=== PATIENT | male | born 1950 | race Caucasian/White ===

== ENCOUNTER 2016-08-20 08:34 | Emergency (ER) | payer BC, OTHER ==
[~2016-08-20] VITALS: Ht 170.2 cm; Wt 77.1 kg
[~2016-08-20 08:34] MED LIST: ALLOPURINOL100 M1 ORAL; ASACOL HD800 MG ORAL; ASPIRIN81 MG ORAL; BRILINTA90 MG PO; CARAFATE1 G1 JT; CARVEDILOL6.25 MG ORAL; CIPRO500 MG PO; CIPROFLOXACIN500 M2 ORAL; FERROUS SULFAT325 MG ORAL; LIPITOR80 MG ORAL; MULTIVITAMINS1 EAC2 ORAL; PRILOSEC20 MG ORAL; ROWASA4 GM/60 ML RECTAL; VENOFER50 MG/2.5 IV
[2016-08-20 08:58] VITALS: BP 129/81
[2016-08-20] MEDS ORDERED: ATENOLOL25 MG ORAL (09:11)
--- NOTE | 2016-08-20 10:13 | Emergency Room Report ---
History of Present Illness General Chief Complaint: General Complaint Source: Patient, Medical Record Present Illness HPI Patient has a history of ulcerative colitis status post colectomy. He also has a continent ileostomy pouch. He is having difficulty intubating the pouch. He states that has been going on for about 2-3 days and much worse last night. He denies any nausea or vomiting. He does complain of some mild abdominal distention. Patient's surgeon is Dr. Rodney Stone who informed me that patient is coming. Patient denies any fever. Symptoms noted to be moderate to severe. Dr. Stone felt that this likely will require evaluation in the endoscopy suite. No other modifying factors. No other associated signs and symptoms. No other complaints were noted. Allergies: Coded Allergies: CEPHALEXIN (Verified Allergy, Mild, 11/06/09) PENICILLIN G (Verified Allergy, Mild, 01/22/09) SULFA (SULFONAMIDE ANTIBIOTICS) (Verified Allergy, Mild, 11/07/09) Uncoded Allergies: ORAL FLAGYL (Adverse Reaction, Unknown, 11/07/09) Patient History Past Medical History: other - Colitis Past Surgical History: other - colectomy, ileostomy Social History: Denies: alcohol use, drug use, smoking Reviewed Nursing Documentation: PMH: Agreed, PSxH: Agreed Nursing Documentation-PMH Past Medical History: No History, Except For Hx Cardiac Problems: Yes Hx Cancer: No Hx Gastrointestinal Problems: Yes Hx Neurological Problems: No Review of Systems All Other Systems: negative except mentioned in HPI Physical Exam Vital Signs Date Time Temp Pulse Resp B/P Pulse Ox O2 Delivery O2 Flow Rate FiO2 08/20/16 08:47 98.1 66 18 129/81 97 Room Air Sp02 EP Interpretation: reviewed, normal General Appearance: normal inspection, well appearing, no apparent distress, alert Head: atraumatic Eyes: bilateral eye normal inspection ENT: normal ENT inspection, hearing grossly normal, normal voice Neck: normal inspection, full range of motion, supple, no bony tend Respiratory: normal inspection, lungs clear, normal breath sounds, no respiratory distress, no retraction, no wheezing Cardiovascular #1: regular rate, rhythm, no edema Gastrointestinal: normal inspection, normal bowel sounds, non tender, soft, no guarding, no hernia Genitourinary: no CVA tenderness Musculoskeletal: normal inspection, back normal, normal range of motion Neurologic: normal inspection, alert, responsive, speech normal Psychiatric: normal inspection, judgement/insight normal, mood/affect normal Skin: normal inspection, normal color, no rash Medical Decision Making Diagnostic Impression: Primary Impression: Ileostomy obstruction Additional Impression: Ileostomy stenosis ER Course Patient presents emergency department today complaining of ileostomy obstruction. Differential considerations include collapsed at the colostomy valve, infectious process, bowel obstruction ust name a few. Given patient's presentation patient requires evaluation by surgery. Case was discussed with Dr. Rodney Stone who saw the patient emergency department and took the patient to the endoscopy suite to evaluate the ileostomy. EKG Diagnostic Results EP Interpretation: 67 Rate: normal Rhythm: NSR ST Segments: no acute changes Rhythm Strip Diag. Results EP Interpretation: yes Rate: 60s Rhythm: NSR, no PVC's, no ectopy Other X-Ray Diagnostic Results X-Ray ordered: abdominal x-rays # of Views/Limited Vs Complete: 4 View EP Interpretation: Yes Interpretation: no fractures, no soft tissue swelling, other - surgical clips, no obstruction Indication: Pain Impression: No acute disease Interpreting ER Provider: Electronically signed by Becky Melendez MD Last Vital Signs Date Time Temp Pulse Resp B/P Pulse Ox O2 Delivery O2 Flow Rate FiO2 08/20/16 08:58 98.1 18 129/81 97 Room Air 08/20/16 08:47 66 Status: improved Disposition: HOME, SELF-CARE Condition: Stable BECKY MELENDEZ M.D. Aug 20, 2016 10:13
[2016-08-20 11:26] VITALS: BP 114/74
[2016-08-20 11:38] VITALS: BP 114/74
--- NOTE | 2016-08-20 15:16 | History and Physical Report ---
DATE OF EMERGENCY ROOM VISIT: 08/20/2016 REASON FOR VISIT: Inability to catheterize Denise Continent Ileostomy HISTORY OF PRESENT ILLNESS: The patient is a 66-year-old male, in fairly stable health, who has previously undergone proctocolectomy for ulcerative colitis and has a Denise type of Kock pouch continent ileostomy. The patient usually intubates with a 30-Fijian silicone catheter several times a day and has no incontinence of stool or gas through the stoma. For the past two weeks, the patient has developed some difficulty intubating, but then yesterday and overnight developed severe difficulty inserting his regular catheter. He could only insert a much smaller 24-Fijian catheter, which itself had a tear in it, making it worrisome for traumatizing the stoma and pouch. He also states that his catheter must go all the way in to the pouch before it can drain, which is unusual for him. In view of the severe difficulty with intubation and complete inability to insert any catheter for 24 hours, I advised him to come directly to the emergency room this morning. He has been found to be stable and will undergo Denise pouch endoscopy, hopefully without any anesthesia. MEDICATIONS: Aspirin 81 mg daily, statin, Prilosec, allopurinol, in the past vitamin B12 injections and Venofer infusions. ALLERGIES: Penicillin and Keflex. In addition, Flagyl taken orally causes GI upset. REVIEW OF SYSTEMS: Myocardial infarction in March 2015 with three coronary stents. Bladder stones in the past. GI bleeding while on Brilinta in December 2015 with ulcerated bleeding areas in the pouch that resolved with medical treatment and discontinuation of Brilinta. PHYSICAL EXAMINATION: GENERAL: The patient is well developed and well nourished, in no acute distress. Feeling uncomfortable. Complete evaluation by the emergency room physician showed he was stable. ABDOMEN: Examination of the abdomen revealed minimal distention, soft, and nontender and with a midline scar and a small umbilical hernia, which is reducible. The stoma of the Denise continent ileostomy is low in the right lower quadrant and is very small, but does admit a 30-Fijian catheter by visual inspection. He states that it also pulls inwards at times. EXTREMITIES: Without edema. NEUROLOGIC: Physiologic. IMPRESSION: 1. Acute inability to catheterize Denise continent ileostomy. 2. History of ulcerative colitis. 3. History of myocardial infarction with coronary artery stents March 2015 4. History of bladder stones. 5. STATUS POST MULTIPLE ABDOMINAL OPERATIONS: 5.1. Proctocolectomy with Lucy ileostomy in 1973. 5.2. Kock pouch in 1975. 5.3. Resection of Kock pouch and distal ileal stricture and creation of a Denise type of continent ileostomy in January 2009. 5.4. Revision of Denise continent ileostomy stoma in depth October 2009. PLAN: The patient requires emergency pouch endoscopy to be able to make a diagnosis as to why he is having this difficulty catheterizing his pouch. Treatment options will be reviewed once the endoscopic findings are noted. I have discussed the nature of the endoscopy with the patient, which he has been through before and usually and hopefully in this case as well he will not require any anesthesia or sedation. Rodney Stone M.D. DR: AISHA JOB#: [id number] MTDKen
--- NOTE | 2016-08-20 17:16 | Procedure Note ---
DATE OF PROCEDURE: 08/20/2016 ENDOSCOPY PROCEDURE REPORT ENDOSCOPIST: Rodney Stone M.D. PRE-ENDOSCOPY DIAGNOSES: 1. Malfunctioning Denise continent ileostomy with inability to catheterize requiring emergency pouch endoscopy. 2. History of ulcerative colitis. 3. Status post multiple abdominal operations. 3.1. Proctocolectomy with Lucy ileostomy in 1973. 3.2. Kock pouch in 1975. 3.3. Resection of Kock pouch and distal ileal stricture and creation of a Denise continent ileostomy January 2009. 3.4. Revision of Denise continent ileostomy stoma in depth October 2009 POST-ENDOSCOPY DIAGNOSES: 1. Malfunctioning Denise continent ileostomy with inability to catheterize requiring emergency pouch endoscopy. 2. History of ulcerative colitis. 3. Status post multiple abdominal operations. 3.1. Proctocolectomy with Lucy ileostomy in 1973. 3.2. Kock pouch in 1975. 3.3. Resection of Kock pouch and distal ileal stricture and creation of a Denise continent ileostomy January 2009. 3.4. Revision of Denise continent ileostomy stoma in depth October 2009 ENDOSCOPY PERFORMED: Emergency Denise pouch continent ileostomy pouch endoscopy. FINDINGS: 1. Stenosis of the stoma orifice barely admitting GIF-P140 endoscope. 2. Redundant and angulated access segment with distance to tip of the nipple valve 12 cm with angulation at 8 centimeters. 3. Stenosis of valve tip. 4. Diffuse pouchitis. DESCRIPTION OF PROCEDURE: The patient was positioned supine in the GI lab without any anesthesia or sedation given or required. Using a GIF-P140 endoscope, I was able to get into the stoma stricture. There was an angulation at 8 centimeters depth and the tip of the nipple valve was visualized at 12 cm with slight stenosis with the patient having some pain as the scope went through into the pouch. The pouch was distensible and there are diffuse areas of inflammation and superficial erosions. Retroflex views revealed that the nipple valve was circumferentially well-formed but slightly tilted. Withdrawal views confirmed the above findings. After the procedure, I was unable to insert a 28-Libyan Chahal catheter into the pouch but was able to insert a 26-Libyan Chahal and was able to evacuate the pouch. The patient was given a 30-Libyan Bhumi catheter and has been able to insert the Bhumi catheter to empty the pouch. I also provided him with a 24-Libyan Medena catheter and Chahal catheters 28Fr., 26Fr., and 24Fr. He will require laparotomy and revision of the stoma both to revise the stricture and to resect the elongated access segment which is redundant and angulated. He will need intensive treatment of his pouchitis before surgery can be performed, and fortunately he is now able to get a catheter into his pouch. He will immediately start Cipro 500 mg every 12 hours and I will prescribe Rowasa solution, which he will flush into his continent pouch at the last intubation of the day just prior to going to sleep before he removes his intubation catheter. The patient tolerated the endoscopy well and is be stable for discharge home. Rodney Stone M.D. DR: Kandi JOB#: [id number] JUAN M
--- NOTE | 2016-08-21 08:24 | Diagnostic Imaging Report ---
Indication: Abdominal pain Technique: Supine and upright views of the abdomen Comparison: none Findings: Bowel gas pattern is unremarkable. No gaseous distention of large or small bowel, significant air-fluid levels, or evidence of free intraperitoneal air. Surgical romeo are seen in the pelvis. Surgical clips are seen throughout the mid lower abdomen and right lower quadrant. Unusual masses or calcifications. Impression: No definite acute process Postsurgical changes, as described This agrees with the preliminary interpretation provided by the emergency room physician
--- NOTE | 2016-08-21 18:49 | Cardiology Report ---
APPROVED REPORT EKG Measurement Heart [id number] VT 160P50 [id number] Normal sinus rhythm with sinus arrhythmia Normal ECG
== END 2016-08-20 11:39 | disposition home or self-care (01) ==
LOC: EMR 09:09
DX: K94.19 Other complications of enterostomy (principal); K51.90 Ulcerative colitis, unspecified, without complications; Z87.442 Personal history of urinary calculi; Z88.1 Allergy status to other antibiotic agents; I25.2 Old myocardial infarction; Z95.5 Presence of coronary angioplasty implant and graft; I25.10 Atherosclerotic heart disease of native coronary artery without angina pectoris; Z79.82 Long term (current) use of aspirin; Z88.2 Allergy status to sulfonamides; Z88.0 Allergy status to penicillin; Y83.3 Surgical operation with formation of external stoma as the cause of abnormal reaction of the patient, or of later complication, without mention of misadventure at the time of the procedure; Y73.2 Prosthetic and other implants, materials and accessory gastroenterology and urology devices associated with adverse incidents; Y92.009 Unspecified place in unspecified non-institutional (private) residence as the place of occurrence of the external cause
CPT/HCPCS: 74020; 93005; 99283

== ENCOUNTER 2017-04-23 23:08 | Inpatient (IN) | payer BC, MEDICARE ==
[~2017-04-23] VITALS: Ht 170.2 cm; Wt 80.7 kg
[~2017-04-23 23:08] MED LIST changes: +ATENOLOL25 MG ORAL
[2017-04-23] MEDS ORDERED: NITROSTAT0.4 M2 SL (23:41)
[2017-04-23] MEDS ORDERED: GAVILYTE-G SO4000 ML PO (23:41)
[2017-04-23] MEDS ORDERED: POLYETHYLENE GL17 GM ORAL (23:41)
[2017-04-23] MEDS ORDERED: CIPRO500 MG PO (23:41)
[2017-04-23] MEDS ORDERED: ALLOPURINOL100 M1 ORAL (23:41)
[2017-04-23] MEDS ORDERED: CIALIS20 MG ORAL (23:41)
[2017-04-23] MEDS ORDERED: [UNRECOGNIZED DRUG - OTHER] TP (23:41)
[2017-04-23] MEDS ORDERED: BUDESONIDE EC3 M1 PO (23:41)
[2017-04-23] MEDS ORDERED: ATORVASTATIN CA40 MG ORAL (23:41)
[2017-04-23 23:53] LABS: BASOPHILS % (AUTO) 0.7 % (0.0-2.0); EOSINOPHILS % (AUTO) 0.7 % (0.0-3.0); HEMATOCRIT 43.4 % (42.0-52.0); HEMOGLOBIN 15.1 G/DL (14.2-18.0); LYMPHOCYTES % (AUTO) 18.5 % (20.0-45.0); MEAN CORPUSCULAR VOLUME 83 FL (80-99); NEUTROPHILS % (AUTO) 73.2 % (45.0-75.0); PLATELET COUNT 262 K/UL (150-450); RED BLOOD COUNT 5.25 M/UL (4.70-6.10); RED CELL DISTRIBUTION WIDTH 12.2 % (11.6-14.8); WHITE BLOOD COUNT 8.4 K/UL (4.8-10.8)
[2017-04-24 00:01] LABS: ANION GAP 8 mmol/L (5-15); BLOOD UREA NITROGEN 17 mg/dL (7-18); CALCIUM 9.3 MG/DL (8.5-10.1); CARBON DIOXIDE 26 MMOL/L (21-32); CHLORIDE 102 MMOL/L (98-107); CREATININE 1.5 MG/DL (0.55-1.30); POTASSIUM 3.7 MMOL/L (3.5-5.1); SODIUM 136 MMOL/L (136-145)
[2017-04-24 00:04] LABS: ALANINE AMINOTRANSFERASE 28 U/L (12-78); ALBUMIN 3.3 G/DL (3.4-5.0); ALBUMIN/GLOBULIN RATIO 0.8 (1.0-2.7); ALKALINE PHOSPHATASE 128 U/L (46-116); ASPARTATE AMINO TRANSFERASE 24 U/L (15-37); BILIRUBIN,TOTAL 0.7 MG/DL (0.2-1.0)
--- NOTE | 2017-04-24 00:13 | Emergency Room Report ---
History of Present Illness General Chief Complaint: Abdominal Pain Source: Patient Present Illness HPI Patient is a 67-year-old male who presented after having increased abdominal pain distention. The patient had a prior history of ulcerative colitis had previous total colectomy. He subsequently had a BCIR procedure. The patient noted have increased abdominal distention and as well as difficulty with catheterizing the pouch. He reported having increased abdominal pain and nausea. He states he's had prior myocardial infarction. He denies any vomiting. He states he was able to pass some gas. Allergies: Coded Allergies: CEPHALEXIN (Verified Allergy, Mild, 11/06/09) PENICILLIN G (Verified Allergy, Mild, 01/22/09) SULFA (SULFONAMIDE ANTIBIOTICS) (Verified Allergy, Mild, 11/07/09) Uncoded Allergies: ORAL FLAGYL (Adverse Reaction, Unknown, 11/07/09) Patient History Past Medical History: see triage record Reviewed Nursing Documentation: PMH: Agreed, PSxH: Agreed Nursing Documentation-PMH Hx Cardiac Problems: Yes - [place] 2015, 3 stents on heart Hx Cancer: No Hx Gastrointestinal Problems: Yes - colostomy Hx Neurological Problems: No Review of Systems All Other Systems: negative except mentioned in HPI Physical Exam Vital Signs Date Time Temp Pulse Resp B/P (MAP) Pulse Ox O2 Delivery O2 Flow Rate FiO2 04/23/17 23:13 99.2 107 18 126/83 99 Room Air 99.1 Sp02 EP Interpretation: reviewed, normal General Appearance: normal inspection, well appearing, no apparent distress, alert, GCS 15 Head: atraumatic ENT: normal ENT inspection, hearing grossly normal, normal voice Neck: normal inspection, full range of motion, supple, no bony tend Respiratory: normal inspection, lungs clear, normal breath sounds, no respiratory distress, no retraction, no wheezing Cardiovascular #1: regular rate, rhythm, no edema Gastrointestinal: non tender, soft, no guarding, no hernia, distended, hernia - umbilical hernia, other - surgical scars Genitourinary: no CVA tenderness Musculoskeletal: normal inspection, back normal, normal range of motion Neurologic: normal inspection, alert, oriented x3, responsive, manager meat III-XII nml as tested, motor strength/tone normal, speech normal Psychiatric: normal inspection, judgement/insight normal, mood/affect normal Skin: normal inspection, normal color, no rash Medical Decision Making Diagnostic Impression: Primary Impression: History of coronary artery stent placement Additional Impressions: Abdominal pain Malfunction of stoma ER Course Patient presented for abdominal pain. Differential diagnoses included ischemic bowel, appendicitis, perforated viscus, abdominal aortic aneurysm, inferior myocardial infarction, viral gastroenteritis. Because of complexity of patient' s case laboratory testing and imaging studies were ordered. The patient noted have increased abdominal distention. The patient had a hernia which appears reducible. The patient was noted to have prior history of [place]. The patient was given nausea medications he started on IV fluids. The patient be admitted to Dr. Stone for further evaluation treatment. This medical record is generated with [employer] cook ice cream software. There may be some cook ice cream discrepancies related to use of this software Labs Test 04/23/17 23:00 White Blood Count 8.4 K/UL (4.8-10.8) Red Blood Count 5.25 M/UL (4.70-6.10) Hemoglobin 15.1 G/DL (14.2-18.0) Hematocrit 43.4 % (42.0-52.0) Mean Corpuscular Volume 83 FL (80-99) Mean Corpuscular Hemoglobin 28.7 PG (27.0-31.0) Mean Corpuscular Hemoglobin Concent 34.8 G/DL (32.0-36.0) Red Cell Distribution Width 12.2 % (11.6-14.8) Platelet Count 262 K/UL (150-450) Mean Platelet Volume 6.6 FL (6.5-10.1) Neutrophils (%) (Auto) 73.2 % (45.0-75.0) Lymphocytes (%) (Auto) 18.5 % (20.0-45.0) Monocytes (%) (Auto) 7.0 % (1.0-10.0) Eosinophils (%) (Auto) 0.7 % (0.0-3.0) Basophils (%) (Auto) 0.7 % (0.0-2.0) Sodium Level 136 MMOL/L (136-145) Potassium Level 3.7 MMOL/L (3.5-5.1) Chloride Level 102 MMOL/L (98-107) Carbon Dioxide Level 26 MMOL/L (21-32) Anion Gap 8 mmol/L (5-15) Blood Urea Nitrogen 17 mg/dL (7-18) Creatinine 1.5 MG/DL (0.55-1.30) Estimat Glomerular Filtration Rate 47.0 mL/min (>60) Glucose Level 128 MG/DL (74-106) Calcium Level 9.3 MG/DL (8.5-10.1) Total Bilirubin 0.7 MG/DL (0.2-1.0) Aspartate Amino Transf (AST/SGOT) 24 U/L (15-37) Alanine Aminotransferase (ALT/SGPT) 28 U/L (12-78) Alkaline Phosphatase 128 U/L (46-116) Total Protein 7.4 G/DL (6.4-8.2) Albumin 3.3 G/DL (3.4-5.0) Globulin 4.1 g/dL Albumin/Globulin Ratio 0.8 (1.0-2.7) Lipase 197 U/L (73-393) Last Vital Signs Date Time Temp Pulse Resp B/P (MAP) Pulse Ox O2 Delivery O2 Flow Rate FiO2 3/2/18 23:13 99.2 107 18 126/83 99 Room Air 99.1 Status: improved Disposition: HOME, SELF-CARE Condition: Stable Gideon Lopez Apr 24, 2017 00:13
[2017-04-24 01:15] VITALS: BP 132/85
[2017-04-24] MEDS ORDERED: Morphine Sulfate 4mg/ml Inj IVP ONE ×2 (01:15→02:45)
[2017-04-24 01:22] LABS: APPEARANCE,URINE CLEAR; BILIRUBIN, URINE NEGATIVE (NEGATIVE); GLUCOSE, URINE (UA) NEGATIVE (NEGATIVE); KETONES,URINE NEGATIVE (NEGATIVE); LEUKOCYTE ESTERASE ,URINE 1+ (NEGATIVE); NITRITE,URINE NEGATIVE (NEGATIVE); PH,URINE 5 (4.5-8.0); PROTEIN,URINE 1+ (NEGATIVE); UROBILINOGEN,URINE NORMAL MG/DL (0.0-1.0)
[2017-04-24 01:23] LABS: COLOR,URINE YELLOW
[2017-04-24 03:00] VITALS: BP 143/90
[2017-04-24] MEDS: D5 1/2NS w/KCl 20mEq 1,000 ML IV SCH ×3 (04:53→20:57)
[2017-04-24 08:00] VITALS: BP 103/72
--- NOTE | 2017-04-24 08:32 | General Progress Note ---
Progress Note Progress Note H&P dictated. Admitted from ED at 0130 for bowel obstruction due to malfunctioning Denise continent ileostomy Unable to catheterize his Denise Continent Ileostomy since 0400 yesterday AM. Developed cramping and bloating and told to come to ER Admitted andj 24 fr Chahal inserted into BCIR pouch with drainage of 285cc enteric fluid past 4 hours. and feeling better but still with abdominal pain/ cramps AVSS Abdomen moderately distended, soft. Long midline incision with hernia in epigastric portion and at umbilical portion ER labs OK - repeat pending Imp. small bowel obstruction due to malfunctioning Denise Continent Ileostomy with inability to catheterize History of proctocolectomy and continent ileostomy x 2 for Ulcerative Colitis Plan: NPO except po meds, ice chips Prepare for surgery - laparotomy with revision Denise pouch on this admission once obstruction has resolved CYNDI BLACKMAN Apr 24, 2017 08:31
[2017-04-24 08:41] LABS: EOSINOPHILS % (AUTO) 0.8 % (0.0-3.0); HEMATOCRIT 42.1 % (42.0-52.0); HEMOGLOBIN 14.2 G/DL (14.2-18.0); LYMPHOCYTES % (AUTO) 19.5 % (20.0-45.0); MEAN CORPUSCULAR VOLUME 85 FL (80-99); MONOCYTES % (AUTO) 6.8 % (1.0-10.0); PLATELET COUNT 237 K/UL (150-450); RED BLOOD COUNT 4.99 M/UL (4.70-6.10); RED CELL DISTRIBUTION WIDTH 12.8 % (11.6-14.8); WHITE BLOOD COUNT 7.1 K/UL (4.8-10.8)
[2017-04-24 08:56] LABS: ALANINE AMINOTRANSFERASE 25 U/L (12-78); ALBUMIN/GLOBULIN RATIO 0.8 (1.0-2.7); ALKALINE PHOSPHATASE 108 U/L (46-116); ANION GAP 4 mmol/L (5-15); ASPARTATE AMINO TRANSFERASE 21 U/L (15-37); BILIRUBIN,TOTAL 0.8 MG/DL (0.2-1.0); BLOOD UREA NITROGEN 15 mg/dL (7-18); CALCIUM 8.7 MG/DL (8.5-10.1); CARBON DIOXIDE 29 MMOL/L (21-32); CHLORIDE 105 MMOL/L (98-107); CREATININE 1.4 MG/DL (0.55-1.30); POTASSIUM 4.1 MMOL/L (3.5-5.1); SODIUM 138 MMOL/L (136-145)
[2017-04-24] MEDS: Allopurinol 100mg Tab ORAL SCH (09:03)
[2017-04-24] MEDS: Pantoprazole Inj IVP SCH (09:03)
[2017-04-24] MEDS: Ascorbic Acid 500mg tab ORAL PRN (09:03)
--- NOTE | 2017-04-24 10:42 | Diagnostic Imaging Report ---
Indication: Cough Comparison: 01/09/2016 A single view chest radiograph was obtained. Findings: Heart size is normal. The aorta is ectatic. Pulmonary vascularity is appropriate. The diaphragmatic contour is smooth and costophrenic angles are sharp. No pleural effusions are identified. The bones are unremarkable. Impression: No acute findings
[2017-04-24 12:00] VITALS: BP 111/72
[2017-04-24 16:00] VITALS: BP 113/79
[2017-04-24 20:00] VITALS: BP 119/82
--- NOTE | 2017-04-24 20:45 | History and Physical Report ---
DATE OF ADMISSION: 04/24/2017 EMERGENCY ADMISSION FROM EMERGENCY DEPARTMENT 0200 HISTORY OF PRESENT ILLNESS: The patient is admitted for bowel obstruction due to a malfunctioning Denise continent ileostomy with inability to catheterize to evacuate waste and gas. The patient is a 67-year-old male in stable health who has a past history of ulcerative colitis and has previously undergone proctocolectomy initially with a conventional ileostomy in 1973 followed by creation of a Kock pouch continent ileostomy in 1975. In January 2009 he underwent resection of his Kock pouch with distal ileal stricture and creation of a Denise type of continent ileostomy. He required revision of the stoma in depth in October 2009. The patient was admitted as an emergency in similar circumstances in July 2016 with inability to intubate with subsequent bowel obstruction. He was stabilized and underwent endoscopy of his pouch revealing a redundant and angulated access segment with the distance from the stoma orifice, which was stenotic, to the tip of the nipple valve 12 cm with an angulation at 8 cm. There was also stenosis of the valve tip and diffuse pouchitis. He was treated for the pouchitis with improvement and was informed that he needed to undergo laparotomy with revision of his pouch and stoma to allow him to intubate readily. His health insurance company, which is an [employer] refused to allow out of network care and the patient has struggled since then to get authorization. He has been taking Cipro for pouchitis symptoms and earlier took mesalamine instilled into the pouch nightly. At 5 a.m., the day prior to admission, 04/23/2017, the patient intubated, but got only a small amount of effluent and has not been able to catheterize and evacuate at all. He has had progressing distention and some nausea and was advised to come to the emergency room. He was admitted and a 24-Estonian Chahal catheter was able to be placed into the pouch to get decompression. He usually catheterizes with a 30-Estonian Medena or Bhumi catheter. MEDICATIONS: Allopurinol 100 mg every night, Prilosec daily, and aspirin 81 mg daily. He takes a statin for cholesterol and vitamin B12 injections. ALLERGIES: Penicillin and Keflex. In addition, Flagyl taken orally causes GI upset. REVIEW OF SYSTEMS: 1) Myocardial infarction in March 2015 with three coronary stents. 2) Bladder stones in the past. 3) GI bleeding while on Brilinta in December 2015 with ulcerations of the pouch that were diffusely bleeding that resolved with medical treatment and discontinuation of Brilinta. PHYSICAL EXAMINATION: GENERAL: The patient is well developed, well nourished, slightly overweight, complaining of some mild abdominal cramping. HEENT: Within normal limits. LUNGS: Clear. HEART: Regular rhythm without murmur. BREASTS: Without masses. ABDOMEN: Mildly to moderately distended, but soft. There is a long midline scar with an incisional hernia in the epigastric portion as well as at the umbilical area, both of which are reducible. The stoma of the Denise continent ileostomy is low in the right lower quadrant with a stenotic orifice. There is an indwelling 24-Estonian catheter connected to continuous gravity drainage producing liquid effluent. EXTREMITIES: Without edema. Pulses 2+ femoral to pedal bilateral RECTAL: Status post proctectomy. GENITALIA: Within normal limits. NEUROLOGIC: Physiologic. LABORATORY STUDIES: Revealed white blood cells 8400 and hemoglobin 15.1. BUN 17 and creatinine elevated at 1.5. Albumin 3.3. Followup studies will be obtained after the patient is fully hydrated. IMPRESSION: 1. Small bowel obstruction due to malfunctioning Denise continent ileostomy with inability to catheterize. 2. Dehydration 3. Malnutrition 4. History of ulcerative colitis. 5. History of myocardial infarction in March 2015 with three coronary stents. 6. History of gout, on allopurinol. 7. History of recurrent bladder stones. 8. Status post multiple abdominal operations. 1. Proctocolectomy with Lucy ileostomy in 1973. 2. Kock pouch continent ileostomy in 1975. 3. Resection of Kock pouch and distal ileal stricture and creation of a Denise type of continent ileostomy in January 2009. 4. Revision of Denise continent ileostomy stoma in depth, October 2009 DISCUSSION AND PLAN: The patient's bowel obstruction will gradually resolve with continuous decompression of his continent ileostomy with an indwelling catheter. As this is his second episode of emergency room visit with emergency admission, he will not be discharged until he undergoes surgery with laparotomy to correct the inability to intubate. This will need to wait until his obstructed bowel is completely decompressed. He will also be seen by Cardiology to assess his cardiac status. At this point, he will be NPO except for p.o. medications and we will continue with intravenous hydration and followup lab studies. He will be continued on allopurinol orally and Protonix intravenously. His pre-admission statin and daily aspirin therapy will be held at this time. He will be seen pre-operatively by Cardiology. Rodney Stone M.D. DR: Courtney JOB#: [id number] CC: JUAN M
[2017-04-25] VITALS (7 sets, daily range): BP systolic 100–122; BP diastolic 72–99
[2017-04-25] MEDS: D5 1/2NS w/KCl 20mEq 1,000 ML IV SCH ×3 (05:06→18:00)
[2017-04-25 08:37] LABS: BASOPHILS % (AUTO) 1.2 % (0.0-2.0); EOSINOPHILS % (AUTO) 1.7 % (0.0-3.0); HEMATOCRIT 39.4 % (42.0-52.0); HEMOGLOBIN 13.6 G/DL (14.2-18.0); LYMPHOCYTES % (AUTO) 23.7 % (20.0-45.0); MEAN CORPUSCULAR VOLUME 84 FL (80-99); MONOCYTES % (AUTO) 7.7 % (1.0-10.0); NEUTROPHILS % (AUTO) 65.8 % (45.0-75.0); PLATELET COUNT 223 K/UL (150-450); RED BLOOD COUNT 4.67 M/UL (4.70-6.10); RED CELL DISTRIBUTION WIDTH 12.6 % (11.6-14.8)
[2017-04-25] MEDS: Allopurinol 100mg Tab ORAL SCH (08:44)
[2017-04-25] MEDS: Pantoprazole Inj IVP SCH (08:44)
[2017-04-25] MEDS: Ascorbic Acid 500mg tab ORAL PRN ×2 (08:44→21:15)
[2017-04-25] MEDS: Lidocaine 1% MPF 10mg/ml 5ml INJ SCH (08:45)
[2017-04-25] MEDS: Heparin 2000 units/Ns 1000ml INJ SCH (08:45)
--- NOTE | 2017-04-25 08:50 | General Progress Note ---
Progress Note Progress Note AVSS Still having painful cramping but much improved. No nausea or emesis Abdomen less distended, soft Urine 650 BCIR ileo 1290 Labs pending Imp. SBO due to malfunctioning Denise Continent Ileostomy - resolving slowly Plan: Continue NPO IN AM: CT scan abd+pelvis with oral and IV contrast In AM - Dual lumen PICC - will need TPN Surgery 04/27 or 04/28 Await labs CYNDI BLACKMAN Apr 25, 2017 08:50
[2017-04-25 09:18] LABS: ANION GAP 6 mmol/L (5-15); BLOOD UREA NITROGEN 10 mg/dL (7-18); CALCIUM 8.4 MG/DL (8.5-10.1); CARBON DIOXIDE 28 MMOL/L (21-32); CHLORIDE 104 MMOL/L (98-107); CREATININE 1.3 MG/DL (0.55-1.30); POTASSIUM 3.9 MMOL/L (3.5-5.1); SODIUM 138 MMOL/L (136-145)
[2017-04-25] MEDS ORDERED: NS Irrig 1000ml ONE (15:21)
[2017-04-25] MEDS ORDERED: D5 1/2NS 1000ml IV ONE (15:21)
[2017-04-25] MEDS ORDERED: Sterile Water Irrig 1000ml IRRIG ONE (15:21)
[2017-04-25] MEDS: Dyna-Hex 2% Top Sol 2oz TOPIC SCH (20:00)
[2017-04-26 04:00] VITALS: BP 121/80
[2017-04-26] MEDS: D5 1/2NS w/KCl 20mEq 1,000 ML IV SCH ×3 (05:00→19:13)
[2017-04-26 05:16] LABS: ANION GAP 2 mmol/L (5-15); BLOOD UREA NITROGEN 8 mg/dL (7-18); CALCIUM 8.7 MG/DL (8.5-10.1); CARBON DIOXIDE 32 MMOL/L (21-32); CHLORIDE 103 MMOL/L (98-107); CREATININE 1.2 MG/DL (0.55-1.30); POTASSIUM 3.8 MMOL/L (3.5-5.1); SODIUM 137 MMOL/L (136-145)
[2017-04-26 05:17] LABS: BASOPHILS % (AUTO) 1.2 % (0.0-2.0); EOSINOPHILS % (AUTO) 1.9 % (0.0-3.0); HEMATOCRIT 39.1 % (42.0-52.0); HEMOGLOBIN 13.5 G/DL (14.2-18.0); LYMPHOCYTES % (AUTO) 26.4 % (20.0-45.0); MEAN CORPUSCULAR VOLUME 84 FL (80-99); MONOCYTES % (AUTO) 9.4 % (1.0-10.0); NEUTROPHILS % (AUTO) 61.2 % (45.0-75.0); PLATELET COUNT 222 K/UL (150-450); RED BLOOD COUNT 4.67 M/UL (4.70-6.10); RED CELL DISTRIBUTION WIDTH 12.2 % (11.6-14.8); WHITE BLOOD COUNT 5.2 K/UL (4.8-10.8)
[2017-04-26 08:07] VITALS: BP 139/94
[2017-04-26] MEDS: Lidocaine 1% MPF 10mg/ml 5ml INJ SCH (08:45)
[2017-04-26] MEDS: Heparin 2000 units/Ns 1000ml INJ SCH (08:45)
[2017-04-26] MEDS ORDERED: Dextrose 10% 1,000 ML IV PRN (08:45)
[2017-04-26] MEDS: Pantoprazole Inj IVP SCH (08:50)
[2017-04-26] MEDS: Allopurinol 100mg Tab ORAL SCH (08:50)
--- NOTE | 2017-04-26 08:53 | General Progress Note ---
Progress Note Progress Note AVSS Abdomen feeling nearly back to normal per patient. Abdomen soft, non-distended Urine 2150 BCIR ileo 1605 WBC 5200 Hgb 13.5 BUN 8 Cr 1.2 (was 1.5 on admission) Albumin 3.0 Imp. SBO due to inability to catheterize Denise Continent Ileostomy - resolved Dehydration on admission with elevated creatinine - resolved Malnutrition Chronic Pouchitis involving Denise Continent Ileostomy Plan: CT scan abd+pelvis Dual lumen PIC line Start TPN tonight Surgery this week - laparotomy with revision Denise continent ileostomy because of redundant and angulated access segment, stenosis of valve tip, stoma stenosis CYNDI BLACKMAN Apr 26, 2017 08:53
[2017-04-26 12:00] VITALS: BP 129/81
--- NOTE | 2017-04-26 14:07 | Diagnostic Imaging Report ---
Clinical Indication: Abdominal pain and abdominal distention Technique: Patient given oral contrast. IV administration nonionic contrast. Venous phase spiral acquisition obtained through the abdomen and pelvis. Multiplanar reconstructions were generated. Total dose length product 742.67 mGycm. CTDIvol(s) 14.56 mGy. Dose reduction achieved using automated exposure control Comparison: 02/27/2015 Findings: Continent ileostomy is again demonstrated, contains a catheter. Contrast is seen within the catheter. The ileostomy pouch is less distended than on the previous study. The russell of the ileostomy pouch are mildly thickened. This is more so than on the prior study, but previously the was more distended so is possible that this apparent difference is just an artifact of under distention. There is equivocal minimal stranding of the immediately adjacent fat. Again demonstrated is a broad-based ventral hernia which contains several loops of small bowel. This does not appear to be obstructive and there is no evidence of strangulation. 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 Several small bowel loops are mildly prominent but not frankly distended. There is mild wall thickening of a short segment of small bowel that enters into the ileostomy. No free or loculated intraperitoneal air or fluid is evident. Distal esophagus, stomach are unremarkable. Numerous clips are seen scattered throughout the abdomen. A small duodenal diverticulum is again demonstrated. The liver is unremarkable, previously demonstrated generalized low-attenuation not evident currently. There is equivocal mild edema of the gallbladder wall. No gallstones. The pancreas, spleen, adrenals are unremarkable. The kidneys demonstrate multiple cysts, as well as multiple subcentimeter low-attenuation lesions which are too small to characterize. There is an exophytic lesion in the periphery of the left kidney which previously demonstrated fluid attenuation, currently demonstrates nonspecific soft tissue attenuation is smaller than on the prior exam, previously measuring 26 mm diameter, currently 18 mm. Collecting systems, ureters, and bladder are unremarkable. No pelvic mass or adenopathy. No retroperitoneal or mesenteric mass or adenopathy. The included lung bases are clear. The bones are unremarkable. Impression: Post surgical changes, status post continent ileostomy and total colectomy, as described. No evidence of small bowel obstruction. Contrast is seen filling the ileostomy. Mild wall thickening of the pouch and the small bowel immediately proximal to the ileostomy, not evident previously, and equivocal stranding of the surrounding fat. Although the pouch is less distended, than previously this raises the possibility of inflammation of the pouch, acuity indeterminate. Correlate with clinical findings. Left-sided interpolar renal lesion demonstrates soft tissue attenuation. Previously, this was cystic and larger. Most likely, this is a cyst that has involuted and blood. Nonetheless, ultrasound is recommended to confirm cystic nature of this. Other bilateral renal cysts and subcentimeter low-attenuation lesions which are most likely simple cysts. Equivocal mild edema of the gallbladder wall. No gallstones. Correlate with clinical findings, consider ultrasound if clinically suspicious Small duodenal diverticulum incidentally noted Previously demonstrated hepatic fatty change is no longer evident Findings discussed by phone with Dr. Stone at the time of interpretation The CT scanner at [facility] is accredited by the [employer] and the scans are performed using protocols designed to limit radiation exposure to as low as reasonably achievable to attain images of sufficient resolution adequate for diagnostic evaluation.
--- NOTE | 2017-04-26 15:07 | Diagnostic Imaging Report ---
Indications: Needs long-term IV access Technique: Ultrasound confirms patent compressible left basilic vein. Total sterile technique, including sterile probe cover and sterile gel, hat, mask,, sterile gown, large sterile drape, and preparation with 2% chlorhexidine utilized. Local anesthesia with 1% lidocaine. Under real-time ultrasound guidance, puncture left basilic vein using 21-gauge needle, documented and archived, passage 0.018 guidewire under direct fluoroscopy, which would not pass centrally beyond the left subclavian vein. 5 [place]ar[place]uan peel-away sheath was inserted, followed by introduction of a 5 [place] Kumpe catheter. This was used to perform a limited central venogram. 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 Patency of the right innominate vein and superior vena cava, filled by collaterals, is demonstrated. It was elected to abandon this access and attempted via the right arm, as central catheter placement was required for indication of total parenteral nutrition Ultrasound confirms patent compressible right vein. Total sterile technique, including sterile probe cover and sterile gel, hat, mask,, sterile gown, large sterile drape, and preparation with 2% chlorhexidine utilized. Local anesthesia with 1% lidocaine. Under real-time ultrasound guidance, puncture right basilic vein using 21-gauge needle, documented and archived, passage 0.018 guidewire under direct fluoroscopy, which was used to determine appropriate catheter length, exchange for 5 [place]ar[place]uan peel-away sheath. 5 [place] Bard dual-lumen power PICC cut to 39 cm. It was inserted through the peel-away sheath. Peel-away sheath and guidewire removed. Catheter fixed to the skin. Both catheter ports aspirated and flushed. Patient tolerated procedure well, without immediate complication. Digital radiograph documents satisfactory catheter tip position, at the cavoatrial junction. Total fluoroscopy time 1.3 minutes. Total dose area product 1.1 dGycm2 Impression: Successful placement of right arm PICC under sonographic and fluoroscopic guidance, as described above. Note venographic demonstration of central venoocclusive disease, precluding placement of PICC from a left-sided approach
[2017-04-26 16:00] VITALS: BP 123/79
--- NOTE | 2017-04-26 17:21 | Diagnostic Imaging Report ---
Indication: Abnormal renal function, evaluation of left renal abnormality seen on recent CT scan Technique: Grayscale and duplex images of the kidneys, retroperitoneum, and bladder were obtained. Comparison: Reference made to CT scan 04/26/2017 Findings: Right kidney measures 10.7 cm in length. Left kidney measures 1.3 cm in length. Both kidneys demonstrate normal echogenicity. No hydronephrosis. The kidneys demonstrate cysts bilaterally. In the left renal interpolar region, there is a slightly irregular lesion which corresponds to the abnormality described on recent CT. Uncertain as to whether anechoic versus hypoechoic, but does demonstrate distal acoustic enhancement and absence of vascularity. Normal inferior vena cava. Bladder is normal. Impression: Left interpolar region lesion is probably but not definitively a cyst. Equivocal low-level internal echoes could indicate internal hemorrhage or proteinaceous contents if real. Recommend short interval follow-up sonographic surveillance in 6 months. Other cysts, as described Negative for hydronephrosis
[2017-04-26 19:56] VITALS: BP 134/82
[2017-04-26] MEDS: Dyna-Hex 2% Top Sol 2oz TOPIC SCH (20:35)
[2017-04-26] MEDS: Phytonadione 10 mg/mL 1ml amp SUBQ SCH (20:36)
[2017-04-26] MEDS: Fat Emulsion Iv 20% 240 ML in Tpn 1,680 ML IV SCH (20:38)
[2017-04-26] MEDS ORDERED: Fat Emulsion Iv 20% 250 ML IV SCH (21:00)
[2017-04-27] VITALS: BP 129/73
[2017-04-27] MEDS: NovoLOG Insulin Flexpen SUBQ SCH ×4 (00:25→18:14)
[2017-04-27] MEDS: D5 1/2NS w/KCl 20mEq 1,000 ML IV SCH (03:29)
[2017-04-27 04:00] VITALS: BP 128/74
[2017-04-27 04:38] LABS: BASOPHILS % (AUTO) 0.7 % (0.0-2.0); EOSINOPHILS % (AUTO) 0.8 % (0.0-3.0); HEMATOCRIT 40.6 % (42.0-52.0); HEMOGLOBIN 13.9 G/DL (14.2-18.0); LYMPHOCYTES % (AUTO) 16.4 % (20.0-45.0); MEAN CORPUSCULAR VOLUME 83 FL (80-99); MONOCYTES % (AUTO) 5.2 % (1.0-10.0); NEUTROPHILS % (AUTO) 76.8 % (45.0-75.0); PLATELET COUNT 224 K/UL (150-450); RED BLOOD COUNT 4.88 M/UL (4.70-6.10); WHITE BLOOD COUNT 6.8 K/UL (4.8-10.8)
[2017-04-27 04:58] LABS: ALANINE AMINOTRANSFERASE 18 U/L (12-78); ALBUMIN 2.6 G/DL (3.4-5.0); ALBUMIN/GLOBULIN RATIO 0.7 (1.0-2.7); ALKALINE PHOSPHATASE 105 U/L (46-116); ANION GAP 5 mmol/L (5-15); ASPARTATE AMINO TRANSFERASE 17 U/L (15-37); BILIRUBIN,TOTAL 0.5 MG/DL (0.2-1.0); BLOOD UREA NITROGEN 7 mg/dL (7-18); CALCIUM 8.8 MG/DL (8.5-10.1); CARBON DIOXIDE 32 MMOL/L (21-32); CHLORIDE 102 MMOL/L (98-107); CREATININE 1.2 MG/DL (0.55-1.30); POTASSIUM 3.9 MMOL/L (3.5-5.1); SODIUM 139 MMOL/L (136-145)
[2017-04-27] MEDS ORDERED: D5 1/2NS w/KCl 20mEq 1,000 ML IV SCH (05:00)
[2017-04-27 08:00] VITALS: BP 127/69
--- NOTE | 2017-04-27 08:10 | General Progress Note ---
Progress Note Progress Note AVSS Now receiving TPN - PIC line right arm with some pain in upper arm muscles. 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 Having some cramping - likely due to the contrast for CT scan Abdomen soft Urine 2145 BCIR ileo 1465 BUN 7 Cr [address] scan - no acute findings. Bilateral renal cysts with some changes from prior CT. Renal ultrasound - benign but changes from prior so recommended f/u ultrasound in 6 months Imp. Malfunctioning Denise Continent Ileostomy leading to SBO, now resolved Malnutrition - started on TPN Plan: Cardiology clearance for Surgery later this week - Dr. Aviles will see patient (known to him from prior admission/office eval) clear liquid diet TPN Ambulate CYNDI WEISS Apr 27, 2017 08:10
[2017-04-27] MEDS: Pantoprazole Inj IVP SCH (08:40)
[2017-04-27] MEDS: Allopurinol 100mg Tab ORAL SCH (08:40)
[2017-04-27 12:00] VITALS: BP 138/76
--- NOTE | 2017-04-27 13:59 | Cardiology Progress Note ---
Assessment/Plan Assessment/Plan malfunctioining contintent poudh hx of cad nwo follwoed by new educational technology specialist through his hmo malnutrition hy[poalbuminemia low- intermediate risk of perioperative cardiac morbidity non contraindication will have echo is on tpn for malnutrition [id number] Objective Last 24 Hour Vital Signs Date Time Temp Pulse Resp B/P (MAP) Pulse Ox O2 Delivery O2 Flow Rate FiO2 04/27/17 12:00 97.7 86 20 138/76 99 Room Air 97.7 04/27/17 08:07 98.5 04/27/17 08:00 99.6 86 18 127/69 97 Room Air 99.6 86 04/27/17 07:37 98.5 04/27/17 04:00 98.5 82 17 128/74 96 Room Air 98.5 04/27/17 00:00 98.0 72 17 129/73 96 Room Air 98.0 04/26/17 19:56 97.8 71 17 134/82 96 97.8 04/26/17 16:00 97.6 63 20 123/79 99 Room Air 97.6 Intake and Output 04/26/17 04/27/17 19:00 07:00 Intake Total 1050 ml 2040 ml Output Total 2115 ml 1495 ml Balance -1065 ml 545 ml Intake Oral 300 ml 600 ml IV Total 750 ml 1440 ml Output Urine Total 1195 ml 950 ml Other 920 ml 545 ml # Voids 6 Laboratory Tests Test 04/27/17 04:05 White Blood Count 6.8 K/UL (4.8-10.8) Red Blood Count 4.88 M/UL (4.70-6.10) Hemoglobin 13.9 G/DL (14.2-18.0) L Hematocrit 40.6 % (42.0-52.0) L Mean Corpuscular Volume 83 FL (80-99) Mean Corpuscular Hemoglobin 28.4 PG (27.0-31.0) Mean Corpuscular Hemoglobin Concent 34.2 G/DL (32.0-36.0) Red Cell Distribution Width 12.0 % (11.6-14.8) Platelet Count 224 K/UL (150-450) Mean Platelet Volume 6.3 FL (6.5-10.1) L Neutrophils (%) (Auto) 76.8 % (45.0-75.0) H Lymphocytes (%) (Auto) 16.4 % (20.0-45.0) L Monocytes (%) (Auto) 5.2 % (1.0-10.0) Eosinophils (%) (Auto) 0.8 % (0.0-3.0) Basophils (%) (Auto) 0.7 % (0.0-2.0) Sodium Level 139 MMOL/L (136-145) Potassium Level 3.9 MMOL/L (3.5-5.1) Chloride Level 102 MMOL/L (98-107) Carbon Dioxide Level 32 MMOL/L (21-32) Anion Gap 5 mmol/L (5-15) Blood Urea Nitrogen 7 mg/dL (7-18) Creatinine 1.2 MG/DL (0.55-1.30) Estimat Glomerular Filtration Rate > 60 mL/min (>60) Glucose Level 127 MG/DL (74-106) H Calcium Level 8.8 MG/DL (8.5-10.1) Total Bilirubin 0.5 MG/DL (0.2-1.0) Aspartate Amino Transf (AST/SGOT) 17 U/L (15-37) Alanine Aminotransferase (ALT/SGPT) 18 U/L (12-78) Alkaline Phosphatase 105 U/L (46-116) Total Protein 6.3 G/DL (6.4-8.2) L Albumin 2.6 G/DL (3.4-5.0) L Globulin 3.7 g/dL Albumin/Globulin Ratio 0.7 (1.0-2.7) L JUNIOR HURLEY Apr 27, 2017 13:59
--- NOTE | 2017-04-27 15:59 | Cardiology Report ---
APPROVED REPORT EXAM: Two-dimensional and M-mode echocardiogram with Doppler and color Doppler. INDICATION CAD M-Mode DIMENSIONS IVSd1.0 (0.7-1.1cm)Left Atrium (MM)3.3 (1.6-4.0cm) LVDd5.0 (3.5-5.6cm)Aortic Root2.9 (2.0-3.7cm) PWd1.0 (0.7-1.1cm)Aortic Cusp Exc.2.0 (1.5-2.0cm) LVDs3.1 (2.5-4.0cm) PWs1.3 cm Technically difficult study due to poor acoustical windows. Normal left ventricular chamber size, systolic function and wall motion. Left ventricular ejection fraction estimated to be 60-65%. No evidence of left ventricular hypertrophy. No evidence of pericardial or pleural effusion. Right cardiac chamber sizes are within normal limits. Mild left atrial enlargement by 2D. Focal aortic valve sclerosis with adequate cusp excursion. Thickened mitral valve leaflets with normal excursion. Mild mitral annulus and aortic root calcification. Pulmonic valve not well visualized. Normal tricuspid valve structure. IVC is normal in size and collapsible with respiration. A color flow and spectral Doppler study was performed and revealed: No aortic regurgitation. No mitral regurgitation. Mitral diastolic velocities suggest reduced left ventricular relaxation c/w diastolic dysfunction grade 1. No tricuspid regurgitation.
[2017-04-27 16:00] VITALS: BP 133/70
[2017-04-27 20:00] VITALS: BP 125/71
[2017-04-27] MEDS: Fat Emulsion Iv 20% 240 ML in Tpn 1,680 ML IV SCH (20:20)
[2017-04-27] MEDS: Dyna-Hex 2% Top Sol 2oz TOPIC SCH (20:20)
--- NOTE | 2017-04-27 23:30 | Consultation ---
DATE OF CONSULTATION: 04/27/2017 CARDIOLOGY CONSULTATION CONSULTING PHYSICIAN: Jose Alejandro Aviles M.D. REFERRING PHYSICIAN: Rodney Stone M.D. REASON FOR REFERRAL: Preoperative risk assessment. HISTORY OF PRESENT ILLNESS: The patient is a middle-aged gentleman, who is known to me from prior evaluation here in the hospitalization. He basically has history of coronary artery disease and has had three prior stents. His stents were previously put in a setting of an acute coronary syndrome when he had sustained and with [id number] myocardial infarction back in March 2015. Three stents were placed in the artery. He has a Kock pouch and he previously had some bleeding that apparently subsided and is basically malfunctioning. This required repeat surgery and this consultation requested. He has not had any chest pain or pressure. There is no PND. No orthopnea. No palpitations. He uses two pillows basically for snoring purposes. He is active. He does work around the house. He does walk long time on a regular basis and has no recurrent episodes of shortness of breath. No nausea or diaphoresis as he had before. His prior coronary syndrome did not include chest pain as a presenting symptom, however. PAST MEDICAL HISTORY: Positive for history of coronary artery disease, history of myocardial infarction with 3 stents in the left anterior artery, history of peptic ulcer disease, arthritis, B12 deficiency, proctocolectomy, Kock pouch placement, Denise continent ileostomy with revision, history of malfunction of the pouch, history of ulcerative colitis, history of multiple prior abdominal surgeries. MEDICATIONS: At this time include Lipitor and Ecotrin. SOCIAL HISTORY: He quit smoking in 1983. No alcohol. No drugs. Marijuana use in the 70s. He used to be in the [employer], but he has also been most recently retired. REVIEW OF SYSTEMS: GASTROINTESTINAL: No nausea or vomiting. No diarrhea. No bloody or black stool. GENITOURINARY: He denies. PULMONARY: He denies. CONSTITUTIONAL: He denies. NEUROLOGIC: He denies. PHYSICAL EXAMINATION: GENERAL: Shows to be an elderly gentleman, in no apparent distress. HEENT: Unremarkable. NECK: Supple. No jugular venous distention. No abdominojugular reflux noted. LUNGS: Clear to auscultation and percussion. CARDIAC: S1 is normal. S2 is normal. Regular rate and rhythm. No heaves or thrills noted. ABDOMEN: Soft and nontender. EXTREMITIES: There is no clubbing, cyanosis, nor is there any edema. NEUROLOGIC: He is awake, alert, responsive, in no apparent respiratory distress. LABORATORY AND DIAGNOSTIC DATA: White count 6.8, hemoglobin 13.9, and platelet count of 224. His sodium is 139, potassium 3.9, chloride 102, bicarbonate 32, BUN of 7, creatinine 1.2, glucose of 127. His albumin is 2.6. His INR is 1.2 and PTT of 27. Most recently, his urinalysis was fairly unremarkable. He has had a CT scan of his abdomen and pelvis, which was recently performed postsurgical changes status post continent ileostomy, no small-bowel obstruction and changes in relation to the ileostomy and the pouch was noted. He had a renal ultrasound that showed left interpolar lesion, he said it is probably not definitely a cyst. He has had a chest x-ray on the second that showed no acute findings. His electrocardiogram showed sinus rhythm, normal QRS axis, premature ventricular complexes are noted. No ST or T-wave abnormalities of any significant degree are noted. ASSESSMENT AND PLAN: 1. Failed continent pouch with malnutrition. 2. Hypoalbuminemia. 3. Intestinal blockage. Dr. Stone, this patient was seen in cardiac consultation. The patient is active. He does not have any signs or symptoms of coronary syndrome. He has had a history of coronary disease, status post stent placement. His anginal equivalent at that time were diaphoresis, shortness of breath, and nausea. There was no history of chest pains at that time. Nevertheless, he has not had any of those records. He is relatively active with walking around the house, doing housework, and walking with his dog without any significant history of problems. His EKG is unremarkable. He will have an echocardiogram, but I suspect he would have acceptable low intermediate risk of perioperative cardiac morbidity. I do not see any contraindications to the proposed surgery. His Ecotrin has been on hold. He is actually getting TPN at the present time because of his malnutrition and hypoalbuminemia as per own recommendation. Of note, he is now being seen by a new division leader, who told him that he was doing well and his next appointment will be in 1 year. Jose Alejandro Aviles M.D. DR: Renita JOB#: [id number] CC:
[2017-04-28] VITALS: BP 131/78
[2017-04-28] MEDS: NovoLOG Insulin Flexpen SUBQ SCH ×4 (00:21→18:06)
[2017-04-28 04:00] VITALS: BP 131/77
[2017-04-28 05:06] LABS: BASOPHILS % (AUTO) 1.1 % (0.0-2.0); EOSINOPHILS % (AUTO) 2.3 % (0.0-3.0); HEMATOCRIT 40.8 % (42.0-52.0); HEMOGLOBIN 14.2 G/DL (14.2-18.0); LYMPHOCYTES % (AUTO) 24.5 % (20.0-45.0); MEAN CORPUSCULAR VOLUME 83 FL (80-99); MONOCYTES % (AUTO) 6.8 % (1.0-10.0); NEUTROPHILS % (AUTO) 65.3 % (45.0-75.0); PLATELET COUNT 249 K/UL (150-450); RED CELL DISTRIBUTION WIDTH 12.4 % (11.6-14.8); WHITE BLOOD COUNT 5.4 K/UL (4.8-10.8)
[2017-04-28 05:10] LABS: ANION GAP 5 mmol/L (5-15); BLOOD UREA NITROGEN 12 mg/dL (7-18); CARBON DIOXIDE 30 MMOL/L (21-32); CHLORIDE 104 MMOL/L (98-107); CREATININE 1.2 MG/DL (0.55-1.30); POTASSIUM 3.6 MMOL/L (3.5-5.1); SODIUM 139 MMOL/L (136-145)
[2017-04-28 08:00] VITALS: BP 133/82
[2017-04-28] MEDS: Allopurinol 100mg Tab ORAL SCH (08:40)
[2017-04-28] MEDS: Pantoprazole Inj IVP SCH (08:40)
--- NOTE | 2017-04-28 09:14 | General Progress Note ---
Progress Note Progress Note AVSS Feeling well. Tolerating TPN. Abdomen soft, non-distended. Urine 1999 BCIR ileo 840 CBC,BMP all wnl Albumin 2.6 Imp. Malfunctioning Denise Continent Ileostomy SBO - resolved Malnutrition - on TPN now Plan: Surgery tomorrow 1130: revise Denise continent ileostomy pouch and stoma , repair incisional hernia, possible gastrostomy Levaquin and Flagyl pre-op starting in AM Heparin 5000units SQ in AM 0930 npo after midnight Full discussion with the patient regarding surgery, indications, alternatives, options and risks (bleeding, infection, injury to adjacent structures or organs , potential for additional problems with BCIR pouch including slipped valve and fistula or other issues that could require additional surgery. He strongly and emotionally wishes to avoid a conventional ileostomy with external appliance. CYNDI BLACKMAN Apr 28, 2017 09:14
[2017-04-28 11:37] VITALS: BP 145/84
--- NOTE | 2017-04-28 14:17 | Anethesia Preoperative Eval ---
Anesthesia Pre-op PMH/ROS General Date of Evaluation: Apr 28, 2017 Time of Evaluation: 14:00 Anesthesiologist: Nancy ASA Score: ASA 2 Mallampati Score Class I : Soft palate, uvula, fauces, pillars visible Class II: Soft palate, uvula, fauces visible Class III: Soft palate, base of uvula visible Class IV: Only hard plate visible Mallampati Classification: Class II Surgeon: Bertha Diagnosis: o dominga dial Surgical Procedure: Reision Bare Pouch Anesthesia History: none Family History: no anesthesia problems Allergies: Coded Allergies: CEPHALEXIN (Verified Allergy, Mild, 11/06/09) PENICILLIN G (Verified Allergy, Mild, 01/22/09) SULFA (SULFONAMIDE ANTIBIOTICS) (Verified Allergy, Mild, 11/07/09) Uncoded Allergies: ORAL FLAGYL (Adverse Reaction, Unknown, 11/07/09) Medications: see eMAR Anesthesia Pre-op Phys. Exam Physician Exam Last Vital Signs Date Time Temp Pulse Resp B/P (MAP) Pulse Ox O2 Delivery O2 Flow Rate FiO2 04/28/17 11:37 98.1 79 20 145/84 98 Room Air 98.1 Constitutional: NAD Neurologic: CN 2-12 intact Cardiovascular: RRR Respiratory: CTA Gastrointestinal: S/NT/ND Airway Exam Mallampati Score: Class II MO: full ROM: full Teeth: intact Anesthesia Pre-op A/P Labs Hematology Test 04/28/17 04:40 White Blood Count 5.4 K/UL (4.8-10.8) Red Blood Count 4.90 M/UL (4.70-6.10) Hemoglobin 14.2 G/DL (14.2-18.0) Hematocrit 40.8 % (42.0-52.0) L Mean Corpuscular Volume 83 FL (80-99) Mean Corpuscular Hemoglobin 28.9 PG (27.0-31.0) Mean Corpuscular Hemoglobin Concent 34.8 G/DL (32.0-36.0) Red Cell Distribution Width 12.4 % (11.6-14.8) Platelet Count 249 K/UL (150-450) Mean Platelet Volume 6.2 FL (6.5-10.1) L Neutrophils (%) (Auto) 65.3 % (45.0-75.0) Lymphocytes (%) (Auto) 24.5 % (20.0-45.0) Monocytes (%) (Auto) 6.8 % (1.0-10.0) Eosinophils (%) (Auto) 2.3 % (0.0-3.0) Basophils (%) (Auto) 1.1 % (0.0-2.0) Chemistry Test 04/28/17 04:40 Sodium Level 139 MMOL/L (136-145) Potassium Level 3.6 MMOL/L (3.5-5.1) Chloride Level 104 MMOL/L (98-107) Carbon Dioxide Level 30 MMOL/L (21-32) Anion Gap 5 mmol/L (5-15) Blood Urea Nitrogen 12 mg/dL (7-18) Creatinine 1.2 MG/DL (0.55-1.30) Estimat Glomerular Filtration Rate > 60 mL/min (>60) Glucose Level 125 MG/DL (74-106) H Calcium Level 9.0 MG/DL (8.5-10.1) Risk Assessment & Plan Plan: GA Status Change Before Surgery: No Pre-Antibiotics Drug: none Given Within 1 Hr of Incision: Rodrigo Robledo M.D. Apr 28, 2017 14:17
[2017-04-28 16:00] VITALS: BP 145/99
[2017-04-28 20:00] VITALS: BP 124/78
[2017-04-28] MEDS: Dyna-Hex 2% Top Sol 2oz TOPIC SCH (20:01)
[2017-04-28] MEDS: Fat Emulsion Iv 20% 240 ML in Tpn 1,680 ML IV SCH (20:02)
--- NOTE | 2017-04-28 20:06 | Cardiology Progress Note ---
Assessment/Plan Assessment/Plan malfunctioning continent pouch hx of cad now s/p lad stent stable malnutrition hypoalbuminemia low- intermediate risk of perioperative cardiac morbidity no contraindication echo normal lv systolic function is on tpn for malnutrition surgery tomorrow Subjective Cardiovascular: Denies: chest pain, irregular heart rate, lightheadedness, palpitations Respiratory: Denies: shortness of breath, SOB with excertion Gastrointestinal/Abdominal: Denies: abdominal pain Genitourinary: Denies: burning Objective Last 24 Hour Vital Signs Date Time Temp Pulse Resp B/P (MAP) Pulse Ox O2 Delivery O2 Flow Rate FiO2 04/28/17 16:00 98.2 88 20 145/99 98 Room Air 98.2 04/28/17 11:37 98.1 79 20 145/84 98 Room Air 98.1 04/28/17 08:00 98.9 81 18 133/82 99 Room Air 98.9 04/28/17 04:00 97.4 77 17 131/77 98 Room Air 97.4 04/28/17 00:00 97.4 62 18 131/78 97 Room Air 97.4 General Appearance: no apparent distress, alert Neck: no JVD Cardiovascular: normal rate, regular rhythm Respiratory/Chest: lungs clear Abdomen: normal bowel sounds, non tender, soft Extremities: no swelling Intake and Output 04/27/17 04/28/17 19:00 07:00 Intake Total 1850 ml 1200 ml Output Total 1295 ml 1445 ml Balance 555 ml -245 ml Intake Oral 840 ml 240 ml IV Total 1010 ml 960 ml Output Urine Total 700 ml 1200 ml Other 595 ml 245 ml # Voids 5 Laboratory Tests Test 04/28/17 04:40 White Blood Count 5.4 K/UL (4.8-10.8) Red Blood Count 4.90 M/UL (4.70-6.10) Hemoglobin 14.2 G/DL (14.2-18.0) Hematocrit 40.8 % (42.0-52.0) L Mean Corpuscular Volume 83 FL (80-99) Mean Corpuscular Hemoglobin 28.9 PG (27.0-31.0) Mean Corpuscular Hemoglobin Concent 34.8 G/DL (32.0-36.0) Red Cell Distribution Width 12.4 % (11.6-14.8) Platelet Count 249 K/UL (150-450) Mean Platelet Volume 6.2 FL (6.5-10.1) L Neutrophils (%) (Auto) 65.3 % (45.0-75.0) Lymphocytes (%) (Auto) 24.5 % (20.0-45.0) Monocytes (%) (Auto) 6.8 % (1.0-10.0) Eosinophils (%) (Auto) 2.3 % (0.0-3.0) Basophils (%) (Auto) 1.1 % (0.0-2.0) Sodium Level 139 MMOL/L (136-145) Potassium Level 3.6 MMOL/L (3.5-5.1) Chloride Level 104 MMOL/L (98-107) Carbon Dioxide Level 30 MMOL/L (21-32) Anion Gap 5 mmol/L (5-15) Blood Urea Nitrogen 12 mg/dL (7-18) Creatinine 1.2 MG/DL (0.55-1.30) Estimat Glomerular Filtration Rate > 60 mL/min (>60) Glucose Level 125 MG/DL (74-106) H Calcium Level 9.0 MG/DL (8.5-10.1) JUNIOR HURLEY Apr 28, 2017 20:06
[2017-04-28] MEDS ORDERED: LORazepam 1mg tab SL PRN ×2 (20:30→21:00)
[2017-04-29] VITALS (13 sets, daily range): BP systolic 109–135; BP diastolic 69–84
[2017-04-29] MEDS: NovoLOG Insulin Flexpen SUBQ SCH ×4 (00:08→17:58)
--- NOTE | 2017-04-29 07:58 | Pre-Procedure Note/Attestation ---
Pre-Procedure Note/Attestation Complete Prior to Procedure Planned Procedure: not applicable Procedure Narrative: revision Denise continent ileostomy pouch and stoma, repair incisional hernia, gastrostomy Indications for Procedure Pre-Operative Diagnosis: malfunctioning Denise continent ileostomy, incisional hernia Attestation I attest that I discussed the nature of the procedure; its benefits; risks and complications; and alternatives (and the risks and benefits of such alternatives ), prior to the procedure, with the patient (or the patient's legal telemarketing sales representative). I attest that, if there was a reasonable possibility of needing a blood transfusion, the patient (or the patient's legal telemarketing sales representative) was given the [place] [employer] standardized written summary, pursuant to the Larry Moclips Blood Safety Act ([place] Health and Safety Code # 1645, as amended). I attest that I re-evaluated the patient just prior to the surgery and that there has been no change in the patient's H&P, except as documented below:none CYNDI BLACKMAN Apr 29, 2017 07:58
[2017-04-29] MEDS: Pantoprazole Inj IVP SCH (09:19)
[2017-04-29] MEDS: Allopurinol 100mg Tab ORAL SCH (09:19)
[2017-04-29] MEDS ORDERED: Heparin 5000 units/ml inj SUBQ ONE (09:30)
[2017-04-29] MEDS ORDERED: NeoSporin Gu Irrig 1ml Amp IRRIG ONE (10:09)
[2017-04-29] MEDS ORDERED: Bacitracin 50000 Units Vial ONE (10:09)
[2017-04-29] MEDS ORDERED: Neostigmine 1mg/ml 10ml Inj ONE (11:30)
[2017-04-29] MEDS ORDERED: Morphine Sulfate 10mg/ml Inj ONE (11:30)
[2017-04-29] MEDS ORDERED: fentaNYL 100 mcg/2 mL IV ONE (11:30)
[2017-04-29] MEDS ORDERED: Ketorolac 30mg Inj ONE (11:30)
[2017-04-29] MEDS ORDERED: Glycopyrrolate 0.2mg/ml 1ml Vial ONE (11:30)
[2017-04-29] MEDS ORDERED: Propofol 200mg/20ml IV ONE (11:30)
[2017-04-29] MEDS ORDERED: Succinylcholine 20mg/ml 10ml vial ONE (11:30)
[2017-04-29] MEDS ORDERED: Zemuron 50mg/5ml Inj IV ONE (11:30)
[2017-04-29] MEDS ORDERED: Sterile Water Irrig 1000ml IRRIG ONE (11:30)
[2017-04-29] MEDS ORDERED: NS Irrig 1000ml ONE (11:30)
[2017-04-29] MEDS ORDERED: Midazolam 2mg/2ml Inj ONE (11:30)
[2017-04-29] MEDS ORDERED: LR 1000ml ONE (11:30)
[2017-04-29] MEDS ORDERED: NS Irrig 1000ml IRRIG ONE (11:31)
[2017-04-29] MEDS ORDERED: LR 1000ml 1,000 ML IVLG SCH (12:48)
[2017-04-29] MEDS ORDERED: Hydromorphone 0.5mg/0.5ml inj IVP PRN (13:00)
[2017-04-29] MEDS ORDERED: Midazolam 2mg/2ml Inj IVP PRN (13:00)
[2017-04-29] MEDS ORDERED: DiphenhydrAMINE 50mg/ml Inj IVP PRN ×2 (13:00→15:00)
[2017-04-29] MEDS ORDERED: PCA Education Pamphlet MISC ONE (15:00)
[2017-04-29] MEDS ORDERED: Naloxone 0.4mg/ml Inj IVP PRN (15:00)
[2017-04-29] MEDS ORDERED: LORazepam 1mg tab SL PRN ×2 (15:00)
[2017-04-29] MEDS ORDERED: Rate Change PCA 1 Each MISC PRN (15:00)
[2017-04-29] MEDS ORDERED: Acetaminophen 650mg/20.3ml ORAL PRN (15:00)
--- NOTE | 2017-04-29 15:02 | Immediate Post-Op Evaluation ---
Immediate Post-Op Evalulation Immediate Post-Op Evalulation Procedure: Exploratory laparotomy, lysis of adhesions, revision of continent pouch Date of Evaluation: Apr 29, 2017 Time of Evaluation: 15:01 IV Fluids: 1100 Blood Products: Albumin 250 Estimated Blood Loss: 50 Urinary Output: 150 Blood Pressure Systolic: 109 Blood Pressure Diastolic: 65 Pulse Rate: 73 Respiratory Rate: 20 O2 Sat by Pulse Oximetry: 99 Temperature (Fahrenheit): 97.9 Pain Score (1-10): 1 Nausea: No Vomiting: No Complications none Patient Status: reacts, patent, extubated, none Hydration Status: adequate APOLINAR MELGAR M.D. Apr 29, 2017 15:02
--- NOTE | 2017-04-29 15:06 | Brief Operative Note ---
Immediate Post Operative Note Operative Note Pre-op Diagnosis: malfunctioning Denise continent ileostomy, incisional hernia Procedure: revision of Denise pouch continent ileostomy stoma and access segment; repair incisional hernia Post-op Diagnosis: same Post-op Diagnosis: same as pre-op Findings: consistent w/pre-op dx studies Surgeon: danni Ambulatory Nurse: trav Anesthesiologist: juhi Anesthesia: general Specimen: yes - Denise pouch stoma/access segment Complications: none Condition: stable Fluids: see anesthesia record Estimated Blood Loss: volume - 50cc Drains: other - 30Fr Chahal to Denise Pouch Implant(s) used?: CYNDI Borden Apr 29, 2017 15:06
[2017-04-29] MEDS ORDERED: PCA HYDROmorphone 1mg/ml 30 ML IV PRN (15:15)
[2017-04-29] MEDS: fentaNYL 100 mcg/2 mL IV PRN ×2 (15:33→15:43)
[2017-04-29] MEDS ORDERED: D5 1/4NS w/KCl 20mEq 1,000 ML IV SCH (16:00)
[2017-04-29] MEDS: PCA shift volume MISC SCH (19:23)
--- NOTE | 2017-04-29 19:53 | Cardiology Progress Note ---
Assessment/Plan Assessment/Plan malfunctioning continent pouch hx of cad now s/p lad stent stable malnutrition hypoalbuminemia low- intermediate risk of perioperative cardiac morbidity no contraindication echo normal lv systolic function is on tpn for malnutrition s/p surgery look well no new labs Subjective Cardiovascular: Denies: chest pain, lightheadedness, palpitations Respiratory: Denies: shortness of breath Gastrointestinal/Abdominal: Denies: abdomen distended Objective Last 24 Hour Vital Signs Date Time Temp Pulse Resp B/P (MAP) Pulse Ox O2 Delivery O2 Flow Rate FiO2 04/29/17 17:16 98.3 94 16 134/84 99 Nasal Cannula 3.0 98.3 04/29/17 17:03 16 04/29/17 16:33 14 04/29/17 16:15 98.4 85 14 135/84 98 Nasal Cannula 3.0 98.4 04/29/17 16:03 14 04/29/17 16:02 97.4 73 20 128/80 98 Nasal Cannula 3.0 97.4 04/29/17 15:54 78 20 125/74 98 Nasal Cannula 3.0 04/29/17 15:48 14 04/29/17 15:43 14 04/29/17 15:43 84 20 110/79 98 Nasal Cannula 3.0 04/29/17 15:43 97.4 04/29/17 15:43 97.4 04/29/17 15:43 97.9 04/29/17 15:33 86 20 109/70 98 Nasal Cannula 3.0 04/29/17 15:33 14 04/29/17 15:18 14 04/29/17 15:13 14 04/29/17 15:13 97.9 04/29/17 15:09 84 20 109/70 98 Nasal Cannula 3.0 04/29/17 15:04 95 20 110/72 100 Simple Mask 8.0 04/29/17 15:02 208.2 73 20 99 04/29/17 14:49 97.9 71 20 111/73 100 Simple Mask 8.0 97.9 04/29/17 08:00 98.2 77 18 124/77 96 Room Air 98.2 04/29/17 04:00 98.1 89 16 114/79 96 Room Air 98.1 04/29/17 00:00 97.6 88 17 119/81 96 Room Air 97.6 04/28/17 20:00 97.5 71 16 124/78 98 Room Air 97.5 General Appearance: no apparent distress Neck: supple Cardiovascular: normal rate, regular rhythm Respiratory/Chest: lungs clear Abdomen: non tender, soft Extremities: no swelling Intake and Output 04/28/17 04/29/17 19:00 07:00 Intake Total 2160 ml 1120 ml Output Total 1545 ml 770 ml Balance 615 ml 350 ml Intake Oral 1200 ml 240 ml IV Total 960 ml 880 ml Output Urine Total 700 ml 400 ml Other 845 ml 370 ml # Voids 4 2 JUNIOR HURLEY Apr 29, 2017 19:53
[2017-04-29] MEDS: Dyna-Hex 2% Top Sol 2oz TOPIC SCH (20:22)
[2017-04-29] MEDS: Fat Emulsion Iv 20% 240 ML in Tpn 1,680 ML IV SCH (20:23)
--- NOTE | 2017-04-29 21:00 | Operative Note - Dictated ---
DATE OF OPERATION: 04/29/2017 SURGEON: Rodney Stone M.D. PARTS RUNNER SURGEON: Jeff Jones M.D. ANESTHESIOLOGIST: Sher Fairchild M.D. TYPE OF ANESTHESIA: General endotracheal. PREOPERATIVE DIAGNOSES: 1. 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 History of ulcerative colitis. 3. Status post multiple abdominal operations. 3.1. Proctocolectomy with Lucy ileostomy in 1973. 3.2. Kock pouch in 1975. 3.3. Resection of Kock pouch and distal ileal stricture and creation of a Denise continent ileostomy in January 2009. 3.4. Revision of Denise continent ileostomy stoma in October 2009. POSTOPERATIVE DIAGNOSES: 1. 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 History of ulcerative colitis. 3. Status post multiple abdominal operations. 3.1. Proctocolectomy with Lucy ileostomy in 1973. 3.2. Kock pouch in 1975. 3.3. Resection of Kock pouch and distal ileal stricture and creation of a Denise continent ileostomy in January 2009. 3.4. Revision of Denise continent ileostomy stoma in October 2009. OPERATION PERFORMED: Laparotomy with revision of Denise pouch stoma and access segment and repair of incisional hernia. DESCRIPTION OF PROCEDURE: The patient was taken to the operating room and under general endotracheal anesthesia with sequential compression device stockings and Chahal catheter in place and having received preoperative subcutaneous heparin and intravenous antibiotics, the patient was prepped and draped in the usual fashion. Previous midline incision was reopened from midepigastrium to pubis excising the wide portions of the skin scar. The incisional hernia was in the epigastric and umbilical portion of the incision. Flaps were dissected and the fascia identified circumferentially. There were dense adhesions of bowel and pouch to the anterior abdominal wall and [id number] adhesions of the pouch into the pelvis. A 28-Fijian Chahal catheter was placed through the stoma into the pouch to facilitate dissection. The stoma was circumscribed with a transversely oriented elliptical incision and the access segment with its mesentery brought into the abdominal cavity. That allowed complete mobilization of the pouch out of the pelvis. The 28-Fijian Chahal catheter passed readily into the pouch maintaining stretch on the redundant access segment. There was no limitation going through the tip of the nipple valve with a Luna suction device or 28-Fijian or 30-Fijian Chahal. I used cervical dilators to be sure there was no significant stenosis of the valve tip, which had been previously seen endoscopically. I used up to the 14 cervical dilator and there was no restriction getting into the pouch. The field was irrigated and the abdominal wall protected with antibiotic soaked laps during the procedure. The pelvis was carefully inspected and hemostasis achieved with cautery. The bladder and ureters were protected during the procedure. Now the afferent bowel was manually occluded and with the catheter in the pouch, the pouch was distended with 450 mL of saline. The catheter was removed and there was no evidence of any incontinence. The catheter was reintroduced and the pouch decompressed. I felt there was no indication or need to do a pouch enterotomy. The pouch lay nicely down into the pelvis. The stoma and access segment were brought through the same location in the right lower quadrant. The abdominal defect was appropriate. The access segment was positioned laterally in the stoma for direct passageway into the pouch. The medial subcutaneous tissues closed with interrupted 3-0 Vicryl and some 4-0 Monocryl subcuticular suture. Then, with the access segment on stretch, the redundancy was excised and the stoma primarily matured with continuous 2-0 chromic locking sutures starting at the 3 and 9 o'clock positions and adding a [id number] 2-0 chromic for adequate hemostasis. After ascertaining that the tip of the catheter was well within the pouch, the catheter was marked at the level of the stoma with a 3-0 silk and then the catheter was sutured to the skin with two sutures of 2-0 silk. It was flushed and connected to a gravity drainage bag. The operative field was carefully inspected. No enterotomies had been created and hemostasis was secure. I did not feel there was an indication for catheter gastrostomy. The incision was closed in one layer with continuous #1 Prolene starting at both ends and inverting the knots and taking wide bites to close the incisional hernia. The subcutaneous tissues were again irrigated with antibiotic solution and the skin closed with romeo. Dry sterile dressings were applied. Final sponge and needle counts were correct. The patient tolerated the procedure well and left the operating room in good condition. Rodney Stone M.D. DR: Courtney JOB#: [id number] CC: JUAN M
[2017-04-30 00:19] VITALS: BP 125/76
[2017-04-30] MEDS: NovoLOG Insulin Flexpen SUBQ SCH ×4 (00:24→17:56)
[2017-04-30 04:00] VITALS: BP 113/93
[2017-04-30 05:53] LABS: BASOPHILS % (AUTO) 0.8 % (0.0-2.0); EOSINOPHILS % (AUTO) 1.3 % (0.0-3.0); HEMATOCRIT 35.3 % (42.0-52.0); HEMOGLOBIN 12.1 G/DL (14.2-18.0); LYMPHOCYTES % (AUTO) 15.2 % (20.0-45.0); MEAN CORPUSCULAR VOLUME 84 FL (80-99); NEUTROPHILS % (AUTO) 76.7 % (45.0-75.0); PLATELET COUNT 224 K/UL (150-450); RED BLOOD COUNT 4.18 M/UL (4.70-6.10); RED CELL DISTRIBUTION WIDTH 12.6 % (11.6-14.8); WHITE BLOOD COUNT 9.3 K/UL (4.8-10.8)
[2017-04-30 06:16] LABS: ANION GAP 8 mmol/L (5-15); BLOOD UREA NITROGEN 26 mg/dL (7-18); CALCIUM 8.6 MG/DL (8.5-10.1); CARBON DIOXIDE 28 MMOL/L (21-32); CHLORIDE 103 MMOL/L (98-107); CREATININE 1.4 MG/DL (0.55-1.30); SODIUM 138 MMOL/L (136-145)
[2017-04-30] MEDS: PCA shift volume MISC SCH ×2 (07:00→19:00)
[2017-04-30 08:00] VITALS: BP 114/65
[2017-04-30] MEDS: Pantoprazole Inj IVP SCH (08:41)
[2017-04-30] MEDS: D5 1/4NS w/KCl 20mEq 1,000 ML IV SCH ×2 (08:42→22:32)
[2017-04-30] MEDS: Allopurinol 100mg Tab ORAL SCH (08:42)
--- NOTE | 2017-04-30 11:14 | General Progress Note ---
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 Good IS effort - chest clear Cor - reg rhythm Abdomen mildly distended, incision clean, stoma pink Urine 425cc/12 hours overnight Denise pouch ileo - 50cc WBC 9300 Hgb 12.1 BUN up 26 Cr up 1.4 Imp. Ileus Mildly dry Plan: NPO Increase IV fluids continue TPN Continue Chahal (pelvic dissection) f/u labs in AM out of bed BID CYNDI BLACKMAN Apr 30, 2017 11:13
[2017-04-30] MEDS ORDERED: PCA HYDROmorphone 1mg/ml 30 ML IV PRN (11:30)
[2017-04-30] MEDS ORDERED: Naloxone 0.4mg/ml Inj IVP PRN (11:30)
[2017-04-30] MEDS ORDERED: DiphenhydrAMINE 50mg/ml Inj IVP PRN (11:30)
[2017-04-30] MEDS ORDERED: LORazepam 1mg tab SL PRN (11:30)
[2017-04-30] MEDS ORDERED: Rate Change PCA 1 Each MISC PRN (11:30)
[2017-04-30 12:00] VITALS: BP 110/67
--- NOTE | 2017-04-30 14:28 | 48 Hour Post Anesthesia Eval ---
Post Anesthesia Evaluation Procedure: Exploratory laparotomy, lysis of adhesions, revision of continent pouch Date of Evaluation: Apr 30, 2017 Time of Evaluation: 14:25 Blood Pressure Systolic: 128 0: 74 Pulse Rate: 64 Respiratory Rate: 20 Temperature (Fahrenheit): 97.6 O2 Sat by Pulse Oximetry: 99 Airway: patent Nausea: No Vomiting: No Pain Intensity: 3 Hydration Status: adequate Cardiopulmonary Status: stable Mental Status/LOC: patient returned to baseline Follow-up Care/Observations: n/a Post-Anesthesia Complications: none Follow-up care needed: N/A APOLINAR MELGAR M.D. Apr 30, 2017 14:28
[2017-04-30 15:55] VITALS: BP 115/67
--- NOTE | 2017-04-30 19:16 | Cardiology Progress Note ---
Assessment/Plan Assessment/Plan malfunctioning continent pouch hx of cad now s/p lad stent stable malnutrition hypoalbuminemia tolerated suergey echo normal lv systolic function labs ntoed min increase in cr agree wiuth increase in ivf dvt ppx with pneumoatic stocking walked already to do so more tomorrow Subjective Cardiovascular: Denies: chest pain, lightheadedness, palpitations Respiratory: Denies: shortness of breath Gastrointestinal/Abdominal: Reports: abdominal pain Genitourinary: Denies: burning Objective Last 24 Hour Vital Signs Date Time Temp Pulse Resp B/P (MAP) Pulse Ox O2 Delivery O2 Flow Rate FiO2 04/30/17 15:55 99.9 82 20 115/67 98 Room Air 99.9 04/30/17 15:12 18 04/30/17 15:00 18 04/30/17 14:28 207.7 64 20 99 04/30/17 12:00 99.6 79 18 110/67 96 Room Air 99.6 04/30/17 08:00 99.9 94 16 114/65 95 Room Air 99.9 04/30/17 08:00 18 04/30/17 04:00 98.2 95 18 113/93 95 Room Air 98.2 04/30/17 04:00 18 04/30/17 00:19 98.5 106 20 125/76 96 Room Air 98.5 04/30/17 00:00 18 04/29/17 20:00 98.6 96 16 116/69 95 Room Air 98.6 04/29/17 20:00 18 General Appearance: no apparent distress, alert Neck: supple Cardiovascular: normal rate, regular rhythm Respiratory/Chest: lungs clear, normal breath sounds Abdomen: soft Extremities: no swelling, other - pneumatic [id number] in place Intake and Output 04/29/17 04/30/17 19:00 07:00 Intake Total 1900 ml 1454.19 ml Output Total 800 ml 475 ml Balance 1100 ml 979.19 ml IV Total 1610 ml 1454.19 ml Other 290 ml Output Urine Total 750 ml 425 ml Estimated Blood Loss 50 ml Other 0 ml 50 ml Laboratory Tests Test 04/30/17 05:20 White Blood Count 9.3 K/UL (4.8-10.8) Red Blood Count 4.18 M/UL (4.70-6.10) L Hemoglobin 12.1 G/DL (14.2-18.0) L Hematocrit 35.3 % (42.0-52.0) L Mean Corpuscular Volume 84 FL (80-99) Mean Corpuscular Hemoglobin 29.1 PG (27.0-31.0) Mean Corpuscular Hemoglobin Concent 34.4 G/DL (32.0-36.0) Red Cell Distribution Width 12.6 % (11.6-14.8) Platelet Count 224 K/UL (150-450) Mean Platelet Volume 6.9 FL (6.5-10.1) Neutrophils (%) (Auto) 76.7 % (45.0-75.0) H Lymphocytes (%) (Auto) 15.2 % (20.0-45.0) L Monocytes (%) (Auto) 6.0 % (1.0-10.0) Eosinophils (%) (Auto) 1.3 % (0.0-3.0) Basophils (%) (Auto) 0.8 % (0.0-2.0) Sodium Level 138 MMOL/L (136-145) Potassium Level 4.0 MMOL/L (3.5-5.1) Chloride Level 103 MMOL/L (98-107) Carbon Dioxide Level 28 MMOL/L (21-32) Anion Gap 8 mmol/L (5-15) Blood Urea Nitrogen 26 mg/dL (7-18) H Creatinine 1.4 MG/DL (0.55-1.30) H Estimat Glomerular Filtration Rate 50.9 mL/min (>60) Glucose Level 176 MG/DL (74-106) H Calcium Level 8.6 MG/DL (8.5-10.1) JUNIOR HURLEY Apr 30, 2017 19:16
[2017-04-30 20:00] VITALS: BP 120/68
[2017-04-30] MEDS: Dyna-Hex 2% Top Sol 2oz TOPIC SCH (21:04)
[2017-04-30] MEDS: Fat Emulsion Iv 20% 240 ML in Tpn 1,680 ML IV SCH (21:10)
[2017-05-01] VITALS (7 sets, daily range): BP systolic 122–148; BP diastolic 70–83
[2017-05-01] MEDS: NovoLOG Insulin Flexpen SUBQ SCH ×5 (00:28→23:39)
[2017-05-01 06:22] LABS: BASOPHILS % (AUTO) 0.7 % (0.0-2.0); EOSINOPHILS % (AUTO) 2.4 % (0.0-3.0); HEMATOCRIT 35.2 % (42.0-52.0); LYMPHOCYTES % (AUTO) 15.1 % (20.0-45.0); MEAN CORPUSCULAR VOLUME 84 FL (80-99); MONOCYTES % (AUTO) 7.7 % (1.0-10.0); NEUTROPHILS % (AUTO) 74.1 % (45.0-75.0); PLATELET COUNT 186 K/UL (150-450); RED BLOOD COUNT 4.17 M/UL (4.70-6.10); RED CELL DISTRIBUTION WIDTH 12.6 % (11.6-14.8); WHITE BLOOD COUNT 9.9 K/UL (4.8-10.8)
[2017-05-01 06:30] LABS: ANION GAP 5 mmol/L (5-15); BLOOD UREA NITROGEN 18 mg/dL (7-18); CALCIUM 8.3 MG/DL (8.5-10.1); CARBON DIOXIDE 30 MMOL/L (21-32); CHLORIDE 101 MMOL/L (98-107); CREATININE 1.2 MG/DL (0.55-1.30); POTASSIUM 3.5 MMOL/L (3.5-5.1); SODIUM 136 MMOL/L (136-145)
[2017-05-01] MEDS: PCA shift volume MISC SCH ×2 (07:00→19:00)
--- NOTE | 2017-05-01 08:38 | General Progress Note ---
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 Ambulated yesterday and active in bed with leg exercising. 2 lip lesions ?pressure lower right - no pain. Chest clear Abdomen distended, incision clean, stoma pink Urine 1700 BCIR ileo 240 enteric WBC 9900 Hgb 12 (stable) BUN 18 Cr down 1.2 Imp. Mild ileus Pre-admission malnutrition Plan: Continue NPO until distention has resovled, continue TPN, decrease IV fluids Ambulate with binder on d/c basal continuous infusion of LOGISTICS PLANNING MANAGER - continue demand dosing Nystatin oral susp. for mild thrush continue Fela (pelvic dissection) CYNDI BLACKMAN May 01, 2017 08:38
[2017-05-01] MEDS: D5 1/4NS w/KCl 20mEq 1,000 ML IV SCH (10:22)
[2017-05-01] MEDS: Pantoprazole Inj IVP SCH (10:23)
[2017-05-01] MEDS: Allopurinol 100mg Tab ORAL SCH (10:23)
[2017-05-01] MEDS: Nystatin Susp 500,000 units/5ml ORAL SCH ×4 (10:23→22:28)
[2017-05-01] MEDS ORDERED: PCA HYDROmorphone 1mg/ml 30 ML IV PRN (11:30)
--- NOTE | 2017-05-01 16:13 | Cardiology Progress Note ---
Assessment/Plan Status: stable, progressing Status Narrative Cardiac status stable, s/p revision of ileostomy. 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 Stone BUN/ CR improved w/ hydration - continue today Restart aspirin, atorvastatin, metoprolol for CAD when pt able to absorb po meds. Subjective ROS Limited/Unobtainable: No Subjective Cardiology for Dr. Aviles Pt c/o abd discomfort. No chest pain Objective Last 24 Hour Vital Signs Date Time Temp Pulse Resp B/P (MAP) Pulse Ox O2 Delivery O2 Flow Rate FiO2 05/01/17 12:15 98.4 97 18 124/74 98 Room Air 98.4 05/01/17 08:04 18 05/01/17 08:00 98.9 93 18 126/73 98 Room Air 98.9 05/01/17 04:00 98.3 94 20 124/71 95 Nasal Cannula 3.0 98.3 05/01/17 04:00 18 05/01/17 00:15 18 05/01/17 00:11 98.7 95 20 122/70 96 Nasal Cannula 3.0 98.7 04/30/17 20:00 18 04/30/17 20:00 98.4 96 18 120/68 96 Nasal Cannula 3.0 98.4 General Appearance: WD/WN, alert, mild distress EENT: PERRL/EOMI Neck: supple, no JVD Rhythm: NSR Cardiovascular: normal rate, regular rhythm, no gallop/murmur Respiratory/Chest: lungs clear - clear anteriorly Abdomen: other - mild distension. Dec BS. Abd dressing intact Extremities: non-tender, no swelling Intake and Output 04/30/17 05/01/17 19:00 07:00 Intake Total 820 ml Output Total 880 ml 1140 ml Balance -880 ml -320 ml IV Total 820 ml Output Urine Total 700 ml 1000 ml Other 180 ml 140 ml Laboratory Tests Test 05/01/17 05:20 White Blood Count 9.9 K/UL (4.8-10.8) Red Blood Count 4.17 M/UL (4.70-6.10) L Hemoglobin 12.0 G/DL (14.2-18.0) L Hematocrit 35.2 % (42.0-52.0) L Mean Corpuscular Volume 84 FL (80-99) Mean Corpuscular Hemoglobin 28.8 PG (27.0-31.0) Mean Corpuscular Hemoglobin Concent 34.1 G/DL (32.0-36.0) Red Cell Distribution Width 12.6 % (11.6-14.8) Platelet Count 186 K/UL (150-450) Mean Platelet Volume 6.5 FL (6.5-10.1) Neutrophils (%) (Auto) 74.1 % (45.0-75.0) Lymphocytes (%) (Auto) 15.1 % (20.0-45.0) L Monocytes (%) (Auto) 7.7 % (1.0-10.0) Eosinophils (%) (Auto) 2.4 % (0.0-3.0) Basophils (%) (Auto) 0.7 % (0.0-2.0) Sodium Level 136 MMOL/L (136-145) Potassium Level 3.5 MMOL/L (3.5-5.1) Chloride Level 101 MMOL/L (98-107) Carbon Dioxide Level 30 MMOL/L (21-32) Anion Gap 5 mmol/L (5-15) Blood Urea Nitrogen 18 mg/dL (7-18) Creatinine 1.2 MG/DL (0.55-1.30) Estimat Glomerular Filtration Rate > 60 mL/min (>60) Glucose Level 158 MG/DL (74-106) H Calcium Level 8.3 MG/DL (8.5-10.1) MARIAN JIMENEZ May 01, 2017 16:13
[2017-05-01] MEDS ORDERED: NS 500ML ONE (17:32)
[2017-05-01] MEDS ORDERED: Tubing IV Secondary IV ONE (17:32)
[2017-05-01] MEDS ORDERED: NS Irrig 1000ml ONE (17:32)
[2017-05-01] MEDS: Dyna-Hex 2% Top Sol 2oz TOPIC SCH (20:02)
[2017-05-01] MEDS: Fat Emulsion Iv 20% 240 ML in Tpn 1,680 ML IV SCH (20:03)
[2017-05-02 05:37] LABS: BASOPHILS % (AUTO) 0.5 % (0.0-2.0); EOSINOPHILS % (AUTO) 2.2 % (0.0-3.0); HEMATOCRIT 35.3 % (42.0-52.0); LYMPHOCYTES % (AUTO) 13.2 % (20.0-45.0); MEAN CORPUSCULAR VOLUME 84 FL (80-99); PLATELET COUNT 204 K/UL (150-450); RED CELL DISTRIBUTION WIDTH 12.2 % (11.6-14.8); WHITE BLOOD COUNT 9.2 K/UL (4.8-10.8)
[2017-05-02 06:08] LABS: ANION GAP 5 mmol/L (5-15); BLOOD UREA NITROGEN 15 mg/dL (7-18); CALCIUM 8.6 MG/DL (8.5-10.1); CARBON DIOXIDE 29 MMOL/L (21-32); CHLORIDE 101 MMOL/L (98-107); CREATININE 1.2 MG/DL (0.55-1.30); POTASSIUM 3.4 MMOL/L (3.5-5.1); SODIUM 135 MMOL/L (136-145)
[2017-05-02 06:11] VITALS: BP 133/84
[2017-05-02] MEDS: NovoLOG Insulin Flexpen SUBQ SCH ×3 (06:22→18:35)
[2017-05-02] MEDS: PCA shift volume MISC SCH ×2 (07:08→19:01)
[2017-05-02 08:00] VITALS: BP 153/91
[2017-05-02] MEDS: Pantoprazole Inj IVP SCH (08:30)
[2017-05-02] MEDS: Allopurinol 100mg Tab ORAL SCH (08:30)
[2017-05-02] MEDS: Nystatin Susp 500,000 units/5ml ORAL SCH ×4 (08:30→20:12)
[2017-05-02] MEDS: D5 1/4NS w/KCl 20mEq 1,000 ML IV SCH ×2 (09:30→16:10)
--- NOTE | 2017-05-02 10:12 | General Progress Note ---
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 Incision clean, stoma pink Urine 3450 BCIR ileo 240 WBC 9200 Hgb 12 K 3.4 BUN 15 Cr 1.2 glucose 208 on TPN Imp. Ileus Plan; NPO, TPN continue Chahal in view of marked diuresis f/u labs CYNDI BLACKMAN May 02, 2017 10:12
[2017-05-02] MEDS ORDERED: DiphenhydrAMINE 50mg/ml Inj IVP PRN (11:30)
[2017-05-02] MEDS ORDERED: PCA HYDROmorphone 1mg/ml 30 ML IV PRN (11:30)
[2017-05-02] MEDS ORDERED: Rate Change PCA 1 Each MISC PRN (11:30)
[2017-05-02] MEDS ORDERED: LORazepam 1mg tab SL PRN (11:30)
[2017-05-02] MEDS ORDERED: Naloxone 0.4mg/ml Inj IVP PRN (11:30)
[2017-05-02 12:00] VITALS: BP 151/82
[2017-05-02 15:56] VITALS: BP 140/78
[2017-05-02] MEDS: Ascorbic Acid 500mg tab ORAL PRN (16:58)
[2017-05-02 20:10] VITALS: BP 130/81
[2017-05-02] MEDS: Dyna-Hex 2% Top Sol 2oz TOPIC SCH (20:12)
[2017-05-02] MEDS: Fat Emulsion Iv 20% 240 ML in Tpn 1,680 ML IV SCH (20:14)
[2017-05-02] MEDS: LORazepam 1mg tab SL PRN (22:20)
[2017-05-03] VITALS (7 sets, daily range): BP systolic 128–157; BP diastolic 80–98
[2017-05-03] MEDS: NovoLOG Insulin Flexpen SUBQ SCH ×5 (00:08→23:36)
[2017-05-03 06:14] LABS: BASOPHILS % (AUTO) 0.6 % (0.0-2.0); EOSINOPHILS % (AUTO) 3.7 % (0.0-3.0); HEMATOCRIT 37.9 % (42.0-52.0); HEMOGLOBIN 12.9 G/DL (14.2-18.0); LYMPHOCYTES % (AUTO) 13.4 % (20.0-45.0); MEAN CORPUSCULAR VOLUME 84 FL (80-99); MONOCYTES % (AUTO) 6.7 % (1.0-10.0); NEUTROPHILS % (AUTO) 75.7 % (45.0-75.0); PLATELET COUNT 235 K/UL (150-450); RED CELL DISTRIBUTION WIDTH 12.1 % (11.6-14.8); WHITE BLOOD COUNT 8.1 K/UL (4.8-10.8)
[2017-05-03 06:55] LABS: ALANINE AMINOTRANSFERASE 16 U/L (12-78); ALBUMIN 2.1 G/DL (3.4-5.0); ALBUMIN/GLOBULIN RATIO 0.5 (1.0-2.7); ALKALINE PHOSPHATASE 103 U/L (46-116); ANION GAP 8 mmol/L (5-15); ASPARTATE AMINO TRANSFERASE 14 U/L (15-37); BILIRUBIN,TOTAL 0.5 MG/DL (0.2-1.0); BLOOD UREA NITROGEN 16 mg/dL (7-18); CALCIUM 8.5 MG/DL (8.5-10.1); CARBON DIOXIDE 28 MMOL/L (21-32); CHLORIDE 101 MMOL/L (98-107); CREATININE 1.2 MG/DL (0.55-1.30); POTASSIUM 3.5 MMOL/L (3.5-5.1); SODIUM 136 MMOL/L (136-145)
[2017-05-03] MEDS: PCA shift volume MISC SCH ×2 (07:08→19:21)
[2017-05-03] MEDS: Pantoprazole Inj IVP SCH (09:01)
[2017-05-03] MEDS: Allopurinol 100mg Tab ORAL SCH (09:01)
[2017-05-03] MEDS: Nystatin Susp 500,000 units/5ml ORAL SCH ×4 (09:01→21:14)
[2017-05-03] MEDS: D5 1/4NS w/KCl 20mEq 1,000 ML IV SCH (09:02)
--- NOTE | 2017-05-03 13:27 | General Progress Note ---
Progress Note Progress Note AVSS Feels slightly dehydrated Burping frequently Lip irritation nearly resolved Abdomen less distended, soft, healing nicely incision and stoma Urine 2525 BCIR ileo 135 CBC, CMP all OK except Albumin 2.1 (was 2.6 pre-op) Imp. slowly resolving ileus malnutrition Plan: D/C urinary Chahal Continue NPO, TPN Increase IV fluids CYNDI BLACKMAN May 03, 2017 13:26
[2017-05-03] MEDS ORDERED: DiphenhydrAMINE 50mg/ml Inj IVP PRN (13:30)
[2017-05-03] MEDS ORDERED: LORazepam 1mg tab SL PRN (13:30)
[2017-05-03] MEDS ORDERED: Rate Change PCA 1 Each MISC PRN (13:30)
[2017-05-03] MEDS ORDERED: Naloxone 0.4mg/ml Inj IVP PRN (13:30)
[2017-05-03] MEDS ORDERED: PCA HYDROmorphone 1mg/ml 30 ML IV PRN (13:30)
[2017-05-03] MEDS ORDERED: D5 1/4NS w/KCl 20mEq 1,000 ML IV SCH (14:30)
[2017-05-03] MEDS: Ascorbic Acid 500mg tab ORAL PRN (14:55)
--- NOTE | 2017-05-03 18:58 | Cardiology Progress Note ---
Assessment/Plan Assessment/Plan malfunctioning continent pouch hx of cad now s/p lad stent stable malnutrition hypoalbuminemia tolerated suergey echo normal lv systolic function labs ntoed min increase in cr agree wiuth increase in ivf dvt ppx with pneumoatic stocking walked already several times d/w dr razo will start sq heparin Subjective Cardiovascular: Denies: chest pain, lightheadedness, palpitations Respiratory: Denies: shortness of breath Gastrointestinal/Abdominal: Denies: abdomen distended Genitourinary: Denies: other Objective Last 24 Hour Vital Signs Date Time Temp Pulse Resp B/P (MAP) Pulse Ox O2 Delivery O2 Flow Rate FiO2 05/03/17 16:00 98.5 96 19 129/86 98 Room Air 98.5 05/03/17 15:59 18 05/03/17 12:00 18 05/03/17 11:49 97.6 96 19 128/83 98 Room Air 97.6 05/03/17 08:00 19 05/03/17 08:00 98.6 98 19 137/98 98 Room Air 98.6 05/03/17 04:00 19 05/03/17 04:00 98.1 89 19 138/81 98 Room Air 98.1 05/03/17 01:42 19 05/03/17 00:17 98.2 93 20 157/82 96 Room Air 98.2 05/03/17 00:00 20 05/02/17 20:10 97.0 87 20 130/81 95 Room Air 97.0 05/02/17 20:00 18 General Appearance: no apparent distress, alert Neck: supple Cardiovascular: normal rate Respiratory/Chest: lungs clear Abdomen: normal bowel sounds, soft Extremities: no swelling Intake and Output 05/02/17 05/03/17 19:00 07:00 Intake Total 1330 ml 1290 ml Output Total 1990 ml 1170 ml Balance -660 ml 120 ml IV Total 1330 ml 1210 ml Other 80 ml Output Urine Total 1875 ml 1150 ml Other 115 ml 20 ml Laboratory Tests Test 05/03/17 05:30 White Blood Count 8.1 K/UL (4.8-10.8) Red Blood Count 4.50 M/UL (4.70-6.10) L Hemoglobin 12.9 G/DL (14.2-18.0) L Hematocrit 37.9 % (42.0-52.0) L Mean Corpuscular Volume 84 FL (80-99) Mean Corpuscular Hemoglobin 28.6 PG (27.0-31.0) Mean Corpuscular Hemoglobin Concent 34.0 G/DL (32.0-36.0) Red Cell Distribution Width 12.1 % (11.6-14.8) Platelet Count 235 K/UL (150-450) Mean Platelet Volume 6.5 FL (6.5-10.1) Neutrophils (%) (Auto) 75.7 % (45.0-75.0) H Lymphocytes (%) (Auto) 13.4 % (20.0-45.0) L Monocytes (%) (Auto) 6.7 % (1.0-10.0) Eosinophils (%) (Auto) 3.7 % (0.0-3.0) H Basophils (%) (Auto) 0.6 % (0.0-2.0) Sodium Level 136 MMOL/L (136-145) Potassium Level 3.5 MMOL/L (3.5-5.1) Chloride Level 101 MMOL/L (98-107) Carbon Dioxide Level 28 MMOL/L (21-32) Anion Gap 8 mmol/L (5-15) Blood Urea Nitrogen 16 mg/dL (7-18) Creatinine 1.2 MG/DL (0.55-1.30) Estimat Glomerular Filtration Rate > 60 mL/min (>60) Glucose Level 204 MG/DL (74-106) H Calcium Level 8.5 MG/DL (8.5-10.1) Total Bilirubin 0.5 MG/DL (0.2-1.0) Aspartate Amino Transf (AST/SGOT) 14 U/L (15-37) L Alanine Aminotransferase (ALT/SGPT) 16 U/L (12-78) Alkaline Phosphatase 103 U/L (46-116) Total Protein 6.1 G/DL (6.4-8.2) L Albumin 2.1 G/DL (3.4-5.0) L Globulin 4.0 g/dL Albumin/Globulin Ratio 0.5 (1.0-2.7) L JUNIOR HURLEY May 03, 2017 18:58
[2017-05-03] MEDS: Dyna-Hex 2% Top Sol 2oz TOPIC SCH (21:14)
[2017-05-03] MEDS: Phytonadione 10 mg/mL 1ml amp SUBQ SCH (21:14)
[2017-05-03] MEDS: Heparin 5000 units/ml inj SUBQ SCH (21:15)
[2017-05-03] MEDS: Fat Emulsion Iv 20% 240 ML in Tpn 1,680 ML IV SCH (21:16)
[2017-05-03] MEDS: LORazepam 1mg tab SL PRN (22:16)
[2017-05-04 04:28] VITALS: BP 139/81
[2017-05-04] MEDS: NovoLOG Insulin Flexpen SUBQ SCH ×3 (05:38→17:35)
[2017-05-04] MEDS: PCA shift volume MISC SCH ×2 (07:10→19:11)
[2017-05-04 08:00] VITALS: BP 131/85
[2017-05-04] MEDS: Allopurinol 100mg Tab ORAL SCH (08:52)
[2017-05-04] MEDS: Pantoprazole Inj IVP SCH (08:52)
[2017-05-04] MEDS: Nystatin Susp 500,000 units/5ml ORAL SCH ×4 (08:52→20:21)
[2017-05-04] MEDS ORDERED: Norco 5mg/325mg tab ORAL PRN (10:00)
--- NOTE | 2017-05-04 10:00 | General Progress Note ---
Progress Note Progress Note AVSS c/o urinary urgency and frequency but voiding 200-500cc 3 times overnight ( on TPN) Abdomen soft, incision clean, mild erythema superior border of stoma Urine 2400 BCIR ileo 200 Imp. 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
[2017-05-04] MEDS: Heparin 5000 units/ml inj SUBQ SCH ×2 (10:58→20:22)
--- NOTE | 2017-05-04 11:37 | Cardiology Progress Note ---
Assessment/Plan Assessment/Plan malfunctioning continent pouch hx of cad now s/p lad stent stable malnutrition hypoalbuminemia frequency in urination tolerated surgery echo normal lv systolic function dvt ppx with heparin walked already several times tolerated clear so far to day urien for u/a c/s check bs and ca Subjective Cardiovascular: Denies: chest pain, lightheadedness, palpitations Respiratory: Denies: SOB with excertion Gastrointestinal/Abdominal: Denies: abdominal pain Genitourinary: Reports: frequency, urgency Objective Last 24 Hour Vital Signs Date Time Temp Pulse Resp B/P (MAP) Pulse Ox O2 Delivery O2 Flow Rate FiO2 05/04/17 08:00 98.5 92 19 131/85 97 98.5 05/04/17 08:00 16 05/04/17 04:28 98.0 100 19 139/81 97 Room Air 98.0 05/04/17 04:00 18 05/04/17 00:00 18 05/03/17 23:38 98.6 93 19 138/80 97 Room Air 98.6 05/03/17 21:30 18 05/03/17 20:00 98.3 93 19 138/81 95 Room Air 98.3 05/03/17 16:00 98.5 96 19 129/86 98 Room Air 98.5 05/03/17 15:59 18 05/03/17 12:00 18 05/03/17 11:49 97.6 96 19 128/83 98 Room Air 97.6 General Appearance: alert Neck: supple Cardiovascular: normal rate, regular rhythm Respiratory/Chest: lungs clear, normal breath sounds Abdomen: non tender, soft Extremities: non-tender, no swelling Intake and Output 05/03/17 05/04/17 19:00 07:00 Intake Total 1610 ml 1560 ml Output Total 1330 ml 1270 ml Balance 280 ml 290 ml IV Total 1610 ml 1560 ml Output Urine Total 1200 ml 1200 ml Other 130 ml 70 ml JUNIOR HURLEY May 04, 2017 11:37
[2017-05-04 12:00] VITALS: BP 116/78
[2017-05-04 12:46] LABS: BILIRUBIN, URINE NEGATIVE (NEGATIVE); COLOR,URINE PALE YELLOW; GLUCOSE, URINE (UA) NEGATIVE (NEGATIVE); KETONES,URINE NEGATIVE (NEGATIVE); LEUKOCYTE ESTERASE ,URINE NEGATIVE (NEGATIVE); NITRITE,URINE NEGATIVE (NEGATIVE); PH,URINE 7 (4.5-8.0); PROTEIN,URINE 1+ (NEGATIVE); UROBILINOGEN,URINE NORMAL MG/DL (0.0-1.0)
[2017-05-04 12:57] LABS: APPEARANCE,URINE SLIGHTLY CLOUDY
[2017-05-04] MEDS: HYDROmorphone 1mg/ml Carpuject SUBQ PRN (13:47)
[2017-05-04] MEDS ORDERED: D5 1/4NS w/KCl 20mEq 1,000 ML IV SCH (14:30)
[2017-05-04] MEDS ORDERED: PCA Education Pamphlet MISC ONE (14:30)
[2017-05-04] MEDS ORDERED: Rate Change PCA 1 Each MISC PRN (14:30)
[2017-05-04 16:00] VITALS: BP 117/76
[2017-05-04] MEDS: PCA HYDROmorphone 1mg/ml 30 ML IV PRN (17:14)
[2017-05-04 20:10] VITALS: BP 122/84
[2017-05-04] MEDS: Dyna-Hex 2% Top Sol 2oz TOPIC SCH (20:21)
[2017-05-04] MEDS: Fat Emulsion Iv 20% 240 ML in Tpn 1,680 ML IV SCH (20:23)
[2017-05-05] MEDS: NovoLOG Insulin Flexpen SUBQ SCH ×4 (00:13→18:35)
[2017-05-05 00:16] VITALS: BP 122/84
[2017-05-05 04:47] VITALS: BP 124/81
[2017-05-05] MEDS: PCA shift volume MISC SCH ×2 (07:00→19:00)
[2017-05-05 08:00] VITALS: BP 126/78
[2017-05-05 08:01] LABS: BASOPHILS % (AUTO) 0.9 % (0.0-2.0); EOSINOPHILS % (AUTO) 3.6 % (0.0-3.0); HEMATOCRIT 36.7 % (42.0-52.0); HEMOGLOBIN 12.5 G/DL (14.2-18.0); LYMPHOCYTES % (AUTO) 15.1 % (20.0-45.0); MEAN CORPUSCULAR VOLUME 85 FL (80-99); NEUTROPHILS % (AUTO) 74.5 % (45.0-75.0); PLATELET COUNT 285 K/UL (150-450); RED BLOOD COUNT 4.34 M/UL (4.70-6.10); RED CELL DISTRIBUTION WIDTH 12.2 % (11.6-14.8)
[2017-05-05 08:22] LABS: ALANINE AMINOTRANSFERASE 16 U/L (12-78); ALBUMIN 2.2 G/DL (3.4-5.0); ALBUMIN/GLOBULIN RATIO 0.5 (1.0-2.7); ALKALINE PHOSPHATASE 206 U/L (46-116); ANION GAP 5 mmol/L (5-15); ASPARTATE AMINO TRANSFERASE 13 U/L (15-37); BILIRUBIN,TOTAL 0.5 MG/DL (0.2-1.0); BLOOD UREA NITROGEN 18 mg/dL (7-18); CALCIUM 8.3 MG/DL (8.5-10.1); CARBON DIOXIDE 28 MMOL/L (21-32); CHLORIDE 100 MMOL/L (98-107); CREATININE 1.2 MG/DL (0.55-1.30); POTASSIUM 3.7 MMOL/L (3.5-5.1); SODIUM 133 MMOL/L (136-145)
--- NOTE | 2017-05-05 08:37 | General Progress Note ---
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 c/o sharp pains both sides of abdomen. tolerated clear liquids 1410cc Abdomen distended, soft, incision clean, non-tender, stoma with induration and tenderness superior margin Urine 1610 BCIR ileo only 415cc WBC 10,000 Hgb 12.5 Na 133 Albumin 2.2 (was 2.1) Urinalysis - neg. Imp: R/O partial SBO or intra-abdominal collection Plan: STAT CT scan abd+pelvis with oral and IV contrast Continue TPN - NPO except po CYNDI Low May 05, 2017 08:37
[2017-05-05] MEDS: Pantoprazole Inj IVP SCH (08:57)
[2017-05-05] MEDS: Nystatin Susp 500,000 units/5ml ORAL SCH ×4 (08:57→21:27)
[2017-05-05] MEDS: Allopurinol 100mg Tab ORAL SCH (08:58)
[2017-05-05] MEDS: Heparin 5000 units/ml inj SUBQ SCH ×2 (08:59→21:26)
[2017-05-05 12:00] VITALS: BP 125/85
--- NOTE | 2017-05-05 14:54 | Diagnostic Imaging Report ---
Clinical Indication: Abdominal pain, abdominal distention Technique: Patient given oral contrast. IV administration nonionic contrast. Venous phase spiral acquisition obtained through the abdomen and pelvis. Multiplanar reconstructions were generated. Total dose length product 668 mGycm. CTDIvol(s) 12 mGy. Dose reduction achieved using automated exposure control Comparison: 04/26/2017 Findings: Again demonstrated is a continent ileostomy containing a catheter. No there is evidence of interim surgery, with midline skin ormeo now present, and edema along the incision. A few gas bubbles are seen in the anterior peritoneal space deep to the incision. There is also a small 17 x 9 mm fluid collection in the anterior peritoneal space deep to the inferior aspect of the incision. A few gas bubbles are seen along the incision as well. A few gas bubbles are seen in the right upper pelvic deep fat. A small fluid collection measuring 3.8 x 1.1 x 2.6 cm is seen posterior to the ileostomy pouch Again demonstrated is a continent ileostomy pouch, into which sticks a Chahal catheter. The catheter tip protrudes only a short distance beyond the nipple. Fecal material is seen within the pouch. No contrast has entered the pouch. The russell of the pouch are mildly thickened. Ingested contrast is seen through most of the small bowel. The small bowel loops are nondilated. As previously, there is evidence of a total colectomy The liver and gallbladder are unremarkable. There is a 4 mm calcification projecting at what appears to be the terminus of the common bile duct. Common bile duct is only minimally dilated, measuring 7 mm in diameter, and there is no intrahepatic biliary ductal dilatation. In retrospect, this also is visible on the previous exam as well as an earlier study of 02/27/2015. There is also a small duodenal diverticulum. The pancreas is unremarkable. The spleen is borderline enlarged, measuring 14 cm long axis dimension. This is larger than on the prior study. There is an accessory splenule. Bilateral renal cysts, indeterminate 18 mm exophytic left renal mass, as well as bilateral subcentimeter low-attenuation lesions which too small to characterize are again demonstrated. No retroperitoneal or mesenteric mass or adenopathy. No pelvic mass or adenopathy. The prostate is prominent. The bladder is unremarkable. There is trace pleural fluid on the left. There is bilateral posterior dependent pulmonary atelectasis. The bones are unremarkable. Impression: Evidence of interim surgery, since prior study of 04/26/2017. Per discussion with referring physician, surgery involved mobilizing and ileostomy pouch. Note small fluid collections deep to the incision and and the pelvis. Most likely routine postsurgical fluid collections. However, infected collections are also possible, correlation with clinical and findings is recommended Other postsurgical changes as described above and previously, including continent ileostomy and total colectomy Note that ingested contrast did not reach the and ileostomy pouch at the time of scanning. Suspect that this is represents slow contrast transit due to mild postoperative ileus, but partial downstream obstruction is also possible. Note position of catheter in the ileostomy, tip just beyond the nipple. Note presence of some retained small bowel feces within the pouch. The pouch is not distended. There is mild wall thickening of the reservoir, which could indicate postoperative edema 4 mm calcification in what appears to be the downstream common bile duct near the ampulla. In retrospect also evident on most recent prior CT scan as well as exam of 02/27/2015. Only minimal dilatation of the extra hepatic bile ducts; suspect calculus is nonobstructive. Correlate with liver functions tests, consider MRCP for better characterization if clinically indicated. Borderline splenomegaly. Note spleen size is increased since the prior exam, possibly reactive related to the stress of recent surgery 18 mm exophytic left renal mass, previously thought to likely but not definitively represent a cyst that has hemorrhaged. As discussed on recent ultrasound, short interval sonographic follow-up is recommended Other bilateral renal cysts as well as subcentimeter low-attenuation renal lesions which are too small to characterize, most likely benign simple cysts Trace left pleural fluid and bilateral basilar dependent pulmonary atelectasis bilaterally Findings assessment phone with Dr. Stone at the time of interpretation The CT scanner at [facility] is accredited by the [employer] and the scans are performed using protocols designed to limit radiation exposure to as low as reasonably achievable to attain images of sufficient resolution adequate for diagnostic evaluation.
[2017-05-05 16:00] VITALS: BP 128/78
--- NOTE | 2017-05-05 16:42 | Cardiology Report ---
APPROVED REPORT EKG Measurement Heart [id number] Sinus rhythm with premature supraventricular complexes Otherwise normal ECG
[2017-05-05] MEDS: PCA HYDROmorphone 1mg/ml 30 ML IV PRN (18:37)
[2017-05-05 20:00] VITALS: BP 123/76
--- NOTE | 2017-05-05 20:14 | Cardiology Progress Note ---
Assessment/Plan Assessment/Plan malfunctioning continent pouch hx of cad now s/p lad stent stable malnutrition hypoalbuminemia frequency in urination resolved dvt ppx with heparin walked already several times tolerated clear so far to day urien for u/a nmeg hyperglycemic accucheks ct noted , as per dr razo Subjective Cardiovascular: Denies: chest pain, lightheadedness, palpitations Respiratory: Denies: shortness of breath Gastrointestinal/Abdominal: Reports: abdominal pain Genitourinary: Denies: burning Objective Last 24 Hour Vital Signs Date Time Temp Pulse Resp B/P (MAP) Pulse Ox O2 Delivery O2 Flow Rate FiO2 05/05/17 18:37 98.0 05/05/17 16:00 98.0 83 20 128/78 99 98.0 05/05/17 12:00 99.7 97 18 125/85 99 Room Air 99.7 05/05/17 08:00 98.6 106 18 126/78 97 Room Air 98.6 05/05/17 04:47 98.5 93 18 124/81 96 98.5 05/05/17 04:00 16 05/05/17 00:16 96 Room Air 05/05/17 00:16 98.4 95 18 122/84 96 98.4 05/05/17 00:14 16 05/04/17 20:43 16 05/04/17 20:33 95 Room Air General Appearance: no apparent distress, alert Neck: supple Cardiovascular: normal rate, regular rhythm Respiratory/Chest: lungs clear, normal breath sounds Abdomen: soft Extremities: no calf tenderness, no swelling Intake and Output 05/04/17 05/05/17 19:00 07:00 Intake Total 1990 ml 1970 ml Output Total 995 ml 1015 ml Balance 995 ml 955 ml Intake Oral 960 ml 1170 ml IV Total 950 ml 800 ml Other 80 ml Output Urine Total 900 ml 600 ml Other 95 ml 415 ml # Voids 6 Laboratory Tests Test 05/05/17 06:03 White Blood Count 10.0 K/UL (4.8-10.8) Red Blood Count 4.34 M/UL (4.70-6.10) L Hemoglobin 12.5 G/DL (14.2-18.0) L Hematocrit 36.7 % (42.0-52.0) L Mean Corpuscular Volume 85 FL (80-99) Mean Corpuscular Hemoglobin 28.7 PG (27.0-31.0) Mean Corpuscular Hemoglobin Concent 34.0 G/DL (32.0-36.0) Red Cell Distribution Width 12.2 % (11.6-14.8) Platelet Count 285 K/UL (150-450) Mean Platelet Volume 6.7 FL (6.5-10.1) Neutrophils (%) (Auto) 74.5 % (45.0-75.0) Lymphocytes (%) (Auto) 15.1 % (20.0-45.0) L Monocytes (%) (Auto) 6.0 % (1.0-10.0) Eosinophils (%) (Auto) 3.6 % (0.0-3.0) H Basophils (%) (Auto) 0.9 % (0.0-2.0) Sodium Level 133 MMOL/L (136-145) L Potassium Level 3.7 MMOL/L (3.5-5.1) Chloride Level 100 MMOL/L (98-107) Carbon Dioxide Level 28 MMOL/L (21-32) Anion Gap 5 mmol/L (5-15) Blood Urea Nitrogen 18 mg/dL (7-18) Creatinine 1.2 MG/DL (0.55-1.30) Estimat Glomerular Filtration Rate > 60 mL/min (>60) Glucose Level 172 MG/DL (74-106) H Calcium Level 8.3 MG/DL (8.5-10.1) L Total Bilirubin 0.5 MG/DL (0.2-1.0) Aspartate Amino Transf (AST/SGOT) 13 U/L (15-37) L Alanine Aminotransferase (ALT/SGPT) 16 U/L (12-78) Alkaline Phosphatase 206 U/L (46-116) H Total Protein 6.3 G/DL (6.4-8.2) L Albumin 2.2 G/DL (3.4-5.0) L Globulin 4.1 g/dL Albumin/Globulin Ratio 0.5 (1.0-2.7) L Microbiology Date/Time Source Procedure Growth Status 05/04/17 11:50 Urine,Clean Catch Urine Culture - Preliminary NO GROWTH Resulted JUNIOR HURLEY May 05, 2017 20:14
[2017-05-05] MEDS: LORazepam 1mg tab SL PRN (21:27)
[2017-05-05] MEDS: Dyna-Hex 2% Top Sol 2oz TOPIC SCH (21:28)
[2017-05-05] MEDS: Fat Emulsion Iv 20% 240 ML in Tpn 1,680 ML IV SCH (21:45)
[2017-05-06] VITALS: BP 103/58
[2017-05-06] MEDS: NovoLOG Insulin Flexpen SUBQ SCH ×4 (00:11→19:23)
[2017-05-06 04:20] VITALS: BP 118/80
[2017-05-06] MEDS: PCA shift volume MISC SCH (07:00)
[2017-05-06 08:00] VITALS: BP_SYST 116; BP_SYST 91; BP_DIAS 60; BP_DIAS 79
[2017-05-06] MEDS ORDERED: Clindamycin 600mg 50 ML IV STA (08:21)
--- NOTE | 2017-05-06 08:28 | General Progress Note ---
Progress Note Progress Note AVSS Tolerated clear liquids. c/o pain around incision. Ambulating freely Abdomen soft, less distended. Patchy erythema around midline incision and superior margin of stoma with tenderness Urine 1929 BCIR ileo 1714 (includes po contrast from CT scan) Imp. Cellulitis alina-incision and peristomal Plan: BCIR low residue diet Decrease TPN to 40cc/hr Clindamycin/Levaquin IV D/C ACCOUNT SUPPORT SPECIALIST - will give one dose Toradol IV D/C subq heparin f/u labs in CYNDI DILL May 06, 2017 08:28
[2017-05-06] MEDS ORDERED: Ketorolac 30mg Inj IV ONE (08:30)
[2017-05-06] MEDS ORDERED: Fat Emulsion Iv 20% 240 ML in Tpn 1,680 ML IV SCH (09:00)
[2017-05-06] MEDS: Pantoprazole Inj IVP SCH (09:28)
[2017-05-06] MEDS: Allopurinol 100mg Tab ORAL SCH (09:28)
[2017-05-06 12:00] VITALS: BP 114/79
[2017-05-06] MEDS: Clindamycin 600mg 50 ML IV SCH ×2 (15:39→21:03)
[2017-05-06] MEDS: HYDROmorphone 1mg/ml Carpuject SUBQ PRN (15:39)
[2017-05-06 16:00] VITALS: BP 106/72
--- NOTE | 2017-05-06 19:06 | Cardiology Progress Note ---
Assessment/Plan Assessment/Plan malfunctioning continent pouch hx of cad now s/p lad stent stable malnutrition hypoalbuminemia frequency in urination resolved walked already several times hyperglycemic on tpn accucheks cv stable Subjective Cardiovascular: Denies: chest pain, lightheadedness, palpitations Respiratory: Denies: shortness of breath Gastrointestinal/Abdominal: Reports: abdominal pain Genitourinary: Denies: burning Objective Last 24 Hour Vital Signs Date Time Temp Pulse Resp B/P (MAP) Pulse Ox O2 Delivery O2 Flow Rate FiO2 05/06/17 16:11 97.9 05/06/17 16:00 98.9 88 19 106/72 97 98.9 05/06/17 15:39 97.9 05/06/17 12:00 97.9 92 19 114/79 97 97.9 05/06/17 09:28 98.9 05/06/17 08:00 98.9 98 19 116/79 97 98.9 05/06/17 04:20 98.3 94 18 118/80 94 Room Air 98.3 05/06/17 00:00 98.7 94 17 103/58 94 Room Air 98.7 98 05/06/17 00:00 16 05/05/17 20:00 97.9 95 20 123/76 95 Room Air 97.9 General Appearance: no apparent distress, alert Cardiovascular: normal rate, regular rhythm Respiratory/Chest: lungs clear Abdomen: soft Extremities: no calf tenderness, no swelling Intake and Output 05/05/17 05/06/17 19:00 07:00 Intake Total 480 ml 880 ml Output Total 100 ml 2325 ml Balance 380 ml -1445 ml Intake Oral 480 ml 800 ml Other 80 ml Output Urine Total 100 ml 1150 ml Other 1175 ml # Voids 10 Microbiology Date/Time Source Procedure Growth Status 05/04/17 11:50 Urine,Clean Catch Urine Culture - Preliminary Mixed Gram Positive Organism Resulted JUNIOR HURLEY May 06, 2017 19:06
[2017-05-06] MEDS: oxyCODONE HCL/Acetaminophen 5/325mg ORAL PRN (19:17)
[2017-05-06 20:00] VITALS: BP 107/74
[2017-05-06] MEDS ORDERED: FAT EMULSION 20% IV SCH (20:00)
[2017-05-06] MEDS ORDERED: TPN IV SCH (20:00)
[2017-05-06] MEDS: Dyna-Hex 2% Top Sol 2oz TOPIC SCH (21:02)
[2017-05-06] MEDS: Ascorbic Acid 500mg tab ORAL PRN (21:31)
[2017-05-07 00:08] VITALS: BP 106/72
[2017-05-07] MEDS: NovoLOG Insulin Flexpen SUBQ SCH ×4 (00:15→18:33)
[2017-05-07 04:00] VITALS: BP 108/70
[2017-05-07 06:05] LABS: BASOPHILS % (AUTO) 0.7 % (0.0-2.0); EOSINOPHILS % (AUTO) 2.9 % (0.0-3.0); HEMATOCRIT 36.2 % (42.0-52.0); HEMOGLOBIN 12.5 G/DL (14.2-18.0); MEAN CORPUSCULAR VOLUME 84 FL (80-99); MONOCYTES % (AUTO) 6.6 % (1.0-10.0); NEUTROPHILS % (AUTO) 78.8 % (45.0-75.0); PLATELET COUNT 302 K/UL (150-450); RED BLOOD COUNT 4.29 M/UL (4.70-6.10); RED CELL DISTRIBUTION WIDTH 12.2 % (11.6-14.8); WHITE BLOOD COUNT 12.2 K/UL (4.8-10.8)
[2017-05-07 06:30] LABS: ALANINE AMINOTRANSFERASE 22 U/L (12-78); ALBUMIN 2.4 G/DL (3.4-5.0); ALBUMIN/GLOBULIN RATIO 0.5 (1.0-2.7); ALKALINE PHOSPHATASE 281 U/L (46-116); ANION GAP 4 mmol/L (5-15); ASPARTATE AMINO TRANSFERASE 18 U/L (15-37); BILIRUBIN,TOTAL 1.2 MG/DL (0.2-1.0); BLOOD UREA NITROGEN 25 mg/dL (7-18); CALCIUM 8.6 MG/DL (8.5-10.1); CARBON DIOXIDE 31 MMOL/L (21-32); CHLORIDE 99 MMOL/L (98-107); CREATININE 1.5 MG/DL (0.55-1.30); POTASSIUM 3.8 MMOL/L (3.5-5.1); SODIUM 134 MMOL/L (136-145)
[2017-05-07] MEDS: Clindamycin 600mg 50 ML IV SCH ×3 (06:33→21:58)
[2017-05-07 06:44] LABS: BILIRUBIN,DIRECT 0.5 MG/DL (0.0-0.3)
[2017-05-07 08:00] VITALS: BP 121/76
[2017-05-07] MEDS ORDERED: Fluconazole 100mg tab ORAL STA (08:41)
--- NOTE | 2017-05-07 08:52 | General Progress Note ---
Progress Note Progress Note AVSS Had episode when BCIR ileo catheter was not draining with abdominal pain and cramps - resolved with flushing. Not hungry and poor po intake. Ambulates with assistance Oral thrush Abdomen mildly distended, cellulitis lower half of incision and along superior border of stoma in RLQ Urine 1780 BCIR ileo 1145 WBC up 12,200 BUN/Cr up 25/1.5 Albumin 2.4 Urine C&S - neg. Imp. Joanna-incisional cellulitis - on Clindamycin and Levaquin IV Dehydration with elevated BUN and Cr Thrush Plan; Add IV fluids 75cc/hr and increase TPN to 60cc/hr Diflucan and Nystatin Toradol IV for 1-2 days prn pain to avoid opiates and mental confusion f/u labs in CYNDI DILL May 07, 2017 08:52
[2017-05-07] MEDS: Pantoprazole Inj IVP SCH (09:23)
[2017-05-07] MEDS: Allopurinol 100mg Tab ORAL SCH (09:23)
[2017-05-07] MEDS: Nystatin Susp 500,000 units/5ml ORAL SCH ×4 (09:23→20:14)
[2017-05-07] MEDS: Ketorolac 30mg Inj IV PRN ×2 (09:24→16:38)
[2017-05-07] MEDS: D5 1/2NS w/KCl 20mEq 1,000 ML IV SCH (11:41)
[2017-05-07 16:00] VITALS: BP 125/81
[2017-05-07 20:00] VITALS: BP 121/81
[2017-05-07] MEDS: Dyna-Hex 2% Top Sol 2oz TOPIC SCH (20:14)
[2017-05-07] MEDS: oxyCODONE HCL/Acetaminophen 5/325mg ORAL PRN (20:41)
[2017-05-07] MEDS: FAT EMULSION 20% IV SCH (20:44)
[2017-05-07] MEDS: TPN IV SCH (20:44)
[2017-05-08] VITALS: BP 123/77
[2017-05-08] MEDS: NovoLOG Insulin Flexpen SUBQ SCH ×4 (00:29→18:50)
[2017-05-08 04:00] VITALS: BP 115/72
[2017-05-08] MEDS: oxyCODONE HCL/Acetaminophen 5/325mg ORAL PRN (04:13)
[2017-05-08] MEDS: Clindamycin 600mg 50 ML IV SCH ×3 (06:03→21:11)
[2017-05-08 06:19] LABS: BASOPHILS % (AUTO) 1.1 % (0.0-2.0); EOSINOPHILS % (AUTO) 4.3 % (0.0-3.0); HEMOGLOBIN 11.9 G/DL (14.2-18.0); LYMPHOCYTES % (AUTO) 12.7 % (20.0-45.0); MEAN CORPUSCULAR VOLUME 84 FL (80-99); MONOCYTES % (AUTO) 7.2 % (1.0-10.0); NEUTROPHILS % (AUTO) 74.7 % (45.0-75.0); PLATELET COUNT 320 K/UL (150-450); RED BLOOD COUNT 4.15 M/UL (4.70-6.10); RED CELL DISTRIBUTION WIDTH 12.2 % (11.6-14.8); WHITE BLOOD COUNT 10.5 K/UL (4.8-10.8)
[2017-05-08 06:34] LABS: ALANINE AMINOTRANSFERASE 25 U/L (12-78); ALBUMIN 2.3 G/DL (3.4-5.0); ALBUMIN/GLOBULIN RATIO 0.5 (1.0-2.7); ALKALINE PHOSPHATASE 311 U/L (46-116); ANION GAP 8 mmol/L (5-15); ASPARTATE AMINO TRANSFERASE 21 U/L (15-37); BILIRUBIN,TOTAL 0.7 MG/DL (0.2-1.0); BLOOD UREA NITROGEN 25 mg/dL (7-18); CALCIUM 8.3 MG/DL (8.5-10.1); CARBON DIOXIDE 26 MMOL/L (21-32); CHLORIDE 103 MMOL/L (98-107); CREATININE 1.5 MG/DL (0.55-1.30); SODIUM 137 MMOL/L (136-145)
[2017-05-08 08:00] VITALS: BP 119/75
[2017-05-08] MEDS: Allopurinol 100mg Tab ORAL SCH (08:52)
[2017-05-08] MEDS: Nystatin Susp 500,000 units/5ml ORAL SCH ×4 (08:52→20:21)
[2017-05-08] MEDS: Pantoprazole Inj IVP SCH (08:52)
--- NOTE | 2017-05-08 09:24 | General Progress Note ---
Progress Note Progress Note AVSS Only having soreness of incision which is improving. Eating only 50%. tongue still coated Abdomen soft, less erythema around incision and decreased induration above stoma Urine 1590 BCIR ileo 1215 WBC down 10,500 - on Clindamycin + Levaquin BUN and Cr no change still elevated 15/1.5 Albumin 2.3 Imp. Abdominal wall cellulitis - improving Mild dehydration Malnutrition - present pre-admission Thrush Plan: Continue TPN + IV fluids + BCIR low residue diet + IV antibiotics Maintain continuous drainage of BCIR Continent Ileostomy f/u labs in AM Diflucan 150mg po (2nd dose) CYNDI BLACKMAN May 08, 2017 09:24
[2017-05-08] MEDS ORDERED: Fluconazole 100mg tab ORAL ONE (10:00)
[2017-05-08] MEDS ORDERED: NS Irrig 1000ml ONE ×2 (11:18→13:51)
[2017-05-08 12:00] VITALS: BP 124/81
[2017-05-08] MEDS: D5 1/2NS w/KCl 20mEq 1,000 ML IV SCH ×2 (12:32)
[2017-05-08] MEDS ORDERED: Tubing IV Secondary IV ONE (13:51)
[2017-05-08] MEDS: Ketorolac 30mg Inj IV PRN ×2 (13:52→20:23)
[2017-05-08 16:00] VITALS: BP 118/78
[2017-05-08 20:00] VITALS: BP 129/83
[2017-05-08] MEDS: Dyna-Hex 2% Top Sol 2oz TOPIC SCH (20:21)
[2017-05-08] MEDS: FAT EMULSION 20% IV SCH (20:26)
[2017-05-08] MEDS: TPN IV SCH (20:26)
[2017-05-09] VITALS: BP 131/88
[2017-05-09] MEDS: NovoLOG Insulin Flexpen SUBQ SCH ×4 (00:40→17:16)
[2017-05-09] MEDS: D5 1/2NS w/KCl 20mEq 1,000 ML IV SCH ×2 (02:05→15:24)
[2017-05-09 04:00] VITALS: BP 137/93
[2017-05-09] MEDS: Clindamycin 600mg 50 ML IV SCH ×3 (05:46→21:44)
[2017-05-09 07:36] LABS: BASOPHILS % (AUTO) 1.2 % (0.0-2.0); EOSINOPHILS % (AUTO) 3.9 % (0.0-3.0); HEMATOCRIT 35.8 % (42.0-52.0); HEMOGLOBIN 12.3 G/DL (14.2-18.0); LYMPHOCYTES % (AUTO) 13.6 % (20.0-45.0); MEAN CORPUSCULAR VOLUME 84 FL (80-99); MONOCYTES % (AUTO) 6.7 % (1.0-10.0); NEUTROPHILS % (AUTO) 74.6 % (45.0-75.0); PLATELET COUNT 386 K/UL (150-450); RED BLOOD COUNT 4.25 M/UL (4.70-6.10); RED CELL DISTRIBUTION WIDTH 12.2 % (11.6-14.8); WHITE BLOOD COUNT 10.1 K/UL (4.8-10.8)
[2017-05-09 07:43] LABS: ANION GAP 8 mmol/L (5-15); BLOOD UREA NITROGEN 18 mg/dL (7-18); CALCIUM 8.5 MG/DL (8.5-10.1); CARBON DIOXIDE 27 MMOL/L (21-32); CHLORIDE 102 MMOL/L (98-107); CREATININE 1.3 MG/DL (0.55-1.30); POTASSIUM 4.3 MMOL/L (3.5-5.1); SODIUM 137 MMOL/L (136-145)
[2017-05-09 08:26] VITALS: BP 145/93
[2017-05-09] MEDS: Ascorbic Acid 500mg tab ORAL PRN ×2 (08:43→15:26)
[2017-05-09] MEDS: Allopurinol 100mg Tab ORAL SCH (08:43)
[2017-05-09] MEDS: Pantoprazole Inj IVP SCH (08:43)
[2017-05-09] MEDS: Nystatin Susp 500,000 units/5ml ORAL SCH ×4 (08:43→20:29)
[2017-05-09] MEDS: oxyCODONE HCL/Acetaminophen 5/325mg ORAL PRN ×3 (08:44→23:01)
[2017-05-09 12:25] VITALS: BP 123/79
--- NOTE | 2017-05-09 13:04 | General Progress Note ---
Progress Note Progress Note AVSS Depressed about hospital stay. Eating intermittently. Abdomen soft, alina-incisional erythema has resolved but there are 2 areas of fluctuance - upper pole and lower portion (3cm each) - opened and fluid expressed and C&S sent Alina-stoma induration is decreased with antibiotics Urine 2160 BCIR ileo 610 WBC 10,100 Hgb 12.3 BUN and Cr down:18/1.3 Imp: Slowly improving small bowel function Wound infection Dehydration resolving Plan: Wound care Continue TPN one additional day + IV fluids Vitamin C 500mg with each meal for thick ileostomy effluent Maintain continuous drainage of Denise Pouch CYNDI BLACKMAN May 09, 2017 13:04
[2017-05-09 16:00] VITALS: BP 127/84
[2017-05-09 20:00] VITALS: BP 130/80
[2017-05-09] MEDS: Dyna-Hex 2% Top Sol 2oz TOPIC SCH (20:29)
[2017-05-09] MEDS: FAT EMULSION 20% IV SCH (20:30)
[2017-05-09] MEDS: TPN IV SCH (20:30)
--- NOTE | 2017-05-09 21:21 | Cardiology Progress Note ---
Assessment/Plan Assessment/Plan patient is stable from cardiac standpoint Subjective Subjective the patient is resting in bed, comfortable, denies any caridac complaints, no chest pain, no dypsnea Objective Last 24 Hour Vital Signs Date Time Temp Pulse Resp B/P (MAP) Pulse Ox O2 Delivery O2 Flow Rate FiO2 05/09/17 16:00 98.1 80 20 127/84 97 Room Air 98.1 05/09/17 12:25 98.3 82 20 123/79 97 Room Air 98.3 05/09/17 08:26 98.4 90 18 145/93 98 Room Air 98.4 05/09/17 04:00 98.1 78 16 137/93 98 Room Air 98.1 05/09/17 00:00 97.7 85 17 131/88 97 97.7 General Appearance: no apparent distress EENT: PERRL/EOMI Neck: normal inspection, no JVD Rhythm: NSR Cardiovascular: regular rhythm Respiratory/Chest: lungs clear Abdomen: other - midabdominal psot surgical incision, dressing, mild tenderness Extremities: no swelling Intake and Output 05/08/17 05/09/17 19:00 07:00 Intake Total 1620 ml 2325 ml Output Total 2770 ml Balance 1620 ml -445 ml Intake Oral 840 ml IV Total 1620 ml 1485 ml Output Urine Total 2160 ml Other 610 ml Laboratory Tests Test 05/09/17 06:30 White Blood Count 10.1 K/UL (4.8-10.8) Red Blood Count 4.25 M/UL (4.70-6.10) L Hemoglobin 12.3 G/DL (14.2-18.0) L Hematocrit 35.8 % (42.0-52.0) L Mean Corpuscular Volume 84 FL (80-99) Mean Corpuscular Hemoglobin 29.0 PG (27.0-31.0) Mean Corpuscular Hemoglobin Concent 34.4 G/DL (32.0-36.0) Red Cell Distribution Width 12.2 % (11.6-14.8) Platelet Count 386 K/UL (150-450) Mean Platelet Volume 6.6 FL (6.5-10.1) Neutrophils (%) (Auto) 74.6 % (45.0-75.0) Lymphocytes (%) (Auto) 13.6 % (20.0-45.0) L Monocytes (%) (Auto) 6.7 % (1.0-10.0) Eosinophils (%) (Auto) 3.9 % (0.0-3.0) H Basophils (%) (Auto) 1.2 % (0.0-2.0) Sodium Level 137 MMOL/L (136-145) Potassium Level 4.3 MMOL/L (3.5-5.1) Chloride Level 102 MMOL/L (98-107) Carbon Dioxide Level 27 MMOL/L (21-32) Anion Gap 8 mmol/L (5-15) Blood Urea Nitrogen 18 mg/dL (7-18) Creatinine 1.3 MG/DL (0.55-1.30) Estimat Glomerular Filtration Rate 55.4 mL/min (>60) Glucose Level 140 MG/DL (74-106) H Calcium Level 8.5 MG/DL (8.5-10.1) RODRIGUEZ CAMARGO 18, 2018 21:21
[2017-05-10] VITALS: BP 132/81
[2017-05-10] MEDS: NovoLOG Insulin Flexpen SUBQ SCH ×4 (00:12→18:00)
[2017-05-10 04:00] VITALS: BP 117/66
[2017-05-10] MEDS: D5 1/2NS w/KCl 20mEq 1,000 ML IV SCH (04:22)
[2017-05-10] MEDS: Clindamycin 600mg 50 ML IV SCH (06:05)
[2017-05-10 07:02] LABS: BASOPHILS % (AUTO) 1.3 % (0.0-2.0); EOSINOPHILS % (AUTO) 4.1 % (0.0-3.0); HEMATOCRIT 34.9 % (42.0-52.0); LYMPHOCYTES % (AUTO) 19.1 % (20.0-45.0); MEAN CORPUSCULAR VOLUME 84 FL (80-99); MONOCYTES % (AUTO) 6.4 % (1.0-10.0); NEUTROPHILS % (AUTO) 69.1 % (45.0-75.0); PLATELET COUNT 379 K/UL (150-450); RED BLOOD COUNT 4.15 M/UL (4.70-6.10); RED CELL DISTRIBUTION WIDTH 12.6 % (11.6-14.8); WHITE BLOOD COUNT 9.4 K/UL (4.8-10.8)
[2017-05-10 07:14] LABS: ALANINE AMINOTRANSFERASE 32 U/L (12-78); ALBUMIN 2.3 G/DL (3.4-5.0); ALBUMIN/GLOBULIN RATIO 0.5 (1.0-2.7); ALKALINE PHOSPHATASE 324 U/L (46-116); ANION GAP 6 mmol/L (5-15); ASPARTATE AMINO TRANSFERASE 21 U/L (15-37); BILIRUBIN,TOTAL 0.4 MG/DL (0.2-1.0); BLOOD UREA NITROGEN 17 mg/dL (7-18); CALCIUM 8.6 MG/DL (8.5-10.1); CARBON DIOXIDE 27 MMOL/L (21-32); CHLORIDE 104 MMOL/L (98-107); CREATININE 1.3 MG/DL (0.55-1.30); POTASSIUM 4.2 MMOL/L (3.5-5.1); SODIUM 137 MMOL/L (136-145)
[2017-05-10 08:00] VITALS: BP 114/69
[2017-05-10] MEDS: Ascorbic Acid 500mg tab ORAL PRN ×2 (08:46→12:12)
[2017-05-10] MEDS: Allopurinol 100mg Tab ORAL SCH (08:47)
[2017-05-10] MEDS: Pantoprazole Inj IVP SCH (08:47)
[2017-05-10] MEDS: oxyCODONE HCL/Acetaminophen 5/325mg ORAL PRN ×2 (08:47→14:39)
[2017-05-10] MEDS: Nystatin Susp 500,000 units/5ml ORAL SCH ×4 (08:47→21:37)
[2017-05-10 12:00] VITALS: BP 119/72
--- NOTE | 2017-05-10 12:54 | General Progress Note ---
Progress Note Progress Note AVSS Did well eating yesterday. Abdomen soft, wounds clean. BCIR ileo catheter removed Urine 4235 BCIR fileo 770 WBC 9400 BUN and Cr down 17/1.3 Imp. Improving Plan: D/C antibiotics and TPN and remove PIC line this evening RN supervised BCIR self-intubations q3h am to hs and prn Home health for wound care anticipate discharge in 24-48 hours continue I&O CYNDI BLACKMAN May 10, 2017 12:53
[2017-05-10] MEDS ORDERED: Simethicone 80mg tab ORAL PRN (15:30)
[2017-05-10] MEDS ORDERED: LORazepam 1mg tab ORAL PRN (15:30)
[2017-05-10 16:00] VITALS: BP 134/84
[2017-05-10] MEDS: Dyna-Hex 2% Top Sol 2oz TOPIC SCH (20:00)
[2017-05-10 20:47] VITALS: BP 140/89
[2017-05-11 00:29] VITALS: BP 138/84
[2017-05-11 04:25] VITALS: BP 124/83
[2017-05-11] MEDS: oxyCODONE HCL/Acetaminophen 5/325mg ORAL PRN ×2 (07:59→13:18)
[2017-05-11 08:03] VITALS: BP 108/71
[2017-05-11] MEDS: Nystatin Susp 500,000 units/5ml ORAL SCH ×4 (09:00→21:00)
[2017-05-11] MEDS: Allopurinol 100mg Tab ORAL SCH (09:16)
--- NOTE | 2017-05-11 09:45 | General Progress Note ---
Progress Note Progress Note AVSS with mild tachycardia (anxious re going home + coffee) Intubating his continent ileostomy pouch without difficulty Abdomen soft, open wounds are clean, incision healing well, stoma with lateral open wound is clean and healing Urine 2500 BCIR ileo 505 Imp. Improving Plan; Continue RN supervised BCIR self-intubations Teach patient wound care packing Provide discharge supplies for d/c in AM Order placed yesterday for Case Management to arrange for home health wound care CYNDI BLACKMAN May 11, 2017 09:45
[2017-05-11 12:18] VITALS: BP 138/89
[2017-05-11 15:44] VITALS: BP 133/86
[2017-05-11 20:00] VITALS: BP 114/76
[2017-05-12] MEDS: Ascorbic Acid 500mg tab ORAL PRN (01:51)
[2017-05-12 04:00] VITALS: BP 105/87
[2017-05-12] MEDS: oxyCODONE HCL/Acetaminophen 5/325mg ORAL PRN (04:36)
[2017-05-12 08:01] VITALS: BP 119/80
[2017-05-12] MEDS: Allopurinol 100mg Tab ORAL SCH (08:45)
[2017-05-12] MEDS: Nystatin Susp 500,000 units/5ml ORAL SCH (08:45)
--- NOTE | 2017-05-12 11:11 | General Progress Note ---
Progress Note Progress Note Doing well eating 75-100% and intubating his Denise continent ileostomy without difficulty Abdomen soft. Open wounds x2 are clean. Stoma healing Urine 925 BCIR ileo 1430 Imp. doing well Plan: discharge with full supplies/instructions/limitations provided/discussed Rx Percocet 5/325 #20 F/U telephone appointment 1 week and office visit in 2 weeks - call CYNDI Perez May 12, 2017 11:11
[2017-05-12] MEDS ORDERED: OXYCODONE-ACET1 EAC3 ORAL (11:58)
[2017-05-12 12:00] VITALS: BP 125/79
[2017-05-12] MEDS ORDERED: Tubing IV Secondary IV ONE (13:29)
--- NOTE | 2017-05-13 16:34 | Discharge Summary ---
Discharge Summary Hospital Course Date of Admission Apr 24, 2017 at 02:16 Date of Discharge May 12, 2017 at 13:30 Admitting Diagnosis Malfunction of BCIR with bowel obstruction Reason for Hospitalization: The patient is admitted for bowel obstruction HPI The patient is a 67-year-old male in stable health who has a past history of ulcerative colitis and has previously undergone proctocolectomy initially with a conventional ileostomy in 1973 followed by creation of a Kock pouch continent ileostomy in 1975. In January 2009 he underwent resection of his Kock pouch with distal ileal stricture and creation of a Denise type of continent ileostomy. He required revision of the stoma in depth in October 2009. The patient was admitted as an emergency in similar circumstances in July 2016 with inability to intubate with subsequent bowel obstruction. He was stabilized and underwent endoscopy of his pouch revealing a redundant and angulated access segment with the distance from the stoma orifice, which was stenotic, to the tip of the nipple valve 12 cm with an angulation at 8 cm. There was also stenosis of the valve tip and diffuse pouchitis. He was treated for the pouchitis with improvement and was informed that he needed to undergo laparotomy with revision of his pouch and stoma to allow him to intubate readily. His health insurance company, which is an [email or web address] refused to allow out of network care and the patient has struggled since then to get authorization. He has been taking Cipro for pouchitis symptoms and earlier took mesalamine instilled into the pouch nightly. At 5 a.m., the day prior to admission, 04/23/2017, the patient intubated, but got only a small amount of effluent and has not been able to catheterize and evacuate at all. He has had progressing distention and some nausea and was advised to come to the emergency room. He was admitted and a 24-Citizen Of [place] Chahal catheter was able to be placed into the pouch to get decompression. He usually catheterizes with a 30-Citizen Of [place] Medena or Bhumi catheter. Consultations Jose Alejandro Aviles M.D. Procedures OPERATION PERFORMED: Laparotomy with revision of Denise pouch stoma and access segment and repair of incisional hernia. Hospital Course Patient was admitted and was placed on NPO. PICC line was inserted and was started on TPN. Dr Aviles was consulted for perioperative evaluation. SBO was resolving, he was given prophylactic antibiotic, and underwent Laparotomy with revision of Denise pouch stoma and access segment and repair of incisional hernia on 04/29/17. Post-operatively, he was continued on NPO with TPN, he was given pain management. I&O's monitored. On 10/04/17, ileus was resolving, he was started on clear liquid diet, and planned off COAT FINISHER. On 10/05/17: He could not tolerate being off COAT FINISHER demand dosing; c/o sharp pains both sides of abdomen. tolerated clear liquids. STAT CT scan abd+pelvis with oral and IV contrast---CT reveals no acute pathology - some fluid likely post-op , ? non-obstructing distal CBD stone; pouch catheter is just past the nipple valve - advanced further into pouch. The following day, TPN rate was lowered. On 10/06/17: BCIR ileo catheter was not draining with abdominal pain and cramps - resolved with flushing. TPN increased to 60/hr. Patient had Oral thrush and was given Diflucan and Nystatin . Abdomen mildly distended, cellulitis lower half of incision and along superior border of stoma in RLQ. Abdominal wall cellulitis was treated with Clindamycin and levaquin On 10/08/17 He was started on BCIR low residue diet. He had slowly improving bowel function and was continued on TPN. TPN and PICC was eventually discontinued on 10/10/17. He had RN supervised BCIR self-intubations q3h On the day of discharge: Doing well eating 75-100% and intubating his Denise continent ileostomy without difficulty Abdomen soft. Open wounds x2 are clean. Stoma healing Urine 925 BCIR ileo 1430 Plan: discharge with full supplies/instructions/limitations provided/discussed Rx Percocet 5/325 #20 F/U telephone appointment 1 week and office visit in 2 weeks - call prn PREOPERATIVE DIAGNOSES: 1. 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 History of ulcerative colitis. 3. Status post multiple abdominal operations. 3.1. Proctocolectomy with Lucy ileostomy in 1973. 3.2. Kock pouch in 1975. 3.3. Resection of Kock pouch and distal ileal stricture and creation of a Denise continent ileostomy in January 2009. 3.4. Revision of Denise continent ileostomy stoma in October 2009. POSTOPERATIVE DIAGNOSES: 1. 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 History of ulcerative colitis. 3. Status post multiple abdominal operations. 3.1. Proctocolectomy with Lucy ileostomy in 1973. 3.2. Kock pouch in 1975. 3.3. Resection of Kock pouch and distal ileal stricture and creation of a Denise continent ileostomy in January 2009. 3.4. Revision of Denise continent ileostomy stoma in October 2009. ----I have been assigned to complete a DC summary on this account, I was not involved with the patient management.--Saskia Medina NP-- Discharge Discharge Disposition Patient was discharged to Home with Home Health(06) Marissa Medina NP May 13, 2017 16:34
== END 2017-05-12 13:30 | disposition home health service (06) | DRG 330 ==
LOC: EMR 23:34 → 3E 04-24 02:16 → EDBEDREQ 04-24 02:23 → 3E 04-24 15:15
PROC: B518ZZA Fluoroscopy of Superior Vena Cava, Guidance (ICD-10-PCS; principal; 2017-04-26)
PROC: 02HV33Z Insertion of Infusion Device into Superior Vena Cava, Percutaneous Approach (ICD-10-PCS; principal; 2017-04-26)
PROC: 0WQF0ZZ Repair Abdominal Wall, Open Approach (ICD-10-PCS; 2017-04-29)
PROC: 0DSB0ZZ Reposition Ileum, Open Approach (ICD-10-PCS; 2017-04-29)
PROC: 0WQFXZ2 Repair Abdominal Wall, Stoma, External Approach (ICD-10-PCS; 2017-04-29)
DX: K56.699 Other intestinal obstruction unspecified as to partial versus complete obstruction (principal); K94.13 Enterostomy malfunction; E46 Unspecified protein-calorie malnutrition; K91.850 Pouchitis; L03.311 Cellulitis of abdominal wall; T81.4XXA Infection following a procedure, initial encounter; I25.2 Old myocardial infarction; I25.10 Atherosclerotic heart disease of native coronary artery without angina pectoris; Z95.5 Presence of coronary angioplasty implant and graft; K43.2 Incisional hernia without obstruction or gangrene; E86.0 Dehydration; Z68.27 Body mass index [BMI] 27.0-27.9, adult; E53.8 Deficiency of other specified B group vitamins; K56.7 Ileus, unspecified; R35.0 Frequency of micturition
CPT/HCPCS: 36415; 36569; 71045; 74177; 76770; 76937; 80048; 80053; 81001; 81003; 82248; 82962; 83690; 85025; 85610; 85730; 86850; 86900; 86901; 87070; 87086; 87181; 87205; 93005; 93306; 94003; 94150; 99285; J1815; J2250; J2405; J2710; S0077

== ENCOUNTER 2017-11-22 07:32 | Inpatient (IN) | payer MEDICARE, BC ==
--- NOTE | 2017-11-20 18:00 | Pre-op HX & Phy Repo 2 SIG ---
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 The patient has a past history of ulcerative colitis and underwent proctocolectomy with ileostomy in 1973, followed by creation of a Kock pouch continent ileostomy in 1975. In January 2009, he underwent resection of his Kock pouch with distal ileal stricture and creation of a Denise type of continent ileostomy. He required revision of his stoma in depth in October 2009. He was admitted in July 2016 with inability to intubate his pouch with subsequent functional bowel obstruction. He underwent endoscopy after stabilizing his condition, revealing a redundant and angulated access segment and severe diffuse pouchitis. Once the pouchitis was treated, he was informed he would need to undergo laparotomy, but there was a great delay getting authorization from his insurance company. Finally, in April 2017, he underwent laparotomy with revision of his Denise pouch stoma and access segment and repair of incisional hernia in the epigastrium without mesh. He now presents with a stenosis of the mucocutaneous junction admitting only a 24-[place] catheter instead of his required 30-[place] silicone catheter. He has been controlling his pouchitis with Cipro and Rowasa suspension irrigated into the pouch. He has a large recurrent incisional hernia between xiphoid and umbilicus. He is going to be admitted for preparation for surgery with bowel prep and intravenous hydration on the day prior to surgery and will will undergo pouch endoscopy and then surgery the next day. PAST MEDICAL HISTORY/MEDICATIONS: Allopurinol, omeprazole, atorvastatin, aspirin 81 mg, Nitrostat sublingual p.r.n., and Cipro. ALLERGIES TO MEDICATIONS: Penicillin and Keflex. In addition, Flagyl taken orally causes GI upset. REVIEW OF SYSTEMS: Myocardial infarction in March 2015 with three stents. Bladder stones in the past. GI bleeding while on Brilinta in December 2015 that resolved with medical treatment and discontinuation of Brilinta. Recent MRI of the abdomen revealed a polyp of the common bile duct and this will be followed with a subsequent MRCP during this admission. Six months ago, the patient had a renal ultrasound with a cyst of the left kidney identified, somewhat complex with followup recommended in six months and he will have followup at this time as well. PHYSICAL EXAMINATION: VITAL SIGNS: The patient is 5 feet 7 inches, 170 pounds. ABDOMEN: Pertinent examination revealed the abdomen to be soft and nondistended. There was a long midline incision. The stoma of the Kock pouch is low in the right lower quadrant and very stenotic. The patient has been using a silicone stent to maintain the orifice to allow intubation. There is a large recurrent incisional hernia between the xiphoid and umbilicus, presenting both to the right and left of midline. Below the umbilicus and around the stoma the abdominal wall musculature was intact. GENITOURINARY: Testes and scrotum within normal limits. RECTAL: Status post proctectomy. EXTREMITIES: Without edema. IMPRESSION: 1. Malfunctioning Denise continent ileostomy with stoma stricture and difficulty with intubation. 2. Recurrent incisional hernia. 3. History of myocardial infarction, March 2015, with stents 4. History of gout. 5. History of recurrent bladder stones. 6. History of possible polyp in common bile duct. 7. History of complex left renal cyst, followup pending. 8. STATUS POST MULTIPLE ABDOMINAL OPERATIONS: 8.1. Proctocolectomy and Lucy ileostomy in 1976. 8.2. Kock pouch in 1975. 8.3. Resection of Kock pouch with distal ileal stricture and creation of a Denise continent ileostomy in January 2009. 8.4. Revision of Denise continent ileostomy stoma in October 2009. 8.5. Laparotomy with revision of Denise pouch stoma and access segment and repair of incisional hernia, April 29, 2017. PLAN: I have had a full discussion with the patient regarding the nature of his conditions, the need to do a pouch endoscopy to be certain there was no other reason for difficulty with intubation other than the stoma stricture, and preparation for surgery with bowel prep, IV hydration, and complete assessment and placement of a catheter into his pouch to continuous gravity drainage. The patient will be examined again upon arrival and I will have a full discussion regarding indications for surgery, alternatives, options, and risks. Rodney Stone M.D. : EMMY/DON JOB#: [id number] CC: JUAN M
[~2017-11-22] VITALS: Ht 170.2 cm; Wt 89.4 kg
[~2017-11-22 07:32] MED LIST changes: +ATORVASTATIN CA40 MG ORAL; +BUDESONIDE EC3 M1 PO; +CIALIS20 MG ORAL; +GAVILYTE-G SO4000 ML PO; +NITROSTAT0.4 M2 SL; +OXYCODONE-ACET1 EAC3 ORAL; +POLYETHYLENE GL17 GM ORAL; +[UNRECOGNIZED DRUG - OTHER] TP
[2017-11-22 09:18] VITALS: BP 145/77
[2017-11-22] MEDS ORDERED: CIPRO500 MG/51 PO (09:36)
[2017-11-22] MEDS ORDERED: NITROSTAT0.4 M1 SL (09:36)
[2017-11-22] MEDS ORDERED: [UNRECOGNIZED DRUG - CODE] PO (09:38)
[2017-11-22] MEDS ORDERED: CIPROFLOXACIN500 M2 ORAL (09:41)
[2017-11-22] MEDS ORDERED: ATORVASTATIN CA40 MG ORAL (09:42)
[2017-11-22 10:30] LABS: BASOPHILS % (AUTO) 0.8 % (0.0-2.0); HEMATOCRIT 41.9 % (42.0-52.0); HEMOGLOBIN 14.2 G/DL (14.2-18.0); LYMPHOCYTES % (AUTO) 19.5 % (20.0-45.0); MEAN CORPUSCULAR VOLUME 84 FL (80-99); MONOCYTES % (AUTO) 4.9 % (1.0-10.0); NEUTROPHILS % (AUTO) 72.8 % (45.0-75.0); PLATELET COUNT 266 K/UL (150-450); RED BLOOD COUNT 5.02 M/UL (4.70-6.10); RED CELL DISTRIBUTION WIDTH 12.1 % (11.6-14.8); WHITE BLOOD COUNT 8.4 K/UL (4.8-10.8)
[2017-11-22 10:39] LABS: APPEARANCE,URINE CLEAR; BILIRUBIN, URINE NEGATIVE (NEGATIVE); COLOR,URINE PALE YELLOW; GLUCOSE, URINE (UA) NEGATIVE (NEGATIVE); KETONES,URINE NEGATIVE (NEGATIVE); LEUKOCYTE ESTERASE ,URINE 1+ (NEGATIVE); NITRITE,URINE NEGATIVE (NEGATIVE); PH,URINE 5 (4.5-8.0); PROTEIN,URINE NEGATIVE (NEGATIVE); UROBILINOGEN,URINE NORMAL MG/DL (0.0-1.0)
[2017-11-22 10:46] LABS: ANION GAP 5 mmol/L (5-15); BLOOD UREA NITROGEN 14 mg/dL (7-18); CALCIUM 9.2 MG/DL (8.5-10.1); CARBON DIOXIDE 31 MMOL/L (21-32); CHLORIDE 105 MMOL/L (98-107); CREATININE 1.3 MG/DL (0.55-1.30); POTASSIUM 4.1 MMOL/L (3.5-5.1); SODIUM 141 MMOL/L (136-145)
[2017-11-22 10:51] LABS: ALANINE AMINOTRANSFERASE 27 U/L (12-78); ALBUMIN 3.1 G/DL (3.4-5.0); ALBUMIN/GLOBULIN RATIO 0.8 (1.0-2.7); ALKALINE PHOSPHATASE 115 U/L (46-116); ASPARTATE AMINO TRANSFERASE 22 U/L (15-37); BILIRUBIN,TOTAL 0.8 MG/DL (0.2-1.0)
--- NOTE | 2017-11-22 11:13 | Pre-Procedure Note/Attestation ---
Pre-Procedure Note/Attestation Complete Prior to Procedure Planned Procedure: not applicable Procedure Narrative: Denise continent ileostomy pouch endoscopy Indications for Procedure Pre-Operative Diagnosis: malfunctioning Denise pouch with difficulty with intubation Attestation I attest that I discussed the nature of the procedure; its benefits; risks and complications; and alternatives (and the risks and benefits of such alternatives ), prior to the procedure, with the patient (or the patient's legal guest service representative). I attest that, if there was a reasonable possibility of needing a blood transfusion, the patient (or the patient's legal guest service representative) was given the [facility] standardized written summary, pursuant to the [place] Blood Safety Act ([place] Health and Safety Code # 1645, as amended). I attest that I re-evaluated the patient just prior to the surgery and that there has been no change in the patient's H&P, except as documented below:none Rodney Stone MD Nov 22, 2017 11:13
--- NOTE | 2017-11-22 11:52 | Diagnostic Imaging Report ---
Indication: Cough Technique: One view of the chest Comparison: 04/23/2017 Findings: Lungs and pleural spaces are clear. Heart size is normal. No significant interim change Impression: No acute process
[2017-11-22] MEDS: D5 1/2NS w/KCl 20mEq 1,000 ML IV SCH ×2 (12:34→21:20)
[2017-11-22] MEDS: Neomycin Sulfate 500mg Tab ORAL SCH ×3 (12:34→19:48)
[2017-11-22 13:12] VITALS: BP 122/84
--- NOTE | 2017-11-22 14:33 | Brief Operative Note ---
Immediate Post Operative Note Operative Note Pre-op Diagnosis: malfunctioning Denise pouch with difficulty with intubation Procedure: Denise pouch endoscopy Post-op Diagnosis: Angulation of valve segment, Stoma stenosis, Mild pouchitis Post-op Diagnosis: same as pre-op Findings: consistent w/pre-op dx studies Surgeon: danni Anesthesia: other - none Specimen: none Complications: none Condition: stable Fluids: none Estimated Blood Loss: none Drains: other - 26 Chahal to Denise pouch Implant(s) used?: No Rodney Stone MD Nov 22, 2017 14:33
--- NOTE | 2017-11-22 14:36 | General Progress Note ---
Progress Note Progress Note H&P dictated. Patient states he is having incontinence of gas from the Denise pouch stoma. Also has perineal sinus tract with drainage - 1.5 cm sinus Stoma stenosis Mild pouchitis Albumin 3.1 (low) Imp: Malfunctioning Denise continent ileostomy with difficulty intubating, incontinence of flatus, stoma stenosis, recurrent incisional hernia Plan: In view of malnutrition and need to revise Denise pouch as well as repair hernia, will have dual lumen PIC placed for post-op TPN Rodney Stone MD Nov 22, 2017 14:36
--- NOTE | 2017-11-22 14:57 | Anethesia Preoperative Eval ---
Anesthesia Pre-op PMH/ROS General Date of Evaluation: Nov 22, 2017 Time of Evaluation: 16:30 Anesthesiologist: Ever ASA Score: ASA 3 Mallampati Score Class I : Soft palate, uvula, fauces, pillars visible Class II: Soft palate, uvula, fauces visible Class III: Soft palate, base of uvula visible Class IV: Only hard plate visible Mallampati Classification: Class II Surgeon: Bertha Diagnosis: Malfunctioning Denise Pouch, recurrent incisional hernia Surgical Procedure: Incisional herniorrhaphy, stricture correction Family History: no anesthesia problems Allergies: Coded Allergies: CEPHALEXIN (Verified Allergy, Mild, 11/06/09) PENICILLIN G (Verified Allergy, Mild, 01/22/09) SULFA (SULFONAMIDE ANTIBIOTICS) (Verified Allergy, Mild, 11/07/09) Uncoded Allergies: ORAL FLAGYL (Adverse Reaction, Unknown, 11/07/09) Medications: see eMAR Past Medical History Cardiovascular: Reports: CAD, [place] - March 2015 with coronary stents X3 Pulmonary: Denies: asthma, COPD, MARIE, other Gastrointestinal/Genitourinary: Denies: GERD, CRI, ESRD, other Neurologic/Psychiatric: Denies: dementia, CVA, depression/anxiety, TIA, other Endocrine: Denies: DM, hypothyroidism, steroids, other HEENT: Denies: cataract (L), cataract (R), glaucoma, TLINGIT & HAIDA (L), TLINGIT & HAIDA (R), other Hematology/Immune: Denies: anemia, DVT, bleeding disorder, other Musculoskeletal/Integumentary: Denies: OA, RA, DJD, DDD, edema, other PMH Narrative: Ulcerative colitis, CAD (s/p [place] and stents X3), gout, GI bleed secondary to Brilinta. PSxH Narrative: Multiple surgeries including proctocolectomy with ileostomy, Kock pouch, Denise pouch with revision, incisional herniorrhaphy. Anesthesia Pre-op Phys. Exam Physician Exam Last Vital Signs Date Time Temp Pulse Resp B/P (MAP) Pulse Ox O2 Delivery O2 Flow Rate FiO2 11/22/17 13:12 97.6 70 18 122/84 (97) 98 97.6 11/22/17 11:32 Room Air Constitutional: NAD Neurologic: CN 2-12 intact Cardiovascular: RRR, no M/R/G Respiratory: CTA Gastrointestinal: S/NT/ND Airway Exam Mallampati Score: Class II MO: full ROM: full Teeth: intact Anesthesia Pre-op A/P Labs Hematology Test 11/22/17 10:20 White Blood Count 8.4 K/UL (4.8-10.8) Red Blood Count 5.02 M/UL (4.70-6.10) Hemoglobin 14.2 G/DL (14.2-18.0) Hematocrit 41.9 % (42.0-52.0) L Mean Corpuscular Volume 84 FL (80-99) Mean Corpuscular Hemoglobin 28.3 PG (27.0-31.0) Mean Corpuscular Hemoglobin Concent 33.8 G/DL (32.0-36.0) Red Cell Distribution Width 12.1 % (11.6-14.8) Platelet Count 266 K/UL (150-450) Mean Platelet Volume 5.6 FL (6.5-10.1) L Neutrophils (%) (Auto) 72.8 % (45.0-75.0) Lymphocytes (%) (Auto) 19.5 % (20.0-45.0) L Monocytes (%) (Auto) 4.9 % (1.0-10.0) Eosinophils (%) (Auto) 2.0 % (0.0-3.0) Basophils (%) (Auto) 0.8 % (0.0-2.0) Coagulation Test 11/22/17 10:20 Prothrombin Time 10.9 SEC (9.30-11.50) Prothromb Time International Ratio 1.0 (0.9-1.1) Activated Partial Thromboplast Time 28 SEC (23-33) Chemistry Test 11/22/17 10:20 Sodium Level 141 MMOL/L (136-145) Potassium Level 4.1 MMOL/L (3.5-5.1) Chloride Level 105 MMOL/L (98-107) Carbon Dioxide Level 31 MMOL/L (21-32) Anion Gap 5 mmol/L (5-15) Blood Urea Nitrogen 14 mg/dL (7-18) Creatinine 1.3 MG/DL (0.55-1.30) Estimat Glomerular Filtration Rate 55.4 mL/min (>60) Glucose Level 108 MG/DL (74-106) H Calcium Level 9.2 MG/DL (8.5-10.1) Total Bilirubin 0.8 MG/DL (0.2-1.0) Aspartate Amino Transf (AST/SGOT) 22 U/L (15-37) Alanine Aminotransferase (ALT/SGPT) 27 U/L (12-78) Alkaline Phosphatase 115 U/L (46-116) Total Protein 7.0 G/DL (6.4-8.2) Albumin 3.1 G/DL (3.4-5.0) L Globulin 3.9 g/dL Albumin/Globulin Ratio 0.8 (1.0-2.7) L Studies Pre-op Studies: EKG Risk Assessment & Plan Assessment: Generally healthy male with h/o U.C., CAD (s/p [place] and coronary stents X3) here for recurrent incisional herniorrhaphy and stoma evaluation. Plan: GETA Status Change Before Surgery: Larry Damon MD Nov 22, 2017 14:57
--- NOTE | 2017-11-22 18:02 | Cardiology Progress Note ---
Assessment/Plan Assessment/Plan malfunctioning continent pouch hx of cad now s/p lad stent stable preop stress echo neg last week srugery planned for am has been off asa in good spirits will follow Subjective Cardiovascular: Denies: chest pain, lightheadedness, palpitations, syncope Respiratory: Denies: shortness of breath Gastrointestinal/Abdominal: Denies: abdominal pain Genitourinary: Denies: burning Objective Last 24 Hour Vital Signs Date Time Temp Pulse Resp B/P (MAP) Pulse Ox O2 Delivery O2 Flow Rate FiO2 11/22/17 13:12 97.6 70 18 122/84 (97) 98 97.6 11/22/17 11:32 Room Air 11/22/17 09:18 97.9 77 18 145/77 (99) 96 97.9 General Appearance: no apparent distress, alert Neck: supple Cardiovascular: normal rate, regular rhythm Respiratory/Chest: lungs clear, normal breath sounds Abdomen: normal bowel sounds, non tender, soft Extremities: no swelling Laboratory Tests Test 11/22/17 10:20 11/22/17 10:25 White Blood Count 8.4 K/UL (4.8-10.8) Red Blood Count 5.02 M/UL (4.70-6.10) Hemoglobin 14.2 G/DL (14.2-18.0) Hematocrit 41.9 % (42.0-52.0) L Mean Corpuscular Volume 84 FL (80-99) Mean Corpuscular Hemoglobin 28.3 PG (27.0-31.0) Mean Corpuscular Hemoglobin Concent 33.8 G/DL (32.0-36.0) Red Cell Distribution Width 12.1 % (11.6-14.8) Platelet Count 266 K/UL (150-450) Mean Platelet Volume 5.6 FL (6.5-10.1) L Neutrophils (%) (Auto) 72.8 % (45.0-75.0) Lymphocytes (%) (Auto) 19.5 % (20.0-45.0) L Monocytes (%) (Auto) 4.9 % (1.0-10.0) Eosinophils (%) (Auto) 2.0 % (0.0-3.0) Basophils (%) (Auto) 0.8 % (0.0-2.0) Prothrombin Time 10.9 SEC (9.30-11.50) Prothromb Time International Ratio 1.0 (0.9-1.1) Activated Partial Thromboplast Time 28 SEC (23-33) Sodium Level 141 MMOL/L (136-145) Potassium Level 4.1 MMOL/L (3.5-5.1) Chloride Level 105 MMOL/L (98-107) Carbon Dioxide Level 31 MMOL/L (21-32) Anion Gap 5 mmol/L (5-15) Blood Urea Nitrogen 14 mg/dL (7-18) Creatinine 1.3 MG/DL (0.55-1.30) Estimat Glomerular Filtration Rate 55.4 mL/min (>60) Glucose Level 108 MG/DL (74-106) H Calcium Level 9.2 MG/DL (8.5-10.1) Total Bilirubin 0.8 MG/DL (0.2-1.0) Aspartate Amino Transf (AST/SGOT) 22 U/L (15-37) Alanine Aminotransferase (ALT/SGPT) 27 U/L (12-78) Alkaline Phosphatase 115 U/L (46-116) Total Protein 7.0 G/DL (6.4-8.2) Albumin 3.1 G/DL (3.4-5.0) L Globulin 3.9 g/dL Albumin/Globulin Ratio 0.8 (1.0-2.7) L Urine Color Pale yellow Urine Appearance Clear Urine pH 5 (4.5-8.0) Urine Specific [place] 1.010 (1.005-1.035) Urine Protein Negative (NEGATIVE) Urine Glucose (UA) Negative (NEGATIVE) Urine Ketones Negative (NEGATIVE) Urine Blood 1+ (NEGATIVE) H Urine Nitrite Negative (NEGATIVE) Urine Bilirubin Negative (NEGATIVE) Urine Urobilinogen Normal MG/DL (0.0-1.0) Urine Leukocyte Esterase 1+ (NEGATIVE) H Urine RBC 0-2 /HPF (0 - 0) H Urine WBC 2-4 /HPF (0 - 0) Urine Squamous Epithelial Cells Occasional /LPF Urine Bacteria Occasional /HPF (NONE) Jose Alejandro Aviles MD Nov 22, 2017 18:02
--- NOTE | 2017-11-22 18:59 | Procedure Note ---
DATE OF ENDOSCOPY: November 22, 2017. ENDOSCOPIST: Rodney Stone M.D. ANESTHESIA: None. SEDATION: None. PRE-ENDOSCOPY DIAGNOSES: 1. Malfunctioning Denise continent ileostomy with difficulty with intubation and incontinence of flatus and stricture of stoma. 2. Recurrent incisional hernia. 3. History of ulcerative colitis. 4. Status post multiple abdominal operations including proctocolectomy and ileostomy in 1976, Kock pouch in 1985, resection of Kock pouch with distal ileal stricture and creation of a Denise continent ileostomy in 2008, revision of stoma in 2009, and laparotomy with revision of stoma and access segment on April 29, 2017. POST-ENDOSCOPY DIAGNOSES: 1. Malfunctioning Denise continent ileostomy with difficulty with intubation and incontinence of flatus and stricture of stoma. 2. Recurrent incisional hernia. 3. History of ulcerative colitis. 4. Status post multiple abdominal operations including proctocolectomy and ileostomy in 1976, Kock pouch in 1985, resection of Kock pouch with distal ileal stricture and creation of a Denise continent ileostomy in 2008, revision of stoma in 2009, and laparotomy with revision of stoma and access segment on April 29, 2017. ENDOSCOPY PERFORMED: Denise continent ileostomy pouch endoscopy. DESCRIPTION OF PROCEDURE: The patient was positioned supine in the GI lab without any anesthesia or sedation given or required. The stoma stenosis was dilated somewhat and then using a GIF-P140, the stoma was entered and the distance to the tip of the valve was approximately 12 cm. The pouch was distensible with mild pouchitis. Retroflexed views revealed an angulated valve. Withdrawal views confirmed the above findings. After removing the endoscope, I was able to manipulate a 26-[place] Chahal into the pouch, secured it to the skin with tape, and connected it to a gravity drainage bag. The patient will require revision of his pouch and correction of the stoma stenosis, as well as repair of his recurrent incisional hernia and attention directed to his perineal sinus tract. The patient tolerated the endoscopy well. Rodney Stone M.D. : Brian JOB#: [id number] CC: JUAN M
[2017-11-22 19:25] LABS: % IRON SATURATION 21 % (15-50); IRON 68 ug/dL (50-175); TOTAL IRON BINDING CAPACITY 324 ug/dL (250-450)
[2017-11-22] MEDS ORDERED: Vitamin B12 1000mcg/ml Inj IM SCH (19:45)
--- NOTE | 2017-11-22 19:45 | Geriatric Progress Note ---
Subjective Interval Events 67 y/o male admitted for revision of Denise pouch and stoma, repair of recurrent incisional hernia, and evaluation of possible common bile duct polyp/ mass. Patient with history of ulcerative colitis, s/p proctocolectomy with ileostomy, later converted to Gonzalez pouch, and then to Denise ileostomy. He has had history of pouchitis, complicated by significant hemorrhage when on Brilinta. Recently, he had developed recurrent difficulty with intubation of the stoma, and also some incontinence of flatus. In additional, there has been a recurrence of an incisional hernia. He is now admitted for revision of the ostomy and pouch, and repair of the hernia. He has been placed on antibiotic regimen to decrease microbiotic burden prior to surgery. Mr. Lopez has also had an MRI with visualization of a polyp or mass or narrowing of the common bile duct. Dr. Mena will evaluate the patient and will make a recommendation regarding possible endoscopic study. Preoperatively, Mr. Lopez was evaluated by Dr. Aviles, including a stress test, which did not reveal evidence of coronary ischemia. Preoperative laboratories have been unremarkable with borderline B12 level and mildly decreased albumin. Mr. Lopez denies new clinical sxs except for generalized fatigue since the onset of his ostomy sxs, associated with diminished oral intake. PMH: Ulcerative colitis, with multiple surgical interventions as per Dr. Stone's note. S/p ACS in March 2015, with LAD stents, preserved myocardium. Hx of multi-unit GI blood loss when on Brilinta for stents, associated with pouchitis, with concomitant Fe deficiency. Hx of gout and urate stones in urinary tract. HTN. Hx dyslipidemia. Hx B12 deficiency associated with intestinal pathology. Hx vit D deficiency. Meds Allopurinol 100 mg daily. ASA 81 mg daily. Atorvastatin 20 mg qpm. omeprazole 20 mg daily. vit D3 2000u daily. Topical Fluorouracil to skin lesions. Oral iron discontinued due to intestinal upset. Off parenteral vit B12. PE reveals normal mentation, no acute distress. Chest clear CV RR Abd benign Ext without edema, calf tenderness. Ambulating independently. Patient optimized for surgical procedure. Monitor for recurrent coronary sxs, but appears low risk. On discussion with patient, will proceed with one parenteral dose of B12. Check Fe studies, but given Hct, lack of microcytosis, unlikely to be abnormal. Discussed with patient and , discussed with Dr. Aviles. Discussed with Dr. Stone. IV hydration initiated. Dictated #[id number]. Geriatric Geriatric Last 24 Hour Vital Signs Date Time Temp Pulse Resp B/P (MAP) Pulse Ox O2 Delivery O2 Flow Rate FiO2 11/22/17 13:12 97.6 70 18 122/84 (97) 98 97.6 11/22/17 11:32 Room Air 11/22/17 09:18 97.9 77 18 145/77 (99) 96 97.9 Laboratory Tests Test 11/22/17 10:20 11/22/17 10:25 White Blood Count 8.4 K/UL (4.8-10.8) Red Blood Count 5.02 M/UL (4.70-6.10) Hemoglobin 14.2 G/DL (14.2-18.0) Hematocrit 41.9 % (42.0-52.0) L Mean Corpuscular Volume 84 FL (80-99) Mean Corpuscular Hemoglobin 28.3 PG (27.0-31.0) Mean Corpuscular Hemoglobin Concent 33.8 G/DL (32.0-36.0) Red Cell Distribution Width 12.1 % (11.6-14.8) Platelet Count 266 K/UL (150-450) Mean Platelet Volume 5.6 FL (6.5-10.1) L Neutrophils (%) (Auto) 72.8 % (45.0-75.0) Lymphocytes (%) (Auto) 19.5 % (20.0-45.0) L Monocytes (%) (Auto) 4.9 % (1.0-10.0) Eosinophils (%) (Auto) 2.0 % (0.0-3.0) Basophils (%) (Auto) 0.8 % (0.0-2.0) Prothrombin Time 10.9 SEC (9.30-11.50) Prothromb Time International Ratio 1.0 (0.9-1.1) Activated Partial Thromboplast Time 28 SEC (23-33) Sodium Level 141 MMOL/L (136-145) Potassium Level 4.1 MMOL/L (3.5-5.1) Chloride Level 105 MMOL/L (98-107) Carbon Dioxide Level 31 MMOL/L (21-32) Anion Gap 5 mmol/L (5-15) Blood Urea Nitrogen 14 mg/dL (7-18) Creatinine 1.3 MG/DL (0.55-1.30) Estimat Glomerular Filtration Rate 55.4 mL/min (>60) Glucose Level 108 MG/DL (74-106) H Calcium Level 9.2 MG/DL (8.5-10.1) Total Bilirubin 0.8 MG/DL (0.2-1.0) Aspartate Amino Transf (AST/SGOT) 22 U/L (15-37) Alanine Aminotransferase (ALT/SGPT) 27 U/L (12-78) Alkaline Phosphatase 115 U/L (46-116) Total Protein 7.0 G/DL (6.4-8.2) Albumin 3.1 G/DL (3.4-5.0) L Globulin 3.9 g/dL Albumin/Globulin Ratio 0.8 (1.0-2.7) L Urine Color Pale yellow Urine Appearance Clear Urine pH 5 (4.5-8.0) Urine Specific [place] 1.010 (1.005-1.035) Urine Protein Negative (NEGATIVE) Urine Glucose (UA) Negative (NEGATIVE) Urine Ketones Negative (NEGATIVE) Urine Blood 1+ (NEGATIVE) H Urine Nitrite Negative (NEGATIVE) Urine Bilirubin Negative (NEGATIVE) Urine Urobilinogen Normal MG/DL (0.0-1.0) Urine Leukocyte Esterase 1+ (NEGATIVE) H Urine RBC 0-2 /HPF (0 - 0) H Urine WBC 2-4 /HPF (0 - 0) Urine Squamous Epithelial Cells Occasional /LPF Urine Bacteria Occasional /HPF (NONE) Current Medications Medications (Trade) Dose Ordered Sig/Julio Route PRN Reason Start Time Stop Time Status Last Admin Dose Admin Allopurinol (Zyloprim) 100 mg QHS ORAL 11/22/17 21:00 12/22/17 20:59 Dextrose/ Electrolytes 1,000 ml @ 100 mls/hr Q10H IV 11/22/17 11:13 12/22/17 11:12 11/22/17 12:34 Erythromycin (Erythrocin) 500 mg TID@12,16,20 ORAL 11/22/17 12:00 11/22/17 20:01 11/22/17 16:27 Heparin Sodium (Porcine) (Heparin 5000 units/ml) 5,000 units ONCE SUBQ 11/23/17 09:00 11/23/17 10:00 Levofloxacin 100 ml @ 100 mls/hr Q24H IVPB 11/23/17 09:00 11/30/17 08:59 Metronidazole 100 ml @ 100 mls/hr EVERY 6 HOURS IV 11/23/17 00:00 11/30/17 00:00 Neomycin Sulfate (Neomycin Sulfate) 500 mg TID@12,16,20 ORAL 11/22/17 12:00 11/22/17 20:01 11/22/17 16:27 Ondansetron HCl (Zofran) 4 mg Q4H PRN IVP Nausea & Vomiting 11/22/17 11:14 12/22/17 11:13 Pantoprazole (Protonix) 40 mg Q24H IVP 11/22/17 20:00 12/22/17 19:59 Height (Feet): 5 Height (Inches): 7.00 Weight (Pounds): 170 Juno Rose MD Nov 22, 2017 19:45
[2017-11-22] MEDS: Pantoprazole Inj IVP SCH (19:49)
[2017-11-22 20:11] LABS: FERRITIN 98 NG/ML (8-388)
[2017-11-22 20:35] VITALS: BP 113/76
[2017-11-22] MEDS: Allopurinol 100mg Tab ORAL SCH (21:17)
[2017-11-23] VITALS (15 sets, daily range): BP systolic 98–180; BP diastolic 64–98
[2017-11-23] MEDS ORDERED: ALPRAZolam 0.25mg tab ORAL SCH (06:45)
[2017-11-23] MEDS ORDERED: Lidocaine HCL 2% 2ML INJ ONE (08:30)
[2017-11-23] MEDS ORDERED: Heparin 2000 units/Ns 1000ml IV SCH (08:30)
--- NOTE | 2017-11-23 08:34 | Diagnostic Imaging Report ---
Indication: Acute renal failure, follow-up of indeterminate left renal lesion seen on prior imaging studies Technique: Grayscale and duplex images of the kidneys, retroperitoneum, and bladder were obtained. Comparison: 04/26/2017 sonogram, 05/05/[address] Findings: Right kidney measures 10.5 cm in length. Left kidney measures 10 cm in length. Both kidneys demonstrate normal echogenicity. No hydronephrosis. Previously demonstrated left renal interpolar region indeterminate lesion currently measures 15 x 13 mm, previously 22 x 12, appears somewhat more clearly cystic than on the previous sonogram, similar in size and shape to previous CT scan. Other clearly simple cysts are seen again bilaterally. Normal inferior vena cava. Bladder demonstrates prevoid volume of 254 mL, postvoid volume of 155 mL.. Prostate is prominent, measures 40 mL and calculated volume Impression: Previously demonstrated renal interpolar region indeterminate lesion may have decreased slightly in size, and appears somewhat more clearly cystic on the current study. This almost certainly represents a benign cyst that previously hemorrhaged and partially involuted. Nevertheless, given occasionally quiescent nature of renal neoplasms, one more additional short interval follow-up sonogram in 6 months is recommended. Negative for hydronephrosis. Other multiple bilateral benign simple cysts again demonstrated 155 mL postvoid urinary bladder volume Prominent prostate
[2017-11-23] MEDS ORDERED: Lidocaine 1% Plain 30 ml INJ SCH (08:45)
[2017-11-23] MEDS ORDERED: Heparin 5000 units/ml inj SUBQ SCH (09:00)
[2017-11-23] MEDS: D5 1/2NS w/KCl 20mEq 1,000 ML IV SCH (09:26)
--- NOTE | 2017-11-23 09:41 | Pre-Procedure Note/Attestation ---
Pre-Procedure Note/Attestation Complete Prior to Procedure Planned Procedure: not applicable Procedure Narrative: PICC Indications for Procedure Pre-Operative Diagnosis: needs IV access alf Attestation I attest that I discussed the nature of the procedure; its benefits; risks and complications; and alternatives (and the risks and benefits of such alternatives ), prior to the procedure, with the patient (or the patient's legal claim service representative). I attest that, if there was a reasonable possibility of needing a blood transfusion, the patient (or the patient's legal claim service representative) was given the [facility] standardized written summary, pursuant to the Larry Compa Blood Safety Act ([place] Health and Safety Code # 1645, as amended). I attest that I re-evaluated the patient just prior to the surgery and that there has been no change in the patient's H&P, except as documented below: Juno Potter MD Nov 23, 2017 09:41
--- NOTE | 2017-11-23 09:47 | Diagnostic Imaging Report ---
Indications: Needs long-term IV access Technique: Ultrasound confirms patent compressible right basilic vein. Total sterile technique, including sterile probe cover and sterile gel, hat, mask, sterile gown, large sterile drape, and preparation with 2% chlorhexidine utilized. Local anesthesia with 1% lidocaine. Under real-time ultrasound guidance, puncture basilic vein using 21-gauge needle, documented and archived, passage 0.018 guidewire under direct fluoroscopy, which was used to determine appropriate catheter length, exchange for 5 Thai peel-away sheath. 5 Thai Bard dual-lumen power PICC cut to 40 cm. It was inserted through the peel-away sheath. Peel-away sheath and guidewire removed. Catheter fixed to the skin. Both catheter ports aspirated and flushed. Patient tolerated procedure well, without immediate complication. Digital radiograph documents satisfactory catheter tip position, at the cavoatrial junction. Total fluoroscopy time 0.2 minutes. Total dose area product 7.1 dGycm2 Total number of images: 1 Impression: Successful placement of right arm PICC under sonographic and fluoroscopic guidance, as described above.
[2017-11-23] MEDS ORDERED: Midazolam 2mg/2ml Inj ONE ×2 (10:11→15:56)
[2017-11-23] MEDS ORDERED: fentaNYL 100 mcg/2 mL IV ONE (10:11)
[2017-11-23] MEDS ORDERED: Lidocaine 1% MPF 10mg/ml 5ml ONE (10:14)
[2017-11-23] MEDS ORDERED: Propofol 200mg/20ml IV ONE (10:14)
[2017-11-23] MEDS ORDERED: NeoSporin Gu Irrig 1ml Amp IRRIG ONE (10:46)
[2017-11-23] MEDS ORDERED: Bacitracin 50000 Units Vial ONE (10:46)
[2017-11-23] MEDS ORDERED: Zemuron 50mg/5ml Inj IV ONE (10:47)
[2017-11-23] MEDS ORDERED: Succinylcholine 20mg/ml 10ml vial ONE (10:48)
--- NOTE | 2017-11-23 10:49 | Pre-Procedure Note/Attestation ---
Pre-Procedure Note/Attestation Complete Prior to Procedure Planned Procedure: not applicable Procedure Narrative: Revision of Kock Pouch, release of stoma stenosis, repair recurrent incisional hernia Indications for Procedure Pre-Operative Diagnosis: malfunctioning Kock pouch, stoma stenosis, recurrent incisional hernia Attestation I attest that I discussed the nature of the procedure; its benefits; risks and complications; and alternatives (and the risks and benefits of such alternatives ), prior to the procedure, with the patient (or the patient's legal representative government relations). I attest that, if there was a reasonable possibility of needing a blood transfusion, the patient (or the patient's legal representative government relations) was given the [place] [facility] standardized written summary, pursuant to the Larry Compa Blood Safety Act ([place] Health and Safety Code # 1645, as amended). I attest that I re-evaluated the patient just prior to the surgery and that there has been no change in the patient's H&P, except as documented below:none Rodney Stone MD Nov 23, 2017 10:49
[2017-11-23] MEDS ORDERED: Glycopyrrolate 0.2mg/ml 1ml Vial ONE (11:52)
[2017-11-23] MEDS ORDERED: Neostigmine 1mg/ml 10ml Inj ONE (11:52)
[2017-11-23] MEDS ORDERED: Morphine Sulfate 10mg/ml Inj ONE (11:52)
[2017-11-23] MEDS ORDERED: Sodium Chloride 10ml vial INJ ONE (11:52)
[2017-11-23] MEDS ORDERED: LR 1000ml 1,000 ML IVLG SCH (12:07)
[2017-11-23] MEDS ORDERED: DiphenhydrAMINE 50mg/ml Inj IVP PRN ×2 (12:15→15:15)
[2017-11-23] MEDS ORDERED: Naloxone 0.4mg/ml Inj IVP PRN (15:15)
[2017-11-23] MEDS ORDERED: PCA Education Pamphlet MISC ONE (15:15)
[2017-11-23] MEDS ORDERED: Rate Change PCA 1 Each MISC PRN (15:15)
[2017-11-23] MEDS ORDERED: PCA HYDROmorphone 1mg/ml 30 ML IV PRN (15:15)
--- NOTE | 2017-11-23 15:16 | Immediate Post-Op Evaluation ---
Immediate Post-Op Evalulation Immediate Post-Op Evalulation Procedure: Exploratory laparotomy,revision of Gonzalez pouch, ventral hernia repair Date of Evaluation: Nov 23, 2017 Time of Evaluation: 15:15 IV Fluids: 1200 Blood Products: none Estimated Blood Loss: 100 Urinary Output: 300 Blood Pressure Systolic: 164 Blood Pressure Diastolic: 76 Pulse Rate: 92 Respiratory Rate: 22 O2 Sat by Pulse Oximetry: 99 Temperature (Fahrenheit): 98.4 Pain Score (1-10): 3 Nausea: No Vomiting: No Complications none Patient Status: reacts, patent, extubated, none Hydration Status: adequate Sher Fairchild MD Nov 23, 2017 15:16
[2017-11-23] MEDS: fentaNYL 100 mcg/2 mL IV PRN ×2 (15:19→15:37)
--- NOTE | 2017-11-23 15:23 | Brief Operative Note ---
Immediate Post Operative Note Operative Note Pre-op Diagnosis: malfunctioning Kock pouch, stoma stenosis, recurrent incisional hernia, perineal sinus tract Procedure: Revision Kock Pouch valve and stoma, repair recurrent incisional hernia with mesh, cauterize perineal sinus tract Post-op Diagnosis: Angulation of valve segment, Stoma stenosis, recurrent incisional hernia, Perineal sinus tract Post-op Diagnosis: same as pre-op Findings: consistent w/pre-op dx studies Surgeon: danni Desulfurizer Machine: trav Anesthesiologist: juhi Specimen: yes - stoma Complications: none Condition: stable Fluids: see anesthesia record Estimated Blood Loss: volume - 100cc Drains: other - 28 Chahal to Denise Pouch Implant(s) used?: Yes - Atrium mosaic C-qur mesh 15cm/15cm Rodney Stone MD Nov 23, 2017 15:23
[2017-11-23] MEDS ORDERED: Midazolam 2mg/2ml Inj IVP SCH (16:00)
[2017-11-23] MEDS ORDERED: D5 1/4NS w/KCl 20mEq 1,000 ML IV SCH (16:00)
--- NOTE | 2017-11-23 19:06 | Cardiology Report ---
APPROVED REPORT EKG Measurement Heart [id number] Normal sinus rhythm Normal ECG
[2017-11-23] MEDS: PCA shift volume MISC SCH (19:21)
--- NOTE | 2017-11-23 19:30 | Operative Note - Dictated ---
DATE OF OPERATION: 11/23/2017 SURGEON: Rodney Stone M.D. AIR TUCKER SURGEON: Jeff Jones M.D. ANESTHESIOLOGIST: Sher Fairchild M.D. TYPE OF ANESTHESIA: General endotracheal. PREOPERATIVE DIAGNOSES: 1. 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 2. Recurrent incisional hernia. 3. 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 4. History of ulcerative colitis. 5. STATUS POST MULTIPLE ABDOMINAL OPERATIONS: 5.1. Proctocolectomy and Lucy ileostomy in 1976. 5.2. Kock pouch in 1977. 5.3. Resection of Kock pouch with distal ileal stricture and creation of a Denise continent ileostomy in 2008. 5.4. Revision of Denise continent ileostomy stoma in 2009. 5.5. Revision of Denise pouch stoma and access segment and repair of incisional hernia with laparotomy on April 29, 2017. POSTOPERATIVE DIAGNOSES: 1. 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 2. Recurrent incisional hernia. 3. 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 4. History of ulcerative colitis. 5. STATUS POST MULTIPLE ABDOMINAL OPERATIONS: 5.1. Proctocolectomy and Lucy ileostomy in 1976. 5.2. Kock pouch in 1977. 5.3. Resection of Kock pouch with distal ileal stricture and creation of a Denise continent ileostomy in 2008. 5.4. Revision of Denise continent ileostomy stoma in 2009. 5.5. Revision of Denise pouch stoma and access segment and repair of incisional hernia with laparotomy on April 29, 2017. OPERATION PERFORMED: 1. Laparotomy with revision of Denise continent ileostomy nipple valve. 2. Revision of Denise continent ileostomy stoma stenosis. 3. Repair of recurrent incisional hernia utilizing Atrium Mosaic C-QUR mesh 15 x 15 cm. 4. Curetting and cauterization of shallow perineal sinus tract, status post remote proctectomy. DESCRIPTION OF PROCEDURE: The patient was taken to the operating room and under general endotracheal anesthesia with sequential compression device stockings and Chahal catheter in place having received preoperative intravenous antibiotics and subcutaneous heparin, he was first positioned in left lateral decubitus so that I could curette the sinus tract and cauterize it and pack it with dry gauze, he was restored to supine position with the usual padding, prepping, and draping. Initially, the stoma in the right lower quadrant was sealed with Tegaderm. Previous midline incision was reopened from the xiphoid to the pubis. There was a large recurrent incisional hernia in the epigastrium, but from the umbilicus to the pubis, the fascia was completely intact and there was no parastomal hernia. There were moderately severe adhesions throughout the abdomen. One enterotomy was created, which was in the afferent loop of bowel leading to the pouch, approximately 10 cm proximal to the pouch. It was closed transversely with full-thickness locking continuous 2-0 chromic followed by imbricating 3-0 silk sutures without any narrowing of the lumen. The pouch was mobilized out of the pelvis protecting the bladder and ureters. A tie was placed around the testicular vessels for hemostasis on the left side. The afferent bowel was manually occluded and with the 28-Icelandic Chahal manipulated into the pouch, the pouch was distended with 400 mL of saline. Removing the catheter, there was slight incontinence. The catheter was reintroduced and the pouch decompressed. The pouch enterotomy was created and the nipple valve grasped with Kisha clamps. At 90 degrees away from the mesentery of the valve on each side, a row of romeo was placed utilizing the PI-55 stapling device with 4.8 mm romeo. That allowed ready and easy entrance into the pouch through the stoma by the catheter. The pouch enterotomy was closed with continuous locking 2-0 chromic followed by imbricating 3-0 silk. The catheter was placed into the apex of the pouch and the afferent bowel manually occluded. The pouch again distended with 400 mL of saline. There was no evidence of extravasation and when the catheter was removed, there was no incontinence. The catheter was reintroduced and the pouch decompressed and it lay back into the pelvis. Achieving hemostasis with cautery and irrigation of the pelvis was performed. The catheter was marked at the level of the stoma with 3-0 silk and then sutured to the skin with two sutures of 2-0 silk. It was flushed and connected to a gravity drainage bag. Now gown and gloves were changed. The field was protected with antibiotic-soaked lap sponges and antibiotic irrigation, and the hernia sac was dissected free after taking down all the adhesions. The posterior rectus sheath was dissected on both sides, but in view of all the surgery, not much progress could be made therein. Using the above-mentioned mesh a [place] was placed to be under the fascia and secured with continuous #0 Prolene circumferentially leaving a very satisfactory repair. The repair overlapped the site of prior gastrostomy and another gastrostomy was not advisable. After ascertaining that hemostasis was secured, the incision was closed throughout with romeo. Then the Denise pouch stoma was circumscribed, and the excessive scar was excised and the stoma primarily matured with continuous 2-0 chromic locking sutures starting at the 3 and 9 o'clock positions creating a very satisfactory stoma. The patient tolerated the procedures well and left the operating room in stable condition. Rodney Stone M.D. DR: Brian JOB#: [id number] CC: JUAN M
--- NOTE | 2017-11-23 19:43 | Cardiology Progress Note ---
Assessment/Plan Assessment/Plan malfunctioning continent pouch hx of cad now s/p lad stent stable preop stress echo neg last week doing well dvt ppx ambualte in am if ok with surgery cv stable at this time ekg in am Subjective Cardiovascular: Denies: chest pain, lightheadedness, palpitations Respiratory: Denies: shortness of breath Gastrointestinal/Abdominal: Reports: abdominal pain Genitourinary: Denies: burning Objective Last 24 Hour Vital Signs Date Time Temp Pulse Resp B/P (MAP) Pulse Ox O2 Delivery O2 Flow Rate FiO2 11/23/17 19:22 98.0 11/23/17 16:35 98.0 91 20 145/83 97 Nasal Cannula 3 98.0 11/23/17 16:15 93 18 158/98 98 Nasal Cannula 3 11/23/17 16:00 95 17 145/83 100 Nasal Cannula 3 11/23/17 15:50 95 20 158/95 100 Nasal Cannula 3 11/23/17 15:37 98.1 11/23/17 15:30 95 18 160/98 100 Nasal Cannula 3 11/23/17 15:28 98.1 11/23/17 15:28 20 11/23/17 15:20 95 19 159/88 100 Simple Mask 6 11/23/17 15:19 98.1 11/23/17 15:16 209.1 92 22 99 11/23/17 15:10 97 20 180/98 100 Simple Mask 6 11/23/17 15:01 98.1 92 22 175/86 100 Simple Mask 6 98.1 11/23/17 09:00 Room Air 11/23/17 08:39 99.2 11/23/17 08:00 98.3 95 18 113/74 (87) 96 98.3 11/23/17 04:14 99.2 80 18 121/76 (91) 96 99.2 11/23/17 00:02 98.3 74 16 109/73 (85) 96 98.3 11/22/17 21:00 Room Air 11/22/17 20:35 98.1 71 18 113/76 (88) 96 98.1 General Appearance: alert Neck: supple Cardiovascular: normal rate Respiratory/Chest: crackles/rales - left base Abdomen: hypoactive bowel sounds, other - dressed Extremities: no swelling Intake and Output 11/22/17 11/23/17 19:00 07:00 Intake Total 100 ml 2100 ml Output Total 2830 ml Balance 100 ml -730 ml Intake Oral 950 ml IV Total 100 ml 1150 ml Output Urine Total 1450 ml Other 1380 ml # Voids 6 # Bowel Movements 1 Jose Alejandro Aviles MD Nov 23, 2017 19:43
[2017-11-23] MEDS: Pantoprazole Inj IVP SCH (20:33)
[2017-11-23] MEDS: Allopurinol 100mg Tab ORAL SCH (20:34)
[2017-11-23] MEDS ORDERED: LORazepam 1mg tab SL PRN (21:00)
--- NOTE | 2017-11-23 21:19 | Geriatric Progress Note ---
Assessment/Plan Problems: (1) Hypertension (2) Presence of stent in coronary artery in patient with coronary artery disease (3) Dyslipidemia (4) Vitamin B12 deficiency (5) Vitamin D deficiency (6) Ulcerative colitis (7) History of gastrointestinal bleeding (8) Uric acid kidney stone (9) MALFUNCTION OF BCIR WITH BOWEL OBSTRUCTION (10) Recurrent ventral hernia and stoma stenosis Assessment/Plan Doing well postoperatively. Pain control appropriate. Possible mildly volume depleted due to negative balance, third spacing. Will increase IVF to 125/hr overnight. Labs in a.m. Discussed with at bedside. 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 When awake reports feeling well. 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 She reports he was initially restless, but now more settled. Had multiple visitors, but frequently falling asleep. No specific c/o of respiratory or cardiac discomfort, but did c/o pain "head to toe" per . Taking some ice chips, lemon swabs per . Staff reports doing well, with minimal ostomy drainage. Chahal reveals clear urine. VS with stabilizing bp in normal range, mildly tachycardic at this time. Balance negative per I&O. Subjective Denies specific c/o, but quite lethargic from narcotics, making responses incomplete. Geriatric Geriatric Last 24 Hour Vital Signs Date Time Temp Pulse Resp B/P (MAP) Pulse Ox O2 Delivery O2 Flow Rate FiO2 11/23/17 19:22 98.0 11/23/17 18:00 98.2 101 18 125/76 (92) 99 98.2 11/23/17 17:45 98.1 102 18 124/73 (90) 99 98.1 11/23/17 17:30 98.0 106 16 127/77 (94) 99 98.0 11/23/17 16:35 98.0 91 20 145/83 97 Nasal Cannula 3 98.0 11/23/17 16:15 93 18 158/98 98 Nasal Cannula 3 11/23/17 16:00 95 17 145/83 100 Nasal Cannula 3 11/23/17 15:50 95 20 158/95 100 Nasal Cannula 3 11/23/17 15:37 98.1 11/23/17 15:30 95 18 160/98 100 Nasal Cannula 3 11/23/17 15:28 98.1 11/23/17 15:28 20 11/23/17 15:20 95 19 159/88 100 Simple Mask 6 11/23/17 15:19 98.1 11/23/17 15:16 209.1 92 22 99 11/23/17 15:10 97 20 180/98 100 Simple Mask 6 11/23/17 15:01 98.1 92 22 175/86 100 Simple Mask 6 98.1 11/23/17 09:00 Room Air 11/23/17 08:39 99.2 11/23/17 08:00 98.3 95 18 113/74 (87) 96 98.3 11/23/17 04:14 99.2 80 18 121/76 (91) 96 99.2 11/23/17 00:02 98.3 74 16 109/73 (85) 96 98.3 11/22/17 21:00 Room Air Intake and Output 11/22/17 11/23/17 19:00 07:00 Intake Total 100 ml 2100 ml Output Total 2830 ml Balance 100 ml -730 ml Intake Oral 950 ml IV Total 100 ml 1150 ml Output Urine Total 1450 ml Other 1380 ml # Voids 6 # Bowel Movements 1 Current Medications Medications (Trade) Dose Ordered Sig/Julio Route PRN Reason Start Time Stop Time Status Last Admin Dose Admin Acetaminophen (Tylenol) 1,000 mg Q6H PRN ORAL temp>100.2 or headache 11/23/17 15:15 12/23/17 15:14 Allopurinol (Zyloprim) 100 mg QHS ORAL 11/22/17 21:00 12/22/17 20:59 11/23/17 20:34 Dextrose/ Electrolytes 1,000 ml @ 100 mls/hr Q10H IV 11/23/17 16:00 12/23/17 15:59 11/23/17 18:07 Diphenhydramine HCl (Benadryl) 50 mg Q4H PRN IVP Itching/Pruritis 11/23/17 15:15 11/25/17 15:14 Heparin Sodium/ Sodium Chloride (Heparin 2000 units/Ns 1000ml premix) 2,000 unit ONCE IV 11/23/17 08:30 11/23/17 23:59 Hydromorphone HCl 30 ml @ 0 mls/hr Q24H PRN IV For Pain 11/23/17 15:15 11/25/17 15:14 11/23/17 15:28 Hydromorphone HCl (Dilaudid) 2 mg q3h PRN SUBQ Severe Pain (Pain Scale 7-10) 11/23/17 15:15 11/25/17 15:14 Levofloxacin 100 ml @ 100 mls/hr Q24H IVPB 11/23/17 09:00 11/30/17 08:59 11/23/17 09:26 Lidocaine HCl (Xylocaine 1% 30ml) 30 ml ONCE INJ 11/23/17 08:45 11/23/17 23:59 Lorazepam (Ativan) 1 mg HSPRN PRN SL Sleep 11/23/17 21:00 11/30/17 20:59 Lorazepam (Ativan) 1 mg Q4H PRN SL Muscle Spasm 11/23/17 15:15 11/30/17 15:14 Metronidazole 100 ml @ 100 mls/hr EVERY 6 HOURS IV 11/23/17 00:00 11/30/17 00:00 11/23/17 18:06 Miscellaneous Medication (LINTING MACHINE OPERATOR Rate Change) 1 ea DAILY PRN MISC rate change 11/23/17 15:15 11/25/17 15:14 Miscellaneous Medication (LINTING MACHINE OPERATOR shift volume) 1 ea Q12HR@0700,1900 MISC 11/23/17 19:00 11/25/17 18:59 11/23/17 19:21 Naloxone HCl (Narcan) 0.1 mg Q1M PRN IVP RR<10/min OR SBP<90 mmHg 11/23/17 15:15 11/25/17 15:14 Ondansetron HCl (Zofran) 4 mg Q4H PRN IVP Nausea & Vomiting 11/22/17 11:14 12/22/17 11:13 Ondansetron HCl (Zofran) 4 mg Q4H PRN IVP Nausea & Vomiting 11/23/17 15:15 12/23/17 15:14 Pantoprazole (Protonix) 40 mg Q24H IVP 11/22/17 20:00 12/22/17 19:59 11/23/17 20:33 Height (Feet): 5 Height (Inches): 7.00 Weight (Pounds): 170 General Appearance: no apparent distress, lethargic Head: normocephalic, atraumatic Eyes: bilateral anicteric Neck: full range of motion, no mass Respiratory: lungs clear, decreased breath sounds Cardiovascular: regular rate, rhythm Gastrointestinal: soft, other - midline dressing in place., decreased bowel sounds Genitourinary: other - Chahal Musculoskeletal: no calf tenderness, other - SCDs in place Edema: no edema noted Generalized Neurologic: no new focality - but too lethargic to examine in detail. Juno Rose MD Nov 23, 2017 21:19
[2017-11-23] MEDS: D5 1/4NS w/KCl 20mEq 1,000 ML IV SCH (21:30)
[2017-11-24] VITALS: BP 107/64
[2017-11-24] MEDS: LORazepam 1mg tab SL PRN (00:06)
[2017-11-24] MEDS: D5 1/4NS w/KCl 20mEq 1,000 ML IV SCH ×3 (03:02→20:00)
[2017-11-24 04:00] VITALS: BP 107/65
[2017-11-24 05:42] LABS: BASOPHILS % (AUTO) 0.4 % (0.0-2.0); EOSINOPHILS % (AUTO) 0.1 % (0.0-3.0); HEMOGLOBIN 12.2 G/DL (14.2-18.0); LYMPHOCYTES % (AUTO) 11.4 % (20.0-45.0); MEAN CORPUSCULAR VOLUME 84 FL (80-99); MONOCYTES % (AUTO) 6.9 % (1.0-10.0); NEUTROPHILS % (AUTO) 81.2 % (45.0-75.0); PLATELET COUNT 226 K/UL (150-450); RED BLOOD COUNT 4.41 M/UL (4.70-6.10); RED CELL DISTRIBUTION WIDTH 12.4 % (11.6-14.8); WHITE BLOOD COUNT 9.7 K/UL (4.8-10.8)
--- NOTE | 2017-11-24 05:45 | Pre-op HX & Phy Repo 2 SIG ---
DATE OF ADMISSION: 11/22/2017 DOS: 11/22/2017 GERIATRIC MEDICINE CONSULTATION PATIENT ID: The patient is a 67-year-old gentleman admitted for surgical repair of a malfunctioning Denise ileostomy and a recurrent incisional hernia. HISTORY OF PRESENT ILLNESS: The patient is a gentleman with a long history of ulcerative colitis, status post a proctocolectomy with ileostomy in the followed by a continent ileostomy with Kock pouch in 1975. In January 2009, he had developed a distal ileal stricture and underwent resection of his prior Kock pouch and creation of Denise continent ileostomy. He required revision of his stoma in October 2009, and he was admitted in July 2016, with inability to intubate his pouch with subsequent functional bowel obstruction. Endoscopy revealed a redundant angulated access segment and severe diffuse pouchitis. Pouchitis was treated with the plan of subsequent laparotomy, but was delayed because of coverage issues. In April 2017, he underwent laparotomy with revision of his pouch stoma and access segment and repair of an incisional hernia in the epigastrium with mesh. Recently, he developed stenosis of the mucocutaneous junction of his ileostomy. He had pouchitis requiring treatment with mesalamine enemas as well as ciprofloxacin and on the current occasion, he is admitted to undergo pouch endoscopy and surgical repair of both the ileostomy as well as the recurrent incisional hernia. On admission, the patient is in no acute distress and reports that he has been feeling medically quite well. He does note generalized fatigue which has become progressively worse as his ileostomy malfunctioning has persisted and maybe at least in part associated with poor oral intake. Dr. Stone noted that in addition to difficulty with intubating his stoma, there was also incontinence of some flatus suggesting the need for somewhat more extensive surgery. He has been placed on antibiotics to decrease the bacterial burden prior to surgery. In addition to these problems, the patient also was evaluated at [facility] with finding of a possible polyp or mass or stenotic area of the common bile duct. Dr. Mena will be consulted during this admission to further evaluate this issue and determine whether an endoscopic study possibly with biopsy will be required. The patient also has been seen as an outpatient last week by Dr. Aviles who performed a stress test, which revealed no evidence of ongoing coronary ischemia. Preoperative laboratories obtained as an outpatient have also been unremarkable except for a borderline B12 level and mildly decreased albumin. PAST MEDICAL HISTORY: 1. Ulcerative colitis with multiple surgical interventions as noted above. 2. Status post an episode of acute coronary syndrome in March 2015, requiring three LAD stents with resulting preserved myocardium with no further anginal symptoms. 3. History of multiunit gastrointestinal blood loss when the patient was being treated with Brilinta for stent. The blood loss appeared to be associated with his pouchitis and he developed concomitant iron deficiency. These were treated with intravenous Venofer and discontinuation of Brilinta with antibiotic treatment of pouchitis and bleeding stabilization. 4. The patient has history of gout and urate stones in the urinary tract, which has been treated with chronic allopurinol therapy with no recurrence of symptoms. 5. Hypertension. 6. Dyslipidemia. 7. 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 8. History of vitamin D deficiency. CURRENT MEDICATIONS: Allopurinol 100 mg daily, aspirin 81 mg daily, atorvastatin 20 mg q.p.m., omeprazole 20 mg daily, vitamin D3 2000 units daily, and topical fluorouracil for skin lesions. The patient had been on oral iron, but discontinued this due to intestinal upset and he had been on parenteral vitamin B12 previously, but this had been discontinued. ALLERGIES: Reportedly, history of hives to both penicillin and sulfa drugs. 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 The patient is and lives with his . He has no smoking history and drinks alcohol approximately once a month. He drinks a couple of coffee a day. FAMILY HISTORY: Notable for history of congestive heart failure in his mother who is both a smoker and a heavy coffee drinker and also coronary artery disease in his father. He also has a sister who had coronary stents placed. He reports that he is active in general, but his conditioning has been impaired by the weakness associated with his recent exacerbation of his intestinal symptoms. PHYSICAL EXAMINATION: VITAL SIGNS: The blood pressure is 122/84, heart rate 70 and regular, respiratory rate 18, temperature 97.6 with oxygen saturation 98% on room air. GENERAL: The patient is a well-developed and adequately nourished gentleman, lying in bed, not in acute physical distress with normal baseline affect. HEAD AND NECK: Reveals normocephalic and atraumatic skull. Sclerae are anicteric. The oropharynx reveals adequately hydrated mucosa. The neck has normal range of motion with no evidence of masses. CHEST: Reveals clear breath sounds. CARDIAC: Reveals regular rhythm. ABDOMEN: Reveals normal bowel sounds. The abdomen is soft. There is mild tenderness and discomfort on palpation in the right lower quadrant near the location of his ileostomy and a large incisional hernia to the right of midline is noted without focal tenderness or evidence of incarceration. EXTREMITIES: Reveal no peripheral edema. There is no calf tenderness. There are no significant arthritic changes. NEUROLOGICAL: The patient has baseline mental status and no evidence of focality. Ambulation was not tested, but the patient is able to ambulate with his IV pole during the admission process. LABORATORY AND DIAGNOSTIC DATA: The patient had outpatient laboratories done on October 28, which revealed white count of 8.4, hematocrit of 40.6, MCV of 86, normal differential, platelet count 240,000. BUN of 16, creatinine 1.20, sodium 143, potassium 4.1, chloride 103, bicarbonate 24, calcium 8.9. Total protein 6.7, albumin 4.1, alkaline phosphatase of 118, AST of 21, ALT of 18. Glycohemoglobin 6.0. TSH of 1.090. Prostate-specific antigen 2.4. Vitamin D 37.2. Magnesium 2.0. Laboratory tests obtained on admission include white count of 8.4, hematocrit of 41.9, MCV of 84, platelet count of 266,000. INR of 1.0, PTT of 28. Sodium 141, potassium 4.1, chloride 105, bicarbonate 31, BUN 14, creatinine 0.3, glucose of 108, calcium 9.2, total bilirubin 0.8, AST 22, ALT 27, alkaline phosphatase 117, albumin 3.1, total protein of 7.0. Iron 68, TIBC 324, and ferritin of 98. Urinalysis showed specific gravity 1.010, 1+ blood, 1+ leukocyte esterase, 0-2 rbc's, 2-4 wbc's with occasional epithelial cells and occasional bacteria. A chest x-ray revealed no evidence of acute disease and renal ultrasound was read as showing no evidence of obstruction or hydronephrosis with simple cysts bilaterally. IMPRESSION: The patient presents with no evidence of acute cardiopulmonary or neurologic process, which would significantly increase his perioperative risk. He has already had a stress test by Dr. Aviles further decreasing likelihood of an ischemic complication of his abdominal surgery. Given lack of evidence of infection, normal hematocrit and what appeared to be normal iron stores, and fairly normal renal function, the patient appears to be optimized for his proposed procedure. Given his prior history, the patient is not at particular risk for a postoperative respiratory complication and does not have significant risk factors for delirium. Therefore, the most likely site of any complications will involve the actual surgical process and bowel function. Given these considerations, there is no contraindication for proceeding with surgery as planned by Dr. Stone. The situation was discussed with the patient's and the patient will be followed postoperatively to assist with medical care. Juno Rose M.D. DR: Slava JOB#: [id number] CC: JUAN M
[2017-11-24 05:56] LABS: ANION GAP 8 mmol/L (5-15); BLOOD UREA NITROGEN 15 mg/dL (7-18); CARBON DIOXIDE 27 MMOL/L (21-32); CHLORIDE 103 MMOL/L (98-107); CREATININE 1.5 MG/DL (0.55-1.30); POTASSIUM 4.3 MMOL/L (3.5-5.1); SODIUM 137 MMOL/L (136-145)
[2017-11-24] MEDS: PCA shift volume MISC SCH (07:22)
[2017-11-24] MEDS ORDERED: Dextrose 10% 1,000 ML IV PRN (07:30)
[2017-11-24 08:00] VITALS: BP 107/65
[2017-11-24] MEDS ORDERED: PCA HYDROmorphone 1mg/ml 30 ML IV PRN (08:01)
[2017-11-24] MEDS ORDERED: Naloxone 0.4mg/ml Inj IVP PRN (08:03)
--- NOTE | 2017-11-24 08:07 | General Progress Note ---
Progress Note Progress Note Afebrile. Tachycardia to 110. Very drowsy but c/o pain despite Dilaudid [employer] Chest - decreased expansion Cor - reg rhythm Abdomen mildly distended, incision clean, stoma pink Overnight 12 hours: Urine 450 BCIR ileo 30 serosang Hgb 12.2 (14.2 pre-op) Cr up 1.5 (IV fluids increased last night) Iron 68 Ferritin 98 (8-388) Imp: Ileus Atelectasis low normal serum iron and ferritin malnutrition (pre-op albumin 3.1) Plan: NPO D/C basal continuous infusion of [employer] Add Toradol 15mg IV q6h prn breakthrough pain - 8 doses maximum Venofer 100mg IV daily x 5 doses TPN f/u labs in AM Mobilize with abdominal binder once he becomes more awake and alert Rodney Stone MD Nov 24, 2017 08:07
[2017-11-24] MEDS ORDERED: Rate Change PCA 1 Each MISC PRN (08:15)
[2017-11-24] MEDS ORDERED: DiphenhydrAMINE 50mg/ml Inj IVP PRN (11:15)
--- NOTE | 2017-11-24 11:22 | 48 Hour Post Anesthesia Eval ---
Post Anesthesia Evaluation Procedure: Exploratory laparotomy,revision of Gonzalez pouch, ventral hernia repair Date of Evaluation: Nov 24, 2017 Time of Evaluation: 11:21 Blood Pressure Systolic: 116 0: 76 Pulse Rate: 78 Respiratory Rate: 22 Temperature (Fahrenheit): 97.6 O2 Sat by Pulse Oximetry: 98 Airway: patent Nausea: No Vomiting: No Pain Intensity: 3 Hydration Status: adequate Cardiopulmonary Status: stable Mental Status/LOC: patient returned to baseline Follow-up Care/Observations: n/a Post-Anesthesia Complications: none Follow-up care needed: N/A Sher Fairchild MD Nov 24, 2017 11:22
[2017-11-24 12:00] VITALS: BP 114/72
--- NOTE | 2017-11-24 13:05 | Cardiology Progress Note ---
Assessment/Plan Assessment/Plan malfunctioning continent pouch hx of cad now s/p lad stent stable preop stress echo neg last week doing well dvt ppx ambualte in am if ok with surgery cv stable at this time ekg note sinus cr up little agree with ivf pain management Subjective Cardiovascular: Denies: chest pain, lightheadedness, palpitations Respiratory: Denies: shortness of breath Gastrointestinal/Abdominal: Reports: abdominal pain; Denies: nausea Genitourinary: Denies: burning Objective Last 24 Hour Vital Signs Date Time Temp Pulse Resp B/P (MAP) Pulse Ox O2 Delivery O2 Flow Rate FiO2 11/24/17 11:22 207.7 78 22 98 11/24/17 09:00 Room Air 11/24/17 08:00 99.7 104 20 107/65 (79) 96 99.7 11/24/17 04:00 20 11/24/17 04:00 99.9 109 18 107/65 (79) 97 99.9 11/24/17 00:30 20 11/24/17 00:00 98.5 105 18 107/64 (78) 97 98.5 11/23/17 21:00 Room Air 11/23/17 20:30 20 11/23/17 20:00 98.5 108 19 98/64 (75) 98 98.5 11/23/17 19:22 98.0 11/23/17 18:00 98.2 101 18 125/76 (92) 99 98.2 11/23/17 17:45 98.1 102 18 124/73 (90) 99 98.1 11/23/17 17:30 98.0 106 16 127/77 (94) 99 98.0 11/23/17 16:35 98.0 91 20 145/83 97 Nasal Cannula 3 98.0 11/23/17 16:15 93 18 158/98 98 Nasal Cannula 3 11/23/17 16:00 95 17 145/83 100 Nasal Cannula 3 11/23/17 15:50 95 20 158/95 100 Nasal Cannula 3 11/23/17 15:37 98.1 11/23/17 15:30 95 18 160/98 100 Nasal Cannula 3 11/23/17 15:28 98.1 11/23/17 15:28 20 11/23/17 15:20 95 19 159/88 100 Simple Mask 6 11/23/17 15:19 98.1 11/23/17 15:16 209.1 92 22 99 11/23/17 15:10 97 20 180/98 100 Simple Mask 6 11/23/17 15:01 98.1 92 22 175/86 100 Simple Mask 6 98.1 General Appearance: alert Cardiovascular: normal rate, regular rhythm Respiratory/Chest: lungs clear, normal breath sounds Abdomen: soft, hypoactive bowel sounds Extremities: no swelling Intake and Output 11/23/17 11/24/17 19:00 07:00 Intake Total 300 ml 1137.5 ml Output Total 250 ml 1190 ml Balance 50 ml -52.5 ml Intake Oral 0 ml IV Total 300 ml 1137.5 ml Output Urine Total 200 ml 1000 ml Gastric Drainage Total 50 ml Other 190 ml # Voids 1 Laboratory Tests Test 11/24/17 04:25 White Blood Count 9.7 K/UL (4.8-10.8) Red Blood Count 4.41 M/UL (4.70-6.10) L Hemoglobin 12.2 G/DL (14.2-18.0) L Hematocrit 37.0 % (42.0-52.0) L Mean Corpuscular Volume 84 FL (80-99) Mean Corpuscular Hemoglobin 27.7 PG (27.0-31.0) Mean Corpuscular Hemoglobin Concent 33.0 G/DL (32.0-36.0) Red Cell Distribution Width 12.4 % (11.6-14.8) Platelet Count 226 K/UL (150-450) Mean Platelet Volume 5.7 FL (6.5-10.1) L Neutrophils (%) (Auto) 81.2 % (45.0-75.0) H Lymphocytes (%) (Auto) 11.4 % (20.0-45.0) L Monocytes (%) (Auto) 6.9 % (1.0-10.0) Eosinophils (%) (Auto) 0.1 % (0.0-3.0) Basophils (%) (Auto) 0.4 % (0.0-2.0) Sodium Level 137 MMOL/L (136-145) Potassium Level 4.3 MMOL/L (3.5-5.1) Chloride Level 103 MMOL/L (98-107) Carbon Dioxide Level 27 MMOL/L (21-32) Anion Gap 8 mmol/L (5-15) Blood Urea Nitrogen 15 mg/dL (7-18) Creatinine 1.5 MG/DL (0.55-1.30) H Estimat Glomerular Filtration Rate 47.0 mL/min (>60) Glucose Level 120 MG/DL (74-106) H Calcium Level 8.0 MG/DL (8.5-10.1) L Jose Alejandro Aviles MD Nov 24, 2017 13:05
[2017-11-24] MEDS: Acetaminophen 650mg/20.3ml ORAL PRN ×2 (13:20→21:40)
[2017-11-24 16:00] VITALS: BP 99/66
[2017-11-24] MEDS: 1/2 NS 1000ml 250 ML IV SCH ×2 (16:00→21:00)
--- NOTE | 2017-11-24 16:11 | Geriatric Progress Note ---
Assessment/Plan Problems: (1) Hypertension (2) Presence of stent in coronary artery in patient with coronary artery disease (3) Dyslipidemia (4) Vitamin B12 deficiency (5) Vitamin D deficiency (6) Ulcerative colitis (7) History of gastrointestinal bleeding (8) Uric acid kidney stone (9) MALFUNCTION OF BCIR WITH BOWEL OBSTRUCTION (10) Recurrent ventral hernia and stoma stenosis (11) Volume depletion Assessment/Plan Doing well postop. Probably still a little dry. Will give small bolus. Recheck labs in am. TPN, mobilization per Dr. Stone. Continue other tx. Discussed with: patient, family, hospital staff Subjective Interval Events Patient more alert, reports feeling relatively well. Was worried about the degree of surgical intervention, but states he feels better than he expected. Residual pain in primarily incisional, in mid-abdomen. Does feel mildly thirsty. Baseline dilaudid rate d/c'ed, ORTHOPEDIC SHOE MAKER with prn dosing continues, with Toradol prn. Dr. Stone has initiated TPN orders. Abdominal binder in place. Labs with slight drop in Hct - dilution + operative loss. Cr 1.5. I&O still balanced. Constitutional: Denies: chills, fever Respiratory: Denies: cough, orthopnea, shortness of breath Cardiovascular: Denies: chest pain, palpitations Musculoskeletal: Reports: no symptoms Neurologic: Reports: other - Feels slightly restless. Geriatric Geriatric Last 24 Hour Vital Signs Date Time Temp Pulse Resp B/P (MAP) Pulse Ox O2 Delivery O2 Flow Rate FiO2 11/24/17 14:15 98.2 98.2 11/24/17 13:50 98.2 11/24/17 13:20 101.3 11/24/17 13:15 101.3 101.3 11/24/17 12:00 20 11/24/17 12:00 99.9 114 20 114/72 (86) 95 99.9 11/24/17 11:22 207.7 78 22 98 11/24/17 09:00 Room Air 11/24/17 08:00 20 11/24/17 08:00 99.7 104 20 107/65 (79) 96 99.7 11/24/17 04:00 20 11/24/17 04:00 99.9 109 18 107/65 (79) 97 99.9 11/24/17 00:30 20 11/24/17 00:00 98.5 105 18 107/64 (78) 97 98.5 11/23/17 21:00 Room Air 11/23/17 20:30 20 11/23/17 20:00 98.5 108 19 98/64 (75) 98 98.5 11/23/17 19:22 98.0 11/23/17 18:00 98.2 101 18 125/76 (92) 99 98.2 11/23/17 17:45 98.1 102 18 124/73 (90) 99 98.1 11/23/17 17:30 98.0 106 16 127/77 (94) 99 98.0 11/23/17 16:35 98.0 91 20 145/83 97 Nasal Cannula 3 98.0 11/23/17 16:15 93 18 158/98 98 Nasal Cannula 3 11/23/17 16:00 95 17 145/83 100 Nasal Cannula 3 Intake and Output 11/23/17 11/24/17 19:00 07:00 Intake Total 300 ml 1137.5 ml Output Total 250 ml 1190 ml Balance 50 ml -52.5 ml Intake Oral 0 ml IV Total 300 ml 1137.5 ml Output Urine Total 200 ml 1000 ml Gastric Drainage Total 50 ml Other 190 ml # Voids 1 Laboratory Tests Test 11/24/17 04:25 White Blood Count 9.7 K/UL (4.8-10.8) Red Blood Count 4.41 M/UL (4.70-6.10) L Hemoglobin 12.2 G/DL (14.2-18.0) L Hematocrit 37.0 % (42.0-52.0) L Mean Corpuscular Volume 84 FL (80-99) Mean Corpuscular Hemoglobin 27.7 PG (27.0-31.0) Mean Corpuscular Hemoglobin Concent 33.0 G/DL (32.0-36.0) Red Cell Distribution Width 12.4 % (11.6-14.8) Platelet Count 226 K/UL (150-450) Mean Platelet Volume 5.7 FL (6.5-10.1) L Neutrophils (%) (Auto) 81.2 % (45.0-75.0) H Lymphocytes (%) (Auto) 11.4 % (20.0-45.0) L Monocytes (%) (Auto) 6.9 % (1.0-10.0) Eosinophils (%) (Auto) 0.1 % (0.0-3.0) Basophils (%) (Auto) 0.4 % (0.0-2.0) Sodium Level 137 MMOL/L (136-145) Potassium Level 4.3 MMOL/L (3.5-5.1) Chloride Level 103 MMOL/L (98-107) Carbon Dioxide Level 27 MMOL/L (21-32) Anion Gap 8 mmol/L (5-15) Blood Urea Nitrogen 15 mg/dL (7-18) Creatinine 1.5 MG/DL (0.55-1.30) H Estimat Glomerular Filtration Rate 47.0 mL/min (>60) Glucose Level 120 MG/DL (74-106) H Calcium Level 8.0 MG/DL (8.5-10.1) L Current Medications Medications (Trade) Dose Ordered Sig/Julio Route PRN Reason Start Time Stop Time Status Last Admin Dose Admin Acetaminophen (Tylenol) 1,000 mg Q6H PRN ORAL temp>100.2 or headache 11/23/17 15:15 12/23/17 15:14 11/24/17 13:20 Allopurinol (Zyloprim) 100 mg QHS ORAL 11/22/17 21:00 12/22/17 20:59 11/23/17 20:34 Dextrose 1,000 ml @ 0 mls/hr Q24H PRN IV PN interrupted or unavailable 11/24/17 07:30 12/24/17 07:29 Dextrose (Dextrose 50%) 25 ml Q30M PRN IV Hypoglycemia 11/24/17 07:30 12/24/17 07:29 Dextrose (Dextrose 50%) 50 ml Q30M PRN IV Hypoglycemia 11/24/17 07:30 12/24/17 07:29 Dextrose/ Electrolytes 1,000 ml @ 40 mls/hr Q24H IV 11/24/17 20:00 12/24/17 19:59 Dextrose/ Electrolytes 1,000 ml @ 125 mls/hr Q8H IV 11/23/17 21:30 11/24/17 19:59 11/24/17 13:19 Diphenhydramine HCl (Benadryl) 50 mg Q4H PRN IVP Itching/Pruritis 11/24/17 11:15 11/26/17 11:14 Fat Emulsion Intravenous 240 ml/Amino Acids/ Electrolytes/ Dextrose 1,920 ml @ 80 mls/hr Q24H IV 11/24/17 20:00 12/24/17 19:59 Hydromorphone HCl 30 ml @ 0 mls/hr Q24H PRN IV For Pain 11/25/17 08:01 11/27/17 08:00 Hydromorphone HCl (Dilaudid) 2 mg q3h PRN SUBQ Severe Pain (Pain Scale 7-10) 11/24/17 09:15 11/26/17 09:14 Insulin Aspart (NovoLOG) Q6HR SUBQ 11/25/17 00:00 12/25/17 00:00 Iron Sucrose 100 mg/Sodium Chloride 60 ml @ 240 mls/hr BEDTIME IV 11/24/17 21:00 11/28/17 21:14 Ketorolac Tromethamine (Toradol 30mg) 15 mg Q6H PRN IV Severe Breakthru Pain (>7) 11/24/17 08:00 11/29/17 07:59 Levofloxacin 100 ml @ 100 mls/hr Q24H IVPB 11/23/17 09:00 11/30/17 08:59 11/24/17 08:39 Lorazepam (Ativan) 1 mg HSPRN PRN SL Sleep 11/23/17 21:00 11/30/17 20:59 Lorazepam (Ativan) 1 mg Q4H PRN SL Muscle Spasm 11/23/17 15:15 11/30/17 15:14 11/24/17 00:06 Metronidazole 100 ml @ 100 mls/hr EVERY 6 HOURS IV 11/23/17 00:00 11/30/17 00:00 11/24/17 13:18 Miscellaneous Medication (ORTHOPEDIC SHOE MAKER Rate Change) 1 ea DAILY PRN MISC rate change 11/24/17 08:15 11/26/17 08:14 Miscellaneous Medication (ORTHOPEDIC SHOE MAKER shift volume) 1 ea Q12HR@0700,1900 MISC 11/24/17 19:00 11/26/17 18:59 Naloxone HCl (Narcan) 0.1 mg Q1M PRN IVP RR<10/min OR SBP<90 mmHg 11/24/17 08:03 11/26/17 08:01 Ondansetron HCl (Zofran) 4 mg Q4H PRN IVP Nausea & Vomiting 11/22/17 11:14 12/22/17 11:13 Ondansetron HCl (Zofran) 4 mg Q4H PRN IVP Nausea & Vomiting 11/23/17 15:15 12/23/17 15:14 Pantoprazole (Protonix) 40 mg Q24H IVP 11/22/17 20:00 12/22/17 19:59 11/23/17 20:33 Phytonadione (Vitamin K) 10 mg ONCE A WEEK SUBQ 12/01/17 09:00 12/31/17 08:59 Height (Feet): 5 Height (Inches): 7.00 Weight (Pounds): 169 General Appearance: alert, non-toxic Head: normocephalic, atraumatic Eyes: bilateral anicteric ENT: dry mucus membranes - tongue slightly dry, other Neck: full range of motion, no mass Respiratory: lungs clear Cardiovascular: regular rate, rhythm Gastrointestinal: soft Musculoskeletal: no calf tenderness Edema: no edema noted Generalized Neurologic: no new focality Juno Rose MD Nov 24, 2017 16:11
[2017-11-24] MEDS ORDERED: NovoLOG Insulin Flexpen SUBQ SCH (18:00)
[2017-11-24] MEDS ORDERED: PCA shift volume MISC SCH (19:00)
[2017-11-24 20:00] VITALS: BP 107/68
[2017-11-24] MEDS ORDERED: Fat Emulsion Iv 20% 250 ML IV SCH (21:00)
[2017-11-24] MEDS: Iron Sucrose 100 MG in NS 55 ML IV SCH (21:40)
[2017-11-24] MEDS: Pantoprazole Inj IVP SCH (21:41)
[2017-11-24] MEDS: Fat Emulsion Iv 20% 240 ML in Tpn 1,680 ML IV SCH (21:42)
[2017-11-24] MEDS: Allopurinol 100mg Tab ORAL SCH (21:48)
[2017-11-25] VITALS: BP 95/59
[2017-11-25] MEDS: NovoLOG Insulin Flexpen SUBQ SCH ×4 (00:07→18:21)
[2017-11-25] MEDS: D5 1/4NS w/KCl 20mEq 1,000 ML IV SCH (03:57)
[2017-11-25 04:00] VITALS: BP 96/73
[2017-11-25] MEDS: Ketorolac 30mg Inj IV PRN (04:05)
[2017-11-25 05:29] LABS: HEMATOCRIT 34.6 % (42.0-52.0); HEMOGLOBIN 11.5 G/DL (14.2-18.0); MEAN CORPUSCULAR VOLUME 84 FL (80-99); PLATELET COUNT 199 K/UL (150-450); RED BLOOD COUNT 4.14 M/UL (4.70-6.10); WHITE BLOOD COUNT 10.7 K/UL (4.8-10.8)
[2017-11-25 05:47] LABS: ANION GAP 6 mmol/L (5-15); BLOOD UREA NITROGEN 14 mg/dL (7-18); CALCIUM 7.8 MG/DL (8.5-10.1); CARBON DIOXIDE 28 MMOL/L (21-32); CHLORIDE 103 MMOL/L (98-107); CREATININE 1.3 MG/DL (0.55-1.30); POTASSIUM 3.6 MMOL/L (3.5-5.1); SODIUM 137 MMOL/L (136-145)
[2017-11-25] MEDS ORDERED: Rate Change PCA 1 Each MISC PRN ×2 (07:30)
[2017-11-25] MEDS ORDERED: Morphine Sulfate 4mg/ml Inj (IV/IM USE ONLY) IV PRN (07:30)
[2017-11-25] MEDS ORDERED: Morphine Sulfate 2mg/ml Inj IV PRN (07:30)
[2017-11-25 08:00] VITALS: BP 106/64
[2017-11-25] MEDS ORDERED: PCA HYDROmorphone 1mg/ml 30 ML IV PRN (08:01)
[2017-11-25] MEDS: PCA Morphine 30mg/30ml IV PRN ×2 (08:19→19:08)
[2017-11-25 12:00] VITALS: BP 110/66
--- NOTE | 2017-11-25 12:05 | General Progress Note ---
Progress Note Progress Note T101.3 x 1 - now afebrile. Ambulated in hallways. RADIOLOGY AIDE dilaudid changed to Morphine due to abnormal dreaming. Good IS effort - chest clear Abdomen distended, incision clean, small seroma epig. area, stoma pink Urine 2400 BCIR ileo 365 enteric WBC 10,700 Hgb 11.5 Cr down 1.3 Imp. Ileus Atelectasis Plan; NPO, TPN, f/u labs, pulm. toilet Rodney Stone MD Nov 25, 2017 12:05
--- NOTE | 2017-11-25 13:35 | Geriatric Progress Note ---
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 Volume status appears improved. Continue TPN, IVF. Await resolution of postop ileus. Mobilize as tolerated. Discussed with: patient, hospital staff Subjective Interval Events Patient reports somewhat more abdominal discomfort today. Analgesia switched from hydromorphone to morphine due to vivid dreams, nausea. Discomfort is in area of surgical incision. Otherwise feels OK. Ambulated twice yesterday, not feeling "up to it" so far today. TPN started, total IVF 120/hr. Labs with further decrease in Hct, dilutional + periop blood loss. Venofer course ordered by Dr. Stone. BUN/Cr slightly better. I&O negative last 24 hrs. Constitutional: Denies: chills, fever Respiratory: Denies: shortness of breath Cardiovascular: Denies: chest pain, palpitations Genitourinary: Denies: dysuria Geriatric Geriatric Last 24 Hour Vital Signs Date Time Temp Pulse Resp B/P (MAP) Pulse Ox O2 Delivery O2 Flow Rate FiO2 11/25/17 12:00 18 11/25/17 12:00 97.9 95 18 110/66 (81) 95 97.9 11/25/17 09:00 Room Air 11/25/17 08:00 97.7 86 20 106/64 (78) 96 97.7 11/25/17 08:00 20 11/25/17 04:00 17 11/25/17 04:00 98.0 100 18 96/73 (81) 95 98.0 11/25/17 00:00 97.9 101 18 95/59 (71) 96 97.9 11/25/17 00:00 18 11/24/17 21:40 97.8 11/24/17 21:00 Room Air 11/24/17 20:00 99.2 102 18 107/68 (81) 94 99.2 11/24/17 20:00 17 11/24/17 16:00 20 11/24/17 16:00 97.8 102 20 99/66 (77) 97 97.8 11/24/17 14:15 98.2 98.2 11/24/17 13:50 98.2 Intake and Output 11/24/17 11/25/17 19:00 07:00 Intake Total 125 ml 1360 ml Output Total 1520 ml 1245 ml Balance -1395 ml 115 ml IV Total 125 ml 1360 ml Output Urine Total 1300 ml 1100 ml Other 220 ml 145 ml Laboratory Tests Test 11/25/17 05:00 White Blood Count 10.7 K/UL (4.8-10.8) Red Blood Count 4.14 M/UL (4.70-6.10) L Hemoglobin 11.5 G/DL (14.2-18.0) L Hematocrit 34.6 % (42.0-52.0) L Mean Corpuscular Volume 84 FL (80-99) Mean Corpuscular Hemoglobin 27.7 PG (27.0-31.0) Mean Corpuscular Hemoglobin Concent 33.2 G/DL (32.0-36.0) Red Cell Distribution Width 12.0 % (11.6-14.8) Platelet Count 199 K/UL (150-450) Mean Platelet Volume 6.1 FL (6.5-10.1) L Neutrophils (%) (Auto) % (45.0-75.0) Lymphocytes (%) (Auto) % (20.0-45.0) Monocytes (%) (Auto) % (1.0-10.0) Eosinophils (%) (Auto) % (0.0-3.0) Basophils (%) (Auto) % (0.0-2.0) Differential Total Cells Counted 100 Neutrophils % (Manual) 89 % (45-75) H Lymphocytes % (Manual) 7 % (20-45) L Monocytes % (Manual) 3 % (1-10) Eosinophils % (Manual) 1 % (0-3) Basophils % (Manual) 0 % (0-2) Band Neutrophils 0 % (0-8) Platelet Estimate Adequate Platelet Morphology Normal Hypochromasia 1+ Sodium Level 137 MMOL/L (136-145) Potassium Level 3.6 MMOL/L (3.5-5.1) Chloride Level 103 MMOL/L (98-107) Carbon Dioxide Level 28 MMOL/L (21-32) Anion Gap 6 mmol/L (5-15) Blood Urea Nitrogen 14 mg/dL (7-18) Creatinine 1.3 MG/DL (0.55-1.30) Estimat Glomerular Filtration Rate 55.4 mL/min (>60) Glucose Level 152 MG/DL (74-106) H Calcium Level 7.8 MG/DL (8.5-10.1) L Current Medications Medications (Trade) Dose Ordered Sig/Jluio Route PRN Reason Start Time Stop Time Status Last Admin Dose Admin Acetaminophen (Tylenol) 1,000 mg Q6H PRN ORAL temp>100.2 or headache 11/23/17 15:15 12/23/17 15:14 11/24/17 21:40 Allopurinol (Zyloprim) 100 mg QHS ORAL 11/22/17 21:00 12/22/17 20:59 11/24/17 21:48 Chlorhexidine Gluconate (Cookie-Hex 2%) 1 applic DAILY@2000 TOPIC 11/25/17 20:00 12/25/17 19:59 Dextrose 1,000 ml @ 0 mls/hr Q24H PRN IV PN interrupted or unavailable 11/24/17 07:30 12/24/17 07:29 Dextrose (Dextrose 50%) 25 ml Q30M PRN IV Hypoglycemia 11/24/17 07:30 12/24/17 07:29 Dextrose (Dextrose 50%) 50 ml Q30M PRN IV Hypoglycemia 11/24/17 07:30 12/24/17 07:29 Dextrose/ Electrolytes 1,000 ml @ 40 mls/hr Q24H IV 11/24/17 20:00 12/24/17 19:59 11/25/17 03:57 Diphenhydramine HCl (Benadryl) 50 mg Q4H PRN IVP Itching/Pruritis 11/25/17 15:15 11/27/17 15:14 Fat Emulsion Intravenous 240 ml/Amino Acids/ Electrolytes/ Dextrose 1,920 ml @ 80 mls/hr Q24H IV 11/24/17 20:00 12/24/17 19:59 11/24/17 21:42 Insulin Aspart (NovoLOG) Q6HR SUBQ 11/25/17 00:00 12/25/17 00:00 11/25/17 12:23 Iron Sucrose 100 mg/Sodium Chloride 60 ml @ 240 mls/hr BEDTIME IV 11/24/17 21:00 11/28/17 21:14 11/24/17 21:40 Ketorolac Tromethamine (Toradol 30mg) 15 mg Q6H PRN IV Severe Breakthru Pain (>7) 11/24/17 08:00 11/29/17 07:59 11/25/17 04:05 Levofloxacin 100 ml @ 100 mls/hr Q24H IVPB 11/23/17 09:00 11/30/17 08:59 11/25/17 08:17 Lorazepam (Ativan) 1 mg HSPRN PRN SL Sleep 11/23/17 21:00 11/30/17 20:59 Lorazepam (Ativan) 1 mg Q4H PRN SL Muscle Spasm 11/23/17 15:15 11/30/17 15:14 11/24/17 00:06 Metronidazole 100 ml @ 100 mls/hr EVERY 6 HOURS IV 11/23/17 00:00 11/30/17 00:00 11/25/17 12:19 Miscellaneous Medication (TEAM COORDINATOR Rate Change) 1 ea PRN MISC rate change 11/25/17 07:30 11/27/17 07:29 Miscellaneous Medication (TEAM COORDINATOR shift volume) 1 ea Q12HR@0700,1900 MISC 11/25/17 19:00 11/27/17 18:59 Morphine Sulfate 30 ml @ 0 mls/hr TEAM COORDINATOR Protocol PRN IV For Pain 11/25/17 07:30 11/27/17 07:29 11/25/17 08:19 Morphine Sulfate (Morphine Sulfate) 2 mg Q2H PRN IV Moderate Pain (Pain Scale 4-6) 11/25/17 07:30 11/27/17 07:29 Morphine Sulfate (Morphine Sulfate) 4 mg Q3H PRN IV Severe Pain (Pain Scale 7-10) 11/25/17 07:30 11/27/17 07:29 Naloxone HCl (Narcan) 0.1 mg Q1M PRN IVP RR<10/min OR SBP<90 mmHg 11/24/17 08:03 11/26/17 08:01 Ondansetron HCl (Zofran) 4 mg Q4H PRN IVP Nausea & Vomiting 11/23/17 15:15 12/23/17 15:14 11/25/17 10:21 Pantoprazole (Protonix) 40 mg Q24H IVP 11/22/17 20:00 12/22/17 19:59 11/24/17 21:41 Phytonadione (Vitamin K) 10 mg ONCE A WEEK SUBQ 12/01/17 09:00 12/31/17 08:59 Height (Feet): 5 Height (Inches): 7.00 Weight (Pounds): 169 General Appearance: lethargic - but easily arousable. Head: normocephalic, atraumatic Eyes: bilateral anicteric ENT: normal voice Neck: full range of motion, no mass Respiratory: lungs clear, decreased breath sounds Cardiovascular: regular rate, rhythm Gastrointestinal: soft Musculoskeletal: no calf tenderness Edema: no edema noted Generalized Neurologic: no new focality Juno Rose MD Nov 25, 2017 13:35
[2017-11-25] MEDS ORDERED: DiphenhydrAMINE 50mg/ml Inj IVP PRN (15:15)
[2017-11-25 16:00] VITALS: BP 114/64
[2017-11-25] MEDS: PCA shift volume MISC SCH (19:00)
[2017-11-25 20:00] VITALS: BP 102/70
[2017-11-25] MEDS: Iron Sucrose 100 MG in NS 55 ML IV SCH (21:33)
[2017-11-25] MEDS: Pantoprazole Inj IVP SCH (21:33)
[2017-11-25] MEDS: Dyna-Hex 2% Top Sol 2oz TOPIC SCH (21:33)
[2017-11-25] MEDS: Allopurinol 100mg Tab ORAL SCH (21:34)
[2017-11-25] MEDS: Fat Emulsion Iv 20% 240 ML in Tpn 1,680 ML IV SCH (21:35)
[2017-11-26] VITALS: BP 96/62
[2017-11-26] MEDS: NovoLOG Insulin Flexpen SUBQ SCH ×4 (00:03→18:39)
[2017-11-26] MEDS: PCA Morphine 30mg/30ml IV PRN (03:40)
[2017-11-26 04:00] VITALS: BP 116/70
[2017-11-26 06:08] LABS: BASOPHILS % (AUTO) 0.4 % (0.0-2.0); EOSINOPHILS % (AUTO) 2.4 % (0.0-3.0); HEMATOCRIT 30.1 % (42.0-52.0); HEMOGLOBIN 10.1 G/DL (14.2-18.0); LYMPHOCYTES % (AUTO) 14.4 % (20.0-45.0); MEAN CORPUSCULAR VOLUME 85 FL (80-99); MONOCYTES % (AUTO) 5.6 % (1.0-10.0); NEUTROPHILS % (AUTO) 77.1 % (45.0-75.0); PLATELET COUNT 195 K/UL (150-450); RED BLOOD COUNT 3.56 M/UL (4.70-6.10); RED CELL DISTRIBUTION WIDTH 12.2 % (11.6-14.8); WHITE BLOOD COUNT 8.7 K/UL (4.8-10.8)
[2017-11-26] MEDS: D5 1/4NS w/KCl 20mEq 1,000 ML IV SCH (06:11)
[2017-11-26 06:16] LABS: ALANINE AMINOTRANSFERASE 14 U/L (12-78); ALBUMIN 1.8 G/DL (3.4-5.0); ALBUMIN/GLOBULIN RATIO 0.5 (1.0-2.7); ALKALINE PHOSPHATASE 82 U/L (46-116); ANION GAP 3 mmol/L (5-15); ASPARTATE AMINO TRANSFERASE 17 U/L (15-37); BILIRUBIN,TOTAL 0.5 MG/DL (0.2-1.0); BLOOD UREA NITROGEN 17 mg/dL (7-18); CALCIUM 7.7 MG/DL (8.5-10.1); CARBON DIOXIDE 31 MMOL/L (21-32); CHLORIDE 105 MMOL/L (98-107); CREATININE 1.2 MG/DL (0.55-1.30); POTASSIUM 3.5 MMOL/L (3.5-5.1); SODIUM 138 MMOL/L (136-145)
[2017-11-26] MEDS: PCA shift volume MISC SCH ×2 (07:00→19:00)
[2017-11-26 08:00] VITALS: BP 104/69
[2017-11-26] MEDS ORDERED: DiphenhydrAMINE 50mg/ml Inj IVP PRN (08:23)
[2017-11-26] MEDS ORDERED: Morphine Sulfate 2mg/ml Inj IV PRN (08:23)
[2017-11-26] MEDS ORDERED: Morphine Sulfate 4mg/ml Inj (IV/IM USE ONLY) IV PRN (08:23)
[2017-11-26] MEDS ORDERED: PCA Morphine 1mg/ml 30 ML IV PRN ×2 (08:23)
--- NOTE | 2017-11-26 08:41 | General Progress Note ---
Progress Note Progress Note Afebrile VSS Ambulated in hallways. Somewhat lethargic Abdomen mildly distended, incision clean with swelling in area of hernia repair - aspiration yields no fluid Stoma pink Urine 1400 BCIR fileo 175 WBC 8700 Hgb down 10.1 Cr down 1.2 Albumin 1.8 Imp. Ileus ?seroma of upper incision Plan: continue npo, TPN, Venofer observe incisional swelling closely Rodney Stone MD Nov 26, 2017 08:41
[2017-11-26 12:00] VITALS: BP 105/63
[2017-11-26] MEDS ORDERED: NS Irrig 1000ml ONE (15:33)
--- NOTE | 2017-11-26 15:57 | Cardiology Report ---
APPROVED REPORT EKG Measurement Heart [id number] Sinus tachycardia Otherwise normal ECG
[2017-11-26 16:00] VITALS: BP 107/66
--- NOTE | 2017-11-26 17:38 | Geriatric Progress Note ---
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 Will add prn analgesic balm. No indication of postop infection or complication, other than continued ileus. Follow labs, mobilize as tolerated. Continue current regimen. Discussed with: patient, family, hospital staff Subjective Interval Events Patient reports back pain. Abdominal sxs as before. Concern for incisional seroma by Dr. Stone noted. Borderline temperature earlier. Able to ambulate earlier. Labs with gradual decrease in Hct. BUN/Cr normalizing. Otherwise unremarkable. at bedside. Constitutional: Denies: chills, sweats Respiratory: Denies: shortness of breath Cardiovascular: Denies: chest pain, palpitations Genitourinary: Denies: dysuria Geriatric Geriatric Last 24 Hour Vital Signs Date Time Temp Pulse Resp B/P (MAP) Pulse Ox O2 Delivery O2 Flow Rate FiO2 11/26/17 12:00 17 11/26/17 12:00 99.3 90 20 105/63 (77) 94 99.3 11/26/17 09:00 Room Air 11/26/17 08:00 17 11/26/17 08:00 99.7 96 20 104/69 (81) 95 99.7 11/26/17 04:00 98.0 80 20 116/70 (85) 98 98.0 11/26/17 04:00 17 11/26/17 00:00 99.7 85 20 96/62 (73) 94 99.7 11/26/17 00:00 18 11/25/17 21:00 Room Air 11/25/17 20:00 18 11/25/17 20:00 97.5 106 20 102/70 (81) 94 97.5 Intake and Output 11/25/17 11/26/17 19:00 07:00 Intake Total 380 ml 1320 ml Output Total 770 ml 805 ml Balance -390 ml 515 ml IV Total 380 ml 1320 ml Output Urine Total 700 ml 700 ml Other 70 ml 105 ml Laboratory Tests Test 11/26/17 05:35 White Blood Count 8.7 K/UL (4.8-10.8) Red Blood Count 3.56 M/UL (4.70-6.10) L Hemoglobin 10.1 G/DL (14.2-18.0) L Hematocrit 30.1 % (42.0-52.0) L Mean Corpuscular Volume 85 FL (80-99) Mean Corpuscular Hemoglobin 28.4 PG (27.0-31.0) Mean Corpuscular Hemoglobin Concent 33.6 G/DL (32.0-36.0) Red Cell Distribution Width 12.2 % (11.6-14.8) Platelet Count 195 K/UL (150-450) Mean Platelet Volume 6.7 FL (6.5-10.1) Neutrophils (%) (Auto) 77.1 % (45.0-75.0) H Lymphocytes (%) (Auto) 14.4 % (20.0-45.0) L Monocytes (%) (Auto) 5.6 % (1.0-10.0) Eosinophils (%) (Auto) 2.4 % (0.0-3.0) Basophils (%) (Auto) 0.4 % (0.0-2.0) Sodium Level 138 MMOL/L (136-145) Potassium Level 3.5 MMOL/L (3.5-5.1) Chloride Level 105 MMOL/L (98-107) Carbon Dioxide Level 31 MMOL/L (21-32) Anion Gap 3 mmol/L (5-15) L Blood Urea Nitrogen 17 mg/dL (7-18) Creatinine 1.2 MG/DL (0.55-1.30) Estimat Glomerular Filtration Rate > 60 mL/min (>60) Glucose Level 139 MG/DL (74-106) H Calcium Level 7.7 MG/DL (8.5-10.1) L Total Bilirubin 0.5 MG/DL (0.2-1.0) Aspartate Amino Transf (AST/SGOT) 17 U/L (15-37) Alanine Aminotransferase (ALT/SGPT) 14 U/L (12-78) Alkaline Phosphatase 82 U/L (46-116) Total Protein 5.1 G/DL (6.4-8.2) L Albumin 1.8 G/DL (3.4-5.0) L Globulin 3.3 g/dL Albumin/Globulin Ratio 0.5 (1.0-2.7) L Current Medications Medications (Trade) Dose Ordered Sig/Julio Route PRN Reason Start Time Stop Time Status Last Admin Dose Admin Acetaminophen (Tylenol) 1,000 mg Q6H PRN ORAL temp>100.2 or headache 11/23/17 15:15 12/23/17 15:14 11/24/17 21:40 Allopurinol (Zyloprim) 100 mg QHS ORAL 11/22/17 21:00 12/22/17 20:59 11/25/17 21:34 Chlorhexidine Gluconate (Cookie-Hex 2%) 1 applic DAILY@2000 TOPIC 11/25/17 20:00 12/25/17 19:59 11/25/17 21:33 Dextrose 1,000 ml @ 0 mls/hr Q24H PRN IV PN interrupted or unavailable 11/24/17 07:30 12/24/17 07:29 Dextrose (Dextrose 50%) 25 ml Q30M PRN IV Hypoglycemia 11/24/17 07:30 12/24/17 07:29 Dextrose (Dextrose 50%) 50 ml Q30M PRN IV Hypoglycemia 11/24/17 07:30 12/24/17 07:29 Dextrose/ Electrolytes 1,000 ml @ 40 mls/hr Q24H IV 11/24/17 20:00 12/24/17 19:59 11/26/17 06:11 Diphenhydramine HCl (Benadryl) 50 mg Q4H PRN IVP Itching/Pruritis 11/26/17 08:23 11/28/17 08:22 Fat Emulsion Intravenous 240 ml/Amino Acids/ Electrolytes/ Dextrose 1,920 ml @ 80 mls/hr Q24H IV 11/24/17 20:00 12/24/17 19:59 11/25/17 21:35 Insulin Aspart (NovoLOG) Q6HR SUBQ 11/25/17 00:00 12/25/17 00:00 11/26/17 12:31 Iron Sucrose 100 mg/Sodium Chloride 60 ml @ 240 mls/hr BEDTIME IV 11/24/17 21:00 11/28/17 21:14 11/25/17 21:33 Ketorolac Tromethamine (Toradol 30mg) 15 mg Q6H PRN IV Severe Breakthru Pain (>7) 11/24/17 08:00 11/29/17 07:59 11/25/17 04:05 Levofloxacin 100 ml @ 100 mls/hr Q24H IVPB 11/23/17 09:00 11/30/17 08:59 11/26/17 09:10 Lorazepam (Ativan) 1 mg HSPRN PRN SL Sleep 11/23/17 21:00 11/30/17 20:59 Lorazepam (Ativan) 1 mg Q4H PRN SL Muscle Spasm 11/23/17 15:15 11/30/17 15:14 11/24/17 00:06 Metronidazole 100 ml @ 100 mls/hr EVERY 6 HOURS IV 11/23/17 00:00 11/30/17 00:00 11/26/17 12:31 Miscellaneous Medication (MULTI SHARE PROGRAM COORDINATOR Rate Change) 1 ea PRN MISC rate change 11/25/17 07:30 11/27/17 07:29 Miscellaneous Medication (MULTI SHARE PROGRAM COORDINATOR shift volume) 1 ea Q12HR@0700,1900 MISC 11/26/17 19:00 11/28/17 18:59 Morphine Sulfate 30 ml @ 0 mls/hr MULTI SHARE PROGRAM COORDINATOR Protocol PRN IV For Pain 11/26/17 08:23 11/28/17 08:22 Morphine Sulfate (Morphine Sulfate) 2 mg Q2H PRN IV Moderate Pain (Pain Scale 4-6) 11/26/17 08:23 11/28/17 08:22 Morphine Sulfate (Morphine Sulfate) 4 mg Q3H PRN IV Severe Pain (Pain Scale 7-10) 11/26/17 08:23 11/28/17 08:22 Ondansetron HCl (Zofran) 4 mg Q4H PRN IVP Nausea & Vomiting 11/23/17 15:15 12/23/17 15:14 11/25/17 10:21 Pantoprazole (Protonix) 40 mg Q24H IVP 11/22/17 20:00 12/22/17 19:59 11/25/17 21:33 Phytonadione (Vitamin K) 10 mg ONCE A WEEK SUBQ 12/01/17 09:00 12/31/17 08:59 Height (Feet): 5 Height (Inches): 7.00 Weight (Pounds): 169 General Appearance: alert, non-toxic Head: normocephalic, atraumatic Eyes: bilateral anicteric ENT: normal voice Neck: full range of motion, no mass Respiratory: lungs clear Cardiovascular: regular rate, rhythm Gastrointestinal: soft, distended Musculoskeletal: no calf tenderness Edema: no edema noted Generalized Neurologic: no new focality Juno Rose MD Nov 26, 2017 17:38
[2017-11-26] MEDS ORDERED: Analgesic Balm 15gm TOPIC PRN ×2 (17:45→18:00)
[2017-11-26 20:00] VITALS: BP 122/77
[2017-11-26] MEDS: Iron Sucrose 100 MG in NS 55 ML IV SCH (21:57)
[2017-11-26] MEDS: Pantoprazole Inj IVP SCH (21:57)
[2017-11-26] MEDS: Allopurinol 100mg Tab ORAL SCH (21:58)
[2017-11-26] MEDS: Dyna-Hex 2% Top Sol 2oz TOPIC SCH (21:58)
[2017-11-26] MEDS: Fat Emulsion Iv 20% 240 ML in Tpn 1,680 ML IV SCH (21:59)
[2017-11-27] VITALS (14 sets, daily range): BP systolic 96–130; BP diastolic 65–82
[2017-11-27] MEDS: NovoLOG Insulin Flexpen SUBQ SCH ×5 (00:45→23:54)
[2017-11-27 05:13] LABS: BASOPHILS % (AUTO) 0.4 % (0.0-2.0); EOSINOPHILS % (AUTO) 3.6 % (0.0-3.0); HEMATOCRIT 31.8 % (42.0-52.0); HEMOGLOBIN 10.8 G/DL (14.2-18.0); LYMPHOCYTES % (AUTO) 16.3 % (20.0-45.0); MEAN CORPUSCULAR VOLUME 84 FL (80-99); MONOCYTES % (AUTO) 6.1 % (1.0-10.0); NEUTROPHILS % (AUTO) 73.6 % (45.0-75.0); PLATELET COUNT 238 K/UL (150-450); RED CELL DISTRIBUTION WIDTH 12.2 % (11.6-14.8); WHITE BLOOD COUNT 9.2 K/UL (4.8-10.8)
[2017-11-27 05:42] LABS: ANION GAP 4 mmol/L (5-15); BLOOD UREA NITROGEN 13 mg/dL (7-18); CARBON DIOXIDE 29 MMOL/L (21-32); CHLORIDE 104 MMOL/L (98-107); CREATININE 1.1 MG/DL (0.55-1.30); POTASSIUM 3.2 MMOL/L (3.5-5.1); SODIUM 137 MMOL/L (136-145)
[2017-11-27] MEDS: Ketorolac 30mg Inj IV PRN (06:41)
[2017-11-27] MEDS: PCA shift volume MISC SCH ×2 (07:00→19:02)
--- NOTE | 2017-11-27 07:36 | Pre-Procedure Note/Attestation ---
Pre-Procedure Note/Attestation Complete Prior to Procedure Planned Procedure: not applicable Procedure Narrative: evacuation of abdominal wall hematoma Indications for Procedure Pre-Operative Diagnosis: abdominal wall hematoma Attestation I attest that I discussed the nature of the procedure; its benefits; risks and complications; and alternatives (and the risks and benefits of such alternatives ), prior to the procedure, with the patient (or the patient's legal sales representative). I attest that, if there was a reasonable possibility of needing a blood transfusion, the patient (or the patient's legal sales representative) was given the [facility] standardized written summary, pursuant to the Larry Compa Blood Safety Act ([place] Health and Safety Code # 1645, as amended). I attest that I re-evaluated the patient just prior to the surgery and that there has been no change in the patient's H&P, except as documented below:none Rodney Stone MD Nov 27, 2017 07:36
--- NOTE | 2017-11-27 07:37 | General Progress Note ---
Progress Note Progress Note AVSS Ambulating better. Abdomen still mildly distended - persistent swelling epigastric portion of incision overlying mesh hernia repair. Aspiration yesterday yielded nothing Urine 3300 BCIR ileo 325 WBC 9200 Hgb 10.8 (up) Cr 1.1 Imp. Incisional abdominal wall hematoma Plan: Evacuate hematoma in OR this AM Full discussion with patient and Rodney Stone MD Nov 27, 2017 07:37
[2017-11-27] MEDS ORDERED: NS IVPB ONE (08:00)
[2017-11-27] MEDS ORDERED: POTASSIUM CHLORIDE IVPB ONE (08:00)
[2017-11-27] MEDS ORDERED: DiphenhydrAMINE 50mg/ml Inj IVP PRN ×2 (08:23→09:30)
[2017-11-27] MEDS ORDERED: Morphine Sulfate 2mg/ml Inj IV PRN (08:23)
[2017-11-27] MEDS ORDERED: Morphine Sulfate 4mg/ml Inj (IV/IM USE ONLY) IV PRN (08:23)
[2017-11-27] MEDS: Potassium Chloride 40 MEQ in D5 1/4NS 1000ml 1,000 ML IV SCH (08:27)
[2017-11-27] MEDS ORDERED: LR 1000ml ONE (08:30)
[2017-11-27] MEDS ORDERED: Sterile Water Irrig 1000ml IRRIG ONE (08:30)
[2017-11-27] MEDS ORDERED: Succinylcholine 20mg/ml 10ml vial ONE (08:44)
[2017-11-27] MEDS ORDERED: NeoSporin Gu Irrig 1ml Amp IRRIG ONE (08:44)
[2017-11-27] MEDS ORDERED: Bacitracin 50000 Units Vial ONE (08:44)
[2017-11-27] MEDS ORDERED: Zemuron 50mg/5ml Inj IV ONE (08:45)
[2017-11-27] MEDS ORDERED: Propofol 200mg/20ml IV ONE (08:48)
[2017-11-27] MEDS ORDERED: Sodium Chloride 10ml vial INJ ONE (08:48)
[2017-11-27] MEDS ORDERED: Lidocaine 1% MPF 10mg/ml 5ml ONE (08:48)
[2017-11-27] MEDS ORDERED: Alfentanil 2ml Inj ONE (08:55)
[2017-11-27] MEDS ORDERED: NS Irrig 1000ml IRRIG ONE (09:14)
[2017-11-27] MEDS ORDERED: LR 1000ml 1,000 ML IVLG SCH (09:27)
[2017-11-27] MEDS ORDERED: Metoclopramide 10mg/2ml Inj IVP PRN (09:30)
[2017-11-27] MEDS ORDERED: oxyCODONE HCL/Acetaminophen 5/325mg ORAL PRN (09:30)
[2017-11-27] MEDS ORDERED: Norco 5mg/325mg tab ORAL PRN (09:30)
[2017-11-27] MEDS ORDERED: fentaNYL 100 mcg/2 mL IV PRN (09:30)
[2017-11-27] MEDS ORDERED: Midazolam 2mg/2ml Inj IVP PRN (09:30)
[2017-11-27] MEDS ORDERED: Atropine Sulfate 0.4mg/ml inj IVP PRN (09:30)
[2017-11-27] MEDS ORDERED: Hydromorphone 0.5mg/0.5ml inj IVP PRN (09:30)
[2017-11-27] MEDS ORDERED: Ketorolac 30mg Inj IV PRN ×2 (09:30)
[2017-11-27] MEDS ORDERED: LORazepam Inj 2mg/ml 1ml IV PRN (09:30)
[2017-11-27] MEDS ORDERED: HYDROcodone/Acetamin 7.5/325 tab ORAL PRN (09:30)
[2017-11-27] MEDS ORDERED: Meperidine 50mg/ml Inj(FOR RIGORS ONLY) IVP PRN (09:30)
--- NOTE | 2017-11-27 09:36 | Anethesia Preoperative Eval ---
Anesthesia Pre-op PMH/ROS General Date of Evaluation: Nov 27, 2017 Time of Evaluation: 08:36 Anesthesiologist: Abbey ASA Score: ASA 3 - Emergency Mallampati Score Class I : Soft palate, uvula, fauces, pillars visible Class II: Soft palate, uvula, fauces visible Class III: Soft palate, base of uvula visible Class IV: Only hard plate visible Mallampati Classification: Class II Surgeon: Bertha Diagnosis: Abd Hematoma Surgical Procedure: Evacuation Abd Hematoma Anesthesia History: none Family History: no anesthesia problems Allergies: Coded Allergies: CEPHALEXIN (Verified Allergy, Mild, 11/06/09) PENICILLIN G (Verified Allergy, Mild, 01/22/09) SULFA (SULFONAMIDE ANTIBIOTICS) (Verified Allergy, Mild, 11/07/09) Uncoded Allergies: ORAL FLAGYL (Adverse Reaction, Unknown, 11/07/09) Medications: see eMAR Patient NPO?: Yes Past Medical History Cardiovascular: Reports: CAD, GA Gastrointestinal/Genitourinary: Reports: GERD, other - Colitis Endocrine: Reports: DM Hematology/Immune: Reports: anemia Anesthesia Pre-op Phys. Exam Physician Exam Last Vital Signs Date Time Temp Pulse Resp B/P (MAP) Pulse Ox O2 Delivery O2 Flow Rate FiO2 11/27/17 08:00 Room Air 11/27/17 08:00 97.8 76 20 129/72 (91) 97.8 11/27/17 04:00 95 11/23/17 16:35 3 Constitutional: NAD Neurologic: CN 2-12 intact Cardiovascular: RRR Respiratory: CTA Gastrointestinal: S/NT/ND Airway Exam Mallampati Score: Class II MO: limited ROM: limited Teeth: missing, intact Anesthesia Pre-op A/P Labs Hematology Test 11/27/17 05:00 White Blood Count 9.2 K/UL (4.8-10.8) Red Blood Count 3.80 M/UL (4.70-6.10) L Hemoglobin 10.8 G/DL (14.2-18.0) L Hematocrit 31.8 % (42.0-52.0) L Mean Corpuscular Volume 84 FL (80-99) Mean Corpuscular Hemoglobin 28.4 PG (27.0-31.0) Mean Corpuscular Hemoglobin Concent 34.0 G/DL (32.0-36.0) Red Cell Distribution Width 12.2 % (11.6-14.8) Platelet Count 238 K/UL (150-450) Mean Platelet Volume 5.7 FL (6.5-10.1) L Neutrophils (%) (Auto) 73.6 % (45.0-75.0) Lymphocytes (%) (Auto) 16.3 % (20.0-45.0) L Monocytes (%) (Auto) 6.1 % (1.0-10.0) Eosinophils (%) (Auto) 3.6 % (0.0-3.0) H Basophils (%) (Auto) 0.4 % (0.0-2.0) Chemistry Test 11/27/17 05:00 Sodium Level 137 MMOL/L (136-145) Potassium Level 3.2 MMOL/L (3.5-5.1) L Chloride Level 104 MMOL/L (98-107) Carbon Dioxide Level 29 MMOL/L (21-32) Anion Gap 4 mmol/L (5-15) L Blood Urea Nitrogen 13 mg/dL (7-18) Creatinine 1.1 MG/DL (0.55-1.30) Estimat Glomerular Filtration Rate > 60 mL/min (>60) Glucose Level 144 MG/DL (74-106) H Calcium Level 8.0 MG/DL (8.5-10.1) L Risk Assessment & Plan Assessment: ASA 3E Status Change Before Surgery: No Pre-Antibiotics Drug: Flagyl 500 mg IV Time Given: 09:01 Dieter Potter MD Nov 27, 2017 09:36
--- NOTE | 2017-11-27 09:43 | Immediate Post-Op Evaluation ---
Immediate Post-Op Evalulation Immediate Post-Op Evalulation Procedure: Evacuation Abd Hematoma, Abd Date of Evaluation: Nov 27, 2017 Time of Evaluation: 10:02 IV Fluids: 100 LR Blood Products: 0 Estimated Blood Loss: 50 Urinary Output: 200 Blood Pressure Systolic: 108 Blood Pressure Diastolic: 76 Pulse Rate: 92 Respiratory Rate: 16 O2 Sat by Pulse Oximetry: 100 Temperature (Fahrenheit): 97.6 Pain Score (1-10): 2 Nausea: No Vomiting: No Complications 0 Patient Status: awake, reacts, patent, extubated, none Hydration Status: adequate Dru mg Flagyl IV Given Within 1 Hr of Incision: Yes Time Given: 09:01 Dieter Potter MD Nov 27, 2017 09:43
--- NOTE | 2017-11-27 09:44 | Brief Operative Note ---
Immediate Post Operative Note Operative Note Pre-op Diagnosis: abdominal wall hematoma Procedure: evacuation of abdominal wall hematoma Post-op Diagnosis: same Post-op Diagnosis: same as pre-op Findings: consistent w/pre-op dx studies Surgeon: danni Anesthesiologist: amribel Specimen: yes - clot Complications: none Condition: stable Fluids: see anesthesia record Estimated Blood Loss: minimal Drains: GEOVANI Implant(s) used?: No Rodney Stone MD Nov 27, 2017 09:44
--- NOTE | 2017-11-27 09:57 | 48 Hour Post Anesthesia Eval ---
Post Anesthesia Evaluation Procedure: Evacuation Abd Hematoma, Abd Date of Evaluation: Nov 27, 2017 Time of Evaluation: 12:16 Blood Pressure Systolic: 122 0: 78 Pulse Rate: 89 Respiratory Rate: 18 Temperature (Fahrenheit): 98.4 O2 Sat by Pulse Oximetry: 98 Airway: patent Nausea: No Vomiting: No Pain Intensity: 2 Hydration Status: adequate Cardiopulmonary Status: Stable Mental Status/LOC: patient returned to baseline Follow-up Care/Observations: 0 Post-Anesthesia Complications: 0 Follow-up care needed: N/A Dieter Potter MD Nov 27, 2017 09:57
--- NOTE | 2017-11-27 12:30 | Operative Note - Dictated ---
DATE OF OPERATION: 11/27/2017 SURGEON: Rodney Stone M.D. VAULT CLERK: None. ANESTHESIOLOGIST: Dieter Potter M.D. TYPE OF ANESTHESIA: General by LMA. PREOPERATIVE DIAGNOSIS: Postoperative abdominal wall hematoma. POSTOPERATIVE DIAGNOSIS: Postoperative abdominal wall hematoma. OPERATION PERFORMED: Evacuation of abdominal wall hematoma. DESCRIPTION OF PROCEDURE: The patient was taken to the operating room and under general anesthesia, was prepped and draped in usual fashion. The patient is four days post laparotomy with revision of Denise continent ileostomy and repair of recurrent incisional hernia with mesh in the epigastric portion of his long midline incision and that is where the hematoma was located. Six romeo were removed and the wound opened, evacuating some fluid under pressure and a moderate amount of clot that had dissected to the right side about 6 inches lateral to the incision. The area was evacuated completely and irrigated and there was some oozing from the abdominal wall tissues that was cauterized with no active bleeder. The mesh was intact. A 19-mm round Ambrose drain was placed through a stab incision laterally and placed over the mesh and sutured to the skin with 2-0 nylon. The incision was closed with interrupted 3-0 Vicryl subcutaneous suture and then interrupted 2-0 nylon vertical mattress sutures with excellent apposition of the tissues down onto the mesh repair. Dry sterile dressings were applied. Final sponge and needle counts correct. The patient tolerated the procedure well, left the operating room in good condition. Rodney Stone M.D. DR: AISHA JOB#: [id number] CC: JUAN M
[2017-11-27] MEDS ORDERED: Tubing IV Secondary IV ONE (16:26)
--- NOTE | 2017-11-27 16:50 | Geriatric Progress Note ---
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 Remobilize as tolerated. Continue fluids, TPN. Await resolution of ileus. Follow labs. Discussed with: patient, hospital staff Subjective Interval Events Events reviewed. Patient returned to OR for hematoma evacuation. Received KCl for hypokalemia. Patient reports significant incisional pain post procedure, using SENIOR DATA MINING ANALYST button frequently. No other new sxs. Constitutional: Denies: chills, fever Respiratory: Denies: shortness of breath Cardiovascular: Denies: chest pain, palpitations Genitourinary: Denies: dysuria Geriatric Geriatric Last 24 Hour Vital Signs Date Time Temp Pulse Resp B/P (MAP) Pulse Ox O2 Delivery O2 Flow Rate FiO2 11/27/17 16:00 18 11/27/17 12:00 97.3 78 18 106/74 (85) 98 97.3 11/27/17 11:00 18 11/27/17 11:00 97.6 79 18 111/69 (83) 98 97.6 11/27/17 10:40 97.8 79 15 120/71 99 Nasal Cannula 3 97.8 11/27/17 10:30 79 19 111/71 99 Nasal Cannula 3 11/27/17 10:15 91 21 106/70 100 Simple Mask 6 11/27/17 10:05 85 15 96/65 100 Simple Mask 6 11/27/17 09:57 209.1 89 18 98 11/27/17 09:56 86 15 103/70 100 Simple Mask 6 11/27/17 09:56 207.7 92 16 100 11/27/17 09:51 99 16 108/76 100 Simple Mask 6 11/27/17 09:47 97.6 93 19 105/71 100 Simple Mask 6 97.6 11/27/17 09:47 19 11/27/17 08:00 Room Air 11/27/17 08:00 97.8 76 20 129/72 (91) 97.8 11/27/17 08:00 18 11/27/17 04:00 17 11/27/17 04:00 98.4 91 18 130/82 (98) 95 98.4 11/27/17 00:00 17 11/27/17 00:00 98.3 92 18 125/79 (94) 94 98.3 11/26/17 21:00 Room Air 11/26/17 20:00 98.5 99 18 122/77 (92) 94 98.5 11/26/17 20:00 17 Intake and Output 11/26/17 11/27/17 19:00 07:00 Intake Total 120 ml 1400 ml Output Total 850 ml 2375 ml Balance -730 ml -975 ml IV Total 120 ml 1400 ml Output Urine Total 850 ml 2200 ml Other 175 ml Laboratory Tests Test 11/27/17 05:00 White Blood Count 9.2 K/UL (4.8-10.8) Red Blood Count 3.80 M/UL (4.70-6.10) L Hemoglobin 10.8 G/DL (14.2-18.0) L Hematocrit 31.8 % (42.0-52.0) L Mean Corpuscular Volume 84 FL (80-99) Mean Corpuscular Hemoglobin 28.4 PG (27.0-31.0) Mean Corpuscular Hemoglobin Concent 34.0 G/DL (32.0-36.0) Red Cell Distribution Width 12.2 % (11.6-14.8) Platelet Count 238 K/UL (150-450) Mean Platelet Volume 5.7 FL (6.5-10.1) L Neutrophils (%) (Auto) 73.6 % (45.0-75.0) Lymphocytes (%) (Auto) 16.3 % (20.0-45.0) L Monocytes (%) (Auto) 6.1 % (1.0-10.0) Eosinophils (%) (Auto) 3.6 % (0.0-3.0) H Basophils (%) (Auto) 0.4 % (0.0-2.0) Sodium Level 137 MMOL/L (136-145) Potassium Level 3.2 MMOL/L (3.5-5.1) L Chloride Level 104 MMOL/L (98-107) Carbon Dioxide Level 29 MMOL/L (21-32) Anion Gap 4 mmol/L (5-15) L Blood Urea Nitrogen 13 mg/dL (7-18) Creatinine 1.1 MG/DL (0.55-1.30) Estimat Glomerular Filtration Rate > 60 mL/min (>60) Glucose Level 144 MG/DL (74-106) H Calcium Level 8.0 MG/DL (8.5-10.1) L Current Medications Medications (Trade) Dose Ordered Sig/Julio Route PRN Reason Start Time Stop Time Status Last Admin Dose Admin Acetaminophen (Tylenol) 1,000 mg Q6H PRN ORAL temp>100.2 or headache 11/23/17 15:15 12/23/17 15:14 11/24/17 21:40 Allopurinol (Zyloprim) 100 mg QHS ORAL 11/22/17 21:00 12/22/17 20:59 11/26/17 21:58 Chlorhexidine Gluconate (Cookie-Hex 2%) 1 applic DAILY@2000 TOPIC 11/25/17 20:00 12/25/17 19:59 11/26/17 21:58 Dextrose 1,000 ml @ 0 mls/hr Q24H PRN IV PN interrupted or unavailable 11/24/17 07:30 12/24/17 07:29 Dextrose (Dextrose 50%) 25 ml Q30M PRN IV Hypoglycemia 11/24/17 07:30 12/24/17 07:29 Dextrose (Dextrose 50%) 50 ml Q30M PRN IV Hypoglycemia 11/24/17 07:30 12/24/17 07:29 Diphenhydramine HCl (Benadryl) 50 mg Q4H PRN IVP Itching/Pruritis 11/27/17 08:23 11/29/17 08:22 Fat Emulsion Intravenous 240 ml/Amino Acids/ Electrolytes/ Dextrose 1,920 ml @ 80 mls/hr Q24H IV 11/24/17 20:00 12/24/17 19:59 11/26/17 21:59 Insulin Aspart (NovoLOG) Q6HR SUBQ 11/25/17 00:00 12/25/17 00:00 11/27/17 12:15 Iron Sucrose 100 mg/Sodium Chloride 60 ml @ 240 mls/hr BEDTIME IV 11/24/17 21:00 11/28/17 21:14 11/26/17 21:57 Ketorolac Tromethamine (Toradol 30mg) 15 mg Q6H PRN IV Severe Breakthru Pain (>7) 11/24/17 08:00 11/29/17 07:59 11/27/17 06:41 Levofloxacin 100 ml @ 100 mls/hr Q24H IVPB 11/23/17 09:00 11/30/17 08:59 11/26/17 09:10 Lorazepam (Ativan) 1 mg HSPRN PRN SL Sleep 11/23/17 21:00 11/30/17 20:59 Lorazepam (Ativan) 1 mg Q4H PRN SL Muscle Spasm 11/23/17 15:15 11/30/17 15:14 11/24/17 00:06 Menthol/Methyl Salicylate (Bengay) 1 applic QIDPRN PRN TOPIC For Pain 11/26/17 18:00 12/26/17 17:59 11/27/17 06:08 Metronidazole 100 ml @ 100 mls/hr EVERY 6 HOURS IV 11/23/17 00:00 11/30/17 00:00 11/27/17 06:01 Miscellaneous Medication (SENIOR DATA MINING ANALYST shift volume) 1 ea Q12HR@0700,1900 MISC 11/27/17 19:00 11/29/17 18:59 Morphine Sulfate 30 ml @ 0 mls/hr SENIOR DATA MINING ANALYST Protocol PRN IV For Pain 11/26/17 08:23 11/28/17 08:22 Morphine Sulfate (Morphine Sulfate) 2 mg Q2H PRN IV Moderate Pain (Pain Scale 4-6) 11/27/17 08:23 11/29/17 08:22 Morphine Sulfate (Morphine Sulfate) 4 mg Q3H PRN IV Severe Pain (Pain Scale 7-10) 11/27/17 08:23 11/29/17 08:22 Ondansetron HCl (Zofran) 4 mg Q4H PRN IVP Nausea & Vomiting 11/23/17 15:15 12/23/17 15:14 11/25/17 10:21 Pantoprazole (Protonix) 40 mg Q24H IVP 11/22/17 20:00 12/22/17 19:59 11/26/17 21:57 Phytonadione (Vitamin K) 10 mg ONCE A WEEK SUBQ 12/01/17 09:00 12/31/17 08:59 Potassium Chloride 40 meq/ Dextrose/Sodium Chloride 1,020 ml @ 40 mls/hr Q24H IV 11/27/17 09:00 12/27/17 08:59 11/27/17 08:27 Height (Feet): 5 Height (Inches): 7.00 Weight (Pounds): 169 General Appearance: lethargic - but easily arousable. Head: normocephalic, atraumatic Eyes: bilateral anicteric ENT: normal voice Neck: full range of motion, no mass Respiratory: lungs clear, decreased breath sounds Cardiovascular: regular rate, rhythm Gastrointestinal: soft, tenderness - focal to midabd incision, lateral abdomen without pain or rebound Musculoskeletal: no calf tenderness Edema: no edema noted Generalized Neurologic: no new focality Juno Rose MD Nov 27, 2017 16:50
[2017-11-27] MEDS: Pantoprazole Inj IVP SCH (19:59)
[2017-11-27] MEDS: Dyna-Hex 2% Top Sol 2oz TOPIC SCH (19:59)
[2017-11-27] MEDS: Fat Emulsion Iv 20% 240 ML in Tpn 1,680 ML IV SCH (20:04)
[2017-11-27] MEDS: Allopurinol 100mg Tab ORAL SCH (20:39)
[2017-11-27] MEDS: Iron Sucrose 100 MG in NS 55 ML IV SCH (20:41)
[2017-11-27] MEDS: Acetaminophen 650mg/20.3ml ORAL PRN (20:56)
--- NOTE | 2017-11-27 22:00 | Cardiology Progress Note ---
Assessment/Plan Assessment/Plan post abdominal surgery today history of CAD and PCI will restart Aspirin tomorrow, if OK with surgeon Subjective Subjective The patient si resting in bed, drowsy, has mild abdominal pain, no cardiac complaints underwent abdominal surgery this am Objective Last 24 Hour Vital Signs Date Time Temp Pulse Resp B/P (MAP) Pulse Ox O2 Delivery O2 Flow Rate FiO2 11/27/17 20:56 100.7 11/27/17 16:00 18 11/27/17 16:00 98.7 78 19 119/75 (90) 100 98.7 11/27/17 12:00 97.3 78 18 106/74 (85) 98 97.3 11/27/17 11:00 18 11/27/17 11:00 97.6 79 18 111/69 (83) 98 97.6 11/27/17 10:40 97.8 79 15 120/71 99 Nasal Cannula 3 97.8 11/27/17 10:30 79 19 111/71 99 Nasal Cannula 3 11/27/17 10:15 91 21 106/70 100 Simple Mask 6 11/27/17 10:05 85 15 96/65 100 Simple Mask 6 11/27/17 09:57 209.1 89 18 98 11/27/17 09:56 86 15 103/70 100 Simple Mask 6 11/27/17 09:56 207.7 92 16 100 11/27/17 09:51 99 16 108/76 100 Simple Mask 6 11/27/17 09:47 97.6 93 19 105/71 100 Simple Mask 6 97.6 11/27/17 09:47 19 11/27/17 08:00 Room Air 11/27/17 08:00 97.8 76 20 129/72 (91) 97.8 11/27/17 08:00 18 11/27/17 04:00 17 11/27/17 04:00 98.4 91 18 130/82 (98) 95 98.4 11/27/17 00:00 17 11/27/17 00:00 98.3 92 18 125/79 (94) 94 98.3 General Appearance: no apparent distress EENT: PERRL/EOMI Neck: supple Rhythm: NSR Cardiovascular: regular rhythm Respiratory/Chest: crackles/rales Abdomen: other - post operative dressin Extremities: no swelling Intake and Output 11/26/17 11/27/17 19:00 07:00 Intake Total 120 ml 1400 ml Output Total 850 ml 2375 ml Balance -730 ml -975 ml IV Total 120 ml 1400 ml Output Urine Total 850 ml 2200 ml Other 175 ml Laboratory Tests Test 11/27/17 05:00 White Blood Count 9.2 K/UL (4.8-10.8) Red Blood Count 3.80 M/UL (4.70-6.10) L Hemoglobin 10.8 G/DL (14.2-18.0) L Hematocrit 31.8 % (42.0-52.0) L Mean Corpuscular Volume 84 FL (80-99) Mean Corpuscular Hemoglobin 28.4 PG (27.0-31.0) Mean Corpuscular Hemoglobin Concent 34.0 G/DL (32.0-36.0) Red Cell Distribution Width 12.2 % (11.6-14.8) Platelet Count 238 K/UL (150-450) Mean Platelet Volume 5.7 FL (6.5-10.1) L Neutrophils (%) (Auto) 73.6 % (45.0-75.0) Lymphocytes (%) (Auto) 16.3 % (20.0-45.0) L Monocytes (%) (Auto) 6.1 % (1.0-10.0) Eosinophils (%) (Auto) 3.6 % (0.0-3.0) H Basophils (%) (Auto) 0.4 % (0.0-2.0) Sodium Level 137 MMOL/L (136-145) Potassium Level 3.2 MMOL/L (3.5-5.1) L Chloride Level 104 MMOL/L (98-107) Carbon Dioxide Level 29 MMOL/L (21-32) Anion Gap 4 mmol/L (5-15) L Blood Urea Nitrogen 13 mg/dL (7-18) Creatinine 1.1 MG/DL (0.55-1.30) Estimat Glomerular Filtration Rate > 60 mL/min (>60) Glucose Level 144 MG/DL (74-106) H Calcium Level 8.0 MG/DL (8.5-10.1) L Evita Koch MD Nov 27, 2017 22:00
[2017-11-27] MEDS: LORazepam 1mg tab SL PRN (23:57)
[2017-11-28] VITALS: BP 120/74
[2017-11-28 04:00] VITALS: BP 131/85
[2017-11-28 04:58] LABS: BASOPHILS % (AUTO) 0.8 % (0.0-2.0); EOSINOPHILS % (AUTO) 5.7 % (0.0-3.0); HEMATOCRIT 30.9 % (42.0-52.0); HEMOGLOBIN 10.5 G/DL (14.2-18.0); LYMPHOCYTES % (AUTO) 14.6 % (20.0-45.0); MEAN CORPUSCULAR VOLUME 84 FL (80-99); MONOCYTES % (AUTO) 6.3 % (1.0-10.0); NEUTROPHILS % (AUTO) 72.6 % (45.0-75.0); PLATELET COUNT 239 K/UL (150-450); RED BLOOD COUNT 3.69 M/UL (4.70-6.10); RED CELL DISTRIBUTION WIDTH 12.1 % (11.6-14.8)
[2017-11-28 05:19] LABS: ANION GAP 1 mmol/L (5-15); BLOOD UREA NITROGEN 15 mg/dL (7-18); CALCIUM 7.9 MG/DL (8.5-10.1); CARBON DIOXIDE 30 MMOL/L (21-32); CHLORIDE 107 MMOL/L (98-107); CREATININE 1.1 MG/DL (0.55-1.30); POTASSIUM 3.7 MMOL/L (3.5-5.1); SODIUM 138 MMOL/L (136-145)
[2017-11-28] MEDS: NovoLOG Insulin Flexpen SUBQ SCH ×4 (05:39→23:30)
[2017-11-28] MEDS: PCA shift volume MISC SCH ×2 (07:17→19:00)
[2017-11-28 08:00] VITALS: BP 143/87
--- NOTE | 2017-11-28 09:37 | General Progress Note ---
Progress Note Progress Note T100.7 x 1 now afebrile VSS c/o incisional pain epigastric area. Abdomen soft, only slight distention, incision clean. Yeast around stoma Urine 1800 BCIR fileo 365 GEOVANI drain 50 Hgb 10.5 stable K up 3.7 Imp. Atelectasis post-op yesterday Ileus, resolving Plan; npo today, continue TPN mobilize Rodney Stone MD Nov 28, 2017 09:37
[2017-11-28] MEDS ORDERED: DiphenhydrAMINE 50mg/ml Inj IVP PRN (10:00)
[2017-11-28] MEDS ORDERED: Fluconazole 100mg tab ORAL SCH (10:00)
[2017-11-28] MEDS: Potassium Chloride 40 MEQ in D5 1/4NS 1000ml 1,000 ML IV SCH (10:15)
[2017-11-28] MEDS ORDERED: Morphine Sulfate 2mg/ml Inj IV PRN ×2 (10:15→10:45)
[2017-11-28] MEDS ORDERED: Morphine Sulfate 4mg/ml Inj (IV/IM USE ONLY) IV PRN ×2 (10:15→10:45)
[2017-11-28] MEDS ORDERED: PCA Morphine 1mg/ml 30 ML IV PRN (10:45)
[2017-11-28] MEDS ORDERED: Rate Change PCA 1 Each MISC PRN (10:45)
[2017-11-28] MEDS: LORazepam 1mg tab SL PRN ×2 (11:40→23:34)
[2017-11-28 12:00] VITALS: BP 139/85
[2017-11-28 16:00] VITALS: BP 138/86
[2017-11-28] MEDS: Acetaminophen 650mg/20.3ml ORAL PRN (17:51)
[2017-11-28] MEDS ORDERED: PCA shift volume MISC SCH (19:00)
[2017-11-28 20:00] VITALS: BP 135/83
--- NOTE | 2017-11-28 20:01 | Geriatric Progress Note ---
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 Hopefully, not significant infectious issue. Dr. Stone has ordered blood C&S through PICC and urine C&S. Patient continues on Levaquin. Hopefully, ileus resolves quickly, so TPN, PICC can be d/c'ed in any case. Check labs, continue mobilization. Discussed with: patient, hospital staff Subjective Interval Events Patient in bed comfortable, feels slightly warm, but not ill. Fever to 100.9 now, with increase over day. C&S ordered by Dr. Stone. Diflucan for ostomy fungal growth. Patient denies respiratory sxs, dysuria. Ambulated twice without issues. Hoping to go home soon. Constitutional: Reports: fever; Denies: chills Respiratory: Reports: cough, shortness of breath Cardiovascular: Reports: chest pain, palpitations Gastrointestinal/Abdominal: Reports: abdominal pain - wound less tender Genitourinary: Reports: dysuria Geriatric Geriatric Last 24 Hour Vital Signs Date Time Temp Pulse Resp B/P (MAP) Pulse Ox O2 Delivery O2 Flow Rate FiO2 11/28/17 18:46 100.9 100.9 11/28/17 17:51 100.5 11/28/17 17:45 100.5 100.5 11/28/17 16:00 20 11/28/17 16:00 100.0 95 20 138/86 (103) 95 100.0 11/28/17 13:33 99.8 11/28/17 13:03 18 11/28/17 12:00 19 11/28/17 12:00 99.8 96 18 139/85 (103) 98 99.8 11/28/17 09:09 Room Air 11/28/17 08:00 99.1 95 18 143/87 (105) 96 99.1 11/28/17 08:00 18 11/28/17 04:00 97.4 92 18 131/85 (100) 95 97.4 11/28/17 04:00 18 11/28/17 00:02 18 11/28/17 00:00 99.1 87 18 120/74 (89) 97 99.1 11/27/17 22:00 99.1 11/27/17 21:00 Room Air 11/27/17 20:56 100.7 11/27/17 20:30 18 11/27/17 20:00 100.7 99 18 120/66 (84) 94 100.7 11/27/17 20:00 99.7 99.7 Intake and Output 11/27/17 11/28/17 19:00 07:00 Intake Total 1350 ml 1240 ml Output Total 1415 ml 1400 ml Balance -65 ml -160 ml IV Total 1350 ml 1240 ml Output Urine Total 1250 ml 1100 ml Drainage Total 20 ml 30 ml Estimated Blood Loss 50 ml Other 95 ml 270 ml Laboratory Tests Test 11/28/17 04:40 White Blood Count 8.0 K/UL (4.8-10.8) Red Blood Count 3.69 M/UL (4.70-6.10) L Hemoglobin 10.5 G/DL (14.2-18.0) L Hematocrit 30.9 % (42.0-52.0) L Mean Corpuscular Volume 84 FL (80-99) Mean Corpuscular Hemoglobin 28.5 PG (27.0-31.0) Mean Corpuscular Hemoglobin Concent 34.1 G/DL (32.0-36.0) Red Cell Distribution Width 12.1 % (11.6-14.8) Platelet Count 239 K/UL (150-450) Mean Platelet Volume 5.6 FL (6.5-10.1) L Neutrophils (%) (Auto) 72.6 % (45.0-75.0) Lymphocytes (%) (Auto) 14.6 % (20.0-45.0) L Monocytes (%) (Auto) 6.3 % (1.0-10.0) Eosinophils (%) (Auto) 5.7 % (0.0-3.0) H Basophils (%) (Auto) 0.8 % (0.0-2.0) Sodium Level 138 MMOL/L (136-145) Potassium Level 3.7 MMOL/L (3.5-5.1) Chloride Level 107 MMOL/L (98-107) Carbon Dioxide Level 30 MMOL/L (21-32) Anion Gap 1 mmol/L (5-15) L Blood Urea Nitrogen 15 mg/dL (7-18) Creatinine 1.1 MG/DL (0.55-1.30) Estimat Glomerular Filtration Rate > 60 mL/min (>60) Glucose Level 168 MG/DL (74-106) H Calcium Level 7.9 MG/DL (8.5-10.1) L Current Medications Medications (Trade) Dose Ordered Sig/Julio Route PRN Reason Start Time Stop Time Status Last Admin Dose Admin Acetaminophen (Tylenol) 1,000 mg Q6H PRN ORAL temp>100.2 or headache 11/23/17 15:15 12/23/17 15:14 11/28/17 17:51 Allopurinol (Zyloprim) 100 mg QHS ORAL 11/22/17 21:00 12/22/17 20:59 11/27/17 20:39 Chlorhexidine Gluconate (Cookie-Hex 2%) 1 applic DAILY@2000 TOPIC 11/25/17 20:00 12/25/17 19:59 11/27/17 19:59 Dextrose 1,000 ml @ 0 mls/hr Q24H PRN IV PN interrupted or unavailable 11/24/17 07:30 12/24/17 07:29 Dextrose (Dextrose 50%) 25 ml Q30M PRN IV Hypoglycemia 11/24/17 07:30 12/24/17 07:29 Dextrose (Dextrose 50%) 50 ml Q30M PRN IV Hypoglycemia 11/24/17 07:30 12/24/17 07:29 Diphenhydramine HCl (Benadryl) 50 mg Q4H PRN IVP Itching/Pruritis 11/28/17 10:00 11/30/17 09:59 Fat Emulsion Intravenous 240 ml/Amino Acids/ Electrolytes/ Dextrose 1,920 ml @ 80 mls/hr Q24H IV 11/24/17 20:00 12/24/17 19:59 11/27/17 20:04 Insulin Aspart (NovoLOG) Q6HR SUBQ 11/25/17 00:00 12/25/17 00:00 11/28/17 17:46 Iron Sucrose 100 mg/Sodium Chloride 60 ml @ 240 mls/hr BEDTIME IV 11/24/17 21:00 11/28/17 21:14 11/27/17 20:41 Ketorolac Tromethamine (Toradol 30mg) 15 mg Q6H PRN IV Severe Breakthru Pain (>7) 11/24/17 08:00 11/29/17 07:59 11/27/17 06:41 Levofloxacin 100 ml @ 100 mls/hr Q24H IVPB 11/23/17 09:00 11/30/17 08:59 11/28/17 09:00 Lorazepam (Ativan) 1 mg HSPRN PRN SL Sleep 11/28/17 20:00 12/05/17 19:59 Lorazepam (Ativan) 1 mg Q4H PRN SL Muscle Spasm 11/28/17 10:00 12/05/17 09:59 11/28/17 11:40 Menthol/Methyl Salicylate (Bengay) 1 applic QIDPRN PRN TOPIC For Pain 11/26/17 18:00 12/26/17 17:59 11/27/17 06:08 Miscellaneous Medication (INSTRUMENT ADJUSTER Rate Change) 1 ea PRN MISC rate change 11/28/17 10:45 11/30/17 10:44 Miscellaneous Medication (INSTRUMENT ADJUSTER shift volume) 1 ea Q12HR@0700,1900 MISC 11/28/17 19:00 11/30/17 18:59 11/28/17 19:00 Morphine Sulfate 30 ml @ 0 mls/hr INSTRUMENT ADJUSTER Protocol PRN IV For Pain 11/28/17 10:45 11/30/17 10:44 11/28/17 13:03 Morphine Sulfate (Morphine Sulfate) 2 mg Q2H PRN IV Moderate Pain (Pain Scale 4-6) 11/28/17 10:45 11/30/17 10:44 Morphine Sulfate (Morphine Sulfate) 4 mg Q3H PRN IV Severe Pain (Pain Scale 7-10) 11/28/17 10:45 11/30/17 10:44 Ondansetron HCl (Zofran) 4 mg Q4H PRN IVP Nausea & Vomiting 11/23/17 15:15 12/23/17 15:14 11/25/17 10:21 Pantoprazole (Protonix) 40 mg Q24H IVP 11/22/17 20:00 12/22/17 19:59 11/27/17 19:59 Phytonadione (Vitamin K) 10 mg ONCE A WEEK SUBQ 12/01/17 09:00 12/31/17 08:59 Potassium Chloride 40 meq/ Dextrose/Sodium Chloride 1,020 ml @ 40 mls/hr Q24H IV 11/27/17 09:00 12/27/17 08:59 11/28/17 10:15 Height (Feet): 5 Height (Inches): 7.00 Weight (Pounds): 169 General Appearance: no apparent distress, alert, non-toxic Head: normocephalic, atraumatic Eyes: bilateral anicteric ENT: normal voice Neck: full range of motion, no mass Respiratory: lungs clear, decreased breath sounds Cardiovascular: regular rate, rhythm Gastrointestinal: soft, distended - improved from yesterday Musculoskeletal: no calf tenderness Edema: no edema noted Generalized Neurologic: no new focality Juno Rose MD Nov 28, 2017 20:00
[2017-11-28 20:21] LABS: APPEARANCE,URINE SLIGHTLY CLOUDY; BILIRUBIN, URINE NEGATIVE (NEGATIVE); COLOR,URINE AMBER; GLUCOSE, URINE (UA) NEGATIVE (NEGATIVE); KETONES,URINE NEGATIVE (NEGATIVE); LEUKOCYTE ESTERASE ,URINE 1+ (NEGATIVE); NITRITE,URINE NEGATIVE (NEGATIVE); PH,URINE 7 (4.5-8.0); PROTEIN,URINE 1+ (NEGATIVE); UROBILINOGEN,URINE NORMAL MG/DL (0.0-1.0)
[2017-11-28] MEDS: Dyna-Hex 2% Top Sol 2oz TOPIC SCH (20:23)
[2017-11-28] MEDS: Iron Sucrose 100 MG in NS 55 ML IV SCH (20:23)
[2017-11-28] MEDS: Pantoprazole Inj IVP SCH (20:23)
[2017-11-28] MEDS: Allopurinol 100mg Tab ORAL SCH (20:23)
[2017-11-28] MEDS: Fat Emulsion Iv 20% 240 ML in Tpn 1,680 ML IV SCH (20:27)
[2017-11-29] VITALS: BP 117/69
[2017-11-29 04:00] VITALS: BP 130/90
[2017-11-29] MEDS: NovoLOG Insulin Flexpen SUBQ SCH ×3 (05:34→17:32)
[2017-11-29 06:35] LABS: BASOPHILS % (AUTO) 0.8 % (0.0-2.0); EOSINOPHILS % (AUTO) 3.5 % (0.0-3.0); HEMOGLOBIN 11.5 G/DL (14.2-18.0); LYMPHOCYTES % (AUTO) 13.7 % (20.0-45.0); MEAN CORPUSCULAR VOLUME 84 FL (80-99); MONOCYTES % (AUTO) 6.8 % (1.0-10.0); NEUTROPHILS % (AUTO) 75.2 % (45.0-75.0); PLATELET COUNT 309 K/UL (150-450); RED BLOOD COUNT 4.04 M/UL (4.70-6.10); RED CELL DISTRIBUTION WIDTH 12.3 % (11.6-14.8); WHITE BLOOD COUNT 9.4 K/UL (4.8-10.8)
[2017-11-29 07:13] LABS: ALANINE AMINOTRANSFERASE 17 U/L (12-78); ALBUMIN/GLOBULIN RATIO 0.5 (1.0-2.7); ALKALINE PHOSPHATASE 202 U/L (46-116); ANION GAP 9 mmol/L (5-15); ASPARTATE AMINO TRANSFERASE 16 U/L (15-37); BILIRUBIN,TOTAL 0.5 MG/DL (0.2-1.0); BLOOD UREA NITROGEN 16 mg/dL (7-18); CALCIUM 8.3 MG/DL (8.5-10.1); CARBON DIOXIDE 27 MMOL/L (21-32); CHLORIDE 102 MMOL/L (98-107); CREATININE 1.1 MG/DL (0.55-1.30); PHOSPHORUS 2.2 MG/DL (2.5-4.9); POTASSIUM 3.8 MMOL/L (3.5-5.1); SODIUM 138 MMOL/L (136-145)
[2017-11-29] MEDS: PCA shift volume MISC SCH (07:25)
[2017-11-29 08:00] VITALS: BP 131/91
[2017-11-29] MEDS: Potassium Chloride 40 MEQ in D5 1/4NS 1000ml 1,000 ML IV SCH (09:13)
[2017-11-29] MEDS ORDERED: oxyCODONE HCL/Acetaminophen 5/325mg ORAL PRN (09:30)
--- NOTE | 2017-11-29 09:39 | General Progress Note ---
Progress Note Progress Note T100.9. Having mid-abdominal pains. Ambulates in hallways. voiding without Chahal. Chest clear with good spirometer effort Abdomen soft, flat, healing nicely Urine 1850 BCIR ileo 390 GEOVANI 23 WBC 9400 Hgb 11.5 Albumin 2.0 (up) Mg 1.7 P 2.2 U/A - ?UTI Imp. Resolving ileus Fever ? etiology - blood and urine cultures pending Plan: clear liquid diet d/c ICE GRINDER and IV fluids - start Percocet continue TPN Increase Mg and P MRCP for tomorrow r/o CBD polyp or stone based on outside pre-admission study Rodney Stone MD Nov 29, 2017 09:39
[2017-11-29] MEDS ORDERED: Potassium Phosphate 30 MM in NS 275 ML IV SCH (10:00)
[2017-11-29 11:13] VITALS: BP 137/85
[2017-11-29 16:00] VITALS: BP 132/86
--- NOTE | 2017-11-29 18:08 | Geriatric Progress Note ---
Assessment/Plan Problems: (1) Hypertension (2) Presence of stent in coronary artery in patient with coronary artery disease (3) Dyslipidemia (4) Vitamin B12 deficiency (5) Vitamin D deficiency (6) Ulcerative colitis (7) History of gastrointestinal bleeding (8) Uric acid kidney stone (9) MALFUNCTION OF BCIR WITH BOWEL OBSTRUCTION (10) Recurrent ventral hernia and stoma stenosis (11) Volume depletion Assessment/Plan Functionally improved, monitor for po tolerance. MRCP ordered by Dr. Stone. Await C&S but patient clinically not exhibiting evidence of significant infectious process. Continue mobilization. Discussed with: patient, hospital staff Subjective Interval Events Patient reports feeling better. Using Percocet now, feels good pain relief, with less sedation. Able to walk around without difficulty. Clear liquids started. No further temp. No leukocytosis, labs otherwise stable. Constitutional: Denies: chills, sweats, fever Respiratory: Denies: shortness of breath Cardiovascular: Denies: chest pain, palpitations Genitourinary: Denies: dysuria Geriatric Geriatric Last 24 Hour Vital Signs Date Time Temp Pulse Resp B/P (MAP) Pulse Ox O2 Delivery O2 Flow Rate FiO2 11/29/17 16:00 98.6 92 20 132/86 (101) 97 98.6 11/29/17 11:13 98.0 96 20 137/85 (102) 95 98.0 11/29/17 08:00 97.8 100 20 131/91 (104) 96 97.8 11/29/17 08:00 20 11/29/17 07:21 Room Air 11/29/17 04:00 98.5 96 17 130/90 (103) 97 98.5 11/29/17 04:00 19 11/29/17 00:00 97.7 86 17 117/69 (85) 97 97.7 11/29/17 00:00 19 11/28/17 21:00 Room Air 11/28/17 20:30 98.3 11/28/17 20:00 98.3 86 17 135/83 (100) 97 98.3 11/28/17 20:00 19 11/28/17 18:46 100.9 100.9 Intake and Output 11/28/17 11/29/17 19:00 07:00 Intake Total 1380 ml 1200 ml Output Total 1301 ml 1432 ml Balance 79 ml -232 ml IV Total 1380 ml 1200 ml Output Urine Total 1200 ml 1100 ml Drainage Total 11 ml 12 ml Other 90 ml 320 ml # Voids 7 Laboratory Tests Test 11/28/17 20:00 11/29/17 05:10 Urine Color Nayeli Urine Appearance Slightly cloudy Urine pH 7 (4.5-8.0) Urine Specific [place] 1.005 (1.005-1.035) Urine Protein 1+ (NEGATIVE) H Urine Glucose (UA) Negative (NEGATIVE) Urine Ketones Negative (NEGATIVE) Urine Blood 1+ (NEGATIVE) H Urine Nitrite Negative (NEGATIVE) Urine Bilirubin Negative (NEGATIVE) Urine Ictotest Negative (NEGATIVE) Urine Urobilinogen Normal MG/DL (0.0-1.0) Urine Leukocyte Esterase 1+ (NEGATIVE) H Urine RBC 0-2 /HPF (0 - 0) H Urine WBC 5-10 /HPF (0 - 0) H Urine Squamous Epithelial Cells Occasional /LPF Urine Bacteria Few /HPF (NONE) White Blood Count 9.4 K/UL (4.8-10.8) Red Blood Count 4.04 M/UL (4.70-6.10) L Hemoglobin 11.5 G/DL (14.2-18.0) L Hematocrit 34.0 % (42.0-52.0) L Mean Corpuscular Volume 84 FL (80-99) Mean Corpuscular Hemoglobin 28.5 PG (27.0-31.0) Mean Corpuscular Hemoglobin Concent 33.9 G/DL (32.0-36.0) Red Cell Distribution Width 12.3 % (11.6-14.8) Platelet Count 309 K/UL (150-450) Mean Platelet Volume 6.0 FL (6.5-10.1) L Neutrophils (%) (Auto) 75.2 % (45.0-75.0) H Lymphocytes (%) (Auto) 13.7 % (20.0-45.0) L Monocytes (%) (Auto) 6.8 % (1.0-10.0) Eosinophils (%) (Auto) 3.5 % (0.0-3.0) H Basophils (%) (Auto) 0.8 % (0.0-2.0) Sodium Level 138 MMOL/L (136-145) Potassium Level 3.8 MMOL/L (3.5-5.1) Chloride Level 102 MMOL/L (98-107) Carbon Dioxide Level 27 MMOL/L (21-32) Anion Gap 9 mmol/L (5-15) Blood Urea Nitrogen 16 mg/dL (7-18) Creatinine 1.1 MG/DL (0.55-1.30) Estimat Glomerular Filtration Rate > 60 mL/min (>60) Glucose Level 159 MG/DL (74-106) H Calcium Level 8.3 MG/DL (8.5-10.1) L Phosphorus Level 2.2 MG/DL (2.5-4.9) L Magnesium Level 1.7 MG/DL (1.8-2.4) L Total Bilirubin 0.5 MG/DL (0.2-1.0) Aspartate Amino Transf (AST/SGOT) 16 U/L (15-37) Alanine Aminotransferase (ALT/SGPT) 17 U/L (12-78) Alkaline Phosphatase 202 U/L (46-116) H Total Protein 6.1 G/DL (6.4-8.2) L Albumin 2.0 G/DL (3.4-5.0) L Globulin 4.1 g/dL Albumin/Globulin Ratio 0.5 (1.0-2.7) L Current Medications Medications (Trade) Dose Ordered Sig/Julio Route PRN Reason Start Time Stop Time Status Last Admin Dose Admin Acetaminophen (Tylenol) 1,000 mg Q6H PRN ORAL temp>100.2 or headache 11/23/17 15:15 12/23/17 15:14 11/28/17 17:51 Allopurinol (Zyloprim) 100 mg QHS ORAL 11/22/17 21:00 12/22/17 20:59 11/28/17 20:23 Chlorhexidine Gluconate (Cookie-Hex 2%) 1 applic DAILY@2000 TOPIC 11/25/17 20:00 12/25/17 19:59 11/28/17 20:23 Dextrose 1,000 ml @ 0 mls/hr Q24H PRN IV PN interrupted or unavailable 11/24/17 07:30 12/24/17 07:29 Dextrose (Dextrose 50%) 25 ml Q30M PRN IV Hypoglycemia 11/24/17 07:30 12/24/17 07:29 Dextrose (Dextrose 50%) 50 ml Q30M PRN IV Hypoglycemia 11/24/17 07:30 12/24/17 07:29 Fat Emulsion Intravenous 240 ml/Amino Acids/ Electrolytes/ Dextrose 1,920 ml @ 80 mls/hr Q24H IV 11/24/17 20:00 12/24/17 19:59 11/28/17 20:27 Insulin Aspart (NovoLOG) Q6HR SUBQ 11/25/17 00:00 12/25/17 00:00 11/29/17 17:32 Lorazepam (Ativan) 1 mg HSPRN PRN SL Sleep 11/28/17 20:00 12/05/17 19:59 11/28/17 23:34 Lorazepam (Ativan) 1 mg Q4H PRN SL Muscle Spasm 11/28/17 10:00 12/05/17 09:59 11/28/17 11:40 Menthol/Methyl Salicylate (Bengay) 1 applic QIDPRN PRN TOPIC For Pain 11/26/17 18:00 12/26/17 17:59 11/27/17 06:08 Ondansetron HCl (Zofran) 4 mg Q4H PRN IVP Nausea & Vomiting 11/23/17 15:15 12/23/17 15:14 11/25/17 10:21 Oxycodone/ Acetaminophen (Percocet 10/325) 1 tab Q4H PRN ORAL Severe Pain (Pain Scale 7-10) 11/29/17 13:15 12/06/17 13:14 11/29/17 13:25 Pantoprazole (Protonix) 40 mg Q24H IVP 11/22/17 20:00 12/22/17 19:59 11/28/17 20:23 Phytonadione (Vitamin K) 10 mg ONCE A WEEK SUBQ 12/01/17 09:00 12/31/17 08:59 Height (Feet): 5 Height (Inches): 7.00 Weight (Pounds): 169 General Appearance: no apparent distress, alert, non-toxic Head: normocephalic, atraumatic Eyes: bilateral anicteric ENT: normal voice Neck: full range of motion, no mass Respiratory: lungs clear Cardiovascular: regular rate, rhythm Gastrointestinal: soft, decreased bowel sounds - rare bowel sound? Musculoskeletal: no calf tenderness Edema: no edema noted Generalized Neurologic: no new focality Juno Rose MD Nov 29, 2017 18:08
[2017-11-29] MEDS: Dyna-Hex 2% Top Sol 2oz TOPIC SCH (19:52)
[2017-11-29] MEDS: Pantoprazole Inj IVP SCH (19:52)
[2017-11-29 20:00] VITALS: BP 140/89
[2017-11-29] MEDS: Allopurinol 100mg Tab ORAL SCH (20:03)
[2017-11-29] MEDS: Fat Emulsion Iv 20% 240 ML in Tpn 1,680 ML IV SCH (20:04)
--- NOTE | 2017-11-29 20:52 | Cardiology Progress Note ---
Assessment/Plan Assessment/Plan malfunctioning continent pouch hx of cad now s/p lad stent stable preop stress echo neg last week doing well dvt ppx ambualte i cv stable at this time cr stabel alk phosph elevated mrcp planned pain management feel better new meds today asa in on hold is npo Subjective Cardiovascular: Denies: chest pain, lightheadedness, palpitations Respiratory: Denies: SOB with excertion Gastrointestinal/Abdominal: Reports: abdominal pain Genitourinary: Denies: burning Objective Last 24 Hour Vital Signs Date Time Temp Pulse Resp B/P (MAP) Pulse Ox O2 Delivery O2 Flow Rate FiO2 11/29/17 16:00 98.6 92 20 132/86 (101) 97 98.6 11/29/17 11:13 98.0 96 20 137/85 (102) 95 98.0 11/29/17 08:00 97.8 100 20 131/91 (104) 96 97.8 11/29/17 08:00 20 11/29/17 07:21 Room Air 11/29/17 04:00 98.5 96 17 130/90 (103) 97 98.5 11/29/17 04:00 19 11/29/17 00:00 97.7 86 17 117/69 (85) 97 97.7 11/29/17 00:00 19 11/28/17 21:00 Room Air General Appearance: no apparent distress, alert Neck: supple Cardiovascular: normal rate Respiratory/Chest: lungs clear Abdomen: normal bowel sounds Extremities: no swelling Intake and Output 11/28/17 11/29/17 19:00 07:00 Intake Total 1380 ml 1200 ml Output Total 1301 ml 1432 ml Balance 79 ml -232 ml IV Total 1380 ml 1200 ml Output Urine Total 1200 ml 1100 ml Drainage Total 11 ml 12 ml Other 90 ml 320 ml # Voids 7 Laboratory Tests Test 11/29/17 05:10 White Blood Count 9.4 K/UL (4.8-10.8) Red Blood Count 4.04 M/UL (4.70-6.10) L Hemoglobin 11.5 G/DL (14.2-18.0) L Hematocrit 34.0 % (42.0-52.0) L Mean Corpuscular Volume 84 FL (80-99) Mean Corpuscular Hemoglobin 28.5 PG (27.0-31.0) Mean Corpuscular Hemoglobin Concent 33.9 G/DL (32.0-36.0) Red Cell Distribution Width 12.3 % (11.6-14.8) Platelet Count 309 K/UL (150-450) Mean Platelet Volume 6.0 FL (6.5-10.1) L Neutrophils (%) (Auto) 75.2 % (45.0-75.0) H Lymphocytes (%) (Auto) 13.7 % (20.0-45.0) L Monocytes (%) (Auto) 6.8 % (1.0-10.0) Eosinophils (%) (Auto) 3.5 % (0.0-3.0) H Basophils (%) (Auto) 0.8 % (0.0-2.0) Sodium Level 138 MMOL/L (136-145) Potassium Level 3.8 MMOL/L (3.5-5.1) Chloride Level 102 MMOL/L (98-107) Carbon Dioxide Level 27 MMOL/L (21-32) Anion Gap 9 mmol/L (5-15) Blood Urea Nitrogen 16 mg/dL (7-18) Creatinine 1.1 MG/DL (0.55-1.30) Estimat Glomerular Filtration Rate > 60 mL/min (>60) Glucose Level 159 MG/DL (74-106) H Calcium Level 8.3 MG/DL (8.5-10.1) L Phosphorus Level 2.2 MG/DL (2.5-4.9) L Magnesium Level 1.7 MG/DL (1.8-2.4) L Total Bilirubin 0.5 MG/DL (0.2-1.0) Aspartate Amino Transf (AST/SGOT) 16 U/L (15-37) Alanine Aminotransferase (ALT/SGPT) 17 U/L (12-78) Alkaline Phosphatase 202 U/L (46-116) H Total Protein 6.1 G/DL (6.4-8.2) L Albumin 2.0 G/DL (3.4-5.0) L Globulin 4.1 g/dL Albumin/Globulin Ratio 0.5 (1.0-2.7) L Jose Alejandro Aviles MD Nov 29, 2017 20:51
[2017-11-29] MEDS: LORazepam 1mg tab SL PRN (22:27)
[2017-11-30] VITALS: BP 126/73
[2017-11-30] MEDS ORDERED: Nystatin Susp 500,000 units/5ml ORAL STA (00:06)
[2017-11-30] MEDS: NovoLOG Insulin Flexpen SUBQ SCH ×4 (00:36→17:42)
[2017-11-30 04:00] VITALS: BP 144/91
[2017-11-30 06:24] LABS: BASOPHILS % (AUTO) 0.9 % (0.0-2.0); EOSINOPHILS % (AUTO) 4.3 % (0.0-3.0); HEMATOCRIT 33.5 % (42.0-52.0); HEMOGLOBIN 11.6 G/DL (14.2-18.0); LYMPHOCYTES % (AUTO) 14.1 % (20.0-45.0); MEAN CORPUSCULAR VOLUME 84 FL (80-99); MONOCYTES % (AUTO) 7.9 % (1.0-10.0); NEUTROPHILS % (AUTO) 72.8 % (45.0-75.0); PLATELET COUNT 332 K/UL (150-450); RED BLOOD COUNT 3.99 M/UL (4.70-6.10); RED CELL DISTRIBUTION WIDTH 12.1 % (11.6-14.8)
[2017-11-30 06:28] LABS: ANION GAP 6 mmol/L (5-15); BLOOD UREA NITROGEN 17 mg/dL (7-18); CALCIUM 8.4 MG/DL (8.5-10.1); CARBON DIOXIDE 27 MMOL/L (21-32); CHLORIDE 101 MMOL/L (98-107); CREATININE 1.1 MG/DL (0.55-1.30); SODIUM 134 MMOL/L (136-145)
[2017-11-30 08:00] VITALS: BP 136/80
--- NOTE | 2017-11-30 08:32 | General Progress Note ---
Progress Note Progress Note Afebrile x 48 hours. Tolerating clear liquid diet. Incisional pain from mesh repair of incisional hernia Abdomen soft, non-distended, incision clean Urine 2750 BCIR ileo 420 GEOVANI 38 serosang WBC 10,000 BMP-wnl Had difficulty voiding overnight - bladder scan 312 then voided 250 Imp: Slowly improving Plan: continue clear liquids and TPN MRCP to be done this morning - if abnormal I will have Dr. Mena see patient maintain continuous drainage of Denise continent ileostomy pouch Rodney Stone MD Nov 30, 2017 08:32
[2017-11-30] MEDS ORDERED: Nystatin Susp 500,000 units/5ml ORAL SCH (09:00)
[2017-11-30] MEDS: Nystatin Susp 500,000 units/5ml ORAL SCH ×4 (09:31→20:07)
[2017-11-30] MEDS: LORazepam 1mg tab SL PRN (11:08)
[2017-11-30 12:00] VITALS: BP 122/76
--- NOTE | 2017-11-30 15:08 | Diagnostic Imaging Report ---
Indication: Outside MRI showed a filling defect in the distal CBD not thought to represent a stone versus a polyp. Technique: MRI of the abdomen was performed in a 1.5 Annie magnet. Pulse sequences obtained include coronal and axial T2 single shot fast spin echo breathhold and respiratory gated coronal T2 3-D M.R.C.P.; this data set was displayed in different projections or MIPs. In addition, multiple coronal oblique thin T2 weighted, fat saturated SE sequences obtained through the CBD. Comparison: MRI performed at [facility] 11/21/2016. Findings: The current exam is limited by breathing motion. There is a small filling defect demonstrated in the distal CBD which appears to correspond to the previous MRI findings as well. The current study is limited in this regard due to breathing motion. The duct is about 8 mm in greatest diameter. There is suggestion of a small duodenal diverticulum in the second part of the duodenum near the distal CBD as well. Gallbladder is unremarkable. There are bilateral renal cysts noted. Trace basilar pleural effusions are present. There is irregularity of the anterior abdominal wall on the basis of the prior surgery. IMPRESSION: Limited MRCP due to breathing motion. Suspected filling defect in the distal CBD again demonstrated. This is better visualized on the prior MRI. Agree the finding is probably on the basis of a small wall adherent stone or polyp. Bilateral renal cysts. Trace bilateral pleural effusions. Distortion in the anterior abdominal wall presumably on the basis of previous surgery.
--- NOTE | 2017-11-30 15:59 | Geriatric Progress Note ---
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 Labs not suggesting significant infectious issue at present. Ileus resolving. Bladder sxs - ? narcotics vs. prostatism. Monitor. Sleep, if continues as issue, consider course of Rozerem. May consider sleep study after d/c. Await GI evaluation of CBD finding, ? ERCP. Continue mobilizing. Diet per Dr. Stone. Reviewed with patient and . Discussed with: patient, family, hospital staff Subjective Interval Events Patient sitting on EOB. Completing liquid meal, no c/o. Earlier today with some difficulty urinating, describes slow stream currently. Bladder scan did not reveal significant retention. MRCP confirms small CBD abnormality. Discussed with Dr. Stone, he will ask Dr. Mena to evaluate. Labs with no significant abnormality, Blood and urine C&S NGTD. Patient feels well. Describes [place] of pain, mid abdominal which varies in intensity but is tolerable with current analgesia. Reports feeling overly medicated with Ativan for sleep, wants to hold off. Notes extensive snoring, which has been more prominent recently. Constitutional: Denies: chills, fever Respiratory: Denies: shortness of breath Cardiovascular: Denies: chest pain, palpitations Gastrointestinal/Abdominal: Denies: diarrhea, vomiting Geriatric Geriatric Last 24 Hour Vital Signs Date Time Temp Pulse Resp B/P (MAP) Pulse Ox O2 Delivery O2 Flow Rate FiO2 11/30/17 12:00 98.3 90 20 122/76 (91) 97 98.3 11/30/17 09:00 Room Air 11/30/17 08:00 98.1 87 20 136/80 (98) 96 98.1 11/30/17 04:00 99.1 85 19 144/91 (108) 96 99.1 11/30/17 00:00 98.2 84 18 126/73 (90) 96 98.2 11/29/17 21:00 Room Air 11/29/17 20:00 98.4 90 17 140/89 (106) 95 98.4 11/29/17 16:00 98.6 92 20 132/86 (101) 97 98.6 Intake and Output 11/29/17 11/30/17 19:00 07:00 Intake Total 1505 ml 1040 ml Output Total 1840 ml 1668 ml Balance -335 ml -628 ml Intake Oral 575 ml 240 ml IV Total 930 ml 800 ml Output Urine Total 1500 ml 1550 ml Drainage Total 20 ml 18 ml Other 320 ml 100 ml # Voids 2 Laboratory Tests Test 11/30/17 05:55 White Blood Count 10.0 K/UL (4.8-10.8) Red Blood Count 3.99 M/UL (4.70-6.10) L Hemoglobin 11.6 G/DL (14.2-18.0) L Hematocrit 33.5 % (42.0-52.0) L Mean Corpuscular Volume 84 FL (80-99) Mean Corpuscular Hemoglobin 29.2 PG (27.0-31.0) Mean Corpuscular Hemoglobin Concent 34.7 G/DL (32.0-36.0) Red Cell Distribution Width 12.1 % (11.6-14.8) Platelet Count 332 K/UL (150-450) Mean Platelet Volume 6.1 FL (6.5-10.1) L Neutrophils (%) (Auto) 72.8 % (45.0-75.0) Lymphocytes (%) (Auto) 14.1 % (20.0-45.0) L Monocytes (%) (Auto) 7.9 % (1.0-10.0) Eosinophils (%) (Auto) 4.3 % (0.0-3.0) H Basophils (%) (Auto) 0.9 % (0.0-2.0) Sodium Level 134 MMOL/L (136-145) L Potassium Level 4.0 MMOL/L (3.5-5.1) Chloride Level 101 MMOL/L (98-107) Carbon Dioxide Level 27 MMOL/L (21-32) Anion Gap 6 mmol/L (5-15) Blood Urea Nitrogen 17 mg/dL (7-18) Creatinine 1.1 MG/DL (0.55-1.30) Estimat Glomerular Filtration Rate > 60 mL/min (>60) Glucose Level 161 MG/DL (74-106) H Calcium Level 8.4 MG/DL (8.5-10.1) L Current Medications Medications (Trade) Dose Ordered Sig/Julio Route PRN Reason Start Time Stop Time Status Last Admin Dose Admin Acetaminophen (Tylenol) 1,000 mg Q6H PRN ORAL temp>100.2 or headache 11/23/17 15:15 12/23/17 15:14 11/28/17 17:51 Allopurinol (Zyloprim) 100 mg QHS ORAL 11/22/17 21:00 12/22/17 20:59 11/29/17 20:03 Chlorhexidine Gluconate (Cookie-Hex 2%) 1 applic DAILY@2000 TOPIC 11/25/17 20:00 12/25/17 19:59 11/29/17 19:52 Dextrose 1,000 ml @ 0 mls/hr Q24H PRN IV PN interrupted or unavailable 11/24/17 07:30 12/24/17 07:29 Dextrose (Dextrose 50%) 25 ml Q30M PRN IV Hypoglycemia 11/24/17 07:30 12/24/17 07:29 Dextrose (Dextrose 50%) 50 ml Q30M PRN IV Hypoglycemia 11/24/17 07:30 12/24/17 07:29 Fat Emulsion Intravenous 240 ml/Amino Acids/ Electrolytes/ Dextrose 1,920 ml @ 80 mls/hr Q24H IV 11/24/17 20:00 12/24/17 19:59 11/29/17 20:04 Insulin Aspart (NovoLOG) Q6HR SUBQ 11/25/17 00:00 12/25/17 00:00 11/30/17 14:05 Lorazepam (Ativan) 1 mg HSPRN PRN SL Sleep 11/28/17 20:00 12/05/17 19:59 11/29/17 22:27 Lorazepam (Ativan) 1 mg Q4H PRN SL Muscle Spasm 11/28/17 10:00 12/05/17 09:59 11/30/17 11:08 Menthol/Methyl Salicylate (Bengay) 1 applic QIDPRN PRN TOPIC For Pain 11/26/17 18:00 12/26/17 17:59 11/27/17 06:08 Nystatin (Nystatin) 5 ml QID ORAL 11/30/17 09:00 12/07/17 08:59 11/30/17 14:03 Ondansetron HCl (Zofran) 4 mg Q4H PRN IVP Nausea & Vomiting 11/23/17 15:15 12/23/17 15:14 11/25/17 10:21 Oxycodone/ Acetaminophen (Percocet 10/325) 1 tab Q4H PRN ORAL Severe Pain (Pain Scale 7-10) 11/29/17 13:15 12/06/17 13:14 11/30/17 14:47 Pantoprazole (Protonix) 40 mg Q24H IVP 11/22/17 20:00 12/22/17 19:59 11/29/17 19:52 Phytonadione (Vitamin K) 10 mg ONCE A WEEK SUBQ 12/01/17 09:00 12/31/17 08:59 Height (Feet): 5 Height (Inches): 7.00 Weight (Pounds): 169 General Appearance: no apparent distress, alert, non-toxic Head: normocephalic, atraumatic Eyes: bilateral anicteric ENT: normal voice Neck: full range of motion, no mass Respiratory: lungs clear Cardiovascular: regular rate, rhythm Gastrointestinal: soft, non-distended, decreased bowel sounds Musculoskeletal: no calf tenderness Edema: no edema noted Generalized Neurologic: no new focality Juno Rose MD Nov 30, 2017 15:59
[2017-11-30 16:07] VITALS: BP 138/94
[2017-11-30 20:00] VITALS: BP 150/90
[2017-11-30] MEDS: Pantoprazole Inj IVP SCH (20:07)
[2017-11-30] MEDS: Dyna-Hex 2% Top Sol 2oz TOPIC SCH (20:07)
[2017-11-30] MEDS: Allopurinol 100mg Tab ORAL SCH (20:07)
[2017-11-30] MEDS: Fat Emulsion Iv 20% 240 ML in Tpn 1,680 ML IV SCH (20:08)
--- NOTE | 2017-11-30 20:19 | Cardiology Progress Note ---
Assessment/Plan Assessment/Plan malfunctioning continent pouch hx of cad now s/p lad stent stable preop stress echo neg last week hemodynamically stabel dvt ppx ambualte cv stable at this time cr stabel alk phosph elevated mrcp noted pain management asa in on hold is npo Subjective Cardiovascular: Denies: chest pain Respiratory: Denies: shortness of breath Gastrointestinal/Abdominal: Reports: abdominal pain Genitourinary: Denies: burning Objective Last 24 Hour Vital Signs Date Time Temp Pulse Resp B/P (MAP) Pulse Ox O2 Delivery O2 Flow Rate FiO2 11/30/17 16:07 97.4 86 19 138/94 (109) 96 97.4 11/30/17 12:00 98.3 90 20 122/76 (91) 97 98.3 11/30/17 09:00 Room Air 11/30/17 08:00 98.1 87 20 136/80 (98) 96 98.1 11/30/17 04:00 99.1 85 19 144/91 (108) 96 99.1 11/30/17 00:00 98.2 84 18 126/73 (90) 96 98.2 11/29/17 21:00 Room Air General Appearance: no apparent distress, alert Neck: supple Cardiovascular: normal rate Respiratory/Chest: lungs clear Abdomen: normal bowel sounds, non tender, soft Extremities: no swelling Intake and Output 11/29/17 11/30/17 19:00 07:00 Intake Total 1505 ml 1040 ml Output Total 1840 ml 1668 ml Balance -335 ml -628 ml Intake Oral 575 ml 240 ml IV Total 930 ml 800 ml Output Urine Total 1500 ml 1550 ml Drainage Total 20 ml 18 ml Other 320 ml 100 ml # Voids 2 Laboratory Tests Test 11/30/17 05:55 White Blood Count 10.0 K/UL (4.8-10.8) Red Blood Count 3.99 M/UL (4.70-6.10) L Hemoglobin 11.6 G/DL (14.2-18.0) L Hematocrit 33.5 % (42.0-52.0) L Mean Corpuscular Volume 84 FL (80-99) Mean Corpuscular Hemoglobin 29.2 PG (27.0-31.0) Mean Corpuscular Hemoglobin Concent 34.7 G/DL (32.0-36.0) Red Cell Distribution Width 12.1 % (11.6-14.8) Platelet Count 332 K/UL (150-450) Mean Platelet Volume 6.1 FL (6.5-10.1) L Neutrophils (%) (Auto) 72.8 % (45.0-75.0) Lymphocytes (%) (Auto) 14.1 % (20.0-45.0) L Monocytes (%) (Auto) 7.9 % (1.0-10.0) Eosinophils (%) (Auto) 4.3 % (0.0-3.0) H Basophils (%) (Auto) 0.9 % (0.0-2.0) Sodium Level 134 MMOL/L (136-145) L Potassium Level 4.0 MMOL/L (3.5-5.1) Chloride Level 101 MMOL/L (98-107) Carbon Dioxide Level 27 MMOL/L (21-32) Anion Gap 6 mmol/L (5-15) Blood Urea Nitrogen 17 mg/dL (7-18) Creatinine 1.1 MG/DL (0.55-1.30) Estimat Glomerular Filtration Rate > 60 mL/min (>60) Glucose Level 161 MG/DL (74-106) H Calcium Level 8.4 MG/DL (8.5-10.1) L Microbiology Date/Time Source Procedure Growth Status 11/28/17 19:05 Blood Blood Culture - Preliminary NO GROWTH AFTER 24 HOURS Resulted 11/28/17 19:05 Blood Blood Culture - Preliminary NO GROWTH AFTER 24 HOURS Resulted 11/28/17 20:00 Urine,Clean Catch Urine Culture - Preliminary Resulted Jose Alejandro Aviles MD Nov 30, 2017 20:19
[2017-12-01] VITALS (9 sets, daily range): BP systolic 102–146; BP diastolic 60–86
[2017-12-01] MEDS: NovoLOG Insulin Flexpen SUBQ SCH ×4 (00:17→18:00)
[2017-12-01] MEDS ORDERED: Ascorbic Acid 500mg tab ORAL PRN ×2 (07:45→15:46)
--- NOTE | 2017-12-01 07:49 | General Progress Note ---
Progress Note Progress Note AVSS Tolerated clear liquids ABdomen soft, non-distended, incision clean Urine 2800 BCIR ileo 690 GEOVANI drain 15 Imp. Improving Plan: BCIR low residue diet continue TPN until eating well Maintain continuous drainage of Denise Pouch continent ileostomy f/u labs Dr. Mena to consult re CBD polyp on MRCP Rodney Stone MD Dec 01, 2017 07:49
[2017-12-01] MEDS ORDERED: Phytonadione 10 mg/mL 1ml amp SUBQ SCH (09:00)
[2017-12-01] MEDS: Nystatin Susp 500,000 units/5ml ORAL SCH ×4 (09:16→20:54)
[2017-12-01] MEDS: LORazepam 1mg tab SL PRN (10:55)
--- NOTE | 2017-12-01 11:12 | GI Initial Consult Note ---
History of Present Illness General Date patient seen: Dec 01, 2017 Time patient seen: 11:46 Referring physician: CYNDI BLACKMAN Reason for Consultation: CBD POLYP Present Illness HPI HISTORY OF PRESENT ILLNESS: The patient is a gentleman with a long history of ulcerative colitis, status post a proctocolectomy with ileostomy in the 1970s followed by a continent ileostomy with Kock pouch in 1975. In January 2009, he had developed a distal ileal stricture and underwent resection of his prior Kock pouch and creation of Denise continent ileostomy. He required revision of his stoma in October 2009, and he was admitted in July 2016, with inability to intubate his pouch with subsequent functional bowel obstruction. Endoscopy revealed a redundant angulated access segment and severe diffuse pouchitis. Pouchitis was treated with the plan of subsequent laparotomy, but was delayed because of coverage issues. In April 2017, he underwent laparotomy with revision of his pouch stoma and access segment and repair of an incisional hernia in the epigastrium with mesh. Recently, he developed stenosis of the mucocutaneous junction of his ileostomy. He had pouchitis requiring treatment with mesalamine enemas as well as ciprofloxacin and on the current occasion, he is admitted to undergo pouch endoscopy and surgical repair of both the ileostomy as well as the recurrent incisional hernia. GI consulted for CBD Polyp seen on recent MRCP. Pt seen, awake A&Ox4 NAD, had recent ileostomy revision c/o of abdominal pain and generalized weakness. Labs , imaging studies and history thoroughly reviewed. Home Meds Active Scripts Allopurinol* (ALLOPURINOL*) 100 Mg Tablet, 100 MG ORAL QHS for 30 Days, TAB Prov:Juno Rose MD 08/29/15 Reported Medications Atorvastatin Calcium* (ATORVASTATIN CALCIUM*) 40 Mg Tablet, 40 MG ORAL BEDTIME, TAB 11/22/17 Ciprofloxacin Hcl* (CIPROFLOXACIN HCL*) 500 Mg Tablet, 500 MG ORAL EVERY 12 HOURS, TAB 0 Refills 11/22/17 Cholecalciferol (Vitamin D3) (Vitamin D3) 2,000 Unit Capsule, 2000 UNIT PO DAILY , CAP 11/22/17 Nitroglycerin (NITROSTAT) 0.4 Mg Tab.subl, 0.4 MG SL Q5M X3 DOSES PRN for CHEST PAIN, #25 TAB 0 Refills 11/22/17 Oxycodone Hcl/Acetaminophen 5-325* (OXYCODONE-ACETAMINOPHEN 5-325*) 1 Each Tablet, 1 TAB ORAL Q6H PRN for For Pain, #20 TAB 0 Refills 05/12/17 Allopurinol* (ALLOPURINOL*) 100 Mg Tablet, 100 MG ORAL, TAB 04/23/17 Omeprazole (PRILOSEC) 20 Mg Capsule.dr, 20 MG ORAL DAILY, CAP 08/27/15 Aspirin* (ASPIRIN*) 81 Mg Tab.chew, 81 MG ORAL DAILY, TAB 08/27/15 Multivitamins* (MULTIVITAMINS*) 1 Each Tablet, 1 TAB ORAL DAILY, TAB 0 Refills 06/06/14 Allergies: Coded Allergies: CEPHALEXIN (Verified Allergy, Mild, 11/06/09) PENICILLIN G (Verified Allergy, Mild, 01/22/09) SULFA (SULFONAMIDE ANTIBIOTICS) (Verified Allergy, Mild, 11/07/09) Uncoded Allergies: ORAL FLAGYL (Adverse Reaction, Unknown, 11/07/09) Patient History PMH Narrative 1. Ulcerative colitis with multiple surgical interventions as noted above. 2. Status post an episode of acute coronary syndrome in March 2015, requiring three LAD stents with resulting preserved myocardium with no further anginal symptoms. 3. History of multiunit gastrointestinal blood loss when the patient was being treated with Brilinta for stent. The blood loss appeared to be associated with his pouchitis and he developed concomitant iron deficiency. These were treated with intravenous Venofer and discontinuation of Brilinta with antibiotic treatment of pouchitis and bleeding stabilization. 4. The patient has history of gout and urate stones in the urinary tract, which has been treated with chronic allopurinol therapy with no recurrence of symptoms. 5. Hypertension. 6. Dyslipidemia. 7. 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 8. History of vitamin D deficiency. Review of Systems All Other Systems: negative except mentioned in HPI Physical Exam Vital Signs Date Time Temp Pulse Resp B/P (MAP) Pulse Ox O2 Delivery O2 Flow Rate FiO2 11/27/17 08:00 18 11/27/17 08:00 97.8 76 129/72 (91) 97.8 11/27/17 08:00 Room Air 11/27/17 09:47 100 6 Sp02 EP Interpretation: reviewed, normal General Appearance: well appearing, no apparent distress, alert Head: normocephalic EENT: PERRL/EOMI, normal ENT inspection Neck: supple Respiratory: normal breath sounds, no respiratory distress Cardiovascular: normal rate Gastrointestinal: normal inspection, non tender, soft, normal bowel sounds, non -distended, other - GEOVANI to gravityx2 Rectal: deferred Genitourinary: deferred Musculoskeletal: normal inspection, back normal Neurologic: normal inspection, alert, oriented x3, responsive Psychiatric: normal inspection, judgement/insight normal, memory normal Skin: normal inspection, normal color, no rash, warm/dry, palpation normal, well hydrated Lymphatic: normal inspection, no adenopathy Current Medications Current Medications Medications (Trade) Dose Ordered Sig/Julio Route PRN Reason Start Time Stop Time Status Last Admin Dose Admin Acetaminophen (Tylenol) 1,000 mg Q6H PRN ORAL temp>100.2 or headache 11/23/17 15:15 12/23/17 15:14 11/28/17 17:51 Allopurinol (Zyloprim) 100 mg QHS ORAL 11/22/17 21:00 12/22/17 20:59 11/30/17 20:07 Ascorbic Acid (Vitamin C) 500 mg NEEDED PRN ORAL Constipation 12/01/17 07:45 12/31/17 07:44 Chlorhexidine Gluconate (Cookie-Hex 2%) 1 applic DAILY@2000 TOPIC 11/25/17 20:00 12/25/17 19:59 11/30/17 20:07 Dextrose 1,000 ml @ 0 mls/hr Q24H PRN IV PN interrupted or unavailable 11/24/17 07:30 12/24/17 07:29 Dextrose (Dextrose 50%) 25 ml Q30M PRN IV Hypoglycemia 11/24/17 07:30 12/24/17 07:29 Dextrose (Dextrose 50%) 50 ml Q30M PRN IV Hypoglycemia 11/24/17 07:30 12/24/17 07:29 Fat Emulsion Intravenous 240 ml/Amino Acids/ Electrolytes/ Dextrose 1,920 ml @ 80 mls/hr Q24H IV 11/24/17 20:00 12/24/17 19:59 11/30/17 20:08 Insulin Aspart (NovoLOG) Q6HR SUBQ 11/25/17 00:00 12/25/17 00:00 12/01/17 06:13 Lorazepam (Ativan) 1 mg HSPRN PRN SL Sleep 11/28/17 20:00 12/05/17 19:59 11/29/17 22:27 Lorazepam (Ativan) 1 mg Q4H PRN SL Muscle Spasm 11/28/17 10:00 12/05/17 09:59 12/01/17 10:55 Menthol/Methyl Salicylate (Bengay) 1 applic QIDPRN PRN TOPIC For Pain 11/26/17 18:00 12/26/17 17:59 11/27/17 06:08 Nystatin (Nystatin) 5 ml QID ORAL 11/30/17 09:00 12/07/17 08:59 12/01/17 09:16 Ondansetron HCl (Zofran) 4 mg Q4H PRN IVP Nausea & Vomiting 11/23/17 15:15 12/23/17 15:14 11/25/17 10:21 Oxycodone/ Acetaminophen (Percocet 10/325) 1 tab Q4H PRN ORAL Severe Pain (Pain Scale 7-10) 11/29/17 13:15 12/06/17 13:14 12/01/17 08:30 Pantoprazole (Protonix) 40 mg Q24H IVP 11/22/17 20:00 12/22/17 19:59 11/30/17 20:07 Phytonadione (Vitamin K) 10 mg ONCE A WEEK SUBQ 12/01/17 09:00 12/31/17 08:59 12/01/17 09:15 GI: Plan Plan MRCP reviewed >> polyp or mass or stenotic area of the common bile duct. Will need ERCP to evaluate the duodenal diverticulum, however must defer for minimum of 2 weeks given recent surgery. >> will follow up as outpatient symptomatic treatment at this time pain mgmt zofran prn prn transfusions ppi TPN fu labs Discussed with Dr. Mena. Thank you for this patient referral, we will follow. The patient was seen and examined at bedside and all new and available data was reviewed in the patients chart. I agree with the above findings, impression and plan. (Patient seen earlier today. Signature stamp does not reflect patient encounter time.). - MD Maryam Lowry,[employer] Dec 01, 2017 11:12
[2017-12-01 13:46] LABS: HEMATOCRIT 36.6 % (42.0-52.0); HEMOGLOBIN 12.3 G/DL (14.2-18.0); MEAN CORPUSCULAR VOLUME 84 FL (80-99); PLATELET COUNT 405 K/UL (150-450); RED BLOOD COUNT 4.34 M/UL (4.70-6.10); RED CELL DISTRIBUTION WIDTH 12.5 % (11.6-14.8); WHITE BLOOD COUNT 13.2 K/UL (4.8-10.8)
--- NOTE | 2017-12-01 13:57 | Diagnostic Imaging Report ---
Indication: Dyspnea Comparison: 11/22/2017 A single view chest radiograph was obtained. Findings: Interval placement of the PICC line shows the tip between the SVC and right atrium. There is a small infiltrate in the right upper lobe. Heart size is normal. Bones are unremarkable. IMPRESSION: PICC line in good position Suspected right upper lobe pneumonia
[2017-12-01] MEDS ORDERED: Isovue-300 100ml vial INJ PRN (14:00)
[2017-12-01 14:05] LABS: ANION GAP 7 mmol/L (5-15); BLOOD UREA NITROGEN 21 mg/dL (7-18); CALCIUM 8.5 MG/DL (8.5-10.1); CARBON DIOXIDE 26 MMOL/L (21-32); CHLORIDE 100 MMOL/L (98-107); CREATININE 1.2 MG/DL (0.55-1.30); POTASSIUM 4.5 MMOL/L (3.5-5.1); SODIUM 133 MMOL/L (136-145)
[2017-12-01 14:07] LABS: ALANINE AMINOTRANSFERASE 24 U/L (12-78); ALBUMIN 2.4 G/DL (3.4-5.0); ALBUMIN/GLOBULIN RATIO 0.5 (1.0-2.7); ALKALINE PHOSPHATASE 450 U/L (46-116); ASPARTATE AMINO TRANSFERASE 26 U/L (15-37); BILIRUBIN,TOTAL 0.7 MG/DL (0.2-1.0)
[2017-12-01 14:32] LABS: CREATINE KINASE 23 U/L (26-308)
[2017-12-01] MEDS ORDERED: Metoprolol 5mg/5ml Inj IVP SCH ×2 (15:00→15:48)
--- NOTE | 2017-12-01 15:03 | General Progress Note ---
Progress Note Progress Note Became confused and disoriented. Afebrile with VSS Now more alert - diaphoretic but T100.0 Tachycardia Abdomen soft Labs WBC 13,200 Hgb up 12.3 BUN up 21 Cr up 1.2 Imp. Mild dehydration with hemoconcentration Episode confusion ? etiology ? sepsis Plan: Additional IV fluids ordered Eval by and Dr Aviles pending Now in tele unit Rodney Stone MD Dec 01, 2017 15:03
[2017-12-01] MEDS ORDERED: D5 1/4NS w/KCl 20mEq 1,000 ML IV SCH (15:30)
[2017-12-01] MEDS: Isovue-300 100ml vial INJ SCH (15:45)
[2017-12-01] MEDS ORDERED: LORazepam 1mg tab SL PRN ×2 (15:47→20:00)
--- NOTE | 2017-12-01 17:26 | Geriatric Progress Note ---
Assessment/Plan Problems: (1) Hypertension (2) Presence of stent in coronary artery in patient with coronary artery disease (3) Dyslipidemia (4) Vitamin B12 deficiency (5) Vitamin D deficiency (6) Ulcerative colitis (7) History of gastrointestinal bleeding (8) Uric acid kidney stone (9) MALFUNCTION OF BCIR WITH BOWEL OBSTRUCTION (10) Recurrent ventral hernia and stoma stenosis (11) Volume depletion (12) Leukocytosis (13) Fever (14) Tachycardia Assessment/Plan New superimposed episode of fever, tachycardia, confusion, which seems to be resolving without specific therapy. CT of chest is pending to evaluate for PE, and to further evaluate for ? RUL changes. Most likely etiologies include line sepsis, inflammatory reaction to ostomy manipulation, or potentially medication effect. If leukocytosis persists or fever returns, antibiotic coverage would be appropriate. Dr. Martínez has been consulted to evaluate re infectious etiology. Await C&S, repeat labs. Will need to hydrate with IVF. Unusual causes such as transient fungiema associated with ostomy manipulation or fatty embolus due to intralipids unlikely. Need to monitor neurologic status closely. Discussed with . Discussed with Dr. Aviles, Dr. Martínez. Discussed with: patient, conservator, hospital staff Subjective Interval Events Patient reportedly doing very well this a.m. After left at 10:30am, patient developed some blockage of ileostomy, which required flushing for considerable time with nurse's assistance. Patient received dose of sublingual lorazepam and intravenous ondansetron around this time. In early afternoon patient developed fever to 103.1, accompanied by confusion, with disorientation. Subsequently patient developed tachycardia to ~150. Initial findings included an EKG read as sinus tach, and an ABG on 4l/m with resp alkalosis and slightly lower pO2 than expected. Patient was transferred to telemetry, and Dr. Aviles was called to evaluate the patient's tachycardia. Laboratories were drawn stat, and remarkable for a new leukocytosis, a mild increase in Hct, mild increase in BUN/Cr, borderline hyponatremia, normal CK with minimal elevation of Trop I. CXR was noted to have slight RUL increase in opacity with ? pneumonitis. LE duplex were negative for DVT. Blood C&S was ordered both through PICC and peripherally. Urine studies have been ordered as well. Currently patient appears appropriate and with normal mentation. There is not dysarthria. reports still some recent bizarre conversation, but dysarthric speech, lack or coordination or unusual movements. Patient denies chest pain, respiratory sxs, or increased abdominal discomfort. Constitutional: Reports: fever; Denies: chills, sweats Respiratory: Denies: cough, orthopnea, shortness of breath Cardiovascular: Denies: chest pain, palpitations Gastrointestinal/Abdominal: Denies: diarrhea, vomiting Genitourinary: Denies: dysuria Geriatric Geriatric Last 24 Hour Vital Signs Date Time Temp Pulse Resp B/P (MAP) Pulse Ox O2 Delivery O2 Flow Rate FiO2 12/01/17 16:31 99.1 12/01/17 16:00 99.1 108 19 110/60 (77) 98 99.1 12/01/17 14:30 99.1 112 18 102/70 (81) 96 99.1 12/01/17 14:15 103.1 122 20 111/73 (86) 99 103.1 12/01/17 13:00 102.6 150 20 120/70 (87) 97 102.6 12/01/17 09:00 Room Air 12/01/17 08:30 98.5 12/01/17 08:00 97.9 87 18 126/83 (97) 96 97.9 12/01/17 04:29 98.5 89 18 117/79 (92) 96 98.5 12/01/17 00:21 98.2 87 16 132/80 (97) 96 98.2 11/30/17 21:00 Room Air 11/30/17 20:00 98.7 112 18 150/90 (110) 96 98.7 Intake and Output 11/30/17 12/01/17 19:00 07:00 Intake Total 1760 ml 1600 ml Output Total 1675 ml 1830 ml Balance 85 ml -230 ml Intake Oral 880 ml 720 ml IV Total 880 ml 880 ml Output Urine Total 1250 ml 1550 ml Drainage Total 5 ml 10 ml Other 420 ml 270 ml # Voids 5 Laboratory Tests Test 12/01/17 13:00 12/01/17 13:30 Arterial Blood pH 7.490 (7.350-7.450) Arterial Blood Partial Pressure CO2 33.5 mmHg (35.0-45.0) L Arterial Blood Partial Pressure O2 88.6 mmHg (75.0-100.0) Arterial Blood HCO3 25.2 mmol/L (22.0-26.0) Arterial Blood Oxygen Saturation 97.1 % (95-100) Arterial Blood Base Excess 2.4 (-2-2) H [place] Test Positive White Blood Count 13.2 K/UL (4.8-10.8) H Red Blood Count 4.34 M/UL (4.70-6.10) L Hemoglobin 12.3 G/DL (14.2-18.0) L Hematocrit 36.6 % (42.0-52.0) L Mean Corpuscular Volume 84 FL (80-99) Mean Corpuscular Hemoglobin 28.4 PG (27.0-31.0) Mean Corpuscular Hemoglobin Concent 33.6 G/DL (32.0-36.0) Red Cell Distribution Width 12.5 % (11.6-14.8) Platelet Count 405 K/UL (150-450) Mean Platelet Volume 5.5 FL (6.5-10.1) L Neutrophils (%) (Auto) % (45.0-75.0) Lymphocytes (%) (Auto) % (20.0-45.0) Monocytes (%) (Auto) % (1.0-10.0) Eosinophils (%) (Auto) % (0.0-3.0) Basophils (%) (Auto) % (0.0-2.0) Differential Total Cells Counted 100 Neutrophils % (Manual) 88 % (45-75) H Lymphocytes % (Manual) 6 % (20-45) L Monocytes % (Manual) 2 % (1-10) Eosinophils % (Manual) 3 % (0-3) Basophils % (Manual) 0 % (0-2) Band Neutrophils 1 % (0-8) Platelet Estimate Increased H Platelet Morphology Normal Red Blood Cell Morphology Normal Sodium Level 133 MMOL/L (136-145) L Potassium Level 4.5 MMOL/L (3.5-5.1) Chloride Level 100 MMOL/L (98-107) Carbon Dioxide Level 26 MMOL/L (21-32) Anion Gap 7 mmol/L (5-15) Blood Urea Nitrogen 21 mg/dL (7-18) H Creatinine 1.2 MG/DL (0.55-1.30) Estimat Glomerular Filtration Rate > 60 mL/min (>60) Glucose Level 153 MG/DL (74-106) H Calcium Level 8.5 MG/DL (8.5-10.1) Total Bilirubin 0.7 MG/DL (0.2-1.0) Aspartate Amino Transf (AST/SGOT) 26 U/L (15-37) Alanine Aminotransferase (ALT/SGPT) 24 U/L (12-78) Alkaline Phosphatase 450 U/L (46-116) H Total Creatine Kinase 23 U/L (26-308) L Troponin I 0.059 ng/mL (0.000-0.056) Total Protein 6.9 G/DL (6.4-8.2) Albumin 2.4 G/DL (3.4-5.0) L Globulin 4.5 g/dL Albumin/Globulin Ratio 0.5 (1.0-2.7) L Current Medications Medications (Trade) Dose Ordered Sig/Julio Route PRN Reason Start Time Stop Time Status Last Admin Dose Admin Acetaminophen (Tylenol) 650 mg Q4H PRN ORAL Mild Pain/Temp > 100.2 12/01/17 15:46 12/31/17 15:45 Allopurinol (Zyloprim) 100 mg QHS ORAL 12/01/17 21:00 12/22/17 20:59 Ascorbic Acid (Vitamin C) 500 mg DAILYPRN PRN ORAL Constipation 12/01/17 15:46 12/31/17 15:45 Chlorhexidine Gluconate (Cookie-Hex 2%) 1 applic DAILY@2000 TOPIC 12/01/17 20:00 12/25/17 19:59 Dextrose 1,000 ml @ 0 mls/hr Q24H PRN IV PN interrupted or unavailable 12/02/17 07:30 12/24/17 07:29 Dextrose (Dextrose 50%) 25 ml Q30M PRN IV Hypoglycemia 12/01/17 16:00 12/24/17 07:29 Dextrose (Dextrose 50%) 50 ml Q30M PRN IV Hypoglycemia 12/01/17 16:00 12/24/17 07:29 Dextrose/ Electrolytes 1,000 ml @ 50 mls/hr Q20H IV 12/01/17 15:45 12/31/17 15:29 Fat Emulsion Intravenous 240 ml/Amino Acids/ Electrolytes/ Dextrose 1,920 ml @ 80 mls/hr Q24H IV 12/01/17 20:00 12/24/17 19:59 Insulin Aspart (NovoLOG) Q6HR SUBQ 12/01/17 18:00 12/25/17 00:00 Iopamidol (Isovue-300 100ml) 100 ml NOW INJ 12/01/17 15:45 12/02/17 23:59 Lorazepam (Ativan) 1 mg HSPRN PRN SL Sleep 12/01/17 20:00 12/05/17 19:59 Lorazepam (Ativan) 1 mg Q4H PRN SL Muscle Spasm 12/01/17 15:47 12/05/17 15:46 Menthol/Methyl Salicylate (Bengay) 1 applic QIDPRN PRN TOPIC For Pain 12/01/17 18:00 12/26/17 17:59 Nystatin (Nystatin) 5 ml QID ORAL 12/01/17 18:00 12/07/17 08:59 Ondansetron HCl (Zofran) 4 mg Q4H PRN IVP Nausea & Vomiting 12/01/17 15:48 12/23/17 15:47 Oxycodone/ Acetaminophen (Percocet 10/325) 1 tab Q4H PRN ORAL Severe Pain (Pain Scale 7-10) 12/01/17 15:50 12/06/17 15:49 12/01/17 16:31 Pantoprazole (Protonix) 40 mg Q24H IVP 12/01/17 20:00 12/22/17 19:59 Phytonadione (Vitamin K) 10 mg ONCE A WEEK SUBQ 12/08/17 09:00 12/31/17 08:59 Height (Feet): 5 Height (Inches): 7.00 Weight (Pounds): 197 General Appearance: no apparent distress, alert, non-toxic Head: normocephalic, atraumatic Eyes: bilateral anicteric ENT: normal voice Neck: full range of motion, no mass Respiratory: lungs clear Cardiovascular: tachycardia - borderline Gastrointestinal: soft, tenderness - less tender than yesterday Musculoskeletal: no calf tenderness Edema: no edema noted Generalized Neurologic: alert, responsive, motor strength/tone normal, speech normal, no new focality Juno Rose MD Dec 01, 2017 17:26
--- NOTE | 2017-12-01 17:38 | Diagnostic Imaging Report ---
Indication: Chest pain Technique: Continuous helical transaxial imaging of the chest was obtained from the thoracic inlet to the upper abdomen during rapid intravenous contrast administration. Arterial phase of enhancement obtained. Coronal 2-D reformats were also obtained and maximum intensity projection images in multiple planes. Study obtained in a Siemens sensation [address] Automatic Exposure Control was utilized. Total Dose length Product (DLP): [address] Dose Index Volume (CTDIvol): 0.1, 12.62 x 3, 22.91 mGy Comparison: None Findings: The pulmonary artery is well opacified and shows no filling defects. There is no adenopathy, pleural or pericardial effusions are identified. There is no aortic dissection or aneurysm identified within the chest. There is an ill-defined infiltrate in the right upper lobe and a small focus of infiltrate in the upper part of the right lower lobe consistent with pneumonia. Visualized part of the upper abdomen is unremarkable. Impression: No evidence of pulmonary embolus, aortic dissection or aneurysm. Pneumonia suspected in the right lung The CT scanner at [facility] is accredited by the [employer] and the scans are performed using dose optimization techniques as appropriate to a performed exam including Automatic Exposure control.
[2017-12-01] MEDS: D5 1/4NS w/KCl 20mEq 1,000 ML IV SCH (17:58)
[2017-12-01] MEDS ORDERED: Analgesic Balm 15gm TOPIC PRN (18:00)
[2017-12-01] MEDS ORDERED: NS Irrig 1000ml ONE (18:03)
--- NOTE | 2017-12-01 18:12 | Infectious Diseases Prog Note ---
Assessment/Plan Assessment/Plan Full consult dictated: A) 1) fevers, leukocytosis, ? sepsis, ? aspiration pna/HCAP, ? uti, ? line infection 2) s/p Kock revision, s/p incisional hernia repair, s/p abdominal wall hematoma evacuation 3) TPN 4) hx ciprofloxacin use 5) hx malfunctioning Denise pouch 6) hx ulcerative colitis 7) pmh noted 8) allergies - pcn, cephalexin, sulfa, flagyl, hives with pcn P) 1) vancomycin, aztreonam and flagyl 2) check cultures, labs and f/u chest x-ray 3) d/w [place], d/w family 4) thank you Subjective Allergies: Coded Allergies: CEPHALEXIN (Verified Allergy, Mild, 11/06/09) PENICILLIN G (Verified Allergy, Mild, 01/22/09) SULFA (SULFONAMIDE ANTIBIOTICS) (Verified Allergy, Mild, 11/07/09) Uncoded Allergies: ORAL FLAGYL (Adverse Reaction, Unknown, 11/07/09) Objective Vital Signs Last 24 Hour Vital Signs Date Time Temp Pulse Resp B/P (MAP) Pulse Ox O2 Delivery O2 Flow Rate FiO2 12/01/17 16:31 99.1 12/01/17 16:00 99.1 108 19 110/60 (77) 98 99.1 12/01/17 14:30 99.1 112 18 102/70 (81) 96 99.1 12/01/17 14:15 103.1 122 20 111/73 (86) 99 103.1 12/01/17 13:00 102.6 150 20 120/70 (87) 97 102.6 12/01/17 12:00 99.2 91 20 146/86 (106) 97 99.2 12/01/17 09:00 Room Air 12/01/17 08:30 98.5 12/01/17 08:00 97.9 87 18 126/83 (97) 96 97.9 12/01/17 04:29 98.5 89 18 117/79 (92) 96 98.5 12/01/17 00:21 98.2 87 16 132/80 (97) 96 98.2 11/30/17 21:00 Room Air 11/30/17 20:00 98.7 112 18 150/90 (110) 96 98.7 Height (Feet): 5 Height (Inches): 7.00 Weight (Pounds): 197 Microbiology Date/Time Source Procedure Growth Status 11/28/17 19:05 Blood Blood Culture - Preliminary NO GROWTH AFTER 48 HOURS Resulted 11/28/17 19:05 Blood Blood Culture - Preliminary NO GROWTH AFTER 48 HOURS Resulted 11/28/17 20:00 Urine,Clean Catch Urine Culture - Preliminary Mixed Gram Positive Organism Resulted Laboratory Tests Test 12/01/17 13:00 12/01/17 13:30 Arterial Blood pH 7.490 (7.350-7.450) Arterial Blood Partial Pressure CO2 33.5 mmHg (35.0-45.0) L Arterial Blood Partial Pressure O2 88.6 mmHg (75.0-100.0) Arterial Blood HCO3 25.2 mmol/L (22.0-26.0) Arterial Blood Oxygen Saturation 97.1 % (95-100) Arterial Blood Base Excess 2.4 (-2-2) H [place] Test Positive White Blood Count 13.2 K/UL (4.8-10.8) H Red Blood Count 4.34 M/UL (4.70-6.10) L Hemoglobin 12.3 G/DL (14.2-18.0) L Hematocrit 36.6 % (42.0-52.0) L Mean Corpuscular Volume 84 FL (80-99) Mean Corpuscular Hemoglobin 28.4 PG (27.0-31.0) Mean Corpuscular Hemoglobin Concent 33.6 G/DL (32.0-36.0) Red Cell Distribution Width 12.5 % (11.6-14.8) Platelet Count 405 K/UL (150-450) Mean Platelet Volume 5.5 FL (6.5-10.1) L Neutrophils (%) (Auto) % (45.0-75.0) Lymphocytes (%) (Auto) % (20.0-45.0) Monocytes (%) (Auto) % (1.0-10.0) Eosinophils (%) (Auto) % (0.0-3.0) Basophils (%) (Auto) % (0.0-2.0) Differential Total Cells Counted 100 Neutrophils % (Manual) 88 % (45-75) H Lymphocytes % (Manual) 6 % (20-45) L Monocytes % (Manual) 2 % (1-10) Eosinophils % (Manual) 3 % (0-3) Basophils % (Manual) 0 % (0-2) Band Neutrophils 1 % (0-8) Platelet Estimate Increased H Platelet Morphology Normal Red Blood Cell Morphology Normal Sodium Level 133 MMOL/L (136-145) L Potassium Level 4.5 MMOL/L (3.5-5.1) Chloride Level 100 MMOL/L (98-107) Carbon Dioxide Level 26 MMOL/L (21-32) Anion Gap 7 mmol/L (5-15) Blood Urea Nitrogen 21 mg/dL (7-18) H Creatinine 1.2 MG/DL (0.55-1.30) Estimat Glomerular Filtration Rate > 60 mL/min (>60) Glucose Level 153 MG/DL (74-106) H Calcium Level 8.5 MG/DL (8.5-10.1) Total Bilirubin 0.7 MG/DL (0.2-1.0) Aspartate Amino Transf (AST/SGOT) 26 U/L (15-37) Alanine Aminotransferase (ALT/SGPT) 24 U/L (12-78) Alkaline Phosphatase 450 U/L (46-116) H Total Creatine Kinase 23 U/L (26-308) L Troponin I 0.059 ng/mL (0.000-0.056) Total Protein 6.9 G/DL (6.4-8.2) Albumin 2.4 G/DL (3.4-5.0) L Globulin 4.5 g/dL Albumin/Globulin Ratio 0.5 (1.0-2.7) L Current Medications Medications (Trade) Dose Ordered Sig/Julio Route PRN Reason Start Time Stop Time Status Last Admin Dose Admin Acetaminophen (Tylenol) 650 mg Q4H PRN ORAL Mild Pain/Temp > 100.2 12/01/17 15:46 12/31/17 15:45 Allopurinol (Zyloprim) 100 mg QHS ORAL 12/01/17 21:00 12/22/17 20:59 Ascorbic Acid (Vitamin C) 500 mg DAILYPRN PRN ORAL Constipation 12/01/17 15:46 12/31/17 15:45 Chlorhexidine Gluconate (Cookie-Hex 2%) 1 applic DAILY@2000 TOPIC 12/01/17 20:00 12/25/17 19:59 Dextrose 1,000 ml @ 0 mls/hr Q24H PRN IV PN interrupted or unavailable 12/02/17 07:30 12/24/17 07:29 Dextrose (Dextrose 50%) 25 ml Q30M PRN IV Hypoglycemia 12/01/17 16:00 12/24/17 07:29 Dextrose (Dextrose 50%) 50 ml Q30M PRN IV Hypoglycemia 12/01/17 16:00 12/24/17 07:29 Dextrose/ Electrolytes 1,000 ml @ 50 mls/hr Q20H IV 12/01/17 15:45 12/31/17 15:29 Fat Emulsion Intravenous 240 ml/Amino Acids/ Electrolytes/ Dextrose 1,920 ml @ 80 mls/hr Q24H IV 12/01/17 20:00 12/24/17 19:59 Insulin Aspart (NovoLOG) Q6HR SUBQ 12/01/17 18:00 12/25/17 00:00 Iopamidol (Isovue-300 100ml) 100 ml NOW INJ 12/01/17 15:45 12/02/17 23:59 Lorazepam (Ativan) 1 mg HSPRN PRN SL Sleep 12/01/17 20:00 12/05/17 19:59 Lorazepam (Ativan) 1 mg Q4H PRN SL Muscle Spasm 12/01/17 15:47 12/05/17 15:46 Menthol/Methyl Salicylate (Bengay) 1 applic QIDPRN PRN TOPIC For Pain 12/01/17 18:00 12/26/17 17:59 Nystatin (Nystatin) 5 ml QID ORAL 12/01/17 18:00 12/07/17 08:59 Ondansetron HCl (Zofran) 4 mg Q4H PRN IVP Nausea & Vomiting 12/01/17 15:48 12/23/17 15:47 Oxycodone/ Acetaminophen (Percocet 10) 1 tab Q4H PRN ORAL Severe Pain (Pain Scale 7-10) 12/01/17 15:50 12/06/17 15:49 12/01/17 16:31 Pantoprazole (Protonix) 40 mg Q24H IVP 12/01/17 20:00 12/22/17 19:59 Phytonadione (Vitamin K) 10 mg ONCE A WEEK SUBQ 12/08/17 09:00 12/31/17 08:59 Yogesh Martínez MD Dec 01, 2017 18:12
[2017-12-01] MEDS ORDERED: Cathflo Alteplase 2mg Inj INJ SCH ×2 (18:46→20:30)
--- NOTE | 2017-12-01 19:42 | Cardiology Progress Note ---
Assessment/Plan Assessment/Plan malfunctioning continent pouch hx of cad now s/p lad stent stable tachy sinus ? related to fever or infiltrate pulm infiltrate / pneumonia preop stress echo neg last week hemodynamically stabel dvt ppx ambualte no sx to suggest acs was tachy to reprotedly 140 bpm so i ordered iv bb now seems fine cr stabel alk phosph elevated mrcp noted asa in on hold is npo ctpa noted no pe but infiltrate noted febril to 103 now better repeat cardiac enzyme and ekg tele observation for 24-48 hours d/w rn d/w dr napoles d/w pt adn Subjective Cardiovascular: Denies: chest pain, lightheadedness, palpitations Respiratory: Denies: shortness of breath Gastrointestinal/Abdominal: Denies: abdomen distended Genitourinary: Denies: burning Subjective rigors earlier now resolved , pain in the abd deneis any pleuritc bp Objective Last 24 Hour Vital Signs Date Time Temp Pulse Resp B/P (MAP) Pulse Ox O2 Delivery O2 Flow Rate FiO2 12/01/17 16:31 99.1 12/01/17 16:00 99.1 108 19 110/60 (77) 98 99.1 12/01/17 14:30 99.1 112 18 102/70 (81) 96 99.1 12/01/17 14:15 103.1 122 20 111/73 (86) 99 103.1 12/01/17 13:00 102.6 150 20 120/70 (87) 97 102.6 12/01/17 12:00 99.2 91 20 146/86 (106) 97 99.2 12/01/17 09:00 Room Air 12/01/17 08:30 98.5 12/01/17 08:00 97.9 87 18 126/83 (97) 96 97.9 12/01/17 04:29 98.5 89 18 117/79 (92) 96 98.5 12/01/17 00:21 98.2 87 16 132/80 (97) 96 98.2 11/30/17 21:00 Room Air 11/30/17 20:00 98.7 112 18 150/90 (110) 96 98.7 General Appearance: no apparent distress, alert Neck: supple Cardiovascular: normal rate, regular rhythm Respiratory/Chest: lungs clear Abdomen: normal bowel sounds, non tender, soft Extremities: non-tender, no swelling Intake and Output 11/30/17 12/01/17 19:00 07:00 Intake Total 1760 ml 1680 ml Output Total 1675 ml 1830 ml Balance 85 ml -150 ml Intake Oral 880 ml 720 ml IV Total 880 ml 960 ml Output Urine Total 1250 ml 1550 ml Drainage Total 5 ml 10 ml Other 420 ml 270 ml # Voids 5 Laboratory Tests Test 12/01/17 13:00 12/01/17 13:30 Arterial Blood pH 7.490 (7.350-7.450) Arterial Blood Partial Pressure CO2 33.5 mmHg (35.0-45.0) L Arterial Blood Partial Pressure O2 88.6 mmHg (75.0-100.0) Arterial Blood HCO3 25.2 mmol/L (22.0-26.0) Arterial Blood Oxygen Saturation 97.1 % (95-100) Arterial Blood Base Excess 2.4 (-2-2) H [place] Test Positive White Blood Count 13.2 K/UL (4.8-10.8) H Red Blood Count 4.34 M/UL (4.70-6.10) L Hemoglobin 12.3 G/DL (14.2-18.0) L Hematocrit 36.6 % (42.0-52.0) L Mean Corpuscular Volume 84 FL (80-99) Mean Corpuscular Hemoglobin 28.4 PG (27.0-31.0) Mean Corpuscular Hemoglobin Concent 33.6 G/DL (32.0-36.0) Red Cell Distribution Width 12.5 % (11.6-14.8) Platelet Count 405 K/UL (150-450) Mean Platelet Volume 5.5 FL (6.5-10.1) L Neutrophils (%) (Auto) % (45.0-75.0) Lymphocytes (%) (Auto) % (20.0-45.0) Monocytes (%) (Auto) % (1.0-10.0) Eosinophils (%) (Auto) % (0.0-3.0) Basophils (%) (Auto) % (0.0-2.0) Differential Total Cells Counted 100 Neutrophils % (Manual) 88 % (45-75) H Lymphocytes % (Manual) 6 % (20-45) L Monocytes % (Manual) 2 % (1-10) Eosinophils % (Manual) 3 % (0-3) Basophils % (Manual) 0 % (0-2) Band Neutrophils 1 % (0-8) Platelet Estimate Increased H Platelet Morphology Normal Red Blood Cell Morphology Normal Sodium Level 133 MMOL/L (136-145) L Potassium Level 4.5 MMOL/L (3.5-5.1) Chloride Level 100 MMOL/L (98-107) Carbon Dioxide Level 26 MMOL/L (21-32) Anion Gap 7 mmol/L (5-15) Blood Urea Nitrogen 21 mg/dL (7-18) H Creatinine 1.2 MG/DL (0.55-1.30) Estimat Glomerular Filtration Rate > 60 mL/min (>60) Glucose Level 153 MG/DL (74-106) H Calcium Level 8.5 MG/DL (8.5-10.1) Total Bilirubin 0.7 MG/DL (0.2-1.0) Aspartate Amino Transf (AST/SGOT) 26 U/L (15-37) Alanine Aminotransferase (ALT/SGPT) 24 U/L (12-78) Alkaline Phosphatase 450 U/L (46-116) H Total Creatine Kinase 23 U/L (26-308) L Troponin I 0.059 ng/mL (0.000-0.056) Total Protein 6.9 G/DL (6.4-8.2) Albumin 2.4 G/DL (3.4-5.0) L Globulin 4.5 g/dL Albumin/Globulin Ratio 0.5 (1.0-2.7) L Microbiology Date/Time Source Procedure Growth Status 11/28/17 20:00 Urine,Clean Catch Urine Culture - Preliminary Mixed Gram Positive Organism Resulted Jose Alejandro Aviles MD Dec 01, 2017 19:42
[2017-12-01] MEDS ORDERED: Metoprolol 5mg/5ml Inj IVP PRN (19:47)
[2017-12-01] MEDS ORDERED: Fat Emulsion Iv 20% 240 ML in Tpn 1,680 ML IV SCH (20:00)
[2017-12-01] MEDS ORDERED: Dyna-Hex 2% Top Sol 2oz TOPIC SCH (20:00)
[2017-12-01] MEDS: Allopurinol 100mg Tab ORAL SCH (20:55)
[2017-12-01] MEDS: Pantoprazole Inj IVP SCH (21:38)
[2017-12-01] MEDS: Aztreonam Inj 1 GM in D5W 55 ML IVPB SCH (21:39)
[2017-12-01] MEDS ORDERED: Aztreonam Inj 1 GM in D5W 55 ML IVPB SCH (22:00)
[2017-12-01] MEDS: Vancomycin 750mg/NS 250ml IVPB SCH (22:53)
[2017-12-02] VITALS: BP 100/66
[2017-12-02] MEDS: NovoLOG Insulin Flexpen SUBQ SCH ×4 (00:30→17:28)
--- NOTE | 2017-12-02 01:00 | Consultation ---
DATE OF CONSULTATION: 12/01/2017 INFECTIOUS DISEASES CONSULTATION CONSULTING PHYSICIAN: Yogesh Martínez M.D. ATTENDING PHYSICIAN: Rodney Stone M.D. REFERRING PHYSICIAN: Juno Rose M.D., Internal Medicine physician. REASON FOR CONSULTATION: Possible sepsis, pneumonia, fevers, leukocytosis. CHIEF COMPLAINT: The patient's chief complaint coming in to the hospital was recurrent ventral hernia and stoma stenosis. HISTORY OF PRESENT ILLNESS: This is a very pleasant 67-year-old male, who comes in to [facility]. The patient has history of ulcerative colitis and Denise pouch. The patient initially came in for malfunctioning Denise pouch. The patient underwent a pouch endoscopy. Subsequently, the patient is status post Kock revision and also status post incisional hernia repair and also after that status post abdominal wall hematoma evacuation. The patient was stable but now has a fever. Temperature is 103.1. He was tachycardic. This was today, temperature 103.1, tachycardic, pulse rate as high as 150, 122, and 108. Blood pressure is stable, however, he also had leukocytosis. His white count increased to 13.2 and was previously normal. There was concern for sepsis. The patient has a central line for TPN. The patient had a chest x-ray which showed a right upper lobe pneumonia and comparing to initial chest x-ray on admission, this is new. He also had a CT of the chest and thorax to rule out pulmonary embolism and there was no evidence of pulmonary embolism, however, there was pneumonia suspected in the right lung. The patient has a severe allergy to penicillin including hives. He is also allergic to multiple medications including Flagyl po. The patient states he has been on Cipro prophylactically in the past. I am not clear about this. He is currently not on Cipro, but he has been on Cipro for an extended period of time. I am not clear of the Flagyl reaction and want to discuss with the patient. Case was discussed with Dr. Rose, the patient, and the patient's family. MAR was noted. Orders were noted. Notes and records were also reviewed. Other cultures at this time are pending. Of note, also the patient did have a mildly positive urinalysis in the past including 1+ leukocyte esterase and 5-10 white blood cells. Followup urinalysis has also been ordered. REVIEW OF SYSTEMS: CONSTITUTIONAL: He has generalized fatigue, but no new focal weakness. When he had his fever episode today, he had shaking chills with the fevers. He has currently no chills, but did have fever and chills earlier today. HEAD AND NECK: He has no head pain, neck pain, thrush, or dysphagia. No neck stiffness or change in vision. No headache. CARDIAC: No chest pain. GASTROINTESTINAL: He has postoperative discomfort of the abdomen, however, no acute abdominal pain, nausea, or vomiting. GENITOURINARY: Denies any dysuria or frequency. He did have a Chahal prior, but it has been removed. PULMONARY: No significant congestion, shortness of breath, hemoptysis, or secretions. SKIN: No rash or itching. EXTREMITIES: No extremity pain. NEUROLOGIC: No seizures. No seizure activity mentioned on discussion with nursing staff or the patient. PAST MEDICAL HISTORY: Includes history of the following. The patient has past medical history of ulcerative colitis, history of Denise pouch, history of multiple surgical interventions related to ulcerative colitis, history of acute coronary syndrome in 2016, history of GI bleed, history of gout, history of hypertension, history of dyslipidemia. No history of diabetes. History of B12 deficiency, history of vitamin D deficiency, and history of anemia. PAST SURGICAL HISTORY: As described. History of Denise pouch, history of malfunctioning Denise pouch, history of recent Kock revision, history of incisional hernia repair with recent Kock revision and also abdominal hematoma evacuation. ALLERGIES: Include cephalexin, Flagyl which I am not clear, penicillin which the patient gets hives, and sulfa drugs. FAMILY HISTORY: Noncontributory. No mention of cancer or diabetes. SOCIAL HISTORY: Negative for smoking, alcohol, or drug abuse. MEDICATIONS: Upon reviewing the MAR, he is on the following medications of vitamin K, he is on allopurinol, he is on chlorhexidine gluconate, he is on Ativan, Protonix or pantoprazole. I put him on aztreonam, vancomycin, and Flagyl. I have to see what the allergy to Flagyl is and I might have to discontinue that. He is on oxycodone, Zofran, lorazepam, ascorbic acid. He has been on metoprolol, he has been on I think insulin p.r.n. Outside medications noted and reconciliated. Again, antibiotics of vancomycin, aztreonam, and Flagyl IV. We will see what the allergy to oral Flagyl he has had. PHYSICAL EXAMINATION: VITAL SIGNS: T-max 103.1, pulse rate as high as 150 and now the most recent one was 108, temperature currently is 99.1, respiratory rate 19 and it has been as high as 20, blood pressure 110/60, saturation 98%. GENERAL: The patient is alert, responsive, and oriented x3. He does not look toxic clinically. No acute distress. HEAD AND NECK: Oral exam, no thrush. Eye exam, no icterus. No JVD. Normocephalic. Neck is supple. HEART: Regular. No obvious gallop or murmur. Tachycardic. He has 1/6 systolic flow murmur, but no significant murmur besides that. No friction rub. LUNGS: Fairly clear bilaterally. Maybe mild right-sided rales, but no wheezing, no significant rhonchi. Fairly good air exchange. No respiratory distress. ABDOMEN: Soft. Positive bowel sounds. Incision is clean and dry. SKIN: No maculopapular rash. MUSCULOSKELETAL: No effusion or septic arthritis of lower extremities. Legs are without cellulitis. PERIPHERAL VASCULAR: No evidence of cyanosis or gangrene. GENITOURINARY: No Chahal. No CVA tenderness. NEUROLOGIC: Intact. Alert and oriented x3. Nonfocal. LINE SITES: Without phlebitis. He has a central line for TPN. No phlebitis at this site. It is a PICC line. He has a GEOVANI drain. LABORATORY DATA: As follows. White count 13.2 and hemoglobin 12.3. Creatinine is 1.2. Sodium 133. LFTs were noted. Urinalysis on November 28, had 1+ leukocyte esterase and 5-10 white blood cells. Followup UA, C and S, and blood cultures are pending. Previous blood cultures were negative. Urine culture, mixed organisms on November 28. Sputum culture has been ordered. Followup urine culture is pending. IMAGING STUDIES: Chest x-ray showed suspicion for right upper lobe pneumonia. CT scan of the chest showed no pulmonary embolism, but did show pneumonia in the right lung. ASSESSMENT AND PLAN: 1. The patient has fevers, leukocytosis, SIRS criteria. Rule out underlying sepsis. Differential diagnosis includes pneumonia based on CT scan and chest x-ray. Clinically, the patient is not very short of breath, however, CT scan was consistent with a pneumonia in the right lung. Other differential diagnosis includes the patient could have line infection. He is at risk for line infection including fungemia. The patient is also at risk for urinary tract infection. He has had a Chahal recently just has been removed and had mildly positive UA previously. Based on the differential diagnosis and especially in view of the pneumonia seen on CT scan and chest x-ray, the patient could have had an aspiration event or aspiration and healthcare-acquired pneumonia. The patient was placed on vancomycin, aztreonam, and IV Flagyl. He is allergic to oral Flagyl and I have to see the nature of this allergy, but if just he could not tolerate it then we should continue with IV Flagyl for aspiration pneumonia in addition to vancomycin and aztreonam for MRSA and gram-negative pneumonia. Flagyl will be for anaerobic pneumonia and vancomycin and aztreonam for healthcare-acquired pneumonia including MRSA and gram negatives. Continue antibiotics. Follow up on cultures, chest x-ray, and laboratories. The patient does have a severe allergy to penicillin including hives, however, aztreonam should be safe in this patient. Case was discussed with Dr. Rose, the patient, and the patient's family. 2. The patient has history of Denise pouch. The patient is status post Kock revision, status post incisional hernia repair, and status post abdominal wall hematoma evacuation. 3. The patient has history of ulcerative colitis with multiple GI surgeries. 4. PPI. 5. He has a central line for TPN. 6. History of Cipro use in the past. 7. History of malfunctioning Denise pouch. 8. Hypertension. 9. Blood pressure treatment per Internal Medicine. 10. Hyperlipidemia. Treatment per Internal Medicine. 11. History of acute coronary syndrome. 12. History of GI bleed. 13. History of gout. 14. Vitamin B12 deficiency. 15. Vitamin D deficiency. 16. Allergies to cephalexin, oral Flagyl, penicillin, sulfa with the allergies to penicillin being hives. 17. Social history negative. 18. MAR was noted. 19. Case discussed with RN. 20. Family history noncontributory. 21. Continue treatment per primary consultants. 22. Surgery followup per Dr. Stone. 23. Orders were entered and noted. 24. Case was also discussed with the patient and the patient's family and also discussed with Dr. Rose at length. Yogesh Martínez M.D. DR: Elio JOB#: [id number] CC: JUAN M
[2017-12-02 04:00] VITALS: BP 102/68
[2017-12-02] MEDS: Aztreonam Inj 1 GM in D5W 55 ML IVPB SCH ×3 (05:43→21:47)
[2017-12-02 07:13] LABS: BASOPHILS % (AUTO) 1.2 % (0.0-2.0); EOSINOPHILS % (AUTO) 1.9 % (0.0-3.0); HEMATOCRIT 32.5 % (42.0-52.0); HEMOGLOBIN 10.8 G/DL (14.2-18.0); LYMPHOCYTES % (AUTO) 10.9 % (20.0-45.0); MEAN CORPUSCULAR VOLUME 95 FL (80-99); MONOCYTES % (AUTO) 7.4 % (1.0-10.0); NEUTROPHILS % (AUTO) 78.5 % (45.0-75.0); PLATELET COUNT 307 K/UL (150-450); RED BLOOD COUNT 3.42 M/UL (4.70-6.10); RED CELL DISTRIBUTION WIDTH 13.9 % (11.6-14.8); WHITE BLOOD COUNT 7.3 K/UL (4.8-10.8)
[2017-12-02] MEDS ORDERED: Dextrose 10% 1,000 ML IV PRN (07:30)
[2017-12-02 08:01] VITALS: BP 118/69
[2017-12-02] MEDS: Nystatin Susp 500,000 units/5ml ORAL SCH ×4 (08:14→20:42)
[2017-12-02] MEDS: Vancomycin 750mg/NS 250ml IVPB SCH (08:24)
--- NOTE | 2017-12-02 08:44 | General Progress Note ---
Progress Note Progress Note T 103.1 yesterday afternoon. Started on Azactam, Vanco and Flagyl IV for pneumonitis. Feeling better but appears weak and tired. c/o thirst Abdomen soft, flat, non-tender, healing nicely Urine 1800 BCIR ileo 570 (has been npo) GEOVANI drain 32 serosang WBC down 7300 Hgb down 10.8 with additional hydration CMP-pending Imp: Pneumonia with fever, confusion - improved Plan: Resume clear liquid diet Maintain continuous drainage of Denise Continent Ileostomy Continue TPN Leave drain over mesh repair of incisional hernia until output decreases Rodney Stone MD Dec 02, 2017 08:44
[2017-12-02 09:16] LABS: ALANINE AMINOTRANSFERASE 27 U/L (12-78); ALBUMIN 2.2 G/DL (3.4-5.0); ALBUMIN/GLOBULIN RATIO 0.5 (1.0-2.7); ALKALINE PHOSPHATASE 366 U/L (46-116); ANION GAP 8 mmol/L (5-15); ASPARTATE AMINO TRANSFERASE 26 U/L (15-37); BILIRUBIN,TOTAL 0.8 MG/DL (0.2-1.0); BLOOD UREA NITROGEN 22 mg/dL (7-18); CALCIUM 8.3 MG/DL (8.5-10.1); CARBON DIOXIDE 27 MMOL/L (21-32); CHLORIDE 101 MMOL/L (98-107); CREATININE 1.2 MG/DL (0.55-1.30); POTASSIUM 4.1 MMOL/L (3.5-5.1); SODIUM 136 MMOL/L (136-145)
--- NOTE | 2017-12-02 10:19 | GI Progress Note ---
Assessment/Plan Problems: (1) Bleeding from colostomy stoma ICD Codes: K94.01 - Bleeding from colostomy stoma SNOMED: 246010396 (2) Anemia ICD Codes: D64.9 - Anemia, unspecified SNOMED: 900902459 (3) Fe deficiency anemia ICD Codes: D50.9 - Iron deficiency anemia, unspecified SNOMED: 68795667 (4) Ileostomy stenosis ICD Codes: K94.13 - Enterostomy malfunction SNOMED: 68819046 Status: unchanged Status Narrative Discussed with Dr. Mena. Assessment/Plan MRCP reviewed >> polyp or mass or stenotic area of the common bile duct. Will need ERCP to evaluate the duodenal diverticulum, however must defer for minimum of 2 weeks given recent surgery. >> will follow up as outpatient symptomatic treatment at this time CLD, adv per surgery pain mgmt zofran prn prn transfusions ppi TPN fu labs The patient was seen and examined at bedside and all new and available data was reviewed in the patients chart. I agree with the above findings, impression and plan. (Patient seen earlier today. Signature stamp does not reflect patient encounter time.). - Tony Mena MD Subjective Gastrointestinal/Abdominal: Reports: no symptoms Objective Last 24 Hour Vital Signs Date Time Temp Pulse Resp B/P (MAP) Pulse Ox O2 Delivery O2 Flow Rate FiO2 12/02/17 08:53 98.1 12/02/17 08:23 98.1 12/02/17 08:01 98.1 96 20 118/69 (85) 96 98.1 12/02/17 07:56 Room Air 12/02/17 07:43 94 12/02/17 04:00 98.1 86 20 102/68 (79) 96 98.1 12/02/17 00:00 97 12/02/17 00:00 99.0 110 20 100/66 (77) 96 99.0 12/01/17 22:42 101.0 12/01/17 22:12 102.2 12/01/17 21:00 Room Air 12/01/17 20:00 98.5 96 20 109/73 (85) 96 98.5 12/01/17 20:00 94 12/01/17 16:31 99.1 12/01/17 16:00 99.1 108 19 110/60 (77) 98 99.1 12/01/17 14:30 99.1 112 18 102/70 (81) 96 99.1 12/01/17 14:15 103.1 122 20 111/73 (86) 99 103.1 12/01/17 13:00 102.6 150 20 120/70 (87) 97 102.6 12/01/17 12:00 99.2 91 20 146/86 (106) 97 99.2 Intake and Output 12/01/17 12/02/17 19:00 07:00 Intake Total 600 ml 1360 ml Output Total 300 ml 200 ml Balance 300 ml 1160 ml IV Total 600 ml 1360 ml Output Urine Total 300 ml 200 ml # Voids 2 Laboratory Tests Test 12/01/17 13:00 12/01/17 13:30 12/02/17 05:00 12/02/17 07:00 Arterial Blood pH 7.490 (7.350-7.450) Arterial Blood Partial Pressure CO2 33.5 mmHg (35.0-45.0) L Arterial Blood Partial Pressure O2 88.6 mmHg (75.0-100.0) Arterial Blood HCO3 25.2 mmol/L (22.0-26.0) Arterial Blood Oxygen Saturation 97.1 % (95-100) Arterial Blood Base Excess 2.4 (-2-2) H Tim[place] Test Positive White Blood Count 13.2 K/UL (4.8-10.8) H 7.3 K/UL (4.8-10.8) Red Blood Count 4.34 M/UL (4.70-6.10) L 3.42 M/UL (4.70-6.10) L Hemoglobin 12.3 G/DL (14.2-18.0) L 10.8 G/DL (14.2-18.0) L Hematocrit 36.6 % (42.0-52.0) L 32.5 % (42.0-52.0) L Mean Corpuscular Volume 84 FL (80-99) 95 FL (80-99) # Mean Corpuscular Hemoglobin 28.4 PG (27.0-31.0) 31.7 PG (27.0-31.0) H Mean Corpuscular Hemoglobin Concent 33.6 G/DL (32.0-36.0) 33.4 G/DL (32.0-36.0) Red Cell Distribution Width 12.5 % (11.6-14.8) 13.9 % (11.6-14.8) Platelet Count 405 K/UL (150-450) 307 K/UL (150-450) Mean Platelet Volume 5.5 FL (6.5-10.1) L 5.9 FL (6.5-10.1) L Neutrophils (%) (Auto) % (45.0-75.0) 78.5 % (45.0-75.0) H Lymphocytes (%) (Auto) % (20.0-45.0) 10.9 % (20.0-45.0) L Monocytes (%) (Auto) % (1.0-10.0) 7.4 % (1.0-10.0) Eosinophils (%) (Auto) % (0.0-3.0) 1.9 % (0.0-3.0) Basophils (%) (Auto) % (0.0-2.0) 1.2 % (0.0-2.0) Differential Total Cells Counted 100 Neutrophils % (Manual) 88 % (45-75) H Lymphocytes % (Manual) 6 % (20-45) L Monocytes % (Manual) 2 % (1-10) Eosinophils % (Manual) 3 % (0-3) Basophils % (Manual) 0 % (0-2) Band Neutrophils 1 % (0-8) Platelet Estimate Increased H Platelet Morphology Normal Red Blood Cell Morphology Normal Sodium Level 133 MMOL/L (136-145) L Potassium Level 4.5 MMOL/L (3.5-5.1) Chloride Level 100 MMOL/L (98-107) Carbon Dioxide Level 26 MMOL/L (21-32) Anion Gap 7 mmol/L (5-15) Blood Urea Nitrogen 21 mg/dL (7-18) H Creatinine 1.2 MG/DL (0.55-1.30) Estimat Glomerular Filtration Rate > 60 mL/min (>60) Glucose Level 153 MG/DL (74-106) H Calcium Level 8.5 MG/DL (8.5-10.1) Total Bilirubin 0.7 MG/DL (0.2-1.0) Aspartate Amino Transf (AST/SGOT) 26 U/L (15-37) Alanine Aminotransferase (ALT/SGPT) 24 U/L (12-78) Alkaline Phosphatase 450 U/L (46-116) H Total Creatine Kinase 23 U/L (26-308) L Troponin I 0.059 ng/mL (0.000-0.056) Total Protein 6.9 G/DL (6.4-8.2) Albumin 2.4 G/DL (3.4-5.0) L Globulin 4.5 g/dL Albumin/Globulin Ratio 0.5 (1.0-2.7) L CA 19-9 Antigen Pending Test 12/02/17 08:10 Sodium Level 136 MMOL/L (136-145) Potassium Level 4.1 MMOL/L (3.5-5.1) Chloride Level 101 MMOL/L (98-107) Carbon Dioxide Level 27 MMOL/L (21-32) Anion Gap 8 mmol/L (5-15) Blood Urea Nitrogen 22 mg/dL (7-18) H Creatinine 1.2 MG/DL (0.55-1.30) Estimat Glomerular Filtration Rate > 60 mL/min (>60) Glucose Level 143 MG/DL (74-106) H Calcium Level 8.3 MG/DL (8.5-10.1) L Total Bilirubin 0.8 MG/DL (0.2-1.0) Aspartate Amino Transf (AST/SGOT) 26 U/L (15-37) Alanine Aminotransferase (ALT/SGPT) 27 U/L (12-78) Alkaline Phosphatase 366 U/L (46-116) H Troponin I 0.075 ng/mL (0.000-0.056) Total Protein 6.6 G/DL (6.4-8.2) Albumin 2.2 G/DL (3.4-5.0) L Globulin 4.4 g/dL Albumin/Globulin Ratio 0.5 (1.0-2.7) L Height (Feet): 5 Height (Inches): 7.00 Weight (Pounds): 197 General Appearance: WD/WN, no apparent distress, alert Cardiovascular: normal rate Respiratory/Chest: normal breath sounds, no respiratory distress Abdominal Exam: normal bowel sounds, non tender, soft Extremities: non-tender Titi Francisco [employer] STOCK FACER Dec 02, 2017 10:18
--- NOTE | 2017-12-02 11:33 | Infectious Diseases Prog Note ---
Assessment/Plan Assessment/Plan A) 1) fevers, leukocytosis, ? sepsis, possible aspiration pna/HCAP, ? uti, ? line infection 2) s/p Kock revision, s/p incisional hernia repair, s/p abdominal wall hematoma evacuation 3) TPN 4) hx ciprofloxacin use 5) hx malfunctioning Denise pouch 6) hx ulcerative colitis 7) pmh noted 8) allergies - pcn, cephalexin, sulfa, oral flagyl, hives with pcn - tolerates iv flagyl P) 1) vancomycin, aztreonam and flagyl 2) check cultures, labs and f/u chest x-ray 3) d/w [place], d/w Dr. Stone 4) d/w patient and Subjective Constitutional: Reports: fever - + recurrent fever yesterday , fatigue; Denies : chills HEENT: Denies: congestion Respiratory: Denies: shortness of breath Cardiovascular: Denies: chest pain Gastrointestinal/Abdominal: Denies: nausea, vomiting Allergies: Coded Allergies: CEPHALEXIN (Verified Allergy, Mild, 11/06/09) PENICILLIN G (Verified Allergy, Mild, 01/22/09) SULFA (SULFONAMIDE ANTIBIOTICS) (Verified Allergy, Mild, 11/07/09) Uncoded Allergies: ORAL FLAGYL (Adverse Reaction, Unknown, 11/07/09) Objective Vital Signs Last 24 Hour Vital Signs Date Time Temp Pulse Resp B/P (MAP) Pulse Ox O2 Delivery O2 Flow Rate FiO2 12/02/17 08:53 98.1 12/02/17 08:23 98.1 12/02/17 08:01 98.1 96 20 118/69 (85) 96 98.1 12/02/17 07:56 Room Air 12/02/17 07:43 94 12/02/17 04:00 98.1 86 20 102/68 (79) 96 98.1 12/02/17 00:00 97 12/02/17 00:00 99.0 110 20 100/66 (77) 96 99.0 12/01/17 22:42 101.0 12/01/17 22:12 102.2 12/01/17 21:00 Room Air 12/01/17 20:00 98.5 96 20 109/73 (85) 96 98.5 12/01/17 20:00 94 12/01/17 16:31 99.1 12/01/17 16:00 99.1 108 19 110/60 (77) 98 99.1 12/01/17 14:30 99.1 112 18 102/70 (81) 96 99.1 12/01/17 14:15 103.1 122 20 111/73 (86) 99 103.1 12/01/17 13:00 102.6 150 20 120/70 (87) 97 102.6 12/01/17 12:00 99.2 91 20 146/86 (106) 97 99.2 Height (Feet): 5 Height (Inches): 7.00 Weight (Pounds): 197 General Appearance: no acute distress HEENT: normocephalic, atraumatic, anicteric Respiratory/Chest: lungs clear, normal breath sounds, no respiratory distress, crackles/rales - ? 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 grossly normal, alert, responsive Laboratory Tests Test 12/01/17 13:00 12/01/17 13:30 12/02/17 05:00 12/02/17 07:00 Arterial Blood pH 7.490 (7.350-7.450) Arterial Blood Partial Pressure CO2 33.5 mmHg (35.0-45.0) L Arterial Blood Partial Pressure O2 88.6 mmHg (75.0-100.0) Arterial Blood HCO3 25.2 mmol/L (22.0-26.0) Arterial Blood Oxygen Saturation 97.1 % (95-100) Arterial Blood Base Excess 2.4 (-2-2) H [place] Test Positive White Blood Count 13.2 K/UL (4.8-10.8) H 7.3 K/UL (4.8-10.8) Red Blood Count 4.34 M/UL (4.70-6.10) L 3.42 M/UL (4.70-6.10) L Hemoglobin 12.3 G/DL (14.2-18.0) L 10.8 G/DL (14.2-18.0) L Hematocrit 36.6 % (42.0-52.0) L 32.5 % (42.0-52.0) L Mean Corpuscular Volume 84 FL (80-99) 95 FL (80-99) # Mean Corpuscular Hemoglobin 28.4 PG (27.0-31.0) 31.7 PG (27.0-31.0) H Mean Corpuscular Hemoglobin Concent 33.6 G/DL (32.0-36.0) 33.4 G/DL (32.0-36.0) Red Cell Distribution Width 12.5 % (11.6-14.8) 13.9 % (11.6-14.8) Platelet Count 405 K/UL (150-450) 307 K/UL (150-450) Mean Platelet Volume 5.5 FL (6.5-10.1) L 5.9 FL (6.5-10.1) L Neutrophils (%) (Auto) % (45.0-75.0) 78.5 % (45.0-75.0) H Lymphocytes (%) (Auto) % (20.0-45.0) 10.9 % (20.0-45.0) L Monocytes (%) (Auto) % (1.0-10.0) 7.4 % (1.0-10.0) Eosinophils (%) (Auto) % (0.0-3.0) 1.9 % (0.0-3.0) Basophils (%) (Auto) % (0.0-2.0) 1.2 % (0.0-2.0) Differential Total Cells Counted 100 Neutrophils % (Manual) 88 % (45-75) H Lymphocytes % (Manual) 6 % (20-45) L Monocytes % (Manual) 2 % (1-10) Eosinophils % (Manual) 3 % (0-3) Basophils % (Manual) 0 % (0-2) Band Neutrophils 1 % (0-8) Platelet Estimate Increased H Platelet Morphology Normal Red Blood Cell Morphology Normal Sodium Level 133 MMOL/L (136-145) L Potassium Level 4.5 MMOL/L (3.5-5.1) Chloride Level 100 MMOL/L (98-107) Carbon Dioxide Level 26 MMOL/L (21-32) Anion Gap 7 mmol/L (5-15) Blood Urea Nitrogen 21 mg/dL (7-18) H Creatinine 1.2 MG/DL (0.55-1.30) Estimat Glomerular Filtration Rate > 60 mL/min (>60) Glucose Level 153 MG/DL (74-106) H Calcium Level 8.5 MG/DL (8.5-10.1) Total Bilirubin 0.7 MG/DL (0.2-1.0) Aspartate Amino Transf (AST/SGOT) 26 U/L (15-37) Alanine Aminotransferase (ALT/SGPT) 24 U/L (12-78) Alkaline Phosphatase 450 U/L (46-116) H Total Creatine Kinase 23 U/L (26-308) L Troponin I 0.059 ng/mL (0.000-0.056) Total Protein 6.9 G/DL (6.4-8.2) Albumin 2.4 G/DL (3.4-5.0) L Globulin 4.5 g/dL Albumin/Globulin Ratio 0.5 (1.0-2.7) L CA 19-9 Antigen Pending Test 12/02/17 08:10 Sodium Level 136 MMOL/L (136-145) Potassium Level 4.1 MMOL/L (3.5-5.1) Chloride Level 101 MMOL/L (98-107) Carbon Dioxide Level 27 MMOL/L (21-32) Anion Gap 8 mmol/L (5-15) Blood Urea Nitrogen 22 mg/dL (7-18) H Creatinine 1.2 MG/DL (0.55-1.30) Estimat Glomerular Filtration Rate > 60 mL/min (>60) Glucose Level 143 MG/DL (74-106) H Calcium Level 8.3 MG/DL (8.5-10.1) L Total Bilirubin 0.8 MG/DL (0.2-1.0) Aspartate Amino Transf (AST/SGOT) 26 U/L (15-37) Alanine Aminotransferase (ALT/SGPT) 27 U/L (12-78) Alkaline Phosphatase 366 U/L (46-116) H Troponin I 0.075 ng/mL (0.000-0.056) Total Protein 6.6 G/DL (6.4-8.2) Albumin 2.2 G/DL (3.4-5.0) L Globulin 4.4 g/dL Albumin/Globulin Ratio 0.5 (1.0-2.7) L Current Medications Medications (Trade) Dose Ordered Sig/Julio Route PRN Reason Start Time Stop Time Status Last Admin Dose Admin Acetaminophen (Tylenol) 650 mg Q4H PRN ORAL Mild Pain/Temp > 100.2 12/01/17 15:46 12/31/17 15:45 12/01/17 22:12 Allopurinol (Zyloprim) 100 mg QHS ORAL 12/01/17 21:00 12/22/17 20:59 12/01/17 20:55 Ascorbic Acid (Vitamin C) 500 mg DAILYPRN PRN ORAL Constipation 12/01/17 15:46 12/31/17 15:45 Aztreonam 1 gm/ Dextrose 55 ml @ 110 mls/hr Q8H IVPB 12/01/17 21:30 12/08/17 21:29 12/02/17 05:43 Chlorhexidine Gluconate (Cookie-Hex 2%) 1 applic DAILY@2000 TOPIC 12/01/17 20:00 12/25/17 19:59 12/01/17 20:54 Dextrose 1,000 ml @ 0 mls/hr Q24H PRN IV PN interrupted or unavailable 12/02/17 07:30 12/24/17 07:29 Dextrose (Dextrose 50%) 25 ml Q30M PRN IV Hypoglycemia 12/01/17 16:00 12/24/17 07:29 Dextrose (Dextrose 50%) 50 ml Q30M PRN IV Hypoglycemia 12/01/17 16:00 12/24/17 07:29 Dextrose/ Electrolytes 1,000 ml @ 50 mls/hr Q20H IV 12/01/17 15:45 12/31/17 15:29 12/01/17 17:58 Fat Emulsion Intravenous 240 ml/Amino Acids/ Electrolytes/ Dextrose 1,920 ml @ 80 mls/hr Q24H IV 12/01/17 20:00 12/24/17 19:59 12/01/17 20:00 Insulin Aspart (NovoLOG) Q6HR SUBQ 12/01/17 18:00 12/25/17 00:00 12/02/17 06:17 Iopamidol (Isovue-300 100ml) 100 ml NOW INJ 12/01/17 15:45 12/02/17 23:59 Lorazepam (Ativan) 1 mg HSPRN PRN SL Sleep 12/01/17 20:00 12/05/17 19:59 Lorazepam (Ativan) 1 mg Q4H PRN SL Muscle Spasm 12/01/17 15:47 12/05/17 15:46 Menthol/Methyl Salicylate (Bengay) 1 applic QIDPRN PRN TOPIC For Pain 12/01/17 18:00 12/26/17 17:59 Metoprolol Tartrate (Lopressor) 5 mg QIDPRN PRN IVP heart rate greater than 120 bp 12/01/17 19:47 12/31/17 19:46 Metronidazole 100 ml @ 100 mls/hr Q8HR IVPB 12/01/17 22:00 12/08/17 21:59 12/02/17 06:16 Nystatin (Nystatin) 5 ml QID ORAL 12/01/17 18:00 12/07/17 08:59 12/02/17 08:14 Ondansetron HCl (Zofran) 4 mg Q4H PRN IVP Nausea & Vomiting 12/01/17 15:48 12/23/17 15:47 Oxycodone/ Acetaminophen (Percocet 10/325) 1 tab Q4H PRN ORAL Severe Pain (Pain Scale 7-10) 12/01/17 15:50 12/06/17 15:49 12/02/17 08:23 Pantoprazole (Protonix) 40 mg Q24H IVP 12/01/17 20:00 12/22/17 19:59 12/01/17 21:38 Phytonadione (Vitamin K) 10 mg ONCE A WEEK SUBQ 12/08/17 09:00 12/31/17 08:59 Vancomycin HCl (Vanco rx to dose) 1 ea DAILY PRN MISC Per rx protocol 12/01/17 18:00 12/31/17 17:59 Vancomycin/Sodium Chloride 250 ml @ 166.667 mls/hr Q12HR IVPB 12/01/17 21:00 12/06/17 20:59 12/02/17 08:24 Yogesh Martínez MD Dec 02, 2017 11:33
[2017-12-02] MEDS: D5 1/4NS w/KCl 20mEq 1,000 ML IV SCH (12:08)
[2017-12-02 13:02] VITALS: BP 110/74
[2017-12-02] MEDS ORDERED: Amikacin Rx to dose MISC PRN (14:15)
--- NOTE | 2017-12-02 15:00 | Geriatric Progress Note ---
Assessment/Plan Problems: (1) Hypertension (2) Presence of stent in coronary artery in patient with coronary artery disease (3) Dyslipidemia (4) Vitamin B12 deficiency (5) Vitamin D deficiency (6) Ulcerative colitis (7) History of gastrointestinal bleeding (8) Uric acid kidney stone (9) MALFUNCTION OF BCIR WITH BOWEL OBSTRUCTION (10) Recurrent ventral hernia and stoma stenosis (11) Volume depletion (12) Leukocytosis (13) Fever (14) Tachycardia (15) Aspiration pneumonitis (16) Gram-negative bacteremia Assessment/Plan Fever with bacteremia, suspect component of line sepsis, consider pneumonia, or abdominal source. Antibiotics per Dr. Martínez, d/c PICC, CT abdomen. Given TPN, convert to D10 plus electrolytes peripherally. If further TPN required will need to reestablish central access. ? if infiltrate corresponds to actual aspiration pneumonia vs. chemical pneumonitis, given relative paucity of pulmonary sxs. Patient does report some regurgitation during episode of ostomy blockage yesterday. Dr. Stone considering p.o. feeding if CT abd does not show fluid collection. Discussed with Dr. Ferrari, Dr. Stone. Discussed with , family. Discussed with: patient, family, hospital staff Subjective Interval Events Patient with some episodes of feeling feverish, although elevated temp not noted on vs charting. Patient reports feeling fairly well. Last pm, CT chest revealed likely RUL infiltrate, suggestive of aspiration pneumonia vs. pneumonitis. Broad spectrum antibiotics initiated by Dr. Martínez. Today wbc normalized. Other labs c/w improved intravascular volume. Blood C&S growing Gm- rods 2/2 from PICC, 1/2 from peripheral. Urine still pending. Constitutional: Denies: chills Respiratory: Denies: cough, orthopnea, shortness of breath Cardiovascular: Denies: chest pain, palpitations Gastrointestinal/Abdominal: Denies: vomiting Genitourinary: Denies: dysuria Geriatric Geriatric Last 24 Hour Vital Signs Date Time Temp Pulse Resp B/P (MAP) Pulse Ox O2 Delivery O2 Flow Rate FiO2 12/02/17 14:02 97.9 12/02/17 13:32 97.9 12/02/17 13:02 97.9 82 20 110/74 (86) 96 97.9 12/02/17 11:28 85 12/02/17 08:23 98.1 12/02/17 08:01 98.1 96 20 118/69 (85) 96 98.1 12/02/17 07:56 Room Air 12/02/17 07:43 94 12/02/17 04:00 98.1 86 20 102/68 (79) 96 98.1 12/02/17 00:00 97 12/02/17 00:00 99.0 110 20 100/66 (77) 96 99.0 12/01/17 22:42 101.0 12/01/17 22:12 102.2 12/01/17 21:00 Room Air 12/01/17 20:00 98.5 96 20 109/73 (85) 96 98.5 12/01/17 20:00 94 12/01/17 16:31 99.1 12/01/17 16:00 99.1 108 19 110/60 (77) 98 99.1 Intake and Output 12/01/17 12/02/17 19:00 07:00 Intake Total 600 ml 1490 ml Output Total 300 ml 200 ml Balance 300 ml 1290 ml IV Total 600 ml 1490 ml Output Urine Total 300 ml 200 ml # Voids 2 Laboratory Tests Test 12/02/17 05:00 12/02/17 07:00 12/02/17 08:10 CA 19-9 Antigen Pending White Blood Count 7.3 K/UL (4.8-10.8) Red Blood Count 3.42 M/UL (4.70-6.10) L Hemoglobin 10.8 G/DL (14.2-18.0) L Hematocrit 32.5 % (42.0-52.0) L Mean Corpuscular Volume 95 FL (80-99) # Mean Corpuscular Hemoglobin 31.7 PG (27.0-31.0) H Mean Corpuscular Hemoglobin Concent 33.4 G/DL (32.0-36.0) Red Cell Distribution Width 13.9 % (11.6-14.8) Platelet Count 307 K/UL (150-450) Mean Platelet Volume 5.9 FL (6.5-10.1) L Neutrophils (%) (Auto) 78.5 % (45.0-75.0) H Lymphocytes (%) (Auto) 10.9 % (20.0-45.0) L Monocytes (%) (Auto) 7.4 % (1.0-10.0) Eosinophils (%) (Auto) 1.9 % (0.0-3.0) Basophils (%) (Auto) 1.2 % (0.0-2.0) Sodium Level 136 MMOL/L (136-145) Potassium Level 4.1 MMOL/L (3.5-5.1) Chloride Level 101 MMOL/L (98-107) Carbon Dioxide Level 27 MMOL/L (21-32) Anion Gap 8 mmol/L (5-15) Blood Urea Nitrogen 22 mg/dL (7-18) H Creatinine 1.2 MG/DL (0.55-1.30) Estimat Glomerular Filtration Rate > 60 mL/min (>60) Glucose Level 143 MG/DL (74-106) H Calcium Level 8.3 MG/DL (8.5-10.1) L Total Bilirubin 0.8 MG/DL (0.2-1.0) Aspartate Amino Transf (AST/SGOT) 26 U/L (15-37) Alanine Aminotransferase (ALT/SGPT) 27 U/L (12-78) Alkaline Phosphatase 366 U/L (46-116) H Troponin I 0.075 ng/mL (0.000-0.056) Total Protein 6.6 G/DL (6.4-8.2) Albumin 2.2 G/DL (3.4-5.0) L Globulin 4.4 g/dL Albumin/Globulin Ratio 0.5 (1.0-2.7) L Current Medications Medications (Trade) Dose Ordered Sig/Julio Route PRN Reason Start Time Stop Time Status Last Admin Dose Admin Acetaminophen (Tylenol) 650 mg Q4H PRN ORAL Mild Pain/Temp > 100.2 12/01/17 15:46 12/31/17 15:45 12/01/17 22:12 Allopurinol (Zyloprim) 100 mg QHS ORAL 12/01/17 21:00 12/22/17 20:59 12/01/17 20:55 Amikacin Protocol (Amikacin pharmacy to dose) 1 ea DAILY PRN MISC Per rx protocol 12/02/17 14:15 01/01/18 14:14 Amikacin Sulfate 1000 mg/Sodium Chloride 114 ml @ 228 mls/hr Q24H IV 12/02/17 16:00 12/09/17 15:59 Ascorbic Acid (Vitamin C) 500 mg DAILYPRN PRN ORAL Constipation 12/01/17 15:46 12/31/17 15:45 Aztreonam 1 gm/ Dextrose 55 ml @ 110 mls/hr Q8H IVPB 12/01/17 21:30 12/08/17 21:29 12/02/17 12:49 Chlorhexidine Gluconate (Cookie-Hex 2%) 1 applic DAILY@2000 TOPIC 12/01/17 20:00 12/25/17 19:59 12/01/17 20:54 Dextrose 1,000 ml @ 0 mls/hr Q24H PRN IV PN interrupted or unavailable 12/02/17 07:30 12/24/17 07:29 Dextrose (Dextrose 50%) 25 ml Q30M PRN IV Hypoglycemia 12/01/17 16:00 12/24/17 07:29 Dextrose (Dextrose 50%) 50 ml Q30M PRN IV Hypoglycemia 12/01/17 16:00 12/24/17 07:29 Dextrose/ Electrolytes 1,000 ml @ 50 mls/hr Q20H IV 12/01/17 15:45 12/31/17 15:29 12/02/17 12:08 Fat Emulsion Intravenous 240 ml/Amino Acids/ Electrolytes/ Dextrose 1,920 ml @ 80 mls/hr Q24H IV 12/01/17 20:00 12/24/17 19:59 12/01/17 20:00 Insulin Aspart (NovoLOG) Q6HR SUBQ 12/01/17 18:00 12/25/17 00:00 12/02/17 12:10 Iopamidol (Isovue-300 100ml) 100 ml NOW INJ 12/01/17 15:45 12/02/17 23:59 Lorazepam (Ativan) 1 mg HSPRN PRN SL Sleep 12/01/17 20:00 12/05/17 19:59 Lorazepam (Ativan) 1 mg Q4H PRN SL Muscle Spasm 12/01/17 15:47 12/05/17 15:46 Menthol/Methyl Salicylate (Bengay) 1 applic QIDPRN PRN TOPIC For Pain 12/01/17 18:00 12/26/17 17:59 Metoprolol Tartrate (Lopressor) 5 mg QIDPRN PRN IVP heart rate greater than 120 bp 12/01/17 19:47 12/31/17 19:46 Metronidazole 100 ml @ 100 mls/hr Q8HR IVPB 12/01/17 22:00 12/08/17 21:59 12/02/17 14:17 Nystatin (Nystatin) 5 ml QID ORAL 12/01/17 18:00 12/07/17 08:59 12/02/17 12:49 Ondansetron HCl (Zofran) 4 mg Q4H PRN IVP Nausea & Vomiting 12/01/17 15:48 12/23/17 15:47 Oxycodone/ Acetaminophen (Percocet 10) 1 tab Q4H PRN ORAL Severe Pain (Pain Scale 7-10) 12/01/17 15:50 12/06/17 15:49 12/02/17 13:32 Pantoprazole (Protonix) 40 mg Q24H IVP 12/01/17 20:00 12/22/17 19:59 12/01/17 21:38 Phytonadione (Vitamin K) 10 mg ONCE A WEEK SUBQ 12/08/17 09:00 12/31/17 08:59 Height (Feet): 5 Height (Inches): 7.00 Weight (Pounds): 197 General Appearance: alert, non-toxic Head: normocephalic, atraumatic Eyes: bilateral anicteric ENT: normal voice Neck: full range of motion, no mass Respiratory: lungs clear Cardiovascular: regular rate, rhythm Gastrointestinal: soft, tenderness Musculoskeletal: no calf tenderness Edema: no edema noted Generalized Neurologic: no new focality Juno Rose MD Dec 02, 2017 15:00
[2017-12-02 15:12] LABS: APPEARANCE,URINE CLEAR; BILIRUBIN, URINE NEGATIVE (NEGATIVE); GLUCOSE, URINE (UA) NEGATIVE (NEGATIVE); KETONES,URINE NEGATIVE (NEGATIVE); LEUKOCYTE ESTERASE ,URINE 1+ (NEGATIVE); NITRITE,URINE NEGATIVE (NEGATIVE); PH,URINE 5 (4.5-8.0); PROTEIN,URINE 1+ (NEGATIVE); UROBILINOGEN,URINE NORMAL MG/DL (0.0-1.0)
[2017-12-02 15:17] LABS: COLOR,URINE YELLOW
[2017-12-02] MEDS: Isovue-300 100ml vial INJ SCH (15:45)
[2017-12-02] MEDS ORDERED: Dextrose 10% 1,000 ML IV SCH (16:00)
[2017-12-02] MEDS ORDERED: Potassium Chloride 40 MEQ in 1/2 NS 1000ml 1,000 ML IV SCH (16:00)
[2017-12-02] MEDS ORDERED: Amikacin 1,000 MG in NS 110 ML IV SCH (16:00)
[2017-12-02] MEDS ORDERED: SOD CHL IVPB SCH (16:30)
[2017-12-02] MEDS ORDERED: DEXTROSE IVPB SCH (16:30)
[2017-12-02] MEDS ORDERED: POTASSIUM CHLORIDE IVPB SCH (16:30)
[2017-12-02 16:35] VITALS: BP 102/67
[2017-12-02] MEDS ORDERED: Isovue-300 100ml vial INJ PRN (17:00)
--- NOTE | 2017-12-02 17:04 | Cardiology Progress Note ---
Assessment/Plan Assessment/Plan malfunctioning continent pouch hx of cad now s/p lad stent stable tachy sinus related to fever pulm infiltrate / pneumonia? preop stress echo neg last week hemodynamically stabel dvt ppx ambualte no sx to suggest acs cr stabel alk phosph elevated mrcp noted asa in on hold is npo ctpa noted no pe but infiltrate noted now afebrile since last ntie repeat cardiac enzyme and ekg note will repat in am hope to dc tele Subjective Cardiovascular: Denies: chest pain, lightheadedness, palpitations Gastrointestinal/Abdominal: Denies: abdominal pain, nausea Genitourinary: Denies: burning Subjective good day tody walked in gonz[place] no cp no sob no sig cough Objective Last 24 Hour Vital Signs Date Time Temp Pulse Resp B/P (MAP) Pulse Ox O2 Delivery O2 Flow Rate FiO2 12/02/17 16:35 97.9 82 20 102/67 (79) 96 97.9 12/02/17 14:02 97.9 12/02/17 13:32 97.9 12/02/17 13:02 97.9 82 20 110/74 (86) 96 97.9 12/02/17 11:28 85 12/02/17 08:23 98.1 12/02/17 08:01 98.1 96 20 118/69 (85) 96 98.1 12/02/17 07:56 Room Air 12/02/17 07:43 94 12/02/17 04:00 98.1 86 20 102/68 (79) 96 98.1 12/02/17 00:00 97 12/02/17 00:00 99.0 110 20 100/66 (77) 96 99.0 12/01/17 22:42 101.0 12/01/17 22:12 102.2 12/01/17 21:00 Room Air 12/01/17 20:00 98.5 96 20 109/73 (85) 96 98.5 12/01/17 20:00 94 General Appearance: no apparent distress, alert Neck: no JVD Cardiovascular: normal rate Respiratory/Chest: lungs clear Abdomen: soft Extremities: non-tender, no swelling Intake and Output 12/01/17 12/02/17 19:00 07:00 Intake Total 600 ml 1490 ml Output Total 300 ml 200 ml Balance 300 ml 1290 ml IV Total 600 ml 1490 ml Output Urine Total 300 ml 200 ml # Voids 2 Laboratory Tests Test 12/02/17 05:00 12/02/17 07:00 12/02/17 08:10 12/02/17 13:20 CA 19-9 Antigen Pending White Blood Count 7.3 K/UL (4.8-10.8) Red Blood Count 3.42 M/UL (4.70-6.10) L Hemoglobin 10.8 G/DL (14.2-18.0) L Hematocrit 32.5 % (42.0-52.0) L Mean Corpuscular Volume 95 FL (80-99) # Mean Corpuscular Hemoglobin 31.7 PG (27.0-31.0) H Mean Corpuscular Hemoglobin Concent 33.4 G/DL (32.0-36.0) Red Cell Distribution Width 13.9 % (11.6-14.8) Platelet Count 307 K/UL (150-450) Mean Platelet Volume 5.9 FL (6.5-10.1) L Neutrophils (%) (Auto) 78.5 % (45.0-75.0) H Lymphocytes (%) (Auto) 10.9 % (20.0-45.0) L Monocytes (%) (Auto) 7.4 % (1.0-10.0) Eosinophils (%) (Auto) 1.9 % (0.0-3.0) Basophils (%) (Auto) 1.2 % (0.0-2.0) Sodium Level 136 MMOL/L (136-145) Potassium Level 4.1 MMOL/L (3.5-5.1) Chloride Level 101 MMOL/L (98-107) Carbon Dioxide Level 27 MMOL/L (21-32) Anion Gap 8 mmol/L (5-15) Blood Urea Nitrogen 22 mg/dL (7-18) H Creatinine 1.2 MG/DL (0.55-1.30) Estimat Glomerular Filtration Rate > 60 mL/min (>60) Glucose Level 143 MG/DL (74-106) H Calcium Level 8.3 MG/DL (8.5-10.1) L Total Bilirubin 0.8 MG/DL (0.2-1.0) Aspartate Amino Transf (AST/SGOT) 26 U/L (15-37) Alanine Aminotransferase (ALT/SGPT) 27 U/L (12-78) Alkaline Phosphatase 366 U/L (46-116) H Troponin I 0.075 ng/mL (0.000-0.056) Total Protein 6.6 G/DL (6.4-8.2) Albumin 2.2 G/DL (3.4-5.0) L Globulin 4.4 g/dL Albumin/Globulin Ratio 0.5 (1.0-2.7) L Urine Color Yellow Urine Appearance Clear Urine pH 5 (4.5-8.0) Urine Specific [place] 1.015 (1.005-1.035) Urine Protein 1+ (NEGATIVE) H Urine Glucose (UA) Negative (NEGATIVE) Urine Ketones Negative (NEGATIVE) Urine Blood 3+ (NEGATIVE) H Urine Nitrite Negative (NEGATIVE) Urine Bilirubin Negative (NEGATIVE) Urine Urobilinogen Normal MG/DL (0.0-1.0) Urine Leukocyte Esterase 1+ (NEGATIVE) H Urine RBC 2-4 /HPF (0 - 0) H Urine WBC 0-2 /HPF (0 - 0) Urine Squamous Epithelial Cells Few /LPF (NONE/OCC) Urine Amorphous Sediment Few /LPF (NONE) H Urine Bacteria Few /HPF (NONE) Microbiology Date/Time Source Procedure Growth Status 12/01/17 13:30 Blood Blood Culture - Preliminary Resulted 12/01/17 13:05 Blood Blood Culture - Preliminary Resulted 12/01/17 14:30 Urine,Clean Catch Urine Culture - Preliminary Resulted Jose Alejandro Aviles MD Dec 02, 2017 17:04
[2017-12-02] MEDS: Pantoprazole Inj IVP SCH (20:42)
[2017-12-02] MEDS: Allopurinol 100mg Tab ORAL SCH (20:43)
[2017-12-03] MEDS: NovoLOG Insulin Flexpen SUBQ SCH ×4 (00:32→18:13)
[2017-12-03 04:27] LABS: BASOPHILS % (AUTO) 1.2 % (0.0-2.0); EOSINOPHILS % (AUTO) 3.5 % (0.0-3.0); HEMATOCRIT 32.6 % (42.0-52.0); HEMOGLOBIN 10.7 G/DL (14.2-18.0); LYMPHOCYTES % (AUTO) 21.3 % (20.0-45.0); MEAN CORPUSCULAR VOLUME 84 FL (80-99); MONOCYTES % (AUTO) 12.5 % (1.0-10.0); NEUTROPHILS % (AUTO) 61.6 % (45.0-75.0); PLATELET COUNT 333 K/UL (150-450); RED BLOOD COUNT 3.87 M/UL (4.70-6.10); RED CELL DISTRIBUTION WIDTH 12.3 % (11.6-14.8); WHITE BLOOD COUNT 5.6 K/UL (4.8-10.8)
[2017-12-03 04:41] LABS: ANION GAP 5 mmol/L (5-15); BLOOD UREA NITROGEN 16 mg/dL (7-18); CALCIUM 8.3 MG/DL (8.5-10.1); CARBON DIOXIDE 28 MMOL/L (21-32); CHLORIDE 103 MMOL/L (98-107); CREATININE 1.3 MG/DL (0.55-1.30); POTASSIUM 4.4 MMOL/L (3.5-5.1); SODIUM 136 MMOL/L (136-145)
[2017-12-03] MEDS: Aztreonam Inj 1 GM in D5W 55 ML IVPB SCH ×3 (05:19→21:53)
[2017-12-03 08:00] VITALS: BP 100/69
--- NOTE | 2017-12-03 08:12 | Cardiology Progress Note ---
Assessment/Plan Assessment/Plan malfunctioning continent pouch hx of cad now s/p lad stent stable tachy sinus related to fever pulm infiltrate / pneumonia? preop stress echo neg last week hemodynamically stabel dvt ppx ambualte no sx to suggest acs cr stabel alk phosph elevated mrcp noted asa in on hold is npo ctpa noted no pe but infiltrate noted min abn cardiac enzyme likely relatee to tachy no sx to suggest acs , ekg normal has been active dc tele has been stabel depsite his sensation of fever he has been normal temp excep t once with temp recorded at 100.3degress wbc is better lugn not show evidence for congestion Subjective Cardiovascular: Denies: chest pain, lightheadedness, palpitations Respiratory: Denies: shortness of breath Gastrointestinal/Abdominal: Reports: abdominal pain Genitourinary: Denies: burning Subjective feels worse today , no cough but fever and chills all nite he says Objective Last 24 Hour Vital Signs Date Time Temp Pulse Resp B/P (MAP) Pulse Ox O2 Delivery O2 Flow Rate FiO2 12/03/17 04:59 99.0 12/03/17 04:29 100.3 12/03/17 04:00 83 12/03/17 00:00 85 12/02/17 21:00 Room Air 12/02/17 20:00 89 12/02/17 17:56 97.9 12/02/17 17:26 97.9 12/02/17 16:35 97.9 82 20 102/67 (79) 96 97.9 12/02/17 15:41 87 12/02/17 13:32 97.9 12/02/17 13:02 97.9 82 20 110/74 (86) 96 97.9 12/02/17 11:28 85 12/02/17 08:23 98.1 General Appearance: no apparent distress, alert Neck: supple Cardiovascular: normal rate Respiratory/Chest: lungs clear, normal breath sounds Abdomen: normal bowel sounds Extremities: non-tender, no swelling Intake and Output 12/02/17 12/03/17 19:00 07:00 Intake Total 2241.334 ml 1090 ml Output Total 820 ml 1125 ml Balance 1421.334 ml -35 ml Intake Oral 840 ml 240 ml IV Total 1401.334 ml 770 ml Other 80 ml Output Urine Total 400 ml 820 ml Drainage Total 20 ml 5 ml Other 400 ml 300 ml Laboratory Tests Test 12/02/17 08:10 12/02/17 13:20 12/03/17 04:09 Sodium Level 136 MMOL/L (136-145) 136 MMOL/L (136-145) Potassium Level 4.1 MMOL/L (3.5-5.1) 4.4 MMOL/L (3.5-5.1) Chloride Level 101 MMOL/L (98-107) 103 MMOL/L (98-107) Carbon Dioxide Level 27 MMOL/L (21-32) 28 MMOL/L (21-32) Anion Gap 8 mmol/L (5-15) 5 mmol/L (5-15) Blood Urea Nitrogen 22 mg/dL (7-18) H 16 mg/dL (7-18) Creatinine 1.2 MG/DL (0.55-1.30) 1.3 MG/DL (0.55-1.30) Estimat Glomerular Filtration Rate > 60 mL/min (>60) 55.4 mL/min (>60) Glucose Level 143 MG/DL (74-106) H 119 MG/DL (74-106) H Calcium Level 8.3 MG/DL (8.5-10.1) L 8.3 MG/DL (8.5-10.1) L Total Bilirubin 0.8 MG/DL (0.2-1.0) Aspartate Amino Transf (AST/SGOT) 26 U/L (15-37) Alanine Aminotransferase (ALT/SGPT) 27 U/L (12-78) Alkaline Phosphatase 366 U/L (46-116) H Troponin I 0.075 ng/mL (0.000-0.056) 0.044 ng/mL (0.000-0.056) Total Protein 6.6 G/DL (6.4-8.2) Albumin 2.2 G/DL (3.4-5.0) L Globulin 4.4 g/dL Albumin/Globulin Ratio 0.5 (1.0-2.7) L Urine Color Yellow Urine Appearance Clear Urine pH 5 (4.5-8.0) Urine Specific [place] 1.015 (1.005-1.035) Urine Protein 1+ (NEGATIVE) H Urine Glucose (UA) Negative (NEGATIVE) Urine Ketones Negative (NEGATIVE) Urine Blood 3+ (NEGATIVE) H Urine Nitrite Negative (NEGATIVE) Urine Bilirubin Negative (NEGATIVE) Urine Urobilinogen Normal MG/DL (0.0-1.0) Urine Leukocyte Esterase 1+ (NEGATIVE) H Urine RBC 2-4 /HPF (0 - 0) H Urine WBC 0-2 /HPF (0 - 0) Urine Squamous Epithelial Cells Few /LPF (NONE/OCC) Urine Amorphous Sediment Few /LPF (NONE) H Urine Bacteria Few /HPF (NONE) White Blood Count 5.6 K/UL (4.8-10.8) Red Blood Count 3.87 M/UL (4.70-6.10) L Hemoglobin 10.7 G/DL (14.2-18.0) L Hematocrit 32.6 % (42.0-52.0) L Mean Corpuscular Volume 84 FL (80-99) # Mean Corpuscular Hemoglobin 27.6 PG (27.0-31.0) Mean Corpuscular Hemoglobin Concent 32.7 G/DL (32.0-36.0) Red Cell Distribution Width 12.3 % (11.6-14.8) Platelet Count 333 K/UL (150-450) Mean Platelet Volume 5.6 FL (6.5-10.1) L Neutrophils (%) (Auto) 61.6 % (45.0-75.0) Lymphocytes (%) (Auto) 21.3 % (20.0-45.0) Monocytes (%) (Auto) 12.5 % (1.0-10.0) H Eosinophils (%) (Auto) 3.5 % (0.0-3.0) H Basophils (%) (Auto) 1.2 % (0.0-2.0) Random Amikacin Level 4.8 ug/mL Microbiology Date/Time Source Procedure Growth Status 12/01/17 13:30 Blood Blood Culture - Preliminary Gram Negative Bacillus 1 Resulted 12/01/17 13:05 Blood Blood Culture - Preliminary Gram Negative Bacillus 1 Resulted 12/01/17 14:30 Urine,Clean Catch Urine Culture - Preliminary Resulted Jose Alejandro Aviles MD Dec 03, 2017 08:12
[2017-12-03] MEDS ORDERED: LORazepam 1mg tab SL PRN ×4 (08:15→20:00)
[2017-12-03] MEDS: Nystatin Susp 500,000 units/5ml ORAL SCH ×4 (08:29→20:38)
--- NOTE | 2017-12-03 09:03 | General Progress Note ---
Progress Note Progress Note c/o chills and sweats. Last fever 102.3 0n 10/10 at 2200. Early this AM 100.3 VSS Abdomen soft, flat, incision clean, stoma stable Urine 1620 BCIR ileo 700 (on clear liquids) GEOVANI 25 Now on Amikacin, Azactam, Flagyl and Vanco WBC 5600 Hgb 10.7 BUN 16 Cr 1.3 Gram neg rods in blood PICC removed yesterday - now with 2 peripheral IVs Urine C&S neg so far Imp. Sepsis and gram neg bacteremia Plan: Await CT abd+pelvis with oral and IV contrast If CT negative will resume BCIR low residue diet Transfer back to [facility] now Rodney Stone MD Dec 03, 2017 09:03
[2017-12-03] MEDS ORDERED: Ascorbic Acid 500mg tab ORAL PRN (10:00)
[2017-12-03] MEDS ORDERED: Amikacin Rx to dose MISC PRN (10:00)
[2017-12-03] MEDS ORDERED: Analgesic Balm 15gm TOPIC PRN (10:00)
--- NOTE | 2017-12-03 10:41 | Diagnostic Imaging Report ---
Indication: Dyspnea Comparison: 12/01/2017 A single view chest radiograph was obtained. Findings: Faint infiltrate in the right perihilar region again noted. PICC line was removed. The cardiac silhouette is normal. IMPRESSION: Less conspicuous right perihilar infiltrate again noted
--- NOTE | 2017-12-03 10:56 | GI Progress Note ---
Assessment/Plan Problems: (1) Bleeding from colostomy stoma ICD Codes: K94.01 - Bleeding from colostomy stoma SNOMED: 616383317 (2) Anemia ICD Codes: D64.9 - Anemia, unspecified SNOMED: 965000315 (3) Fe deficiency anemia ICD Codes: D50.9 - Iron deficiency anemia, unspecified SNOMED: 89102271 (4) Ileostomy stenosis ICD Codes: K94.13 - Enterostomy malfunction SNOMED: 44260359 Status: stable Status Narrative Discussed with Dr. Mena. Assessment/Plan MRCP reviewed >> polyp or mass or stenotic area of the common bile duct. fu CT today Will need ERCP to evaluate the duodenal diverticulum, however must defer for minimum of 2 weeks given recent surgery. >> will follow up as outpatient symptomatic treatment at this time CLD, adv per surgery pain mgmt zofran prn prn transfusions ppi TPN fu labs The patient was seen and examined at bedside and all new and available data was reviewed in the patients chart. I agree with the above findings, impression and plan. (Patient seen earlier today. Signature stamp does not reflect patient encounter time.). - Tony Mena MD Subjective Gastrointestinal/Abdominal: Reports: no symptoms Objective Last 24 Hour Vital Signs Date Time Temp Pulse Resp B/P (MAP) Pulse Ox O2 Delivery O2 Flow Rate FiO2 12/03/17 09:00 Room Air 12/03/17 08:00 98.2 73 19 100/69 (79) 96 98.2 12/03/17 04:59 99.0 12/03/17 04:29 100.3 12/03/17 04:00 83 12/03/17 00:00 85 12/02/17 21:00 Room Air 12/02/17 20:00 89 12/02/17 17:56 97.9 12/02/17 17:26 97.9 12/02/17 16:35 97.9 82 20 102/67 (79) 96 97.9 12/02/17 15:41 87 12/02/17 13:32 97.9 12/02/17 13:02 97.9 82 20 110/74 (86) 96 97.9 12/02/17 11:28 85 Intake and Output 12/02/17 12/03/17 19:00 07:00 Intake Total 2241.334 ml 1090 ml Output Total 820 ml 1125 ml Balance 1421.334 ml -35 ml Intake Oral 840 ml 240 ml IV Total 1401.334 ml 770 ml Other 80 ml Output Urine Total 400 ml 820 ml Drainage Total 20 ml 5 ml Other 400 ml 300 ml Laboratory Tests Test 12/02/17 13:20 12/03/17 04:09 Urine Color Yellow Urine Appearance Clear Urine pH 5 (4.5-8.0) Urine Specific [place] 1.015 (1.005-1.035) Urine Protein 1+ (NEGATIVE) H Urine Glucose (UA) Negative (NEGATIVE) Urine Ketones Negative (NEGATIVE) Urine Blood 3+ (NEGATIVE) H Urine Nitrite Negative (NEGATIVE) Urine Bilirubin Negative (NEGATIVE) Urine Urobilinogen Normal MG/DL (0.0-1.0) Urine Leukocyte Esterase 1+ (NEGATIVE) H Urine RBC 2-4 /HPF (0 - 0) H Urine WBC 0-2 /HPF (0 - 0) Urine Squamous Epithelial Cells Few /LPF (NONE/OCC) Urine Amorphous Sediment Few /LPF (NONE) H Urine Bacteria Few /HPF (NONE) White Blood Count 5.6 K/UL (4.8-10.8) Red Blood Count 3.87 M/UL (4.70-6.10) L Hemoglobin 10.7 G/DL (14.2-18.0) L Hematocrit 32.6 % (42.0-52.0) L Mean Corpuscular Volume 84 FL (80-99) # Mean Corpuscular Hemoglobin 27.6 PG (27.0-31.0) Mean Corpuscular Hemoglobin Concent 32.7 G/DL (32.0-36.0) Red Cell Distribution Width 12.3 % (11.6-14.8) Platelet Count 333 K/UL (150-450) Mean Platelet Volume 5.6 FL (6.5-10.1) L Neutrophils (%) (Auto) 61.6 % (45.0-75.0) Lymphocytes (%) (Auto) 21.3 % (20.0-45.0) Monocytes (%) (Auto) 12.5 % (1.0-10.0) H Eosinophils (%) (Auto) 3.5 % (0.0-3.0) H Basophils (%) (Auto) 1.2 % (0.0-2.0) Sodium Level 136 MMOL/L (136-145) Potassium Level 4.4 MMOL/L (3.5-5.1) Chloride Level 103 MMOL/L (98-107) Carbon Dioxide Level 28 MMOL/L (21-32) Anion Gap 5 mmol/L (5-15) Blood Urea Nitrogen 16 mg/dL (7-18) Creatinine 1.3 MG/DL (0.55-1.30) Estimat Glomerular Filtration Rate 55.4 mL/min (>60) Glucose Level 119 MG/DL (74-106) H Calcium Level 8.3 MG/DL (8.5-10.1) L Troponin I 0.044 ng/mL (0.000-0.056) Random Amikacin Level 4.8 ug/mL Height (Feet): 5 Height (Inches): 7.00 Weight (Pounds): 197 General Appearance: WD/WN, no apparent distress, alert Cardiovascular: normal rate Respiratory/Chest: normal breath sounds, no respiratory distress Abdominal Exam: normal bowel sounds, non tender, soft, other - ileostomy Extremities: normal range of motion, non-tender Titi Francsico NP Dec 03, 2017 10:56
[2017-12-03] MEDS: POTASSIUM CHLORIDE IVPB SCH ×2 (12:00→21:52)
[2017-12-03] MEDS: SOD CHL IVPB SCH ×2 (12:00→21:52)
[2017-12-03] MEDS: DEXTROSE IVPB SCH ×2 (12:00→21:52)
--- NOTE | 2017-12-03 14:09 | Diagnostic Imaging Report ---
Indication: Patient has a history of fever. Bacteremia. Abdominal pain Technique: Continuous helical transaxial imaging of the abdomen and pelvis was obtained from the lung bases to the pubic symphysis during intravenous contrast administration. Coronal 2-D reformats were also obtained. Study obtained in a Siemens sensation [address] Automatic Exposure Control was utilized. Total Dose length Product (DLP): 714.[address] Dose Index Volume (CTDIvol): 13.88 mGy Comparison: CT abdomen pelvis 05/05/2017 Findings: The visualized lung bases appear clear. Accessory spleen noted. Bilateral renal hypodensities consistent with cysts again noted. Extensive metallic surgical clips in the epigastrium of the abdomen noted. The biliary ducts do not appear dilated. 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 Gallbladder is unremarkable. Aortoiliac calcifications are present. There is a scar in the anterior abdominal wall with skin romeo present. Findings compatible with recent surgery. There is a drain within the surgical bed superficial to the fascia of the abdominal wall within the subcutaneous space. There is no evidence of an abscess or fluid collection definitely identified. There is trace fluid just deep to the incision with the a few tiny bubbles of air presumably postsurgical in nature. Again noted is a contrast-filled structure in the lower abdomen consistent with a continent ileostomy. Catheter appears well-positioned within the pouch and there is contrast extending out into the catheter and back. Total colectomy again noted. There are mildly distended loops of small bowel that are opacified with contrast material which is a common finding with this surgery and is unchanged from the last examination. There is no evidence of bowel obstruction. Previously demonstrated fluid just posterior to the pouch has essentially resolved and no longer visualized. Trace focus of fluid deep to the incision on the prior occasion has also essentially resolved. As stated earlier there is a trace amount of fluid just deep to the incision but no defined collection. There are small bilateral inguinal hernias containing fat. The urinary bladder is unremarkable. There is no hydronephrosis. IMPRESSION: Status post recent surgery with skin romeo and postsurgical changes in the anterior abdominal wall. Trace fluid and a few bubbles of air considered postsurgical change. No defined fluid collection or evidence of abscess. Continent ileostomy in the lower abdomen appears unremarkable. Total colectomy noted. Catheter position is satisfactory. No evidence of bowel obstruction or intra-abdominal or pelvic abscess. Other, multiple incidental findings include atherosclerotic vascular disease, bilateral renal cysts, small bilateral inguinal hernias, mild posterior basilar atelectasis, duodenal diverticulum, accessory spleen. The CT scanner at [facility] is accredited by the [employer] and the scans are performed using dose optimization techniques as appropriate to a performed exam including Automatic Exposure control.
[2017-12-03] MEDS: Amikacin 1,000 MG in NS 110 ML IV SCH (15:36)
[2017-12-03] MEDS ORDERED: NS 275ml ONE (15:37)
[2017-12-03] MEDS ORDERED: Tubing IV Secondary IV ONE (15:37)
[2017-12-03 16:00] VITALS: BP 112/67
[2017-12-03] MEDS ORDERED: SOD CHL IVPB SCH (16:30)
[2017-12-03] MEDS ORDERED: DEXTROSE IVPB SCH (16:30)
[2017-12-03] MEDS ORDERED: POTASSIUM CHLORIDE IVPB SCH (16:30)
[2017-12-03] MEDS ORDERED: Isovue-300 100ml vial INJ PRN (17:00)
--- NOTE | 2017-12-03 17:05 | Infectious Diseases Prog Note ---
Assessment/Plan Assessment/Plan ASSESSMENT AND PLAN: 1. gram neg bacteremia, ? line infection, ? uti, ? GI source, sepsis, leukocytosis, fevers, sirs, ? aspiration pna - continue amikacin, aztreonam and flagyl - discontinue vancomycin - line removed, cath tip culture pending - CT abdomen and pelvis without abscess - urine culture with mixed organisms, ua with only 0-2 wbc - check identification of gram negative diane, check surveillance blood cultures - monitor labs - chest x-ray improved - d/w Dr. Rose and Dr. Stone 2. The patient has history of Denise pouch. The patient is status post Kock revision, status post incisional hernia repair, and status post abdominal wall hematoma evacuation. 3. The patient has history of ulcerative colitis with multiple GI surgeries. 4. PPI. 5. He has a central line for TPN. 6. History of Cipro use in the past. 7. History of malfunctioning Denise pouch. 8. Hypertension. 9. Blood pressure treatment per Internal Medicine. 10. Hyperlipidemia. Treatment per Internal Medicine. 11. History of acute coronary syndrome. 12. History of GI bleed. 13. History of gout. 14. Vitamin B12 deficiency. 15. Vitamin D deficiency. 16. Allergies to cephalexin, oral Flagyl, penicillin, sulfa with the allergies to penicillin being hives. 17. Social history negative. 18. MAR was noted. 19. Case discussed with RN. 20. Family history noncontributory. 21. Continue treatment per primary consultants. 22. Surgery followup per Dr. Stone. 23. Orders were entered and noted. 24. Case was also discussed with the patient and Subjective Constitutional: Reports: fever, fatigue, other - fever curve better, no chills , less sweats HEENT: Denies: congestion Respiratory: Denies: shortness of breath Cardiovascular: Denies: chest pain Gastrointestinal/Abdominal: Reports: other - no abdominal pain; Denies: nausea , vomiting Genitourinary: Denies: dysuria Neurologic: Denies: headache Psychiatric: Denies: depression Skin: Denies: rash Endocrine: Reports: other - less sweats ; Denies: feels warm Hematologic: Denies: bleeding Musculoskeletal: Denies: pain Allergies: Coded Allergies: CEPHALEXIN (Verified Allergy, Mild, 11/06/09) PENICILLIN G (Verified Allergy, Mild, 01/22/09) SULFA (SULFONAMIDE ANTIBIOTICS) (Verified Allergy, Mild, 11/07/09) Uncoded Allergies: ORAL FLAGYL (Adverse Reaction, Unknown, 11/07/09) Objective Vital Signs Last 24 Hour Vital Signs Date Time Temp Pulse Resp B/P (MAP) Pulse Ox O2 Delivery O2 Flow Rate FiO2 12/03/17 16:00 97.8 74 20 112/67 (82) 98 97.8 12/03/17 09:00 Room Air 12/03/17 08:00 98.2 73 19 100/69 (79) 96 98.2 12/03/17 04:59 99.0 12/03/17 04:29 100.3 12/03/17 04:00 83 12/03/17 00:00 85 12/02/17 21:00 Room Air 12/02/17 20:00 89 12/02/17 17:56 97.9 12/02/17 17:26 97.9 Height (Feet): 5 Height (Inches): 7.00 Weight (Pounds): 197 General Appearance: no acute distress HEENT: normocephalic, atraumatic, anicteric, mucous membranes moist Respiratory/Chest: lungs clear, normal breath sounds, no respiratory distress, no accessory muscle use Cardiovascular: normal rate, regular rhythm, no gallop/murmur, no JVD Abdomen: normal bowel sounds, soft, non tender, no organomegaly, non distended Genitourinary: other - no rios, no cva pain Extremities: no cyanosis Skin: no rash Neurologic/Psychiatric: 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 Pneumonia suspected in the right lung The CT scanner at [facility] is accredited by the [employer] and the scans are performed using dose optimization techniques as appropriate to a performed exam including Automatic Exposure control. CT abdomen and pelvis: IMPRESSION: Status post recent surgery with skin romeo and postsurgical changes in the anterior abdominal wall. Trace fluid and a few bubbles of air considered postsurgical change. No defined fluid collection or evidence of abscess. Continent ileostomy in the lower abdomen appears unremarkable. Total colectomy noted. Catheter position is satisfactory. No evidence of bowel obstruction or intra-abdominal or pelvic abscess. Other, multiple incidental findings include atherosclerotic vascular disease, bilateral renal cysts, small bilateral inguinal hernias, mild posterior basilar atelectasis, duodenal diverticulum, accessory spleen. Chest x-ray - 12/03 - A single view chest radiograph was obtained. Findings: Faint infiltrate in the right perihilar region again noted. PICC line was removed. The cardiac silhouette is normal. IMPRESSION: Less conspicuous right perihilar infiltrate again noted Microbiology Date/Time Source Procedure Growth Status 12/01/17 13:30 Blood Blood Culture - Preliminary Gram Negative Bacillus 1 Resulted 12/01/17 13:05 Blood Blood Culture - Preliminary Gram Negative Bacillus 1 Resulted 12/01/17 14:30 Urine,Clean Catch Urine Culture - Preliminary Mixed Urogenital Contaminants Resulted 12/02/17 17:00 Catheter Site Catheter Tip Culture - Preliminary Resulted Laboratory Tests Test 12/03/17 04:09 White Blood Count 5.6 K/UL (4.8-10.8) Red Blood Count 3.87 M/UL (4.70-6.10) L Hemoglobin 10.7 G/DL (14.2-18.0) L Hematocrit 32.6 % (42.0-52.0) L Mean Corpuscular Volume 84 FL (80-99) # Mean Corpuscular Hemoglobin 27.6 PG (27.0-31.0) Mean Corpuscular Hemoglobin Concent 32.7 G/DL (32.0-36.0) Red Cell Distribution Width 12.3 % (11.6-14.8) Platelet Count 333 K/UL (150-450) Mean Platelet Volume 5.6 FL (6.5-10.1) L Neutrophils (%) (Auto) 61.6 % (45.0-75.0) Lymphocytes (%) (Auto) 21.3 % (20.0-45.0) Monocytes (%) (Auto) 12.5 % (1.0-10.0) H Eosinophils (%) (Auto) 3.5 % (0.0-3.0) H Basophils (%) (Auto) 1.2 % (0.0-2.0) Sodium Level 136 MMOL/L (136-145) Potassium Level 4.4 MMOL/L (3.5-5.1) Chloride Level 103 MMOL/L (98-107) Carbon Dioxide Level 28 MMOL/L (21-32) Anion Gap 5 mmol/L (5-15) Blood Urea Nitrogen 16 mg/dL (7-18) Creatinine 1.3 MG/DL (0.55-1.30) Estimat Glomerular Filtration Rate 55.4 mL/min (>60) Glucose Level 119 MG/DL (74-106) H Calcium Level 8.3 MG/DL (8.5-10.1) L Troponin I 0.044 ng/mL (0.000-0.056) Random Amikacin Level 4.8 ug/mL Current Medications Medications (Trade) Dose Ordered Sig/Julio Route PRN Reason Start Time Stop Time Status Last Admin Dose Admin Acetaminophen (Tylenol) 650 mg Q4H PRN ORAL Mild Pain/Temp > 100.2 12/03/17 10:00 12/31/17 09:59 Allopurinol (Zyloprim) 100 mg QHS ORAL 12/03/17 21:00 12/22/17 20:59 Amikacin Protocol (Amikacin pharmacy to dose) 1 ea DAILY PRN MISC Per rx protocol 12/03/17 10:00 01/02/18 09:59 Amikacin Sulfate 1000 mg/Sodium Chloride 114 ml @ 228 mls/hr Q24H IV 12/03/17 16:00 12/09/17 15:59 12/03/17 15:36 Ascorbic Acid (Vitamin C) 500 mg DAILYPRN PRN ORAL Constipation 12/03/17 10:00 12/31/17 09:59 Aztreonam 1 gm/ Dextrose 55 ml @ 110 mls/hr Q8H IVPB 12/03/17 13:30 12/08/17 21:29 12/03/17 13:28 Dextrose (Dextrose 50%) 25 ml Q30M PRN IV Hypoglycemia 12/03/17 10:00 12/24/17 07:29 Dextrose (Dextrose 50%) 50 ml Q30M PRN IV Hypoglycemia 12/03/17 10:00 12/24/17 07:29 Insulin Aspart (NovoLOG) Q6HR SUBQ 12/03/17 12:00 12/25/17 00:00 Iopamidol (Isovue-300 100ml) 100 ml NOW PRN INJ Radiology Procedure 12/03/17 17:00 12/03/17 23:59 Lorazepam (Ativan) 1 mg HSPRN PRN SL Sleep 12/03/17 20:00 12/10/17 19:59 Lorazepam (Ativan) 1 mg Q4H PRN SL Muscle Spasm 12/03/17 10:30 12/07/17 10:29 Menthol/Methyl Salicylate (Bengay) 1 applic QIDPRN PRN TOPIC For Pain 12/03/17 10:00 12/26/17 09:59 Metronidazole 100 ml @ 100 mls/hr Q8HR IVPB 12/03/17 14:00 12/08/17 21:59 12/03/17 13:26 Nystatin (Nystatin) 5 ml QID ORAL 12/03/17 13:00 12/07/17 08:59 12/03/17 13:26 Ondansetron HCl (Zofran) 4 mg Q4H PRN IVP Nausea & Vomiting 12/03/17 10:00 12/23/17 09:59 Oxycodone/ Acetaminophen (Percocet 10/325) 1 tab Q4H PRN ORAL Severe Pain (Pain Scale 7-10) 12/03/17 10:00 12/06/17 09:59 12/03/17 12:06 Pantoprazole (Protonix) 40 mg Q24H IVP 12/03/17 20:00 12/22/17 19:59 Phytonadione (Vitamin K) 10 mg ONCE A WEEK SUBQ 12/08/17 09:00 12/31/17 08:59 Potassium Chloride 20 meq/ Dextrose/Sodium Chloride 1,010 ml @ 100 mls/hr Q10H6M IVPB 12/03/17 11:30 01/02/18 11:29 12/03/17 12:00 Yogesh Martínez MD Dec 03, 2017 17:05
--- NOTE | 2017-12-03 17:16 | Geriatric Progress Note ---
Assessment/Plan Problems: (1) Hypertension (2) Presence of stent in coronary artery in patient with coronary artery disease (3) Dyslipidemia (4) Vitamin B12 deficiency (5) Vitamin D deficiency (6) Ulcerative colitis (7) History of gastrointestinal bleeding (8) Uric acid kidney stone (9) MALFUNCTION OF BCIR WITH BOWEL OBSTRUCTION (10) Recurrent ventral hernia and stoma stenosis (11) Volume depletion (12) Leukocytosis (13) Fever (14) Tachycardia (15) Aspiration pneumonitis (16) Gram-negative bacteremia Assessment/Plan Primary infection line sepsis. No clear cut pneumonia, likely minor episode of aspiration pneumonitis. No convincing urinary source. Clinically responding to antibiotics after cather removal. Advance diet as tolerated. Mobilize as tolerated. Monitor labs. Reviewed with patient, . Discussed with: patient, family, hospital staff Subjective Interval Events Patient feeling better, but still "cold in the core". Still weak. CT abdomen without evidence of abscess or unexpected fluid collection, p.o. BCIR low residue diet started per Dr. Stone. No respiratory sxs or chest discomfort. Tmax 100.3. Moved back to 3E. Constitutional: Denies: fever Respiratory: Denies: cough, shortness of breath Cardiovascular: Denies: chest pain, palpitations Gastrointestinal/Abdominal: Reports: other - slightly sour stomach; Denies: vomiting Genitourinary: Denies: dysuria Geriatric Geriatric Last 24 Hour Vital Signs Date Time Temp Pulse Resp B/P (MAP) Pulse Ox O2 Delivery O2 Flow Rate FiO2 12/03/17 16:00 97.8 74 20 112/67 (82) 98 97.8 12/03/17 09:00 Room Air 12/03/17 08:00 98.2 73 19 100/69 (79) 96 98.2 12/03/17 04:59 99.0 12/03/17 04:29 100.3 12/03/17 04:00 83 12/03/17 00:00 85 12/02/17 21:00 Room Air 12/02/17 20:00 89 12/02/17 17:56 97.9 12/02/17 17:26 97.9 Intake and Output 12/02/17 12/03/17 19:00 07:00 Intake Total 2241.334 ml 1090 ml Output Total 820 ml 1125 ml Balance 1421.334 ml -35 ml Intake Oral 840 ml 240 ml IV Total 1401.334 ml 770 ml Other 80 ml Output Urine Total 400 ml 820 ml Drainage Total 20 ml 5 ml Other 400 ml 300 ml Laboratory Tests Test 12/03/17 04:09 White Blood Count 5.6 K/UL (4.8-10.8) Red Blood Count 3.87 M/UL (4.70-6.10) L Hemoglobin 10.7 G/DL (14.2-18.0) L Hematocrit 32.6 % (42.0-52.0) L Mean Corpuscular Volume 84 FL (80-99) # Mean Corpuscular Hemoglobin 27.6 PG (27.0-31.0) Mean Corpuscular Hemoglobin Concent 32.7 G/DL (32.0-36.0) Red Cell Distribution Width 12.3 % (11.6-14.8) Platelet Count 333 K/UL (150-450) Mean Platelet Volume 5.6 FL (6.5-10.1) L Neutrophils (%) (Auto) 61.6 % (45.0-75.0) Lymphocytes (%) (Auto) 21.3 % (20.0-45.0) Monocytes (%) (Auto) 12.5 % (1.0-10.0) H Eosinophils (%) (Auto) 3.5 % (0.0-3.0) H Basophils (%) (Auto) 1.2 % (0.0-2.0) Sodium Level 136 MMOL/L (136-145) Potassium Level 4.4 MMOL/L (3.5-5.1) Chloride Level 103 MMOL/L (98-107) Carbon Dioxide Level 28 MMOL/L (21-32) Anion Gap 5 mmol/L (5-15) Blood Urea Nitrogen 16 mg/dL (7-18) Creatinine 1.3 MG/DL (0.55-1.30) Estimat Glomerular Filtration Rate 55.4 mL/min (>60) Glucose Level 119 MG/DL (74-106) H Calcium Level 8.3 MG/DL (8.5-10.1) L Troponin I 0.044 ng/mL (0.000-0.056) Random Amikacin Level 4.8 ug/mL Current Medications Medications (Trade) Dose Ordered Sig/Jluio Route PRN Reason Start Time Stop Time Status Last Admin Dose Admin Acetaminophen (Tylenol) 650 mg Q4H PRN ORAL Mild Pain/Temp > 100.2 12/03/17 10:00 12/31/17 09:59 Allopurinol (Zyloprim) 100 mg QHS ORAL 12/03/17 21:00 12/22/17 20:59 Amikacin Protocol (Amikacin pharmacy to dose) 1 ea DAILY PRN MISC Per rx protocol 12/03/17 10:00 01/02/18 09:59 Amikacin Sulfate 1000 mg/Sodium Chloride 114 ml @ 228 mls/hr Q24H IV 12/03/17 16:00 12/09/17 15:59 12/03/17 15:36 Ascorbic Acid (Vitamin C) 500 mg DAILYPRN PRN ORAL Constipation 12/03/17 10:00 12/31/17 09:59 Aztreonam 1 gm/ Dextrose 55 ml @ 110 mls/hr Q8H IVPB 12/03/17 13:30 12/08/17 21:29 12/03/17 13:28 Dextrose (Dextrose 50%) 25 ml Q30M PRN IV Hypoglycemia 12/03/17 10:00 12/24/17 07:29 Dextrose (Dextrose 50%) 50 ml Q30M PRN IV Hypoglycemia 12/03/17 10:00 12/24/17 07:29 Insulin Aspart (NovoLOG) Q6HR SUBQ 12/03/17 12:00 12/25/17 00:00 Iopamidol (Isovue-300 100ml) 100 ml NOW PRN INJ Radiology Procedure 12/03/17 17:00 12/03/17 23:59 Lorazepam (Ativan) 1 mg HSPRN PRN SL Sleep 12/03/17 20:00 12/10/17 19:59 Lorazepam (Ativan) 1 mg Q4H PRN SL Muscle Spasm 12/03/17 10:30 12/07/17 10:29 Menthol/Methyl Salicylate (Bengay) 1 applic QIDPRN PRN TOPIC For Pain 12/03/17 10:00 12/26/17 09:59 Metronidazole 100 ml @ 100 mls/hr Q8HR IVPB 12/03/17 14:00 12/08/17 21:59 12/03/17 13:26 Nystatin (Nystatin) 5 ml QID ORAL 12/03/17 13:00 12/07/17 08:59 12/03/17 13:26 Ondansetron HCl (Zofran) 4 mg Q4H PRN IVP Nausea & Vomiting 12/03/17 10:00 12/23/17 09:59 Oxycodone/ Acetaminophen (Percocet 10/325) 1 tab Q4H PRN ORAL Severe Pain (Pain Scale 7-10) 12/03/17 10:00 12/06/17 09:59 12/03/17 12:06 Pantoprazole (Protonix) 40 mg Q24H IVP 12/03/17 20:00 12/22/17 19:59 Phytonadione (Vitamin K) 10 mg ONCE A WEEK SUBQ 12/08/17 09:00 12/31/17 08:59 Potassium Chloride 20 meq/ Dextrose/Sodium Chloride 1,010 ml @ 100 mls/hr Q10H6M IVPB 12/03/17 11:30 01/02/18 11:29 12/03/17 12:00 Height (Feet): 5 Height (Inches): 7.00 Weight (Pounds): 197 General Appearance: no apparent distress, alert, non-toxic Head: normocephalic, atraumatic Eyes: bilateral anicteric ENT: normal voice Neck: full range of motion, no mass Respiratory: lungs clear Cardiovascular: regular rate, rhythm Gastrointestinal: normal bowel sounds, soft, tenderness - over incisional area Musculoskeletal: no calf tenderness Neurologic: no new focality Juno Rose MD Dec 03, 2017 17:16
[2017-12-03] MEDS ORDERED: Pantoprazole Inj IVP SCH (20:00)
[2017-12-03] MEDS ORDERED: Metoprolol 5mg/5ml Inj IVP PRN (20:00)
[2017-12-03] MEDS: Allopurinol 100mg Tab ORAL SCH (20:38)
[2017-12-04] VITALS: BP 111/68
[2017-12-04] MEDS: NovoLOG Insulin Flexpen SUBQ SCH ×2 (00:27→05:54)
[2017-12-04] MEDS ORDERED: Amikacin 1,000 MG in NS 110 ML IV SCH (04:00)
[2017-12-04] MEDS: Aztreonam Inj 1 GM in D5W 55 ML IVPB SCH ×2 (05:45→13:30)
[2017-12-04 07:35] LABS: EOSINOPHILS % (AUTO) 4.6 % (0.0-3.0); HEMATOCRIT 32.3 % (42.0-52.0); HEMOGLOBIN 10.6 G/DL (14.2-18.0); LYMPHOCYTES % (AUTO) 20.4 % (20.0-45.0); MEAN CORPUSCULAR VOLUME 84 FL (80-99); MONOCYTES % (AUTO) 8.6 % (1.0-10.0); NEUTROPHILS % (AUTO) 65.4 % (45.0-75.0); PLATELET COUNT 385 K/UL (150-450); RED BLOOD COUNT 3.82 M/UL (4.70-6.10); RED CELL DISTRIBUTION WIDTH 12.3 % (11.6-14.8); WHITE BLOOD COUNT 6.8 K/UL (4.8-10.8)
--- NOTE | 2017-12-04 07:43 | General Progress Note ---
Assessment/Plan Assessment/Plan Assessment/Plan MRCP reviewed >> polyp or mass or stenotic area of the common bile duct. fu CT today Will need ERCP to evaluate the duodenal diverticulum, however must defer for minimum of 2 weeks given recent surgery. >> will follow up as outpatient symptomatic treatment at this time CLD, adv per surgery pain mgmt zofran prn prn transfusions ppi TPN fu labs Subjective ROS Limited/Unobtainable: Yes Allergies: Coded Allergies: CEPHALEXIN (Verified Allergy, Mild, 11/06/09) PENICILLIN G (Verified Allergy, Mild, 01/22/09) SULFA (SULFONAMIDE ANTIBIOTICS) (Verified Allergy, Mild, 11/07/09) Uncoded Allergies: ORAL FLAGYL (Adverse Reaction, Unknown, 11/07/09) Subjective no event over night Objective Last 24 Hour Vital Signs Date Time Temp Pulse Resp B/P (MAP) Pulse Ox O2 Delivery O2 Flow Rate FiO2 12/04/17 00:00 97.7 72 19 111/68 (82) 96 97.7 12/03/17 21:00 Room Air 12/03/17 16:00 97.8 74 20 112/67 (82) 98 97.8 12/03/17 09:00 Room Air 12/03/17 08:00 98.2 73 19 100/69 (79) 96 98.2 Intake and Output 12/03/17 12/04/17 19:00 07:00 Intake Total 1089 ml 2450 ml Output Total 2375 ml 1573 ml Balance -1286 ml 877 ml Intake Oral 120 ml 940 ml IV Total 969 ml 1510 ml Output Urine Total 1450 ml 1150 ml Drainage Total 5 ml 3 ml Other 920 ml 420 ml # Voids 5 Laboratory Tests 12/04/17 05:20: White Blood Count 6.8, Red Blood Count 3.82L, Hemoglobin 10.6L, Hematocrit 32.3L , Mean Corpuscular Volume 84, Mean Corpuscular Hemoglobin 27.7, Mean Corpuscular Hemoglobin Concent 32.8, Red Cell Distribution Width 12.3, Platelet Count 385, Mean Platelet Volume 5.9L, Neutrophils (%) (Auto) 65.4, Lymphocytes ( %) (Auto) 20.4, Monocytes (%) (Auto) 8.6, Eosinophils (%) (Auto) 4.6H, Basophils (%) (Auto) 1.0, Sodium Level [Pending], Potassium Level [Pending], Chloride Level [Pending], Carbon Dioxide Level [Pending], Blood Urea Nitrogen [ Pending], Creatinine [Pending], Estimat Glomerular Filtration Rate [Pending], Glucose Level [Pending], Calcium Level [Pending], Total Bilirubin [Pending], Aspartate Amino Transf (AST/SGOT) [Pending], Alanine Aminotransferase (ALT/SGPT ) [Pending], Alkaline Phosphatase [Pending], Total Protein [Pending], Albumin [ Pending], Globulin [Pending] Height (Feet): 5 Height (Inches): 7.00 Weight (Pounds): 197 General Appearance: alert EENT: normal ENT inspection Neck: supple Cardiovascular: normal rate Respiratory/Chest: lungs clear Abdomen: non tender, soft, hypoactive bowel sounds Extremities: non-tender Tony Mena MD Dec 04, 2017 07:43
[2017-12-04 08:02] LABS: ALANINE AMINOTRANSFERASE 27 U/L (12-78); ALBUMIN 2.3 G/DL (3.4-5.0); ALBUMIN/GLOBULIN RATIO 0.5 (1.0-2.7); ALKALINE PHOSPHATASE 331 U/L (46-116); ANION GAP 10 mmol/L (5-15); ASPARTATE AMINO TRANSFERASE 28 U/L (15-37); BILIRUBIN,TOTAL 0.4 MG/DL (0.2-1.0); BLOOD UREA NITROGEN 13 mg/dL (7-18); CALCIUM 8.6 MG/DL (8.5-10.1); CARBON DIOXIDE 24 MMOL/L (21-32); CHLORIDE 103 MMOL/L (98-107); CREATININE 1.3 MG/DL (0.55-1.30); SODIUM 137 MMOL/L (136-145)
--- NOTE | 2017-12-04 08:51 | General Progress Note ---
Progress Note Progress Note Afebrile x 24 hours and no chills or diaphoresis. Eating BCIR low residue diet since last night dinner ABdomen soft, flat, healing well Urine 2600 BCIR ileo 1340 GEOVANI drain 8 Blood C&S - E.coli Labs all sastisfactory except albumin 2.3 Imp. Improved Plan; d/c IV fluids Ensure 2/day in addition to BCIR diet Anticipate removal of GEOVANI drain in AM Anticipate removal of Denise Continent Ileostomy pouch catheter in AM and begin RN supervised self-intubations Antibiotics per ID Rodney Stone MD Dec 04, 2017 08:51
[2017-12-04] MEDS: Nystatin Susp 500,000 units/5ml ORAL SCH (09:27)
--- NOTE | 2017-12-04 11:32 | Cardiology Progress Note ---
Assessment/Plan Assessment/Plan malfunctioning continent pouch hx of cad now s/p lad stent stable tachy sinus related to fever pulm infiltrate / pneumonia? preop stress echo neg last week hemodynamically stabel dvt ppx ambualte no sx to suggest acs asa in on hold is npo ctpa noted no pe but infiltrate noted lugn not show evidence for congestion frustrated Subjective Cardiovascular: Denies: chest pain, lightheadedness Respiratory: Denies: shortness of breath Gastrointestinal/Abdominal: Reports: abdominal pain Genitourinary: Denies: burning Subjective no chills or fever , not fell good today did walk yest, has bad taste in his mouht Objective Last 24 Hour Vital Signs Date Time Temp Pulse Resp B/P (MAP) Pulse Ox O2 Delivery O2 Flow Rate FiO2 12/04/17 09:58 97.7 12/04/17 09:28 97.7 12/04/17 09:00 Room Air 12/04/17 00:00 97.7 72 19 111/68 (82) 96 97.7 12/03/17 21:00 Room Air 12/03/17 16:00 97.8 74 20 112/67 (82) 98 97.8 General Appearance: alert Neck: supple Cardiovascular: normal rate, regular rhythm Respiratory/Chest: lungs clear Abdomen: normal bowel sounds, soft Extremities: no swelling Intake and Output 12/03/17 12/04/17 19:00 07:00 Intake Total 1089 ml 2450 ml Output Total 2375 ml 1573 ml Balance -1286 ml 877 ml Intake Oral 120 ml 940 ml IV Total 969 ml 1510 ml Output Urine Total 1450 ml 1150 ml Drainage Total 5 ml 3 ml Other 920 ml 420 ml # Voids 5 Laboratory Tests Test 12/04/17 05:20 White Blood Count 6.8 K/UL (4.8-10.8) Red Blood Count 3.82 M/UL (4.70-6.10) L Hemoglobin 10.6 G/DL (14.2-18.0) L Hematocrit 32.3 % (42.0-52.0) L Mean Corpuscular Volume 84 FL (80-99) Mean Corpuscular Hemoglobin 27.7 PG (27.0-31.0) Mean Corpuscular Hemoglobin Concent 32.8 G/DL (32.0-36.0) Red Cell Distribution Width 12.3 % (11.6-14.8) Platelet Count 385 K/UL (150-450) Mean Platelet Volume 5.9 FL (6.5-10.1) L Neutrophils (%) (Auto) 65.4 % (45.0-75.0) Lymphocytes (%) (Auto) 20.4 % (20.0-45.0) Monocytes (%) (Auto) 8.6 % (1.0-10.0) Eosinophils (%) (Auto) 4.6 % (0.0-3.0) H Basophils (%) (Auto) 1.0 % (0.0-2.0) Sodium Level 137 MMOL/L (136-145) Potassium Level 4.0 MMOL/L (3.5-5.1) Chloride Level 103 MMOL/L (98-107) Carbon Dioxide Level 24 MMOL/L (21-32) Anion Gap 10 mmol/L (5-15) Blood Urea Nitrogen 13 mg/dL (7-18) Creatinine 1.3 MG/DL (0.55-1.30) Estimat Glomerular Filtration Rate 55.4 mL/min (>60) Glucose Level 118 MG/DL (74-106) H Calcium Level 8.6 MG/DL (8.5-10.1) Total Bilirubin 0.4 MG/DL (0.2-1.0) Aspartate Amino Transf (AST/SGOT) 28 U/L (15-37) Alanine Aminotransferase (ALT/SGPT) 27 U/L (12-78) Alkaline Phosphatase 331 U/L (46-116) H Total Protein 6.8 G/DL (6.4-8.2) Albumin 2.3 G/DL (3.4-5.0) L Globulin 4.5 g/dL Albumin/Globulin Ratio 0.5 (1.0-2.7) L Microbiology Date/Time Source Procedure Growth Status 12/01/17 13:30 Blood Blood Culture - Final Escherichia Coli Complete 12/01/17 13:05 Blood Blood Culture - Final Escherichia Coli Complete 12/01/17 14:30 Urine,Clean Catch Urine Culture - Final Mixed Urogenital Contaminants Complete 12/02/17 17:00 Catheter Site Catheter Tip Culture - Preliminary NO GROWTH AFTER 48 HOURS Resulted Jose Alejandro Aviles MD Dec 04, 2017 11:32
[2017-12-04] MEDS ORDERED: LORazepam 1mg tab ORAL PRN (12:00)
[2017-12-04] MEDS ORDERED: LORazepam 1mg tab SL PRN (12:41)
[2017-12-04] MEDS: Amikacin 1,000 MG in NS 110 ML IV SCH (16:00)
--- NOTE | 2017-12-04 19:02 | Geriatric Progress Note ---
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 Per discussion with Dr. Martínez attempt completion of 10d course, another 6d. Could consider attempting home IV, but patient needs to stabilize p.o. intake and intubation as well, and he expresses some reluctance because of expected discomfort of intubation procedure, removal of drains, etc. Patient was reassured. Suspect some element of encephalopathy, will start Rozerem course for delirium prophylaxis and diurnal resynchronization. Reviewed with patient, . Minimize benzodiazepines. Will also minimize nocturnal distractions as much as possible. After much reassurance, patient accepts treatment approach. Discussed with: patient, family, hospital staff Subjective Interval Events Patient irritable, frustrated with multiple c/o re too many medications, too many VS checks, too many blood draws. Some continued midabdominal discomfort, preferring to drink Ensure rather than eat. No fever, no respiratory or cardiac sxs. Refused antibiotic doses through day. Micro results reveal E coli in blood, with Bactrim and fluoroquinolone resistance. Due to PCN allergies, discussed with Dr. Martínez, will treat with q24 Amikacin, monitor renal function. Situation discussed in detail with patient, . After detailed explanation patient agrees to complete Amikacin course. Will d/c fingersticks, decrease frequency of blood draws, Eliminate overnight VS, and delay blood draws to later in a.m. Constitutional: Denies: chills, fever Respiratory: Denies: cough, shortness of breath Cardiovascular: Denies: chest pain, palpitations Gastrointestinal/Abdominal: Denies: abdominal pain Genitourinary: Denies: dysuria Geriatric Geriatric Last 24 Hour Vital Signs Date Time Temp Pulse Resp B/P (MAP) Pulse Ox O2 Delivery O2 Flow Rate FiO2 12/04/17 09:58 97.7 12/04/17 09:28 97.7 12/04/17 09:00 Room Air 12/04/17 00:00 97.7 72 19 111/68 (82) 96 97.7 12/03/17 21:00 Room Air Intake and Output 12/03/17 12/04/17 19:00 07:00 Intake Total 1089 ml 2450 ml Output Total 2375 ml 1573 ml Balance -1286 ml 877 ml Intake Oral 120 ml 940 ml IV Total 969 ml 1510 ml Output Urine Total 1450 ml 1150 ml Drainage Total 5 ml 3 ml Other 920 ml 420 ml # Voids 5 Laboratory Tests Test 12/04/17 05:20 White Blood Count 6.8 K/UL (4.8-10.8) Red Blood Count 3.82 M/UL (4.70-6.10) L Hemoglobin 10.6 G/DL (14.2-18.0) L Hematocrit 32.3 % (42.0-52.0) L Mean Corpuscular Volume 84 FL (80-99) Mean Corpuscular Hemoglobin 27.7 PG (27.0-31.0) Mean Corpuscular Hemoglobin Concent 32.8 G/DL (32.0-36.0) Red Cell Distribution Width 12.3 % (11.6-14.8) Platelet Count 385 K/UL (150-450) Mean Platelet Volume 5.9 FL (6.5-10.1) L Neutrophils (%) (Auto) 65.4 % (45.0-75.0) Lymphocytes (%) (Auto) 20.4 % (20.0-45.0) Monocytes (%) (Auto) 8.6 % (1.0-10.0) Eosinophils (%) (Auto) 4.6 % (0.0-3.0) H Basophils (%) (Auto) 1.0 % (0.0-2.0) Sodium Level 137 MMOL/L (136-145) Potassium Level 4.0 MMOL/L (3.5-5.1) Chloride Level 103 MMOL/L (98-107) Carbon Dioxide Level 24 MMOL/L (21-32) Anion Gap 10 mmol/L (5-15) Blood Urea Nitrogen 13 mg/dL (7-18) Creatinine 1.3 MG/DL (0.55-1.30) Estimat Glomerular Filtration Rate 55.4 mL/min (>60) Glucose Level 118 MG/DL (74-106) H Calcium Level 8.6 MG/DL (8.5-10.1) Total Bilirubin 0.4 MG/DL (0.2-1.0) Aspartate Amino Transf (AST/SGOT) 28 U/L (15-37) Alanine Aminotransferase (ALT/SGPT) 27 U/L (12-78) Alkaline Phosphatase 331 U/L (46-116) H Total Protein 6.8 G/DL (6.4-8.2) Albumin 2.3 G/DL (3.4-5.0) L Globulin 4.5 g/dL Albumin/Globulin Ratio 0.5 (1.0-2.7) L Current Medications Medications (Trade) Dose Ordered Sig/Julio Route PRN Reason Start Time Stop Time Status Last Admin Dose Admin Acetaminophen (Tylenol) 650 mg Q4H PRN ORAL Mild Pain/Temp > 100.2 12/03/17 10:00 12/31/17 09:59 Allopurinol (Zyloprim) 100 mg QHS ORAL 12/03/17 21:00 12/22/17 20:59 12/03/17 20:38 Amikacin Protocol (Amikacin pharmacy to dose) 1 ea DAILY PRN MISC Per rx protocol 12/03/17 10:00 01/02/18 09:59 Amikacin Sulfate 1000 mg/Sodium Chloride 114 ml @ 228 mls/hr Q24H IV 12/03/17 16:00 12/09/17 15:59 12/03/17 15:36 Ascorbic Acid (Vitamin C) 500 mg NEEDED PRN ORAL Constipation 12/04/17 08:45 01/03/18 08:44 Aztreonam 1 gm/ Dextrose 55 ml @ 110 mls/hr Q8H IVPB 12/03/17 13:30 12/08/17 21:29 12/04/17 05:45 Lorazepam (Ativan) 1 mg HSPRN PRN SL Sleep 12/03/17 20:00 12/10/17 19:59 Lorazepam (Ativan) 1 mg Q4H PRN SL Muscle Spasm or anxiety 12/04/17 12:41 12/07/17 12:40 12/04/17 12:48 Menthol/Methyl Salicylate (Bengay) 1 applic QIDPRN PRN TOPIC For Pain 12/03/17 10:00 12/26/17 09:59 Ondansetron HCl (Zofran ODT) 4 mg Q6H PRN ORAL Nausea & Vomiting 12/04/17 09:00 01/03/18 08:59 12/04/17 11:22 Oxycodone/ Acetaminophen (Percocet 10/325) 1 tab Q4H PRN ORAL Severe Pain (Pain Scale 7-10) 12/03/17 10:00 12/06/17 09:59 12/04/17 09:28 Pantoprazole (Protonix) 40 mg DAILY ORAL 12/04/17 09:00 01/03/18 08:59 12/04/17 09:27 Phytonadione (Vitamin K) 10 mg ONCE A WEEK SUBQ 12/08/17 09:00 12/31/17 08:59 Height (Feet): 5 Height (Inches): 7.00 Weight (Pounds): 197 General Appearance: alert, non-toxic, other - irritable, ? mild encephalopathy. Head: normocephalic, atraumatic Eyes: bilateral anicteric ENT: normal voice Neck: full range of motion, no mass Respiratory: lungs clear Cardiovascular: regular rate, rhythm Gastrointestinal: soft, no mass, tenderness - mild mid abdominal tenderness., decreased bowel sounds Musculoskeletal: no calf tenderness Edema: no edema noted Generalized Neurologic: no new focality Juno Rose MD Dec 04, 2017 19:02
[2017-12-04] MEDS: Allopurinol 100mg Tab ORAL SCH (20:05)
[2017-12-04] MEDS: Ramelteon 8mg tab (Approved for Delirium use only) ORAL SCH (20:06)
--- NOTE | 2017-12-05 07:52 | General Progress Note ---
Assessment/Plan Assessment/Plan Assessment/Plan MRCP reviewed >> polyp or mass or stenotic area of the common bile duct. Will need ERCP to evaluate the duodenal diverticulum, however must defer for minimum of 2 weeks given recent surgery. >> will follow up as outpatient symptomatic treatment at this time CLD, adv per surgery pain mgmt zofran prn prn transfusions ppi TPN fu labs normal Ca 19-9 Subjective ROS Limited/Unobtainable: Yes Allergies: Coded Allergies: CEPHALEXIN (Verified Allergy, Mild, 11/06/09) PENICILLIN G (Verified Allergy, Mild, 01/22/09) SULFA (SULFONAMIDE ANTIBIOTICS) (Verified Allergy, Mild, 11/07/09) Uncoded Allergies: ORAL FLAGYL (Adverse Reaction, Unknown, 11/07/09) Subjective no event over night Objective Last 24 Hour Vital Signs Date Time Temp Pulse Resp B/P (MAP) Pulse Ox O2 Delivery O2 Flow Rate FiO2 12/04/17 20:51 Room Air 12/04/17 09:58 97.7 12/04/17 09:28 97.7 12/04/17 09:00 Room Air Intake and Output 12/04/17 12/05/17 19:00 07:00 Intake Total 920 ml 240 ml Output Total 1923 ml 770 ml Balance -1003 ml -530 ml Intake Oral 920 ml 240 ml Output Urine Total 1025 ml 400 ml Drainage Total 3 ml Other 895 ml 370 ml Height (Feet): 5 Height (Inches): 7.00 Weight (Pounds): 197 General Appearance: alert EENT: normal ENT inspection Neck: supple Cardiovascular: normal rate Abdomen: soft, hypoactive bowel sounds Extremities: non-tender Tony Mena MD Dec 05, 2017 07:52
[2017-12-05 08:00] VITALS: BP 101/78
[2017-12-05] MEDS ORDERED: Fluconazole 100mg tab ORAL SCH (10:30)
--- NOTE | 2017-12-05 10:32 | General Progress Note ---
Progress Note Progress Note AVSS No further chills or sweats. had difficult day refusing treatments, etc - now much improved mentally and emotionally Eating fair 25% plus Ensure Oral thrush is better - can't tolerate Nystatin oral susp. any longer Abdomen soft. 1/2 of the romeo removed GEOVANI drain removed (6cc) Urine 1425 BCIR ileo 1265 Imp. Improving slowly with poor po intake Plan; Defer BCIR self-intubations until eating better diflucan po x 1 encouraged po intake labs in AM Rodney Stone MD Dec 05, 2017 10:32
--- NOTE | 2017-12-05 11:47 | Cardiology Progress Note ---
Assessment/Plan Assessment/Plan malfunctioning continent pouch hx of cad now s/p lad stent stable tachy sinus related to fever pulm infiltrate / pneumonia? preop stress echo neg last week hemodynamically stabel dvt ppx ambualte no sx to suggest acs ctpa noted no pe but infiltrate noted GEOVANI removed would like to start on ecotirn if ok with dr rojas Subjective Cardiovascular: Denies: chest pain, lightheadedness, palpitations Respiratory: Denies: shortness of breath Gastrointestinal/Abdominal: Denies: abdominal pain Genitourinary: Denies: burning Subjective feels much better , in better spirits Objective Last 24 Hour Vital Signs Date Time Temp Pulse Resp B/P (MAP) Pulse Ox O2 Delivery O2 Flow Rate FiO2 12/05/17 08:50 Room Air 12/05/17 08:42 97.7 12/05/17 08:12 97.7 12/05/17 08:00 97.7 87 19 101/78 (86) 98 97.7 12/04/17 20:51 Room Air General Appearance: no apparent distress, alert Neck: supple Cardiovascular: normal rate Respiratory/Chest: lungs clear, normal breath sounds Abdomen: normal bowel sounds, non tender, soft Extremities: no swelling Intake and Output 12/04/17 12/05/17 19:00 07:00 Intake Total 920 ml 240 ml Output Total 1923 ml 770 ml Balance -1003 ml -530 ml Intake Oral 920 ml 240 ml Output Urine Total 1025 ml 400 ml Drainage Total 3 ml Other 895 ml 370 ml Microbiology Date/Time Source Procedure Growth Status 12/04/17 05:25 Blood Blood Culture - Preliminary NO GROWTH AFTER 24 HOURS Resulted 12/04/17 05:20 Blood Blood Culture - Preliminary NO GROWTH AFTER 24 HOURS Resulted 12/02/17 17:00 Catheter Site Catheter Tip Culture - Preliminary NO GROWTH AFTER 48 HOURS Resulted Jose Alejandro Aviles MD Dec 05, 2017 11:47
[2017-12-05 12:00] VITALS: BP 96/61
--- NOTE | 2017-12-05 12:07 | Cardiology Report ---
APPROVED REPORT EKG Measurement Heart [id number] ID [id number] Normal sinus rhythm Normal ECG
--- NOTE | 2017-12-05 12:15 | Cardiology Report ---
APPROVED REPORT EKG Measurement Heart [id number] AR 148P31 [id number] Normal sinus rhythm Prolonged QT Abnormal ECG
--- NOTE | 2017-12-05 12:16 | Cardiology Report ---
APPROVED REPORT EKG Measurement Heart [id number] [place] 152P47 [id number] Normal sinus rhythm Nonspecific ST abnormality Abnormal ECG
--- NOTE | 2017-12-05 12:17 | Cardiology Report ---
APPROVED REPORT EKG Measurement Heart [id number] [place] 146P43 [id number] Sinus tachycardia Otherwise normal ECG
--- NOTE | 2017-12-05 12:19 | Cardiology Report ---
APPROVED REPORT EKG Measurement Heart [id number] [place] 130P48 [id number] Sinus tachycardia Otherwise normal ECG
[2017-12-05] MEDS ORDERED: LORazepam 1mg tab SL PRN (12:41)
[2017-12-05 16:00] VITALS: BP 105/75
[2017-12-05] MEDS: Amikacin 1,000 MG in NS 110 ML IV SCH (16:13)
--- NOTE | 2017-12-05 16:40 | Infectious Diseases Prog Note ---
Assessment/Plan Assessment/Plan ASSESSMENT AND PLAN: 1. e.coli bacteremia, ? line infection, ? uti, ? GI source, sepsis, leukocytosis , fevers, sirs, ? aspiration pna - amikacin iv - day # 4 antibiotics (started 12/01) - line removed, cath tip negative - CT abdomen and pelvis without abscess - urine culture with mixed organisms, ua with only 0-2 wbc - monitor labs, watch cr on amikacin - monitor chest x-ray, last chest x-ray improved - d/w Dr. Rose yesterday, d/w RN, d/w patient and - d/w microbiology 2. The patient has history of Denise pouch. The patient is status post Kock revision, status post incisional hernia repair, and status post abdominal wall hematoma evacuation. 3. The patient has history of ulcerative colitis with multiple GI surgeries. 4. PPI. 5. He has a central line for TPN. 6. History of Cipro use in the past. 7. History of malfunctioning Denise pouch. 8. Hypertension. 9. Blood pressure treatment per Internal Medicine. 10. Hyperlipidemia. Treatment per Internal Medicine. 11. History of acute coronary syndrome. 12. History of GI bleed. 13. History of gout. 14. Vitamin B12 deficiency. 15. Vitamin D deficiency. 16. Allergies to cephalexin, oral Flagyl, penicillin, sulfa with the allergies to penicillin being hives. 17. Social history negative. 18. MAR was noted. 19. Case discussed with RN. 20. Family history noncontributory. 21. Continue treatment per primary consultants. 22. Surgery followup per Dr. Stone. 23. Orders were entered and noted. 24. Case was also discussed with the patient and 25. total time spent - 35 minutes Subjective Constitutional: Reports: fatigue; Denies: fever HEENT: Denies: congestion Respiratory: Denies: shortness of breath Cardiovascular: Denies: chest pain Gastrointestinal/Abdominal: Denies: nausea, vomiting, diarrhea Genitourinary: Reports: other - no rios Neurologic: Denies: headache Psychiatric: Denies: depression Skin: Denies: rash Hematologic: Denies: bleeding Musculoskeletal: Denies: pain Allergies: Coded Allergies: CEPHALEXIN (Verified Allergy, Mild, 11/06/09) PENICILLIN G (Verified Allergy, Mild, 01/22/09) SULFA (SULFONAMIDE ANTIBIOTICS) (Verified Allergy, Mild, 11/07/09) Uncoded Allergies: ORAL FLAGYL (Adverse Reaction, Unknown, 11/07/09) Objective Vital Signs Last 24 Hour Vital Signs Date Time Temp Pulse Resp B/P (MAP) Pulse Ox O2 Delivery O2 Flow Rate FiO2 12/05/17 16:00 97.7 75 19 105/75 (85) 99 97.7 12/05/17 12:00 97.5 67 19 96/61 (73) 99 97.5 12/05/17 08:50 Room Air 12/05/17 08:42 97.7 12/05/17 08:12 97.7 12/05/17 08:00 97.7 87 19 101/78 (86) 98 97.7 12/04/17 20:51 Room Air Height (Feet): 5 Height (Inches): 7.00 Weight (Pounds): 197 General Appearance: no acute distress HEENT: normocephalic, atraumatic, anicteric, mucous membranes moist Respiratory/Chest: lungs clear, normal breath sounds, no respiratory distress, respiratory distress Cardiovascular: normal rate, regular rhythm, no gallop/murmur, no JVD Abdomen: normal bowel sounds, soft, non tender, no organomegaly, non distended Genitourinary: other - no rios Extremities: no cyanosis Skin: no rash Neurologic/Psychiatric: supervisor orchard II-XII grossly normal, alert, responsive Lymphatic: no neck adenopathy Musculoskeletal: no effusion Objective CT chest - Impression: No evidence of pulmonary embolus, aortic dissection or aneurysm. Pneumonia suspected in the right lung The CT scanner at [facility] is accredited by the [place] and the scans are performed using dose optimization techniques as appropriate to a performed exam including Automatic Exposure control. CT abdomen and pelvis: IMPRESSION: Status post recent surgery with skin romeo and postsurgical changes in the anterior abdominal wall. Trace fluid and a few bubbles of air considered postsurgical change. No defined fluid collection or evidence of abscess. Continent ileostomy in the lower abdomen appears unremarkable. Total colectomy noted. Catheter position is satisfactory. No evidence of bowel obstruction or intra-abdominal or pelvic abscess. Other, multiple incidental findings include atherosclerotic vascular disease, bilateral renal cysts, small bilateral inguinal hernias, mild posterior basilar atelectasis, duodenal diverticulum, accessory spleen. Chest x-ray - 12/03 - A single view chest radiograph was obtained. Findings: Faint infiltrate in the right perihilar region again noted. PICC line was removed. The cardiac silhouette is normal. IMPRESSION: Less conspicuous right perihilar infiltrate again noted Microbiology Date/Time Source Procedure Growth Status 12/04/17 05:25 Blood Blood Culture - Preliminary NO GROWTH AFTER 24 HOURS Resulted 12/01/17 14:30 Urine,Clean Catch Urine Culture - Final Mixed Urogenital Contaminants Complete 12/02/17 17:00 Catheter Site Catheter Tip Culture - Preliminary NO GROWTH AFTER 72 HOURS Resulted Microbiology Date/Time Source Procedure Growth Status 12/04/17 05:25 Blood Blood Culture - Preliminary NO GROWTH AFTER 24 HOURS Resulted 12/04/17 05:20 Blood Blood Culture - Preliminary NO GROWTH AFTER 24 HOURS Resulted 12/02/17 17:00 Catheter Site Catheter Tip Culture - Preliminary NO GROWTH AFTER 72 HOURS Resulted Labs Test 12/03/17 04:09 12/04/17 05:20 White Blood Count 5.6 K/UL (4.8-10.8) 6.8 K/UL (4.8-10.8) Red Blood Count 3.87 M/UL (4.70-6.10) 3.82 M/UL (4.70-6.10) Hemoglobin 10.7 G/DL (14.2-18.0) 10.6 G/DL (14.2-18.0) Hematocrit 32.6 % (42.0-52.0) 32.3 % (42.0-52.0) Mean Corpuscular Volume 84 FL (80-99) 84 FL (80-99) Mean Corpuscular Hemoglobin 27.6 PG (27.0-31.0) 27.7 PG (27.0-31.0) Mean Corpuscular Hemoglobin Concent 32.7 G/DL (32.0-36.0) 32.8 G/DL (32.0-36.0) Red Cell Distribution Width 12.3 % (11.6-14.8) 12.3 % (11.6-14.8) Platelet Count 333 K/UL (150-450) 385 K/UL (150-450) Mean Platelet Volume 5.6 FL (6.5-10.1) 5.9 FL (6.5-10.1) Neutrophils (%) (Auto) 61.6 % (45.0-75.0) 65.4 % (45.0-75.0) Lymphocytes (%) (Auto) 21.3 % (20.0-45.0) 20.4 % (20.0-45.0) Monocytes (%) (Auto) 12.5 % (1.0-10.0) 8.6 % (1.0-10.0) Eosinophils (%) (Auto) 3.5 % (0.0-3.0) 4.6 % (0.0-3.0) Basophils (%) (Auto) 1.2 % (0.0-2.0) 1.0 % (0.0-2.0) Sodium Level 136 MMOL/L (136-145) 137 MMOL/L (136-145) Potassium Level 4.4 MMOL/L (3.5-5.1) 4.0 MMOL/L (3.5-5.1) Chloride Level 103 MMOL/L (98-107) 103 MMOL/L (98-107) Carbon Dioxide Level 28 MMOL/L (21-32) 24 MMOL/L (21-32) Anion Gap 5 mmol/L (5-15) 10 mmol/L (5-15) Blood Urea Nitrogen 16 mg/dL (7-18) 13 mg/dL (7-18) Creatinine 1.3 MG/DL (0.55-1.30) 1.3 MG/DL (0.55-1.30) Estimat Glomerular Filtration Rate 55.4 mL/min (>60) 55.4 mL/min (>60) Glucose Level 119 MG/DL (74-106) 118 MG/DL (74-106) Calcium Level 8.3 MG/DL (8.5-10.1) 8.6 MG/DL (8.5-10.1) Troponin I 0.044 ng/mL (0.000-0.056) Random Amikacin Level 4.8 ug/mL Total Bilirubin 0.4 MG/DL (0.2-1.0) Aspartate Amino Transf (AST/SGOT) 28 U/L (15-37) Alanine Aminotransferase (ALT/SGPT) 27 U/L (12-78) Alkaline Phosphatase 331 U/L (46-116) Total Protein 6.8 G/DL (6.4-8.2) Albumin 2.3 G/DL (3.4-5.0) Globulin 4.5 g/dL Albumin/Globulin Ratio 0.5 (1.0-2.7) Current Medications Medications (Trade) Dose Ordered Sig/Julio Route PRN Reason Start Time Stop Time Status Last Admin Dose Admin Acetaminophen (Tylenol) 650 mg Q4H PRN ORAL Mild Pain/Temp > 100.2 12/03/17 10:00 12/31/17 09:59 Allopurinol (Zyloprim) 100 mg QHS ORAL 12/03/17 21:00 12/22/17 20:59 12/04/17 20:05 Amikacin Protocol (Amikacin pharmacy to dose) 1 ea DAILY PRN MISC Per rx protocol 12/03/17 10:00 01/02/18 09:59 Amikacin Sulfate 1000 mg/Sodium Chloride 114 ml @ 228 mls/hr Q24H IV 12/03/17 16:00 12/09/17 15:59 12/05/17 16:13 Ascorbic Acid (Vitamin C) 500 mg NEEDED PRN ORAL Constipation 12/04/17 08:45 01/03/18 08:44 Lorazepam (Ativan) 1 mg Q4H PRN SL Muscle Spasm or anxiety 12/05/17 12:41 12/08/17 12:40 Menthol/Methyl Salicylate (Bengay) 1 applic QIDPRN PRN TOPIC For Pain 12/03/17 10:00 12/26/17 09:59 Ondansetron HCl (Zofran ODT) 4 mg Q6H PRN ORAL Nausea & Vomiting 12/04/17 09:00 01/03/18 08:59 12/04/17 11:22 Oxycodone/ Acetaminophen (Percocet 10/325) 1 tab Q4H PRN ORAL Severe Pain (Pain Scale 7-10) 12/05/17 14:00 12/08/17 09:59 Pantoprazole (Protonix) 40 mg DAILY ORAL 12/04/17 09:00 01/03/18 08:59 12/05/17 08:11 Phytonadione (Vitamin K) 10 mg ONCE A WEEK SUBQ 12/08/17 09:00 12/31/17 08:59 Ramelteon (Rozerem) 8 mg QHS ORAL 12/04/17 21:00 01/03/18 20:59 12/04/17 20:06 Yogesh Martínez MD Dec 05, 2017 16:40
--- NOTE | 2017-12-05 18:12 | Geriatric Progress Note ---
Assessment/Plan Problems: (1) Hypertension (2) Presence of stent in coronary artery in patient with coronary artery disease (3) Dyslipidemia (4) Vitamin B12 deficiency (5) Vitamin D deficiency (6) Ulcerative colitis (7) History of gastrointestinal bleeding (8) Uric acid kidney stone (9) MALFUNCTION OF BCIR WITH BOWEL OBSTRUCTION (10) Recurrent ventral hernia and stoma stenosis (11) Volume depletion (12) Leukocytosis (13) Fever (14) Tachycardia (15) Aspiration pneumonitis (16) Gram-negative bacteremia Assessment/Plan Improved, with possible response to Rozerem, as well as environmental interventions. Clinically improving. Continue Amikacin for E coli bacteremia ? source. Check labs tomorrow. Encouraged p.o. intake, including fluids, and mobilization. Discussed with: patient, family, hospital staff Subjective Interval Events Patient feeling considerably better. Slept well on Rozerem and with less interrruptions. Reports taking p.o. better. Dr. Stone postponed intubation due to insufficient intake. VSS without fever. No new sxs. Reviewed antibiotic indications and duration. and family at bedside. Constitutional: Denies: chills, fever Respiratory: Denies: cough, shortness of breath Cardiovascular: Denies: chest pain, palpitations Gastrointestinal/Abdominal: Denies: vomiting Genitourinary: Denies: dysuria Geriatric Geriatric Last 24 Hour Vital Signs Date Time Temp Pulse Resp B/P (MAP) Pulse Ox O2 Delivery O2 Flow Rate FiO2 12/05/17 16:00 97.7 75 19 105/75 (85) 99 97.7 12/05/17 12:00 97.5 67 19 96/61 (73) 99 97.5 12/05/17 08:50 Room Air 12/05/17 08:42 97.7 12/05/17 08:12 97.7 12/05/17 08:00 97.7 87 19 101/78 (86) 98 97.7 12/04/17 20:51 Room Air Intake and Output 12/04/17 12/05/17 19:00 07:00 Intake Total 920 ml 240 ml Output Total 1923 ml 770 ml Balance -1003 ml -530 ml Intake Oral 920 ml 240 ml Output Urine Total 1025 ml 400 ml Drainage Total 3 ml Other 895 ml 370 ml Current Medications Medications (Trade) Dose Ordered Sig/Julio Route PRN Reason Start Time Stop Time Status Last Admin Dose Admin Acetaminophen (Tylenol) 650 mg Q4H PRN ORAL Mild Pain/Temp > 100.2 12/03/17 10:00 12/31/17 09:59 Allopurinol (Zyloprim) 100 mg QHS ORAL 12/03/17 21:00 12/22/17 20:59 12/04/17 20:05 Amikacin Protocol (Amikacin pharmacy to dose) 1 ea DAILY PRN MISC Per rx protocol 12/03/17 10:00 01/02/18 09:59 Amikacin Sulfate 1000 mg/Sodium Chloride 114 ml @ 228 mls/hr Q24H IV 12/03/17 16:00 12/09/17 15:59 12/05/17 16:13 Ascorbic Acid (Vitamin C) 500 mg NEEDED PRN ORAL Constipation 12/04/17 08:45 01/03/18 08:44 Lorazepam (Ativan) 1 mg Q4H PRN SL Muscle Spasm or anxiety 12/05/17 12:41 12/08/17 12:40 Menthol/Methyl Salicylate (Bengay) 1 applic QIDPRN PRN TOPIC For Pain 12/03/17 10:00 12/26/17 09:59 Ondansetron HCl (Zofran ODT) 4 mg Q6H PRN ORAL Nausea & Vomiting 12/04/17 09:00 01/03/18 08:59 12/04/17 11:22 Oxycodone/ Acetaminophen (Percocet 10/325) 1 tab Q4H PRN ORAL Severe Pain (Pain Scale 7-10) 12/05/17 14:00 12/08/17 09:59 Pantoprazole (Protonix) 40 mg DAILY ORAL 12/04/17 09:00 01/03/18 08:59 12/05/17 08:11 Phytonadione (Vitamin K) 10 mg ONCE A WEEK SUBQ 12/08/17 09:00 12/31/17 08:59 Ramelteon (Rozerem) 8 mg QHS ORAL 12/04/17 21:00 01/03/18 20:59 12/04/17 20:06 Height (Feet): 5 Height (Inches): 7.00 Weight (Pounds): 197 General Appearance: no apparent distress, alert, non-toxic Head: normocephalic, atraumatic Eyes: bilateral anicteric ENT: normal voice Neck: full range of motion, no mass Respiratory: lungs clear Cardiovascular: regular rate, rhythm Gastrointestinal: normal bowel sounds, soft, tenderness - mild mid abdominal tenderness, subjectively improved per patient. Musculoskeletal: no calf tenderness Edema: no edema noted Generalized Neurologic: no new focality Juno Rose MD Dec 05, 2017 18:12
[2017-12-05] MEDS: Allopurinol 100mg Tab ORAL SCH (20:14)
[2017-12-05] MEDS: Ramelteon 8mg tab (Approved for Delirium use only) ORAL SCH (20:14)
[2017-12-06 08:00] VITALS: BP 95/65
[2017-12-06 08:07] VITALS: BP 95/65
[2017-12-06] MEDS ORDERED: LORazepam 1mg tab SL PRN (09:05)
--- NOTE | 2017-12-06 09:06 | General Progress Note ---
Progress Note Progress Note AVSS Doing much better and eating much better Abdomen soft, flat. Niall removed and steristrips applied. Will leave nylon sutures several additional days (over mesh repair of hernia). BCIR ileo catheter removed - reinserts readily Urine 1340 BCIR ileo 1245 Labs - pending Imp. Improved Plan: RN supervised Denise Pouch self-intubations q3h am to hs and prn continue I&O await labs Antibiotics - per ID Rodney Stone MD Dec 06, 2017 09:06
[2017-12-06 09:17] LABS: BASOPHILS % (AUTO) 0.8 % (0.0-2.0); EOSINOPHILS % (AUTO) 2.1 % (0.0-3.0); HEMATOCRIT 35.7 % (42.0-52.0); HEMOGLOBIN 12.2 G/DL (14.2-18.0); LYMPHOCYTES % (AUTO) 19.3 % (20.0-45.0); MEAN CORPUSCULAR VOLUME 84 FL (80-99); MONOCYTES % (AUTO) 4.7 % (1.0-10.0); NEUTROPHILS % (AUTO) 73.1 % (45.0-75.0); PLATELET COUNT 496 K/UL (150-450); RED BLOOD COUNT 4.27 M/UL (4.70-6.10); RED CELL DISTRIBUTION WIDTH 12.3 % (11.6-14.8)
[2017-12-06 09:36] LABS: ALANINE AMINOTRANSFERASE 33 U/L (12-78); ALBUMIN 2.6 G/DL (3.4-5.0); ALBUMIN/GLOBULIN RATIO 0.5 (1.0-2.7); ALKALINE PHOSPHATASE 395 U/L (46-116); ANION GAP 8 mmol/L (5-15); ASPARTATE AMINO TRANSFERASE 28 U/L (15-37); BILIRUBIN,TOTAL 0.3 MG/DL (0.2-1.0); BLOOD UREA NITROGEN 23 mg/dL (7-18); CALCIUM 8.9 MG/DL (8.5-10.1); CARBON DIOXIDE 25 MMOL/L (21-32); CHLORIDE 102 MMOL/L (98-107); CREATININE 1.4 MG/DL (0.55-1.30); POTASSIUM 4.1 MMOL/L (3.5-5.1); SODIUM 135 MMOL/L (136-145)
--- NOTE | 2017-12-06 10:24 | GI Progress Note ---
Assessment/Plan Problems: (1) Bleeding from colostomy stoma ICD Codes: K94.01 - Bleeding from colostomy stoma SNOMED: 390221897 (2) Anemia ICD Codes: D64.9 - Anemia, unspecified SNOMED: 703843166 (3) Fe deficiency anemia ICD Codes: D50.9 - Iron deficiency anemia, unspecified SNOMED: 55018826 (4) Ileostomy stenosis ICD Codes: K94.13 - Enterostomy malfunction SNOMED: 38509365 Status: stable Status Narrative Discussed with Dr. Mena. Assessment/Plan MRCP reviewed >> polyp or mass or stenotic area of the common bile duct. CT AP reviewed Will need ERCP to evaluate the duodenal diverticulum, however must defer for minimum of 2 weeks given recent surgery. >> will follow up as outpatient symptomatic treatment at this time BCIR diet pain mgmt zofran prn prn transfusions ppi fu labs The patient was seen and examined at bedside and all new and available data was reviewed in the patients chart. I agree with the above findings, impression and plan. (Patient seen earlier today. Signature stamp does not reflect patient encounter time.). - Tony Mena MD Subjective Gastrointestinal/Abdominal: Reports: no symptoms Objective Last 24 Hour Vital Signs Date Time Temp Pulse Resp B/P (MAP) Pulse Ox O2 Delivery O2 Flow Rate FiO2 12/06/17 08:07 98.1 56 20 95/65 (75) 96 98.1 12/05/17 20:41 Room Air 12/05/17 16:00 97.7 75 19 105/75 (85) 99 97.7 12/05/17 12:00 97.5 67 19 96/61 (73) 99 97.5 Intake and Output 12/05/17 12/06/17 19:00 07:00 Intake Total 1628 ml 630 ml Output Total 1485 ml 400 ml Balance 143 ml 230 ml Intake Oral 1320 ml 630 ml IV Total 228 ml Other 80 ml Output Urine Total 640 ml Other 845 ml 400 ml # Voids 1 Laboratory Tests Test 12/06/17 09:00 White Blood Count 10.0 K/UL (4.8-10.8) Red Blood Count 4.27 M/UL (4.70-6.10) L Hemoglobin 12.2 G/DL (14.2-18.0) L Hematocrit 35.7 % (42.0-52.0) L Mean Corpuscular Volume 84 FL (80-99) Mean Corpuscular Hemoglobin 28.5 PG (27.0-31.0) Mean Corpuscular Hemoglobin Concent 34.1 G/DL (32.0-36.0) Red Cell Distribution Width 12.3 % (11.6-14.8) Platelet Count 496 K/UL (150-450) H Mean Platelet Volume 5.6 FL (6.5-10.1) L Neutrophils (%) (Auto) 73.1 % (45.0-75.0) Lymphocytes (%) (Auto) 19.3 % (20.0-45.0) L Monocytes (%) (Auto) 4.7 % (1.0-10.0) Eosinophils (%) (Auto) 2.1 % (0.0-3.0) Basophils (%) (Auto) 0.8 % (0.0-2.0) Sodium Level 135 MMOL/L (136-145) L Potassium Level 4.1 MMOL/L (3.5-5.1) Chloride Level 102 MMOL/L (98-107) Carbon Dioxide Level 25 MMOL/L (21-32) Anion Gap 8 mmol/L (5-15) Blood Urea Nitrogen 23 mg/dL (7-18) H Creatinine 1.4 MG/DL (0.55-1.30) H Estimat Glomerular Filtration Rate 50.9 mL/min (>60) Glucose Level 154 MG/DL (74-106) H Calcium Level 8.9 MG/DL (8.5-10.1) Magnesium Level 1.7 MG/DL (1.8-2.4) L Total Bilirubin 0.3 MG/DL (0.2-1.0) Aspartate Amino Transf (AST/SGOT) 28 U/L (15-37) Alanine Aminotransferase (ALT/SGPT) 33 U/L (12-78) Alkaline Phosphatase 395 U/L (46-116) H Total Protein 7.4 G/DL (6.4-8.2) Albumin 2.6 G/DL (3.4-5.0) L Globulin 4.8 g/dL Albumin/Globulin Ratio 0.5 (1.0-2.7) L Microbiology Date/Time Source Procedure Growth Status 10/14/18 10:33 Stool Clostridium difficile Toxin Assay - Final Complete Height (Feet): 5 Height (Inches): 7.00 Weight (Pounds): 197 General Appearance: WD/WN, no apparent distress, alert Cardiovascular: normal rate Respiratory/Chest: normal breath sounds, no respiratory distress Abdominal Exam: normal bowel sounds, non tender, soft, other - ileostomy Extremities: non-tender Titi Francisco NP Dec 06, 2017 10:24
[2017-12-06 12:00] VITALS: BP 93/62
[2017-12-06] MEDS: D5 1/4NS 1000ml 1,000 ML IV SCH ×2 (12:16→21:01)
--- NOTE | 2017-12-06 14:37 | General Progress Note ---
Progress Note Progress Note see earlier note. Labs reveal dehydration with hemoconcentration. Plan: IV fluids f/u labs in AM Rodney Stone MD Dec 06, 2017 14:37
[2017-12-06 16:00] VITALS: BP 110/68
[2017-12-06] MEDS: Amikacin 1,000 MG in NS 110 ML IV SCH (16:25)
[2017-12-06 20:01] VITALS: BP 114/65
--- NOTE | 2017-12-06 20:06 | Infectious Diseases Prog Note ---
Assessment/Plan Assessment/Plan ASSESSMENT AND PLAN: 1. e.coli bacteremia, ? line infection, ? uti, ? GI source, sepsis, leukocytosis , fevers, sirs, ? aspiration pna - change to aztreonam, discontinue amikacin secondary to increase in creatinine - day # 5 antibiotics (started 12/01) - patient with severe pcn allergy which includes hives - line removed, cath tip negative - CT abdomen and pelvis without abscess - urine culture with mixed organisms, ua with only 0-2 wbc - monitor labs - monitor chest x-ray, last chest x-ray improved 2. The patient has history of Denise pouch. The patient is status post Kock revision, status post incisional hernia repair, and status post abdominal wall hematoma evacuation. 3. The patient has history of ulcerative colitis with multiple GI surgeries. 4. PPI. 5. He has a central line for TPN. 6. History of Cipro use in the past. 7. History of malfunctioning Denise pouch. 8. Hypertension. 9. Blood pressure treatment per Internal Medicine. 10. Hyperlipidemia. Treatment per Internal Medicine. 11. History of acute coronary syndrome. 12. History of GI bleed. 13. History of gout. 14. Vitamin B12 deficiency. 15. Vitamin D deficiency. 16. Allergies to cephalexin, oral Flagyl, penicillin, sulfa with the allergies to penicillin being hives. 17. Social history negative. 18. MAR was noted. 19. Case discussed with RN. 20. Family history noncontributory. 21. Continue treatment per primary consultants. 22. Surgery followup per Dr. Stone. 23. Orders were entered and noted. 24. Case was also discussed with the patient and 25. total time spent - 35 minutes Subjective Constitutional: Denies: fever HEENT: Denies: congestion Respiratory: Denies: shortness of breath Cardiovascular: Denies: chest pain Gastrointestinal/Abdominal: Denies: nausea, vomiting, diarrhea Genitourinary: Denies: dysuria Neurologic: Denies: headache Psychiatric: Denies: depression Skin: Denies: rash Hematologic: Denies: bleeding Musculoskeletal: Reports: pain - controlled Allergies: Coded Allergies: CEPHALEXIN (Verified Allergy, Mild, 11/06/09) PENICILLIN G (Verified Allergy, Mild, 01/22/09) SULFA (SULFONAMIDE ANTIBIOTICS) (Verified Allergy, Mild, 9/16/10) Uncoded Allergies: ORAL FLAGYL (Adverse Reaction, Unknown, 11/07/09) Objective Vital Signs Last 24 Hour Vital Signs Date Time Temp Pulse Resp B/P (MAP) Pulse Ox O2 Delivery O2 Flow Rate FiO2 12/06/17 16:00 98.4 78 20 110/68 (82) 96 98.4 12/06/17 12:00 98.3 70 20 93/62 (72) 98 98.3 12/06/17 10:29 98.1 12/06/17 09:00 Room Air 12/06/17 08:07 98.1 56 20 95/65 (75) 96 98.1 12/06/17 08:00 98.1 56 20 95/65 (75) 96 98.1 12/05/17 20:41 Room Air Height (Feet): 5 Height (Inches): 7.00 Weight (Pounds): 197 General Appearance: no acute distress HEENT: normocephalic, atraumatic, anicteric, mucous membranes moist Respiratory/Chest: lungs clear, normal breath sounds, no respiratory distress, no accessory muscle use Cardiovascular: normal rate, regular rhythm Abdomen: normal bowel sounds, soft, non tender, no organomegaly Genitourinary: other - no rios Extremities: no cyanosis Skin: no rash 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 Pneumonia suspected in the right lung The CT scanner at [facility] is accredited by the [employer] [place] [employer] and the scans are performed using dose optimization techniques as appropriate to a performed exam including Automatic Exposure control. CT abdomen and pelvis: IMPRESSION: Status post recent surgery with skin romeo and postsurgical changes in the anterior abdominal wall. Trace fluid and a few bubbles of air considered postsurgical change. No defined fluid collection or evidence of abscess. Continent ileostomy in the lower abdomen appears unremarkable. Total colectomy noted. Catheter position is satisfactory. No evidence of bowel obstruction or intra-abdominal or pelvic abscess. Other, multiple incidental findings include atherosclerotic vascular disease, bilateral renal cysts, small bilateral inguinal hernias, mild posterior basilar atelectasis, duodenal diverticulum, accessory spleen. Chest x-ray - 12/03 - A single view chest radiograph was obtained. Findings: Faint infiltrate in the right perihilar region again noted. PICC line was removed. The cardiac silhouette is normal. IMPRESSION: Less conspicuous right perihilar infiltrate again noted Microbiology Date/Time Source Procedure Growth Status 12/04/17 05:25 Blood Blood Culture - Preliminary NO GROWTH AFTER 48 HOURS Resulted 12/04/17 05:20 Blood Blood Culture - Preliminary NO GROWTH AFTER 48 HOURS Resulted 12/05/17 10:33 Stool Clostridium difficile Toxin Assay - Final Complete Laboratory Tests Test 12/06/17 09:00 White Blood Count 10.0 K/UL (4.8-10.8) Red Blood Count 4.27 M/UL (4.70-6.10) L Hemoglobin 12.2 G/DL (14.2-18.0) L Hematocrit 35.7 % (42.0-52.0) L Mean Corpuscular Volume 84 FL (80-99) Mean Corpuscular Hemoglobin 28.5 PG (27.0-31.0) Mean Corpuscular Hemoglobin Concent 34.1 G/DL (32.0-36.0) Red Cell Distribution Width 12.3 % (11.6-14.8) Platelet Count 496 K/UL (150-450) H Mean Platelet Volume 5.6 FL (6.5-10.1) L Neutrophils (%) (Auto) 73.1 % (45.0-75.0) Lymphocytes (%) (Auto) 19.3 % (20.0-45.0) L Monocytes (%) (Auto) 4.7 % (1.0-10.0) Eosinophils (%) (Auto) 2.1 % (0.0-3.0) Basophils (%) (Auto) 0.8 % (0.0-2.0) Sodium Level 135 MMOL/L (136-145) L Potassium Level 4.1 MMOL/L (3.5-5.1) Chloride Level 102 MMOL/L (98-107) Carbon Dioxide Level 25 MMOL/L (21-32) Anion Gap 8 mmol/L (5-15) Blood Urea Nitrogen 23 mg/dL (7-18) H Creatinine 1.4 MG/DL (0.55-1.30) H Estimat Glomerular Filtration Rate 50.9 mL/min (>60) Glucose Level 154 MG/DL (74-106) H Calcium Level 8.9 MG/DL (8.5-10.1) Magnesium Level 1.7 MG/DL (1.8-2.4) L Total Bilirubin 0.3 MG/DL (0.2-1.0) Aspartate Amino Transf (AST/SGOT) 28 U/L (15-37) Alanine Aminotransferase (ALT/SGPT) 33 U/L (12-78) Alkaline Phosphatase 395 U/L (46-116) H Total Protein 7.4 G/DL (6.4-8.2) Albumin 2.6 G/DL (3.4-5.0) L Globulin 4.8 g/dL Albumin/Globulin Ratio 0.5 (1.0-2.7) L Current Medications Medications (Trade) Dose Ordered Sig/Julio Route PRN Reason Start Time Stop Time Status Last Admin Dose Admin Acetaminophen (Tylenol) 650 mg Q4H PRN ORAL Mild Pain/Temp > 100.2 12/03/17 10:00 12/31/17 09:59 Allopurinol (Zyloprim) 100 mg QHS ORAL 12/03/17 21:00 12/22/17 20:59 12/05/17 20:14 Amikacin Protocol (Amikacin pharmacy to dose) 1 ea DAILY PRN MISC Per rx protocol 12/03/17 10:00 01/02/18 09:59 Amikacin Sulfate 1000 mg/Sodium Chloride 114 ml @ 228 mls/hr Q24H IV 12/03/17 16:00 12/09/17 15:59 12/06/17 16:25 Ascorbic Acid (Vitamin C) 500 mg NEEDED PRN ORAL Constipation 12/04/17 08:45 01/03/18 08:44 Dextrose/Sodium Chloride 1,000 ml @ 100 mls/hr Q10H IV 12/06/17 11:15 01/05/18 11:14 12/06/17 12:16 Lorazepam (Ativan) 1 mg Q4H PRN SL Muscle Spasm or anxiety 12/06/17 09:05 12/09/17 09:04 Menthol/Methyl Salicylate (Bengay) 1 applic QIDPRN PRN TOPIC For Pain 12/03/17 10:00 12/26/17 09:59 Ondansetron HCl (Zofran ODT) 4 mg Q6H PRN ORAL Nausea & Vomiting 12/04/17 09:00 01/03/18 08:59 12/04/17 11:22 Oxycodone/ Acetaminophen (Percocet ) 1 tab Q4H PRN ORAL Severe Pain (Pain Scale 7-10) 12/06/17 09:05 12/09/17 09:04 12/06/17 09:59 Pantoprazole (Protonix) 40 mg DAILY ORAL 12/04/17 09:00 01/03/18 08:59 12/06/17 09:51 Phytonadione (Vitamin K) 10 mg ONCE A WEEK SUBQ 12/08/17 09:00 12/31/17 08:59 Ramelteon (Rozerem) 8 mg QHS ORAL 12/04/17 21:00 01/03/18 20:59 12/05/17 20:14 Yogesh Martínez MD Dec 06, 2017 20:06
--- NOTE | 2017-12-06 20:50 | Geriatric Progress Note ---
Assessment/Plan Problems: (1) Hypertension (2) Presence of stent in coronary artery in patient with coronary artery disease (3) Dyslipidemia (4) Vitamin B12 deficiency (5) Vitamin D deficiency (6) Ulcerative colitis (7) History of gastrointestinal bleeding (8) Uric acid kidney stone (9) MALFUNCTION OF BCIR WITH BOWEL OBSTRUCTION (10) Recurrent ventral hernia and stoma stenosis (11) Volume depletion (12) Leukocytosis (13) Fever (14) Tachycardia (15) Aspiration pneumonitis (16) Gram-negative bacteremia Assessment/Plan Reviewed with Dr. Martínez, complete antibiotic course. Repeat C&S in blood negative, suggesting no persistent bacteremia. Surgical recovery progressing. Element of dysphoria, ? encephalopathy vs. underlying depressive syndrome vs. MCI. No intervention at this time except for Rozerem. Discussed with: patient, hospital staff Subjective Interval Events Patient appears more dysthymic today. did not visit and expected visitor did not show. Labs with elevation of BUN/Cr, concern for volume depletion vs. LONI. Dr. Stone resumed IVF, Dr. Martínez changed to Aztreonam to diminish risk of LONI due to antibiotic. Patient frustrated by increased interventions but accepting at this point. Intubations proceeding. P.o. intake improved. Other lab work unremarkable. Constitutional: Denies: chills, fever Respiratory: Denies: cough, shortness of breath Cardiovascular: Denies: chest pain, palpitations Gastrointestinal/Abdominal: Denies: vomiting Genitourinary: Denies: dysuria Geriatric Geriatric Last 24 Hour Vital Signs Date Time Temp Pulse Resp B/P (MAP) Pulse Ox O2 Delivery O2 Flow Rate FiO2 12/06/17 20:01 98.4 81 16 114/65 (81) 98 98.4 12/06/17 16:00 98.4 78 20 110/68 (82) 96 98.4 12/06/17 12:00 98.3 70 20 93/62 (72) 98 98.3 12/06/17 10:29 98.1 12/06/17 09:00 Room Air 12/06/17 08:07 98.1 56 20 95/65 (75) 96 98.1 12/06/17 08:00 98.1 56 20 95/65 (75) 96 98.1 Intake and Output 12/05/17 12/06/17 19:00 07:00 Intake Total 1628 ml 630 ml Output Total 1485 ml 400 ml Balance 143 ml 230 ml Intake Oral 1320 ml 630 ml IV Total 228 ml Other 80 ml Output Urine Total 640 ml Other 845 ml 400 ml # Voids 1 Laboratory Tests Test 12/06/17 09:00 White Blood Count 10.0 K/UL (4.8-10.8) Red Blood Count 4.27 M/UL (4.70-6.10) L Hemoglobin 12.2 G/DL (14.2-18.0) L Hematocrit 35.7 % (42.0-52.0) L Mean Corpuscular Volume 84 FL (80-99) Mean Corpuscular Hemoglobin 28.5 PG (27.0-31.0) Mean Corpuscular Hemoglobin Concent 34.1 G/DL (32.0-36.0) Red Cell Distribution Width 12.3 % (11.6-14.8) Platelet Count 496 K/UL (150-450) H Mean Platelet Volume 5.6 FL (6.5-10.1) L Neutrophils (%) (Auto) 73.1 % (45.0-75.0) Lymphocytes (%) (Auto) 19.3 % (20.0-45.0) L Monocytes (%) (Auto) 4.7 % (1.0-10.0) Eosinophils (%) (Auto) 2.1 % (0.0-3.0) Basophils (%) (Auto) 0.8 % (0.0-2.0) Sodium Level 135 MMOL/L (136-145) L Potassium Level 4.1 MMOL/L (3.5-5.1) Chloride Level 102 MMOL/L (98-107) Carbon Dioxide Level 25 MMOL/L (21-32) Anion Gap 8 mmol/L (5-15) Blood Urea Nitrogen 23 mg/dL (7-18) H Creatinine 1.4 MG/DL (0.55-1.30) H Estimat Glomerular Filtration Rate 50.9 mL/min (>60) Glucose Level 154 MG/DL (74-106) H Calcium Level 8.9 MG/DL (8.5-10.1) Magnesium Level 1.7 MG/DL (1.8-2.4) L Total Bilirubin 0.3 MG/DL (0.2-1.0) Aspartate Amino Transf (AST/SGOT) 28 U/L (15-37) Alanine Aminotransferase (ALT/SGPT) 33 U/L (12-78) Alkaline Phosphatase 395 U/L (46-116) H Total Protein 7.4 G/DL (6.4-8.2) Albumin 2.6 G/DL (3.4-5.0) L Globulin 4.8 g/dL Albumin/Globulin Ratio 0.5 (1.0-2.7) L Current Medications Medications (Trade) Dose Ordered Sig/Julio Route PRN Reason Start Time Stop Time Status Last Admin Dose Admin Acetaminophen (Tylenol) 650 mg Q4H PRN ORAL Mild Pain/Temp > 100.2 12/03/17 10:00 12/31/17 09:59 Allopurinol (Zyloprim) 100 mg QHS ORAL 12/03/17 21:00 12/22/17 20:59 12/05/17 20:14 Ascorbic Acid (Vitamin C) 500 mg NEEDED PRN ORAL Constipation 12/04/17 08:45 01/03/18 08:44 Aztreonam 1 gm/ Dextrose 55 ml @ 110 mls/hr Q8HR IVPB 12/06/17 22:00 12/13/17 21:59 Dextrose/Sodium Chloride 1,000 ml @ 100 mls/hr Q10H IV 12/06/17 11:15 01/05/18 11:14 12/06/17 12:16 Lorazepam (Ativan) 1 mg Q4H PRN SL Muscle Spasm or anxiety 12/06/17 09:05 12/09/17 09:04 Menthol/Methyl Salicylate (Bengay) 1 applic QIDPRN PRN TOPIC For Pain 12/03/17 10:00 12/26/17 09:59 Ondansetron HCl (Zofran ODT) 4 mg Q6H PRN ORAL Nausea & Vomiting 12/04/17 09:00 01/03/18 08:59 12/04/17 11:22 Oxycodone/ Acetaminophen (Percocet 10) 1 tab Q4H PRN ORAL Severe Pain (Pain Scale 7-10) 12/06/17 09:05 12/09/17 09:04 12/06/17 09:59 Pantoprazole (Protonix) 40 mg DAILY ORAL 12/04/17 09:00 01/03/18 08:59 12/06/17 09:51 Phytonadione (Vitamin K) 10 mg ONCE A WEEK SUBQ 12/08/17 09:00 12/31/17 08:59 Ramelteon (Rozerem) 8 mg QHS ORAL 12/04/17 21:00 01/03/18 20:59 12/05/17 20:14 Height (Feet): 5 Height (Inches): 7.00 Weight (Pounds): 197 General Appearance: no apparent distress, alert, non-toxic Head: normocephalic, atraumatic Eyes: bilateral anicteric ENT: normal voice Neck: full range of motion, no mass Respiratory: lungs clear Cardiovascular: regular rate, rhythm Gastrointestinal: normal bowel sounds, soft, tenderness - diminished incisional tenderness Musculoskeletal: no calf tenderness Edema: no edema noted Generalized Neurologic: no new focality Juno Rose MD Dec 06, 2017 20:50
[2017-12-06] MEDS: Allopurinol 100mg Tab ORAL SCH (21:00)
[2017-12-06] MEDS: Ramelteon 8mg tab (Approved for Delirium use only) ORAL SCH (21:00)
[2017-12-06] MEDS: Aztreonam Inj 1 GM in D5W 55 ML IVPB SCH (21:01)
[2017-12-06] MEDS: Ascorbic Acid 500mg tab ORAL PRN (21:53)
[2017-12-07] MEDS: Ascorbic Acid 500mg tab ORAL PRN ×5 (06:12→20:03)
[2017-12-07] MEDS: Aztreonam Inj 1 GM in D5W 55 ML IVPB SCH ×3 (06:12→21:53)
[2017-12-07] MEDS: D5 1/4NS 1000ml 1,000 ML IV SCH ×2 (07:15→09:09)
[2017-12-07 08:00] VITALS: BP 111/75
[2017-12-07 08:51] LABS: BASOPHILS % (AUTO) 0.9 % (0.0-2.0); EOSINOPHILS % (AUTO) 2.8 % (0.0-3.0); HEMATOCRIT 36.7 % (42.0-52.0); HEMOGLOBIN 12.2 G/DL (14.2-18.0); LYMPHOCYTES % (AUTO) 21.2 % (20.0-45.0); MEAN CORPUSCULAR VOLUME 84 FL (80-99); MONOCYTES % (AUTO) 5.4 % (1.0-10.0); NEUTROPHILS % (AUTO) 69.7 % (45.0-75.0); PLATELET COUNT 588 K/UL (150-450); RED BLOOD COUNT 4.39 M/UL (4.70-6.10); RED CELL DISTRIBUTION WIDTH 12.2 % (11.6-14.8); WHITE BLOOD COUNT 10.2 K/UL (4.8-10.8)
[2017-12-07 09:09] LABS: ANION GAP 9 mmol/L (5-15); BLOOD UREA NITROGEN 15 mg/dL (7-18); CARBON DIOXIDE 26 MMOL/L (21-32); CHLORIDE 103 MMOL/L (98-107); CREATININE 1.3 MG/DL (0.55-1.30); POTASSIUM 3.7 MMOL/L (3.5-5.1); SODIUM 138 MMOL/L (136-145)
[2017-12-07 12:00] VITALS: BP 111/66
--- NOTE | 2017-12-07 12:33 | GI Progress Note ---
Assessment/Plan Problems: (1) Bleeding from colostomy stoma ICD Codes: K94.01 - Bleeding from colostomy stoma SNOMED: 097626539 (2) Anemia ICD Codes: D64.9 - Anemia, unspecified SNOMED: 584512439 (3) Fe deficiency anemia ICD Codes: D50.9 - Iron deficiency anemia, unspecified SNOMED: 92357054 (4) Ileostomy stenosis ICD Codes: K94.13 - Enterostomy malfunction SNOMED: 07393172 Status: stable Status Narrative Discussed with Dr. Mena. Assessment/Plan MRCP reviewed >> polyp or mass or stenotic area of the common bile duct. CT AP reviewed Will need ERCP to evaluate the duodenal diverticulum, however must defer for minimum of 2 weeks given recent surgery. >> will follow up as outpatient symptomatic treatment at this time BCIR diet pain mgmt zofran prn prn transfusions ppi fu labs The patient was seen and examined at bedside and all new and available data was reviewed in the patients chart. I agree with the above findings, impression and plan. (Patient seen earlier today. Signature stamp does not reflect patient encounter time.). - Tony Mena MD Subjective Gastrointestinal/Abdominal: Reports: no symptoms Objective Last 24 Hour Vital Signs Date Time Temp Pulse Resp B/P (MAP) Pulse Ox O2 Delivery O2 Flow Rate FiO2 12/07/17 09:00 Room Air 12/07/17 08:00 98.4 86 19 111/75 (87) 100 98.4 12/06/17 21:00 Room Air 12/06/17 20:01 98.4 81 16 114/65 (81) 98 98.4 12/06/17 16:00 98.4 78 20 110/68 (82) 96 98.4 Intake and Output 12/06/17 12/07/17 19:00 07:00 Intake Total 1373 ml 1200 ml Output Total 1570 ml 1400 ml Balance -197 ml -200 ml Intake Oral 1373 ml 800 ml IV Total 400 ml Output Urine Total 1050 ml 1100 ml Other 520 ml 300 ml # Voids 3 Laboratory Tests Test 12/07/17 08:45 White Blood Count 10.2 K/UL (4.8-10.8) Red Blood Count 4.39 M/UL (4.70-6.10) L Hemoglobin 12.2 G/DL (14.2-18.0) L Hematocrit 36.7 % (42.0-52.0) L Mean Corpuscular Volume 84 FL (80-99) Mean Corpuscular Hemoglobin 27.8 PG (27.0-31.0) Mean Corpuscular Hemoglobin Concent 33.3 G/DL (32.0-36.0) Red Cell Distribution Width 12.2 % (11.6-14.8) Platelet Count 588 K/UL (150-450) H Mean Platelet Volume 5.4 FL (6.5-10.1) L Neutrophils (%) (Auto) 69.7 % (45.0-75.0) Lymphocytes (%) (Auto) 21.2 % (20.0-45.0) Monocytes (%) (Auto) 5.4 % (1.0-10.0) Eosinophils (%) (Auto) 2.8 % (0.0-3.0) Basophils (%) (Auto) 0.9 % (0.0-2.0) Sodium Level 138 MMOL/L (136-145) Potassium Level 3.7 MMOL/L (3.5-5.1) Chloride Level 103 MMOL/L (98-107) Carbon Dioxide Level 26 MMOL/L (21-32) Anion Gap 9 mmol/L (5-15) Blood Urea Nitrogen 15 mg/dL (7-18) Creatinine 1.3 MG/DL (0.55-1.30) Estimat Glomerular Filtration Rate 55.4 mL/min (>60) Glucose Level 122 MG/DL (74-106) H Calcium Level 9.0 MG/DL (8.5-10.1) Magnesium Level 2.0 MG/DL (1.8-2.4) Height (Feet): 5 Height (Inches): 7.00 Weight (Pounds): 197 General Appearance: alert Cardiovascular: normal rate Respiratory/Chest: normal breath sounds, no respiratory distress Abdominal Exam: normal bowel sounds, non tender, soft, other - avendaño pouch Titi Francisco PHARMACY PICKING TECH Dec 07, 2017 12:33
--- NOTE | 2017-12-07 13:07 | Infectious Diseases Prog Note ---
Assessment/Plan Assessment/Plan ASSESSMENT AND PLAN: 1. e.coli bacteremia, ? line infection, ? uti, ? GI source, sepsis, leukocytosis , fevers, sirs, ? aspiration pna - aztreonam (antibiotics started on 12/01), plan on 10 day treatment course - patient with severe pcn allergy which includes hives - line removed, cath tip with < 1 colony gram+ which is a likely contaminant - CT abdomen and pelvis without abscess - urine culture with mixed organisms, ua with only 0-2 wbc - monitor labs - monitor chest x-ray, last chest x-ray improved 2. The patient has history of Denise pouch. The patient is status post Kock revision, status post incisional hernia repair, and status post abdominal wall hematoma evacuation. 3. The patient has history of ulcerative colitis with multiple GI surgeries. 4. PPI. 5. He has a central line for TPN. 6. History of Cipro use in the past. 7. History of malfunctioning Denise pouch. 8. Hypertension. 9. Blood pressure treatment per Internal Medicine. 10. Hyperlipidemia. Treatment per Internal Medicine. 11. History of acute coronary syndrome. 12. History of GI bleed. 13. History of gout. 14. Vitamin B12 deficiency. 15. Vitamin D deficiency. 16. Allergies to cephalexin, oral Flagyl, penicillin, sulfa with the allergies to penicillin being hives. 17. Social history negative. 18. MAR was noted. 19. Case discussed with RN. 20. Family history noncontributory. 21. Continue treatment per primary consultants. 22. Surgery followup per Dr. Stone. 23. Orders were entered and noted. 24. Case was also discussed with the patient and 25. total time spent - 35 minutes Subjective Constitutional: Reports: other - patient feels better ; Denies: fever HEENT: Denies: congestion Respiratory: Denies: shortness of breath Cardiovascular: Denies: chest pain Gastrointestinal/Abdominal: Denies: nausea, vomiting, diarrhea, constipation Neurologic: Denies: headache Psychiatric: Denies: depression Skin: Denies: rash Hematologic: Denies: bleeding Musculoskeletal: Denies: pain Allergies: Coded Allergies: CEPHALEXIN (Verified Allergy, Mild, 11/06/09) PENICILLIN G (Verified Allergy, Mild, 01/22/09) SULFA (SULFONAMIDE ANTIBIOTICS) (Verified Allergy, Mild, 11/07/09) Uncoded Allergies: ORAL FLAGYL (Adverse Reaction, Unknown, 11/07/09) Objective Vital Signs Last 24 Hour Vital Signs Date Time Temp Pulse Resp B/P (MAP) Pulse Ox O2 Delivery O2 Flow Rate FiO2 12/07/17 09:00 Room Air 12/07/17 08:00 98.4 86 19 111/75 (87) 100 98.4 12/06/17 21:00 Room Air 12/06/17 20:01 98.4 81 16 114/65 (81) 98 98.4 12/06/17 16:00 98.4 78 20 110/68 (82) 96 98.4 Height (Feet): 5 Height (Inches): 7.00 Weight (Pounds): 197 General Appearance: WD/WN, no acute distress HEENT: normocephalic, atraumatic, anicteric, mucous membranes moist, EOMI, supple, no JVD Respiratory/Chest: lungs clear, normal breath sounds, no respiratory distress, no accessory muscle use Cardiovascular: normal rate, regular rhythm, no gallop/murmur, no JVD Abdomen: normal bowel sounds, soft, non tender, no organomegaly, non distended Genitourinary: other - no rios, no cva pain Extremities: no cyanosis Skin: no rash 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 Pneumonia suspected in the right lung The CT scanner at [facility] is accredited by the [employer] and the scans are performed using dose optimization techniques as appropriate to a performed exam including Automatic Exposure control. CT abdomen and pelvis: IMPRESSION: Status post recent surgery with skin romeo and postsurgical changes in the anterior abdominal wall. Trace fluid and a few bubbles of air considered postsurgical change. No defined fluid collection or evidence of abscess. Continent ileostomy in the lower abdomen appears unremarkable. Total colectomy noted. Catheter position is satisfactory. No evidence of bowel obstruction or intra-abdominal or pelvic abscess. Other, multiple incidental findings include atherosclerotic vascular disease, bilateral renal cysts, small bilateral inguinal hernias, mild posterior basilar atelectasis, duodenal diverticulum, accessory spleen. Chest x-ray - 12/03 - A single view chest radiograph was obtained. Findings: Faint infiltrate in the right perihilar region again noted. PICC line was removed. The cardiac silhouette is normal. IMPRESSION: Less conspicuous right perihilar infiltrate again noted Microbiology Date/Time Source Procedure Growth Status 12/04/17 05:25 Blood Blood Culture - Preliminary NO GROWTH AFTER 48 HOURS Resulted 12/05/17 10:33 Stool Clostridium difficile Toxin Assay - Final Complete 12/01/17 14:30 Urine,Clean Catch Urine Culture - Final Mixed Urogenital Contaminants Complete 12/02/17 17:00 Catheter Site Catheter Tip Culture - Preliminary Gram Positive Cocci Resulted Microbiology Date/Time Source Procedure Growth Status 12/05/17 10:33 Stool Clostridium difficile Toxin Assay - Final Complete Laboratory Tests Test 12/07/17 08:45 White Blood Count 10.2 K/UL (4.8-10.8) Red Blood Count 4.39 M/UL (4.70-6.10) L Hemoglobin 12.2 G/DL (14.2-18.0) L Hematocrit 36.7 % (42.0-52.0) L Mean Corpuscular Volume 84 FL (80-99) Mean Corpuscular Hemoglobin 27.8 PG (27.0-31.0) Mean Corpuscular Hemoglobin Concent 33.3 G/DL (32.0-36.0) Red Cell Distribution Width 12.2 % (11.6-14.8) Platelet Count 588 K/UL (150-450) H Mean Platelet Volume 5.4 FL (6.5-10.1) L Neutrophils (%) (Auto) 69.7 % (45.0-75.0) Lymphocytes (%) (Auto) 21.2 % (20.0-45.0) Monocytes (%) (Auto) 5.4 % (1.0-10.0) Eosinophils (%) (Auto) 2.8 % (0.0-3.0) Basophils (%) (Auto) 0.9 % (0.0-2.0) Sodium Level 138 MMOL/L (136-145) Potassium Level 3.7 MMOL/L (3.5-5.1) Chloride Level 103 MMOL/L (98-107) Carbon Dioxide Level 26 MMOL/L (21-32) Anion Gap 9 mmol/L (5-15) Blood Urea Nitrogen 15 mg/dL (7-18) Creatinine 1.3 MG/DL (0.55-1.30) Estimat Glomerular Filtration Rate 55.4 mL/min (>60) Glucose Level 122 MG/DL (74-106) H Calcium Level 9.0 MG/DL (8.5-10.1) Magnesium Level 2.0 MG/DL (1.8-2.4) Current Medications Medications (Trade) Dose Ordered Sig/Julio Route PRN Reason Start Time Stop Time Status Last Admin Dose Admin Acetaminophen (Tylenol) 650 mg Q4H PRN ORAL Mild Pain/Temp > 100.2 12/03/17 10:00 12/31/17 09:59 Allopurinol (Zyloprim) 100 mg QHS ORAL 12/03/17 21:00 12/22/17 20:59 12/06/17 21:00 Ascorbic Acid (Vitamin C) 500 mg NEEDED PRN ORAL Constipation 12/04/17 08:45 01/03/18 08:44 12/07/17 08:42 Aztreonam 1 gm/ Dextrose 55 ml @ 110 mls/hr Q8HR IVPB 12/06/17 22:00 12/16/17 23:00 12/07/17 06:12 Dextrose/Sodium Chloride 1,000 ml @ 100 mls/hr Q10H IV 12/06/17 11:15 01/05/18 11:14 12/07/17 09:09 Lorazepam (Ativan) 1 mg Q4H PRN SL Muscle Spasm or anxiety 12/06/17 09:05 12/09/17 09:04 Menthol/Methyl Salicylate (Bengay) 1 applic QIDPRN PRN TOPIC For Pain 12/03/17 10:00 12/26/17 09:59 Ondansetron HCl (Zofran ODT) 4 mg Q6H PRN ORAL Nausea & Vomiting 12/04/17 09:00 01/03/18 08:59 12/04/17 11:22 Oxycodone/ Acetaminophen (Percocet 10/325) 1 tab Q4H PRN ORAL Severe Pain (Pain Scale 7-10) 12/06/17 09:05 12/09/17 09:04 12/07/17 08:43 Pantoprazole (Protonix) 40 mg DAILY ORAL 12/04/17 09:00 01/03/18 08:59 12/07/17 08:42 Phytonadione (Vitamin K) 10 mg ONCE A WEEK SUBQ 12/08/17 09:00 01/07/18 08:59 Ramelteon (Rozerem) 8 mg QHS ORAL 12/04/17 21:00 01/03/18 20:59 12/06/17 21:00 Yogesh Martínez MD Dec 07, 2017 13:07
--- NOTE | 2017-12-07 14:04 | General Progress Note ---
Progress Note Progress Note Afebrile, feeling much better. Eating well and intubating his Denise Pouch with 30Fr Medena catheter without difficulty. Abdomen soft Urine 2150 BCIR ileo 820 WBC 10,200 Hgb 12.2 Platelets up 588,000 BUN/CR 15/1.3 - down with IV hydration Imp. Dehydration improved Plan: continue IV fluids overnight then D/C if continues well IV antibiotics per ID Rodney Stone MD Dec 07, 2017 14:04
--- NOTE | 2017-12-07 15:57 | Cardiology Progress Note ---
Assessment/Plan Assessment/Plan malfunctioning continent pouch hx of cad now s/p lad stent stable tachy sinus related to fever pulm infiltrate / pneumonia? preop stress echo neg last week hemodynamically stable dvt ppx ambualte no sx to suggest acs ctpa noted no pe but infiltrate noted message left for dr razo to see if ok to start on ecotrin Subjective ROS Limited/Unobtainable: Yes Subjective sleeping Objective Last 24 Hour Vital Signs Date Time Temp Pulse Resp B/P (MAP) Pulse Ox O2 Delivery O2 Flow Rate FiO2 12/07/17 12:00 98.0 81 20 111/66 (81) 97 98.0 12/07/17 09:00 Room Air 12/07/17 08:00 98.4 86 19 111/75 (87) 100 98.4 12/06/17 21:00 Room Air 12/06/17 20:01 98.4 81 16 114/65 (81) 98 98.4 12/06/17 16:00 98.4 78 20 110/68 (82) 96 98.4 General Appearance: no apparent distress, other - sleeping Intake and Output 12/06/17 12/07/17 19:00 07:00 Intake Total 1373 ml 1200 ml Output Total 1570 ml 1400 ml Balance -197 ml -200 ml Intake Oral 1373 ml 800 ml IV Total 400 ml Output Urine Total 1050 ml 1100 ml Other 520 ml 300 ml # Voids 3 Laboratory Tests Test 12/07/17 08:45 White Blood Count 10.2 K/UL (4.8-10.8) Red Blood Count 4.39 M/UL (4.70-6.10) L Hemoglobin 12.2 G/DL (14.2-18.0) L Hematocrit 36.7 % (42.0-52.0) L Mean Corpuscular Volume 84 FL (80-99) Mean Corpuscular Hemoglobin 27.8 PG (27.0-31.0) Mean Corpuscular Hemoglobin Concent 33.3 G/DL (32.0-36.0) Red Cell Distribution Width 12.2 % (11.6-14.8) Platelet Count 588 K/UL (150-450) H Mean Platelet Volume 5.4 FL (6.5-10.1) L Neutrophils (%) (Auto) 69.7 % (45.0-75.0) Lymphocytes (%) (Auto) 21.2 % (20.0-45.0) Monocytes (%) (Auto) 5.4 % (1.0-10.0) Eosinophils (%) (Auto) 2.8 % (0.0-3.0) Basophils (%) (Auto) 0.9 % (0.0-2.0) Sodium Level 138 MMOL/L (136-145) Potassium Level 3.7 MMOL/L (3.5-5.1) Chloride Level 103 MMOL/L (98-107) Carbon Dioxide Level 26 MMOL/L (21-32) Anion Gap 9 mmol/L (5-15) Blood Urea Nitrogen 15 mg/dL (7-18) Creatinine 1.3 MG/DL (0.55-1.30) Estimat Glomerular Filtration Rate 55.4 mL/min (>60) Glucose Level 122 MG/DL (74-106) H Calcium Level 9.0 MG/DL (8.5-10.1) Magnesium Level 2.0 MG/DL (1.8-2.4) Microbiology Date/Time Source Procedure Growth Status 12/05/17 10:33 Stool Clostridium difficile Toxin Assay - Final Complete Jose Alejandro Aviles MD Dec 07, 2017 15:57
[2017-12-07 16:00] VITALS: BP 121/70
--- NOTE | 2017-12-07 17:10 | Geriatric Progress Note ---
Assessment/Plan Problems: (1) Hypertension (2) Presence of stent in coronary artery in patient with coronary artery disease (3) Dyslipidemia (4) Vitamin B12 deficiency (5) Vitamin D deficiency (6) Ulcerative colitis (7) History of gastrointestinal bleeding (8) Uric acid kidney stone (9) MALFUNCTION OF BCIR WITH BOWEL OBSTRUCTION (10) Recurrent ventral hernia and stoma stenosis (11) Volume depletion (12) Leukocytosis (13) Fever (14) Tachycardia (15) Aspiration pneumonitis (16) Gram-negative bacteremia Assessment/Plan Improving overall. Needs to complete antibiotics, otherwise no issues. Await cath tip I.D. and sensitivities. Continue current regimen. ASA restarted per Dr. Aviles. Discussed with: patient, hospital staff Subjective Interval Events Patient napping, easily arousable. Less dysphoria, tolerating p.o. well. Intubations going well. Ambulating. Cath tip now with some Gm+ cocci, likely contaminant, await C&S. Several more days of antibiotics expected. Constitutional: Denies: chills, fever Respiratory: Denies: cough, shortness of breath Cardiovascular: Denies: chest pain, palpitations Genitourinary: Denies: dysuria Geriatric Geriatric Last 24 Hour Vital Signs Date Time Temp Pulse Resp B/P (MAP) Pulse Ox O2 Delivery O2 Flow Rate FiO2 12/07/17 16:00 97.7 83 19 121/70 (87) 100 97.7 12/07/17 12:00 98.0 81 20 111/66 (81) 97 98.0 12/07/17 09:00 Room Air 12/07/17 08:00 98.4 86 19 111/75 (87) 100 98.4 12/06/17 21:00 Room Air 12/06/17 20:01 98.4 81 16 114/65 (81) 98 98.4 Intake and Output 12/06/17 12/07/17 19:00 07:00 Intake Total 1373 ml 1300 ml Output Total 1570 ml 1400 ml Balance -197 ml -100 ml Intake Oral 1373 ml 800 ml IV Total 500 ml Output Urine Total 1050 ml 1100 ml Other 520 ml 300 ml # Voids 3 Laboratory Tests Test 12/07/17 08:45 White Blood Count 10.2 K/UL (4.8-10.8) Red Blood Count 4.39 M/UL (4.70-6.10) L Hemoglobin 12.2 G/DL (14.2-18.0) L Hematocrit 36.7 % (42.0-52.0) L Mean Corpuscular Volume 84 FL (80-99) Mean Corpuscular Hemoglobin 27.8 PG (27.0-31.0) Mean Corpuscular Hemoglobin Concent 33.3 G/DL (32.0-36.0) Red Cell Distribution Width 12.2 % (11.6-14.8) Platelet Count 588 K/UL (150-450) H Mean Platelet Volume 5.4 FL (6.5-10.1) L Neutrophils (%) (Auto) 69.7 % (45.0-75.0) Lymphocytes (%) (Auto) 21.2 % (20.0-45.0) Monocytes (%) (Auto) 5.4 % (1.0-10.0) Eosinophils (%) (Auto) 2.8 % (0.0-3.0) Basophils (%) (Auto) 0.9 % (0.0-2.0) Sodium Level 138 MMOL/L (136-145) Potassium Level 3.7 MMOL/L (3.5-5.1) Chloride Level 103 MMOL/L (98-107) Carbon Dioxide Level 26 MMOL/L (21-32) Anion Gap 9 mmol/L (5-15) Blood Urea Nitrogen 15 mg/dL (7-18) Creatinine 1.3 MG/DL (0.55-1.30) Estimat Glomerular Filtration Rate 55.4 mL/min (>60) Glucose Level 122 MG/DL (74-106) H Calcium Level 9.0 MG/DL (8.5-10.1) Magnesium Level 2.0 MG/DL (1.8-2.4) Current Medications Medications (Trade) Dose Ordered Sig/Julio Route PRN Reason Start Time Stop Time Status Last Admin Dose Admin Acetaminophen (Tylenol) 650 mg Q4H PRN ORAL Mild Pain/Temp > 100.2 12/03/17 10:00 12/31/17 09:59 Allopurinol (Zyloprim) 100 mg QHS ORAL 12/03/17 21:00 12/22/17 20:59 12/06/17 21:00 Ascorbic Acid (Vitamin C) 500 mg NEEDED PRN ORAL Constipation 12/04/17 08:45 01/03/18 08:44 12/07/17 15:21 Aztreonam 1 gm/ Dextrose 55 ml @ 110 mls/hr Q8HR IVPB 12/06/17 22:00 12/16/17 23:00 12/07/17 13:26 Dextrose/Sodium Chloride 1,000 ml @ 100 mls/hr Q10H IV 12/06/17 11:15 01/05/18 11:14 12/07/17 09:09 Lorazepam (Ativan) 1 mg Q4H PRN SL Muscle Spasm or anxiety 12/06/17 09:05 12/09/17 09:04 Menthol/Methyl Salicylate (Bengay) 1 applic QIDPRN PRN TOPIC For Pain 12/03/17 10:00 12/26/17 09:59 Ondansetron HCl (Zofran ODT) 4 mg Q6H PRN ORAL Nausea & Vomiting 12/04/17 09:00 01/03/18 08:59 12/04/17 11:22 Oxycodone/ Acetaminophen (Percocet 10/325) 1 tab Q4H PRN ORAL Severe Pain (Pain Scale 7-10) 12/06/17 09:05 12/09/17 09:04 12/07/17 08:43 Pantoprazole (Protonix) 40 mg DAILY ORAL 12/04/17 09:00 01/03/18 08:59 12/07/17 08:42 Phytonadione (Vitamin K) 10 mg ONCE A WEEK SUBQ 12/08/17 09:00 01/07/18 08:59 Ramelteon (Rozerem) 8 mg QHS ORAL 12/04/17 21:00 01/03/18 20:59 12/06/17 21:00 Height (Feet): 5 Height (Inches): 7.00 Weight (Pounds): 197 General Appearance: no apparent distress, alert, non-toxic Head: normocephalic, atraumatic Eyes: bilateral anicteric ENT: normal voice Neck: full range of motion, no mass Respiratory: lungs clear Cardiovascular: regular rate, rhythm Gastrointestinal: normal bowel sounds, soft, tenderness - minimal incisional Musculoskeletal: no calf tenderness Edema: no edema noted Generalized Neurologic: no new focality Juno Rose MD Dec 07, 2017 17:10
[2017-12-07 20:00] VITALS: BP 120/77
[2017-12-07] MEDS: Ramelteon 8mg tab (Approved for Delirium use only) ORAL SCH (20:02)
[2017-12-07] MEDS: Allopurinol 100mg Tab ORAL SCH (20:02)
[2017-12-08] MEDS: Aztreonam Inj 1 GM in D5W 55 ML IVPB SCH ×3 (05:52→21:34)
[2017-12-08 06:00] VITALS: BP 109/72
[2017-12-08 07:41] LABS: EOSINOPHILS % (AUTO) 3.4 % (0.0-3.0); HEMATOCRIT 35.2 % (42.0-52.0); HEMOGLOBIN 11.6 G/DL (14.2-18.0); LYMPHOCYTES % (AUTO) 22.7 % (20.0-45.0); MEAN CORPUSCULAR VOLUME 85 FL (80-99); MONOCYTES % (AUTO) 5.8 % (1.0-10.0); PLATELET COUNT 570 K/UL (150-450); RED BLOOD COUNT 4.13 M/UL (4.70-6.10); RED CELL DISTRIBUTION WIDTH 12.9 % (11.6-14.8); WHITE BLOOD COUNT 8.1 K/UL (4.8-10.8)
[2017-12-08 07:59] LABS: ANION GAP 10 mmol/L (5-15); BLOOD UREA NITROGEN 13 mg/dL (7-18); CALCIUM 8.8 MG/DL (8.5-10.1); CARBON DIOXIDE 24 MMOL/L (21-32); CHLORIDE 105 MMOL/L (98-107); CREATININE 1.2 MG/DL (0.55-1.30); PHOSPHORUS 3.6 MG/DL (2.5-4.9); POTASSIUM 4.5 MMOL/L (3.5-5.1); SODIUM 139 MMOL/L (136-145)
[2017-12-08 08:00] VITALS: BP 114/76
[2017-12-08] MEDS ORDERED: Phytonadione 10 mg/mL 1ml amp SUBQ SCH ×3 (09:00)
[2017-12-08] MEDS: Fluconazole 100mg tab ORAL SCH (09:03)
[2017-12-08] MEDS: Ascorbic Acid 500mg tab ORAL PRN ×3 (09:03→12:38)
--- NOTE | 2017-12-08 09:14 | General Progress Note ---
Progress Note Progress Note AVSS Doing well - eating 80% of meals. Denise pouch effluent is thick - taking grape juice and vitamin C ABdomen soft, nicely healed CBC-wnl with decreased platelet count Chem. all satisf BUN 13 Cr 1.2 Urine 2800 BCIR ileo 890 Imp. Improved off IV fluids Plan; diflucan 100mg po daily for thrush (can't tolerate nystatin oral susp.) remove sutures tomorrow discharge 12/10 after last dose of IV antibiotics Rodney Stone MD Dec 08, 2017 09:13
--- NOTE | 2017-12-08 10:34 | GI Progress Note ---
Assessment/Plan Problems: (1) Bleeding from colostomy stoma ICD Codes: K94.01 - Bleeding from colostomy stoma SNOMED: 885854935 (2) Anemia ICD Codes: D64.9 - Anemia, unspecified SNOMED: 464374100 (3) Fe deficiency anemia ICD Codes: D50.9 - Iron deficiency anemia, unspecified SNOMED: 79282657 (4) Ileostomy stenosis ICD Codes: K94.13 - Enterostomy malfunction SNOMED: 54803159 Status: stable Status Narrative Discussed with Dr. Mena. Assessment/Plan MRCP reviewed >> polyp or mass or stenotic area of the common bile duct. CT AP reviewed Will need ERCP to evaluate the duodenal diverticulum, however must defer for minimum of 2 weeks given recent surgery. >> will follow up as outpatient symptomatic treatment at this time BCIR diet pain mgmt zofran prn prn transfusions ppi fu labs The patient was seen and examined at bedside and all new and available data was reviewed in the patients chart. I agree with the above findings, impression and plan. (Patient seen earlier today. Signature stamp does not reflect patient encounter time.). - Tony Mena MD Subjective Gastrointestinal/Abdominal: Reports: no symptoms Objective Last 24 Hour Vital Signs Date Time Temp Pulse Resp B/P (MAP) Pulse Ox O2 Delivery O2 Flow Rate FiO2 12/08/17 09:00 Room Air 12/08/17 08:00 98.0 83 18 114/76 (89) 97 98.0 12/08/17 06:00 98.0 82 18 109/72 (84) 97 98.0 12/07/17 21:00 Room Air 12/07/17 20:33 97.7 12/07/17 20:03 97.7 12/07/17 20:00 98.2 87 19 120/77 (91) 98 98.2 12/07/17 16:00 97.7 83 19 121/70 (87) 100 97.7 12/07/17 12:00 98.0 81 20 111/66 (81) 97 98.0 Intake and Output 12/07/17 12/08/17 19:00 07:00 Intake Total 1585 ml 450 ml Output Total 2825 ml 925 ml Balance -1240 ml -475 ml Intake Oral 770 ml 340 ml IV Total 755 ml 110 ml Other 60 ml Output Urine Total 2125 ml 675 ml Other 700 ml 250 ml # Voids 4 Laboratory Tests Test 12/08/17 06:41 White Blood Count 8.1 K/UL (4.8-10.8) Red Blood Count 4.13 M/UL (4.70-6.10) L Hemoglobin 11.6 G/DL (14.2-18.0) L Hematocrit 35.2 % (42.0-52.0) L Mean Corpuscular Volume 85 FL (80-99) Mean Corpuscular Hemoglobin 28.2 PG (27.0-31.0) Mean Corpuscular Hemoglobin Concent 33.0 G/DL (32.0-36.0) Red Cell Distribution Width 12.9 % (11.6-14.8) Platelet Count 570 K/UL (150-450) H Mean Platelet Volume 5.8 FL (6.5-10.1) L Neutrophils (%) (Auto) 67.0 % (45.0-75.0) Lymphocytes (%) (Auto) 22.7 % (20.0-45.0) Monocytes (%) (Auto) 5.8 % (1.0-10.0) Eosinophils (%) (Auto) 3.4 % (0.0-3.0) H Basophils (%) (Auto) 1.0 % (0.0-2.0) Sodium Level 139 MMOL/L (136-145) Potassium Level 4.5 MMOL/L (3.5-5.1) Chloride Level 105 MMOL/L (98-107) Carbon Dioxide Level 24 MMOL/L (21-32) Anion Gap 10 mmol/L (5-15) Blood Urea Nitrogen 13 mg/dL (7-18) Creatinine 1.2 MG/DL (0.55-1.30) Estimat Glomerular Filtration Rate > 60 mL/min (>60) Glucose Level 97 MG/DL (74-106) Calcium Level 8.8 MG/DL (8.5-10.1) Phosphorus Level 3.6 MG/DL (2.5-4.9) Magnesium Level 1.9 MG/DL (1.8-2.4) Height (Feet): 5 Height (Inches): 7.00 Weight (Pounds): 197 General Appearance: WD/WN, no apparent distress, alert Cardiovascular: normal rate Respiratory/Chest: normal breath sounds, no respiratory distress Abdominal Exam: normal bowel sounds, non tender, soft Extremities: normal range of motion, non-tender Titi Francisco NP Dec 08, 2017 10:34
[2017-12-08] MEDS ORDERED: NS Irrig 1000ml ONE (11:33)
[2017-12-08 12:00] VITALS: BP 127/77
--- NOTE | 2017-12-08 15:30 | Geriatric Progress Note ---
Assessment/Plan Problems: (1) Hypertension (2) Presence of stent in coronary artery in patient with coronary artery disease (3) Dyslipidemia (4) Vitamin B12 deficiency (5) Vitamin D deficiency (6) Ulcerative colitis (7) History of gastrointestinal bleeding (8) Uric acid kidney stone (9) MALFUNCTION OF BCIR WITH BOWEL OBSTRUCTION (10) Recurrent ventral hernia and stoma stenosis (11) Volume depletion (12) Leukocytosis (13) Fever (14) Tachycardia (15) Aspiration pneumonitis (16) Gram-negative bacteremia Assessment/Plan Continues to improve. Complete antibiotic course, f/u labs. Discussed with: patient, hospital staff Subjective Interval Events Patient napping, easily awakened. Reports continued disrupted sleep pattern, but admits staying up late last p.m. watching extra-inning ball game on TV. Reports feeling better. Expects dtr to visit, will walk with her. Staff reports eating well. IVF d/c per Dr. Stone. Labs with improved azotemia. Cath tip with Staph epi, likely contaminant. Constitutional: Denies: chills, fever Respiratory: Denies: cough, shortness of breath Cardiovascular: Denies: chest pain, palpitations Gastrointestinal/Abdominal: Denies: vomiting Genitourinary: Denies: dysuria Geriatric Geriatric Last 24 Hour Vital Signs Date Time Temp Pulse Resp B/P (MAP) Pulse Ox O2 Delivery O2 Flow Rate FiO2 12/08/17 12:00 98.1 83 18 127/77 (94) 98 98.1 12/08/17 09:00 Room Air 12/08/17 08:00 98.0 83 18 114/76 (89) 97 98.0 12/08/17 06:00 98.0 82 18 109/72 (84) 97 98.0 12/07/17 21:00 Room Air 12/07/17 20:33 97.7 12/07/17 20:03 97.7 12/07/17 20:00 98.2 87 19 120/77 (91) 98 98.2 12/07/17 16:00 97.7 83 19 121/70 (87) 100 97.7 Intake and Output 12/07/17 12/08/17 19:00 07:00 Intake Total 1585 ml 450 ml Output Total 2825 ml 925 ml Balance -1240 ml -475 ml Intake Oral 770 ml 340 ml IV Total 755 ml 110 ml Other 60 ml Output Urine Total 2125 ml 675 ml Other 700 ml 250 ml # Voids 4 Laboratory Tests Test 12/08/17 06:41 White Blood Count 8.1 K/UL (4.8-10.8) Red Blood Count 4.13 M/UL (4.70-6.10) L Hemoglobin 11.6 G/DL (14.2-18.0) L Hematocrit 35.2 % (42.0-52.0) L Mean Corpuscular Volume 85 FL (80-99) Mean Corpuscular Hemoglobin 28.2 PG (27.0-31.0) Mean Corpuscular Hemoglobin Concent 33.0 G/DL (32.0-36.0) Red Cell Distribution Width 12.9 % (11.6-14.8) Platelet Count 570 K/UL (150-450) H Mean Platelet Volume 5.8 FL (6.5-10.1) L Neutrophils (%) (Auto) 67.0 % (45.0-75.0) Lymphocytes (%) (Auto) 22.7 % (20.0-45.0) Monocytes (%) (Auto) 5.8 % (1.0-10.0) Eosinophils (%) (Auto) 3.4 % (0.0-3.0) H Basophils (%) (Auto) 1.0 % (0.0-2.0) Sodium Level 139 MMOL/L (136-145) Potassium Level 4.5 MMOL/L (3.5-5.1) Chloride Level 105 MMOL/L (98-107) Carbon Dioxide Level 24 MMOL/L (21-32) Anion Gap 10 mmol/L (5-15) Blood Urea Nitrogen 13 mg/dL (7-18) Creatinine 1.2 MG/DL (0.55-1.30) Estimat Glomerular Filtration Rate > 60 mL/min (>60) Glucose Level 97 MG/DL (74-106) Calcium Level 8.8 MG/DL (8.5-10.1) Phosphorus Level 3.6 MG/DL (2.5-4.9) Magnesium Level 1.9 MG/DL (1.8-2.4) Current Medications Medications (Trade) Dose Ordered Sig/Julio Route PRN Reason Start Time Stop Time Status Last Admin Dose Admin Acetaminophen (Tylenol) 650 mg Q4H PRN ORAL Mild Pain/Temp > 100.2 12/03/17 10:00 12/31/17 09:59 Allopurinol (Zyloprim) 100 mg QHS ORAL 12/03/17 21:00 12/22/17 20:59 12/07/17 20:02 Ascorbic Acid (Vitamin C) 500 mg NEEDED PRN ORAL Constipation 12/04/17 08:45 01/03/18 08:44 12/08/17 12:38 Aztreonam 1 gm/ Dextrose 55 ml @ 110 mls/hr Q8HR IVPB 12/06/17 22:00 12/16/17 23:00 12/08/17 14:40 Fluconazole (Diflucan) 100 mg DAILY ORAL 12/08/17 09:00 12/15/17 08:59 12/08/17 09:03 Lorazepam (Ativan) 1 mg Q4H PRN SL Muscle Spasm or anxiety 12/06/17 09:05 12/09/17 09:04 Menthol/Methyl Salicylate (Bengay) 1 applic QIDPRN PRN TOPIC For Pain 12/03/17 10:00 12/26/17 09:59 Ondansetron HCl (Zofran ODT) 4 mg Q6H PRN ORAL Nausea & Vomiting 12/04/17 09:00 01/03/18 08:59 12/04/17 11:22 Oxycodone/ Acetaminophen (Percocet 10/325) 1 tab Q4H PRN ORAL Severe Pain (Pain Scale 7-10) 12/06/17 09:05 12/09/17 09:04 12/07/17 20:03 Pantoprazole (Protonix) 40 mg DAILY ORAL 12/04/17 09:00 01/03/18 08:59 12/08/17 08:50 Phytonadione (Vitamin K) 10 mg ONCE A WEEK SUBQ 12/08/17 09:00 01/07/18 08:59 12/08/17 08:50 Ramelteon (Rozerem) 8 mg QHS ORAL 12/04/17 21:00 01/03/18 20:59 12/07/17 20:02 Height (Feet): 5 Height (Inches): 7.00 Weight (Pounds): 197 General Appearance: no apparent distress, alert, non-toxic Head: normocephalic, atraumatic Eyes: bilateral anicteric ENT: normal voice, other - tongue erosion healing Neck: full range of motion, no mass Respiratory: lungs clear Cardiovascular: regular rate, rhythm Gastrointestinal: normal bowel sounds, soft Musculoskeletal: no calf tenderness Edema: no edema noted Generalized Neurologic: no new focality Juno Rose MD Dec 08, 2017 15:30
[2017-12-08 16:00] VITALS: BP 110/71
--- NOTE | 2017-12-08 20:33 | Cardiology Progress Note ---
Assessment/Plan Assessment/Plan malfunctioning continent pouch hx of cad now s/p lad stent stable tachy sinus related to fever pulm infiltrate / pneumonia? preop stress echo neg last week hemodynamically stable dvt ppx ambualte no sx to suggest acs ctpa noted no pe but infiltrate noted [facility] d/w dr danni chavarria well completing abx course Subjective Cardiovascular: Denies: chest pain, lightheadedness, palpitations Respiratory: Denies: shortness of breath Gastrointestinal/Abdominal: Denies: abdominal pain Genitourinary: Denies: burning Objective Last 24 Hour Vital Signs Date Time Temp Pulse Resp B/P (MAP) Pulse Ox O2 Delivery O2 Flow Rate FiO2 12/08/17 16:00 98.4 73 18 110/71 (84) 98 98.4 12/08/17 12:00 98.1 83 18 127/77 (94) 98 98.1 12/08/17 09:00 Room Air 12/08/17 08:00 98.0 83 18 114/76 (89) 97 98.0 12/08/17 06:00 98.0 82 18 109/72 (84) 97 98.0 12/07/17 21:00 Room Air 12/07/17 20:33 97.7 General Appearance: alert Neck: supple Cardiovascular: normal rate, regular rhythm Respiratory/Chest: lungs clear, normal breath sounds Abdomen: normal bowel sounds, non tender, soft Extremities: no swelling Intake and Output 12/07/17 12/08/17 19:00 07:00 Intake Total 1585 ml 450 ml Output Total 2825 ml 925 ml Balance -1240 ml -475 ml Intake Oral 770 ml 340 ml IV Total 755 ml 110 ml Other 60 ml Output Urine Total 2125 ml 675 ml Other 700 ml 250 ml # Voids 4 Laboratory Tests Test 12/08/17 06:41 White Blood Count 8.1 K/UL (4.8-10.8) Red Blood Count 4.13 M/UL (4.70-6.10) L Hemoglobin 11.6 G/DL (14.2-18.0) L Hematocrit 35.2 % (42.0-52.0) L Mean Corpuscular Volume 85 FL (80-99) Mean Corpuscular Hemoglobin 28.2 PG (27.0-31.0) Mean Corpuscular Hemoglobin Concent 33.0 G/DL (32.0-36.0) Red Cell Distribution Width 12.9 % (11.6-14.8) Platelet Count 570 K/UL (150-450) H Mean Platelet Volume 5.8 FL (6.5-10.1) L Neutrophils (%) (Auto) 67.0 % (45.0-75.0) Lymphocytes (%) (Auto) 22.7 % (20.0-45.0) Monocytes (%) (Auto) 5.8 % (1.0-10.0) Eosinophils (%) (Auto) 3.4 % (0.0-3.0) H Basophils (%) (Auto) 1.0 % (0.0-2.0) Sodium Level 139 MMOL/L (136-145) Potassium Level 4.5 MMOL/L (3.5-5.1) Chloride Level 105 MMOL/L (98-107) Carbon Dioxide Level 24 MMOL/L (21-32) Anion Gap 10 mmol/L (5-15) Blood Urea Nitrogen 13 mg/dL (7-18) Creatinine 1.2 MG/DL (0.55-1.30) Estimat Glomerular Filtration Rate > 60 mL/min (>60) Glucose Level 97 MG/DL (74-106) Calcium Level 8.8 MG/DL (8.5-10.1) Phosphorus Level 3.6 MG/DL (2.5-4.9) Magnesium Level 1.9 MG/DL (1.8-2.4) Jose Alejandro Aviles MD Dec 08, 2017 20:33
[2017-12-08] MEDS ORDERED: Aspirin EC 81mg tab ORAL SCH (21:00)
[2017-12-08] MEDS: Allopurinol 100mg Tab ORAL SCH (21:28)
[2017-12-08] MEDS: Ramelteon 8mg tab (Approved for Delirium use only) ORAL SCH (21:28)
[2017-12-09] MEDS: Aztreonam Inj 1 GM in D5W 55 ML IVPB SCH ×3 (06:13→21:09)
[2017-12-09 08:00] VITALS: BP 117/73
[2017-12-09] MEDS: Aspirin EC 81mg tab ORAL SCH (08:30)
[2017-12-09] MEDS: Fluconazole 100mg tab ORAL SCH (08:30)
[2017-12-09] MEDS ORDERED: LORazepam 1mg tab SL PRN (09:05)
[2017-12-09 09:45] LABS: BASOPHILS % (AUTO) 1.3 % (0.0-2.0); EOSINOPHILS % (AUTO) 2.5 % (0.0-3.0); HEMATOCRIT 34.8 % (42.0-52.0); HEMOGLOBIN 11.6 G/DL (14.2-18.0); LYMPHOCYTES % (AUTO) 16.2 % (20.0-45.0); MEAN CORPUSCULAR VOLUME 85 FL (80-99); MONOCYTES % (AUTO) 4.9 % (1.0-10.0); PLATELET COUNT 533 K/UL (150-450); RED BLOOD COUNT 4.11 M/UL (4.70-6.10); RED CELL DISTRIBUTION WIDTH 12.9 % (11.6-14.8); WHITE BLOOD COUNT 8.3 K/UL (4.8-10.8)
[2017-12-09 10:21] LABS: ANION GAP 10 mmol/L (5-15); BLOOD UREA NITROGEN 15 mg/dL (7-18); CALCIUM 9.1 MG/DL (8.5-10.1); CARBON DIOXIDE 26 MMOL/L (21-32); CHLORIDE 104 MMOL/L (98-107); CREATININE 1.2 MG/DL (0.55-1.30); POTASSIUM 3.9 MMOL/L (3.5-5.1); SODIUM 140 MMOL/L (136-145)
--- NOTE | 2017-12-09 11:33 | GI Progress Note ---
Assessment/Plan Problems: (1) Bleeding from colostomy stoma ICD Codes: K94.01 - Bleeding from colostomy stoma SNOMED: 691601669 (2) Anemia ICD Codes: D64.9 - Anemia, unspecified SNOMED: 448078539 (3) Fe deficiency anemia ICD Codes: D50.9 - Iron deficiency anemia, unspecified SNOMED: 52695010 (4) Ileostomy stenosis ICD Codes: K94.13 - Enterostomy malfunction SNOMED: 14882631 Status: stable Status Narrative Discussed with Dr. Mena. Assessment/Plan MRCP reviewed >> polyp or mass or stenotic area of the common bile duct. CT AP reviewed Will need ERCP to evaluate the duodenal diverticulum, however must defer for minimum of 2 weeks given recent surgery. >> will follow up as outpatient symptomatic treatment at this time BCIR diet pain mgmt zofran prn prn transfusions ppi fu labs The patient was seen and examined at bedside and all new and available data was reviewed in the patients chart. I agree with the above findings, impression and plan. (Patient seen earlier today. Signature stamp does not reflect patient encounter time.). - Tony Mena MD Subjective Gastrointestinal/Abdominal: Reports: no symptoms Objective Last 24 Hour Vital Signs Date Time Temp Pulse Resp B/P (MAP) Pulse Ox O2 Delivery O2 Flow Rate FiO2 12/09/17 09:00 Room Air 12/09/17 08:00 98.3 82 20 117/73 (88) 97 98.3 12/08/17 21:00 Room Air 12/08/17 16:00 98.4 73 18 110/71 (84) 98 98.4 12/08/17 12:00 98.1 83 18 127/77 (94) 98 98.1 Intake and Output 12/08/17 12/09/17 19:00 07:00 Intake Total 750 ml 455 ml Output Total 1270 ml 1275 ml Balance -520 ml -820 ml Intake Oral 750 ml 400 ml IV Total 55 ml Output Urine Total 850 ml 775 ml Other 420 ml 500 ml # Voids 3 Laboratory Tests Test 12/09/17 09:20 White Blood Count 8.3 K/UL (4.8-10.8) Red Blood Count 4.11 M/UL (4.70-6.10) L Hemoglobin 11.6 G/DL (14.2-18.0) L Hematocrit 34.8 % (42.0-52.0) L Mean Corpuscular Volume 85 FL (80-99) Mean Corpuscular Hemoglobin 28.4 PG (27.0-31.0) Mean Corpuscular Hemoglobin Concent 33.4 G/DL (32.0-36.0) Red Cell Distribution Width 12.9 % (11.6-14.8) Platelet Count 533 K/UL (150-450) H Mean Platelet Volume 5.5 FL (6.5-10.1) L Neutrophils (%) (Auto) 75.0 % (45.0-75.0) Lymphocytes (%) (Auto) 16.2 % (20.0-45.0) L Monocytes (%) (Auto) 4.9 % (1.0-10.0) Eosinophils (%) (Auto) 2.5 % (0.0-3.0) Basophils (%) (Auto) 1.3 % (0.0-2.0) Sodium Level 140 MMOL/L (136-145) Potassium Level 3.9 MMOL/L (3.5-5.1) Chloride Level 104 MMOL/L (98-107) Carbon Dioxide Level 26 MMOL/L (21-32) Anion Gap 10 mmol/L (5-15) Blood Urea Nitrogen 15 mg/dL (7-18) Creatinine 1.2 MG/DL (0.55-1.30) Estimat Glomerular Filtration Rate > 60 mL/min (>60) Glucose Level 129 MG/DL (74-106) H Calcium Level 9.1 MG/DL (8.5-10.1) Height (Feet): 5 Height (Inches): 7.00 Weight (Pounds): 197 General Appearance: WD/WN, no apparent distress, alert Cardiovascular: normal rate Respiratory/Chest: normal breath sounds, no respiratory distress Abdominal Exam: normal bowel sounds, non tender, soft Extremities: normal range of motion, non-tender Titi Francisco NP Dec 09, 2017 11:33
[2017-12-09 12:00] VITALS: BP 131/69
[2017-12-09] MEDS ORDERED: Silver Nitrate Stick TOPIC PRN (13:00)
--- NOTE | 2017-12-09 13:03 | General Progress Note ---
Progress Note Progress Note Doing well with BCIR self-intubations and eating well Sutures removed and steristrips applied Perineal sinus tract from remote proctectomy still open - will treat with AgNO3 Urine 1525 BCIR ileo 920 Hgb 11.6 stable BUN/Cr 15/1.2 Imp. doing well Plan: anticipate discharge tomorrow Rodney Stone MD Dec 09, 2017 13:03
--- NOTE | 2017-12-09 14:18 | Diagnostic Imaging Report ---
Indication: Dyspnea Comparison: 12/03/2017 A single view chest radiograph was obtained. Findings: A patchy infiltrate noted in the right perihilar region. Correlate clinically for pneumonia. No change compared to prior study. Heart size remains normal. IMPRESSION: Ill-defined density in the right midlung may be a focus of pneumonia. Correlate clinically. No change
--- NOTE | 2017-12-09 14:39 | Infectious Diseases Prog Note ---
Assessment/Plan Assessment/Plan ASSESSMENT AND PLAN: 1. e.coli bacteremia, ? line infection, ? uti, ? GI source, sepsis, leukocytosis , fevers, sirs, ? 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 significance - CT abdomen and pelvis without abscess - urine culture with mixed organisms, ua with only 0-2 wbc - monitor labs, surveillance blood cultures negative - monitor chest x-ray, last chest x-ray improved - d/w patient and 2. The patient has history of Denise pouch. The patient is status post Kock revision, status post incisional hernia repair, and status post abdominal wall hematoma evacuation. 3. The patient has history of ulcerative colitis with multiple GI surgeries. 4. PPI. 5. He has a central line for TPN. 6. History of Cipro use in the past. 7. History of malfunctioning Denise pouch. 8. Hypertension. 9. Blood pressure treatment per Internal Medicine. 10. Hyperlipidemia. Treatment per Internal Medicine. 11. History of acute coronary syndrome. 12. History of GI bleed. 13. History of gout. 14. Vitamin B12 deficiency. 15. Vitamin D deficiency. 16. Allergies to cephalexin, oral Flagyl, penicillin, sulfa with the allergies to penicillin being hives. 17. Social history negative. 18. MAR was noted. 19. Case discussed with RN. 20. Family history noncontributory. 21. Continue treatment per primary consultants. 22. Surgery followup per Dr. Stone. 23. Orders were entered and noted. 24. Case was also discussed with the patient and 25. total time spent - 35 minutes Subjective Constitutional: Reports: other - no new focal weakness; Denies: fever, fatigue Respiratory: Denies: shortness of breath Cardiovascular: Denies: chest pain Gastrointestinal/Abdominal: Denies: nausea, vomiting, diarrhea Genitourinary: Reports: other - no rios; Denies: dysuria, hematuria Neurologic: Denies: headache Psychiatric: Denies: depression Skin: Denies: rash Hematologic: Denies: bleeding Musculoskeletal: Denies: pain Allergies: Coded Allergies: CEPHALEXIN (Verified Allergy, Mild, 11/06/09) PENICILLIN G (Verified Allergy, Mild, 01/22/09) SULFA (SULFONAMIDE ANTIBIOTICS) (Verified Allergy, Mild, 11/07/09) Uncoded Allergies: ORAL FLAGYL (Adverse Reaction, Unknown, 11/07/09) Objective Vital Signs Last 24 Hour Vital Signs Date Time Temp Pulse Resp B/P (MAP) Pulse Ox O2 Delivery O2 Flow Rate FiO2 12/09/17 12:00 98.0 79 20 131/69 (89) 98 98.0 12/09/17 09:00 Room Air 12/09/17 08:00 98.3 82 20 117/73 (88) 97 98.3 12/08/17 21:00 Room Air 12/08/17 16:00 98.4 73 18 110/71 (84) 98 98.4 Height (Feet): 5 Height (Inches): 7.00 Weight (Pounds): 197 General Appearance: no acute distress HEENT: normocephalic, atraumatic, anicteric, mucous membranes moist, other - thrush improved Respiratory/Chest: lungs clear, normal breath sounds, no respiratory distress, no accessory muscle use Cardiovascular: normal rate, regular rhythm, no gallop/murmur, no JVD Abdomen: normal bowel sounds, soft, non tender, no organomegaly, non distended Genitourinary: other - no rios Extremities: no cyanosis Skin: no rash Neurologic/Psychiatric: chip tester II-XII grossly normal, no motor/sensory deficits, alert, responsive Lymphatic: no neck adenopathy Musculoskeletal: no effusion Objective CT chest - Impression: No evidence of pulmonary embolus, aortic dissection or aneurysm. Pneumonia suspected in the right lung The CT scanner at [facility] is accredited by the [employer] and the scans are performed using dose optimization techniques as appropriate to a performed exam including Automatic Exposure control. CT abdomen and pelvis: IMPRESSION: Status post recent surgery with skin romeo and postsurgical changes in the anterior abdominal wall. Trace fluid and a few bubbles of air considered postsurgical change. No defined fluid collection or evidence of abscess. Continent ileostomy in the lower abdomen appears unremarkable. Total colectomy noted. Catheter position is satisfactory. No evidence of bowel obstruction or intra-abdominal or pelvic abscess. Other, multiple incidental findings include atherosclerotic vascular disease, bilateral renal cysts, small bilateral inguinal hernias, mild posterior basilar atelectasis, duodenal diverticulum, accessory spleen. Chest x-ray - 12/03 - A single view chest radiograph was obtained. Findings: Faint infiltrate in the right perihilar region again noted. PICC line was removed. The cardiac silhouette is normal. IMPRESSION: Less conspicuous right perihilar infiltrate again noted IMPRESSION: Chest x-ray - 12/09/17: Ill-defined density in the right midlung may be a focus of pneumonia. Correlate clinically. No change Microbiology Date/Time Source Procedure Growth Status 12/04/17 05:25 Blood Blood Culture - Preliminary NO GROWTH AFTER 4 DAYS Resulted 12/05/17 10:33 Stool Clostridium difficile Toxin Assay - Final Complete 12/01/17 14:30 Urine,Clean Catch Urine Culture - Final Mixed Urogenital Contaminants Complete 12/02/17 17:00 Catheter Site Catheter Tip Culture - Final Staphylococcus Epidermidis Complete Laboratory Tests Test 12/09/17 09:20 White Blood Count 8.3 K/UL (4.8-10.8) Red Blood Count 4.11 M/UL (4.70-6.10) L Hemoglobin 11.6 G/DL (14.2-18.0) L Hematocrit 34.8 % (42.0-52.0) L Mean Corpuscular Volume 85 FL (80-99) Mean Corpuscular Hemoglobin 28.4 PG (27.0-31.0) Mean Corpuscular Hemoglobin Concent 33.4 G/DL (32.0-36.0) Red Cell Distribution Width 12.9 % (11.6-14.8) Platelet Count 533 K/UL (150-450) H Mean Platelet Volume 5.5 FL (6.5-10.1) L Neutrophils (%) (Auto) 75.0 % (45.0-75.0) Lymphocytes (%) (Auto) 16.2 % (20.0-45.0) L Monocytes (%) (Auto) 4.9 % (1.0-10.0) Eosinophils (%) (Auto) 2.5 % (0.0-3.0) Basophils (%) (Auto) 1.3 % (0.0-2.0) Sodium Level 140 MMOL/L (136-145) Potassium Level 3.9 MMOL/L (3.5-5.1) Chloride Level 104 MMOL/L (98-107) Carbon Dioxide Level 26 MMOL/L (21-32) Anion Gap 10 mmol/L (5-15) Blood Urea Nitrogen 15 mg/dL (7-18) Creatinine 1.2 MG/DL (0.55-1.30) Estimat Glomerular Filtration Rate > 60 mL/min (>60) Glucose Level 129 MG/DL (74-106) H Calcium Level 9.1 MG/DL (8.5-10.1) Current Medications Medications (Trade) Dose Ordered Sig/Julio Route PRN Reason Start Time Stop Time Status Last Admin Dose Admin Acetaminophen (Tylenol) 650 mg Q4H PRN ORAL Mild Pain/Temp > 100.2 12/03/17 10:00 12/31/17 09:59 Allopurinol (Zyloprim) 100 mg QHS ORAL 12/03/17 21:00 12/22/17 20:59 12/08/17 21:28 Ascorbic Acid (Vitamin C) 500 mg NEEDED PRN ORAL Constipation 12/04/17 08:45 01/03/18 08:44 12/08/17 12:38 Aspirin (Ecotrin) 81 mg DAILY ORAL 12/09/17 09:00 01/08/18 08:59 12/09/17 08:30 Aztreonam 1 gm/ Dextrose 55 ml @ 110 mls/hr Q8HR IVPB 12/06/17 22:00 12/16/17 23:00 12/09/17 14:30 Doxycycline Monohydrate (Vibramycin) 100 mg EVERY 12 HOURS ORAL 12/09/17 21:00 12/16/17 20:59 Fluconazole (Diflucan) 100 mg DAILY ORAL 12/08/17 09:00 12/15/17 08:59 12/09/17 08:30 Lorazepam (Ativan) 1 mg Q4H PRN SL Muscle Spasm or anxiety 12/09/17 09:05 12/12/17 09:04 Menthol/Methyl Salicylate (Bengay) 1 applic QIDPRN PRN TOPIC For Pain 12/03/17 10:00 12/26/17 09:59 Ondansetron HCl (Zofran ODT) 4 mg Q6H PRN ORAL Nausea & Vomiting 12/04/17 09:00 01/03/18 08:59 12/04/17 11:22 Oxycodone/ Acetaminophen (Percocet ) 1 tab Q4H PRN ORAL Severe Pain (Pain Scale 7-10) 12/09/17 09:05 12/12/17 09:04 12/09/17 08:34 Pantoprazole (Protonix) 40 mg DAILY ORAL 12/04/17 09:00 01/03/18 08:59 12/09/17 08:30 Phytonadione (Vitamin K) 10 mg ONCE A WEEK SUBQ 12/08/17 09:00 01/07/18 08:59 12/08/17 08:50 Ramelteon (Rozerem) 8 mg QHS ORAL 12/04/17 21:00 01/03/18 20:59 12/08/17 21:28 Silver Nitrate (Silver Nitrate Applicators) 6 applic ONCE PRN TOPIC FOR MD USE ONLY 12/09/17 13:00 12/10/17 23:59 Yogesh Martínez MD Dec 09, 2017 14:39
[2017-12-09 16:00] VITALS: BP 139/88
--- NOTE | 2017-12-09 17:39 | Geriatric Progress Note ---
Assessment/Plan Problems: (1) Hypertension (2) Presence of stent in coronary artery in patient with coronary artery disease (3) Dyslipidemia (4) Vitamin B12 deficiency (5) Vitamin D deficiency (6) Ulcerative colitis (7) History of gastrointestinal bleeding (8) Uric acid kidney stone (9) MALFUNCTION OF BCIR WITH BOWEL OBSTRUCTION (10) Recurrent ventral hernia and stoma stenosis (11) Volume depletion (12) Leukocytosis (13) Fever (14) Tachycardia (15) Aspiration pneumonitis (16) Gram-negative bacteremia Assessment/Plan Improving. D/c expected tomorrow. Long discussion with patient, about ? probiotic use when patient on chronic Cipro for pouchitis suppression. Explained issues of antibiotic resistance, biofilms, risk-benefits, alternatives. Patient ambivalent about probiotic trial. Will consider. Continue present tx. Discussed with: patient, family, hospital staff Subjective Interval Events Patient in better spirits, doing well. Stitches removed by Dr. Stone. Eating well per staff. Ambulated. To complete Aztreonam tomorrow. P.o. Diflucan for thrush and doxycycline for staph epi x 5d afterwards per Dr. Martínez. Expected d/c tomorrow. Labs unremarkable. Constitutional: Denies: chills, fever Respiratory: Denies: cough, shortness of breath Cardiovascular: Denies: chest pain, palpitations Gastrointestinal/Abdominal: Denies: abdominal pain, vomiting Genitourinary: Denies: dysuria Geriatric Geriatric Last 24 Hour Vital Signs Date Time Temp Pulse Resp B/P (MAP) Pulse Ox O2 Delivery O2 Flow Rate FiO2 12/09/17 16:00 97.9 70 20 139/88 (105) 97 97.9 12/09/17 12:00 98.0 79 20 131/69 (89) 98 98.0 12/09/17 09:00 Room Air 12/09/17 08:00 98.3 82 20 117/73 (88) 97 98.3 12/08/17 21:00 Room Air Intake and Output 12/08/17 12/09/17 19:00 07:00 Intake Total 750 ml 455 ml Output Total 1270 ml 1275 ml Balance -520 ml -820 ml Intake Oral 750 ml 400 ml IV Total 55 ml Output Urine Total 850 ml 775 ml Other 420 ml 500 ml # Voids 3 Laboratory Tests Test 12/09/17 09:20 White Blood Count 8.3 K/UL (4.8-10.8) Red Blood Count 4.11 M/UL (4.70-6.10) L Hemoglobin 11.6 G/DL (14.2-18.0) L Hematocrit 34.8 % (42.0-52.0) L Mean Corpuscular Volume 85 FL (80-99) Mean Corpuscular Hemoglobin 28.4 PG (27.0-31.0) Mean Corpuscular Hemoglobin Concent 33.4 G/DL (32.0-36.0) Red Cell Distribution Width 12.9 % (11.6-14.8) Platelet Count 533 K/UL (150-450) H Mean Platelet Volume 5.5 FL (6.5-10.1) L Neutrophils (%) (Auto) 75.0 % (45.0-75.0) Lymphocytes (%) (Auto) 16.2 % (20.0-45.0) L Monocytes (%) (Auto) 4.9 % (1.0-10.0) Eosinophils (%) (Auto) 2.5 % (0.0-3.0) Basophils (%) (Auto) 1.3 % (0.0-2.0) Sodium Level 140 MMOL/L (136-145) Potassium Level 3.9 MMOL/L (3.5-5.1) Chloride Level 104 MMOL/L (98-107) Carbon Dioxide Level 26 MMOL/L (21-32) Anion Gap 10 mmol/L (5-15) Blood Urea Nitrogen 15 mg/dL (7-18) Creatinine 1.2 MG/DL (0.55-1.30) Estimat Glomerular Filtration Rate > 60 mL/min (>60) Glucose Level 129 MG/DL (74-106) H Calcium Level 9.1 MG/DL (8.5-10.1) Current Medications Medications (Trade) Dose Ordered Sig/Julio Route PRN Reason Start Time Stop Time Status Last Admin Dose Admin Acetaminophen (Tylenol) 650 mg Q4H PRN ORAL Mild Pain/Temp > 100.2 12/03/17 10:00 12/31/17 09:59 Allopurinol (Zyloprim) 100 mg QHS ORAL 12/03/17 21:00 12/22/17 20:59 12/08/17 21:28 Ascorbic Acid (Vitamin C) 500 mg NEEDED PRN ORAL Constipation 12/04/17 08:45 01/03/18 08:44 12/08/17 12:38 Aspirin (Ecotrin) 81 mg DAILY ORAL 12/09/17 09:00 01/08/18 08:59 12/09/17 08:30 Aztreonam 1 gm/ Dextrose 55 ml @ 110 mls/hr Q8HR IVPB 12/06/17 22:00 12/16/17 23:00 12/09/17 14:30 Doxycycline Monohydrate (Vibramycin) 100 mg EVERY 12 HOURS ORAL 12/09/17 21:00 12/16/17 20:59 Fluconazole (Diflucan) 100 mg DAILY ORAL 12/08/17 09:00 12/15/17 08:59 12/09/17 08:30 Lorazepam (Ativan) 1 mg Q4H PRN SL Muscle Spasm or anxiety 12/09/17 09:05 12/12/17 09:04 Menthol/Methyl Salicylate (Bengay) 1 applic QIDPRN PRN TOPIC For Pain 12/03/17 10:00 12/26/17 09:59 Ondansetron HCl (Zofran ODT) 4 mg Q6H PRN ORAL Nausea & Vomiting 12/04/17 09:00 01/03/18 08:59 12/04/17 11:22 Oxycodone/ Acetaminophen (Percocet 10/325) 1 tab Q4H PRN ORAL Severe Pain (Pain Scale 7-10) 12/09/17 09:05 12/12/17 09:04 12/09/17 08:34 Pantoprazole (Protonix) 40 mg DAILY ORAL 12/04/17 09:00 01/03/18 08:59 12/09/17 08:30 Phytonadione (Vitamin K) 10 mg ONCE A WEEK SUBQ 12/08/17 09:00 01/07/18 08:59 12/08/17 08:50 Ramelteon (Rozerem) 8 mg QHS ORAL 12/04/17 21:00 01/03/18 20:59 12/08/17 21:28 Silver Nitrate (Silver Nitrate Applicators) 6 applic ONCE PRN TOPIC FOR MD USE ONLY 12/09/17 13:00 12/10/17 23:59 Height (Feet): 5 Height (Inches): 7.00 Weight (Pounds): 197 General Appearance: no apparent distress, alert, non-toxic Head: normocephalic, atraumatic Eyes: bilateral anicteric ENT: normal voice, other - tongue healing Neck: full range of motion, no mass Respiratory: lungs clear Cardiovascular: regular rate, rhythm Gastrointestinal: normal bowel sounds, soft, other - Midline incisional wound healing well, steristrips starting to fall off Musculoskeletal: no calf tenderness Edema: no edema noted Generalized Neurologic: no new focality Juno Rose MD Dec 09, 2017 17:39
[2017-12-09 20:00] VITALS: BP 119/77
--- NOTE | 2017-12-09 20:59 | Cardiology Progress Note ---
Assessment/Plan Assessment/Plan malfunctioning continent pouch hx of cad now s/p lad stent stable tachy sinus related to fever pulm infiltrate / pneumonia? preop stress echo neg last week hemodynamically stable dvt ppx ambualte no sx to suggest acs ctpa noted no pe but infiltrate noted started ecotrin d/w dr danni chavarria well completing abx course home in am walking eating having bms Subjective Cardiovascular: Denies: chest pain, lightheadedness, palpitations Respiratory: Denies: shortness of breath Gastrointestinal/Abdominal: Denies: abdominal pain Genitourinary: Denies: burning Objective Last 24 Hour Vital Signs Date Time Temp Pulse Resp B/P (MAP) Pulse Ox O2 Delivery O2 Flow Rate FiO2 12/09/17 16:00 97.9 70 20 139/88 (105) 97 97.9 12/09/17 12:00 98.0 79 20 131/69 (89) 98 98.0 12/09/17 09:00 Room Air 12/09/17 08:00 98.3 82 20 117/73 (88) 97 98.3 12/08/17 21:00 Room Air General Appearance: no apparent distress, alert Neck: no JVD Cardiovascular: normal rate, regular rhythm Respiratory/Chest: lungs clear, normal breath sounds Abdomen: normal bowel sounds, non tender, soft Extremities: no swelling Intake and Output 12/08/17 12/09/17 19:00 07:00 Intake Total 750 ml 455 ml Output Total 1270 ml 1275 ml Balance -520 ml -820 ml Intake Oral 750 ml 400 ml IV Total 55 ml Output Urine Total 850 ml 775 ml Other 420 ml 500 ml # Voids 3 Laboratory Tests Test 12/09/17 09:20 White Blood Count 8.3 K/UL (4.8-10.8) Red Blood Count 4.11 M/UL (4.70-6.10) L Hemoglobin 11.6 G/DL (14.2-18.0) L Hematocrit 34.8 % (42.0-52.0) L Mean Corpuscular Volume 85 FL (80-99) Mean Corpuscular Hemoglobin 28.4 PG (27.0-31.0) Mean Corpuscular Hemoglobin Concent 33.4 G/DL (32.0-36.0) Red Cell Distribution Width 12.9 % (11.6-14.8) Platelet Count 533 K/UL (150-450) H Mean Platelet Volume 5.5 FL (6.5-10.1) L Neutrophils (%) (Auto) 75.0 % (45.0-75.0) Lymphocytes (%) (Auto) 16.2 % (20.0-45.0) L Monocytes (%) (Auto) 4.9 % (1.0-10.0) Eosinophils (%) (Auto) 2.5 % (0.0-3.0) Basophils (%) (Auto) 1.3 % (0.0-2.0) Sodium Level 140 MMOL/L (136-145) Potassium Level 3.9 MMOL/L (3.5-5.1) Chloride Level 104 MMOL/L (98-107) Carbon Dioxide Level 26 MMOL/L (21-32) Anion Gap 10 mmol/L (5-15) Blood Urea Nitrogen 15 mg/dL (7-18) Creatinine 1.2 MG/DL (0.55-1.30) Estimat Glomerular Filtration Rate > 60 mL/min (>60) Glucose Level 129 MG/DL (74-106) H Calcium Level 9.1 MG/DL (8.5-10.1) Jose Alejandro Aviles MD Dec 09, 2017 20:59
[2017-12-09] MEDS: Ramelteon 8mg tab (Approved for Delirium use only) ORAL SCH (21:07)
[2017-12-09] MEDS: Allopurinol 100mg Tab ORAL SCH (21:08)
[2017-12-09] MEDS: Ascorbic Acid 500mg tab ORAL PRN (21:20)
[2017-12-10] MEDS: Aztreonam Inj 1 GM in D5W 55 ML IVPB SCH (06:13)
[2017-12-10 08:00] VITALS: BP 116/69
[2017-12-10] MEDS: Aspirin EC 81mg tab ORAL SCH (08:44)
[2017-12-10] MEDS: Fluconazole 100mg tab ORAL SCH (08:44)
--- NOTE | 2017-12-10 09:13 | General Progress Note ---
Progress Note Progress Note Doing well overall. To receive last IV antibiotic then 5 days po Abdomen well healed Intubating BCIR fine No pouchitis symptoms Perineal sinus tract from remote proctectomy cauterized again with AgNO3 - to maintain dry gauze and change it 2-3xdaily for one week Imp. doing well Plan: discharge with full supplies/limitations/instructions provided/discussed f/u with me 12/16 and prn To resume mesalamine flush into BCIR pouch qhs - hopefully can avoid resuming Cipro for pouchitis To f/u with Dr. Mena for ERCP in several weeks Rodney Stone MD Dec 10, 2017 09:13
[2017-12-10] MEDS ORDERED: NS Irrig 1000ml ONE (10:50)
--- NOTE | 2017-12-10 11:04 | GI Progress Note ---
Assessment/Plan Problems: (1) Bleeding from colostomy stoma ICD Codes: K94.01 - Bleeding from colostomy stoma SNOMED: 005548357 (2) Anemia ICD Codes: D64.9 - Anemia, unspecified SNOMED: 968098119 (3) Fe deficiency anemia ICD Codes: D50.9 - Iron deficiency anemia, unspecified SNOMED: 96131848 (4) Ileostomy stenosis ICD Codes: K94.13 - Enterostomy malfunction SNOMED: [id number] Status: stable Status Narrative Discussed with Dr. Mena. Assessment/Plan MRCP reviewed >> polyp or mass or stenotic area of the common bile duct. CT AP reviewed Will need ERCP to evaluate the duodenal diverticulum, however must defer for minimum of 2 weeks given recent surgery. >> will follow up as outpatient symptomatic treatment at this time BCIR diet pain mgmt zofran prn prn transfusions ppi fu labs The patient was seen and examined at bedside and all new and available data was reviewed in the patients chart. I agree with the above findings, impression and plan. (Patient seen earlier today. Signature stamp does not reflect patient encounter time.). - Tony Mena MD Subjective Gastrointestinal/Abdominal: Reports: no symptoms Objective Last 24 Hour Vital Signs Date Time Temp Pulse Resp B/P (MAP) Pulse Ox O2 Delivery O2 Flow Rate FiO2 12/10/17 08:00 97.9 77 20 116/69 (85) 99 97.9 12/09/17 21:00 Room Air 12/09/17 16:00 97.9 70 20 139/88 (105) 97 97.9 12/09/17 12:00 98.0 79 20 131/69 (89) 98 98.0 Intake and Output 12/09/17 12/10/17 18:59 06:59 Intake Total 1030 ml 440 ml Output Total 1200 ml 850 ml Balance -170 ml -410 ml Intake Oral 1030 ml 440 ml Output Urine Total 700 ml 650 ml Other 500 ml 200 ml # Voids 4 Height (Feet): 5 Height (Inches): 7.00 Weight (Pounds): 197 General Appearance: WD/WN, no apparent distress, alert Cardiovascular: normal rate Respiratory/Chest: normal breath sounds, no respiratory distress Abdominal Exam: normal bowel sounds, non tender, soft Extremities: normal range of motion, non-tender Francisco,[employer]PERING KIL[employer] TENDER Dec 10, 2017 11:04
--- NOTE | 2017-12-13 12:22 | Discharge Summary ---
Discharge Summary Hospital Course Date of Admission Nov 22, 2017 at 07:32 Date of Discharge Dec 10, 2017 at 11:45 Admitting Diagnosis Stricture of Denise continent ileostomy stoma and a recurrent incisional hernia. Reason for Hospitalization: pouch endoscopy and subsequent surgery HPI 67 y/o male admitted for revision of Denise pouch and stoma, repair of recurrent incisional hernia, and evaluation of possible common bile duct polyp/ mass. Consultations Dr. Aviles -cardio Dr. Rose - internal medicine Dr. Martínez -ID specialist Dr. Mena- GI specialist Procedures s/p 11/22/[address] Stone s/p Denise pouch endoscopy s/p 11/23/[address] Stone 1. Laparotomy with revision of Denise continent ileostomy nipple valve. 2. Revision of Denise continent ileostomy stoma stenosis. 3. Repair of recurrent incisional hernia utilizing [employer] C-QUR mesh 15 x 15 cm. 4. Curetting and cauterization of shallow perineal sinus tract, status post remote proctectomy. s/p 11/27/[address] Stone evacuation of abdominal wall hematoma s/p MRCP 11/30/17 Limited MRCP due to breathing motion. Suspected filling defect in the distal CBD again demonstrated. This is better visualized on the prior MRI. Finding is probably on the basis of a small wall adherent stone or polyp. Bilateral renal cysts. Trace bilateral pleural effusions. Distortion in the anterior abdominal wall presumably on the basis of previous surgery. s/p CTA chest 12/01 No evidence of pulmonary embolus, aortic dissection or aneurysm. Pneumonia suspected in the right lung s/p CT abdomen/pelvis 12/03/17 Status post recent surgery with skin romeo and postsurgical changes in the anterior abdominal wall. Trace fluid and a few bubbles of air considered postsurgical change. No defined fluid collection or evidence of abscess. Continent ileostomy in the lower abdomen appears unremarkable. Total colectomy noted. Catheter position is satisfactory. No evidence of bowel obstruction or intra-abdominal or pelvic abscess. Other, multiple incidental findings include atherosclerotic vascular disease, bilateral renal cysts, small bilateral inguinal hernias, mild posterior basilar atelectasis, duodenal diverticulum, accessory spleen. Hospital Course s/p pouch endoscopy 11/22 ( to be certain there was no other reason for difficulty with intubation other than the stoma stricture) Endoscopy revealed angulation of valve segment, stoma stenosis, mild pouchitis Patient reported incontinence of gas from the Denise pouch stoma. Also had perineal sinus tract with drainage - 1.5 cm sinus Stoma stenosis Mild pouchitis Albumin low- 3.1 In view of malnutrition and need to revise Denise pouch , as well as repair hernia, PICC placed for post-operative TPN CXR on admission - no acute cardiopulmonary pathology renal US no hydronephrosis, evidence of multiple bilateral simple cysts cardiac clearance for surgery done patient with hx of CAD, s/p LAD stent preoperative stress ECHO done last week - negative off ASA cardio cleared for surgery bowel preparation for surgery done IVF hydration patient consented for surgery s/p surgery 11/23 11/24 - initially ileus, tachycardia ,drowsy pain management with PROGRAM MANAGER; d/c basal continuous infusion of PROGRAM MANAGER Toradol IV added prn for breakthrough pain anemia workup done, started on IV Venofer for 5 doses started TPN with clsoe monitoring of electrolytes plan to mobilize with abdominal binder when more awake cardio followed cardiovascular status remained stable creatinine slightly up, probably volume depletion IV bolus provided as per IM doctor orders volumes and cardiorenal parameters were closely monitored DVT and GI prophylaxis EKG with sinus tachycardia-110, probably due to volume depletion 11/25 afebrile, ambulated PROGRAM MANAGER Dilaudid changed to Morphine ( Dilaudid made him drowsy), working better incentive spirometry intake and output closely monitored NPO, TPN continued volume status improved 11/26 afebrile, ambulated abdomen with mild distention, incision clean area of hernia repair with edema, aspiration yielded no fluid , possible seroma upper incision continue NPO, TPN, Venofer, Chahal , I/O , PROGRAM MANAGER continue to observe incisional swelling closely 11/27 abdominal wall hematoma in OR later undergone evacuation of abdominal wall hematoma 11/28 incisional pain in the epigastric area intake and output closely monitored ileus resolving continue NPO , TPN and mobility 11/29 low-grade fever- 100.9 ambulated, voided after Chahal d/c chest clear ; good spirometry effort midabdominal pain abdomen healing nicely intake and output closely monitored ileus resolving started on clear liquid diet PROGRAM MANAGER and IV fluids d/c started on Percocet prn noted low Mg and P, increased Mg and P content in the TPN fever of unknown etiology blood culture and urine culture collected 11/30 afebrile tolerated clear liquid diet incisional pain abdomen soft and nondistended incision clean no leukocytosis slowly improving continue clear liquid diet MRCP 11/30 done , which was ordered to r/o CBD stone or polyp, based on outside preadmission studies MRCP revealed suspected filling defect in the distal common bile duct, better visualized on prior MRI ; the finding probably on the basis of a small stone versus polyp. Bilateral renal cysts. Per GI patient will need ERCP to evaluate the duodenal diverticula , however must await for minimum of 2 weeks , given the current surgery patient will follow-up as outpatient with GI specialist at this point recommended symptomatic treatment, TPN continue for now, pain management ,antiemetics prn, monitor H&H with goal to keep hemoglobin above 8 and transfuse prn, continue PPI 12/01 leukocytosis with WBC 13, low-grade fever, tachycardia transferred to telemetry unit patient was followed up with ECG - sinus tachycardia, no arrhythmia, cardio closely followed additional IVF ID consult was requested, who seen and closely followed initial blood culture negative, urine culture+ mixed urogenital contaminants blood culture repeated ; PICC line dc and cultured, stool for C dif ordered patient with fevers tachycardia and leukocytosis , possible sepsis , possible aspiration pneumonia versus healthcare associated pneumonia ,possible UTI , possible line infection patient started on broad-spectrum antibiotics revealed Escherichia coli catheter tip revealed staph epidermidis ID consult 12/02 patient appeared weak and tired clear liquids resumed continuous drainage of Denise continent ileostomy TPN continued drain over mesh repair of incisional hernia was left until output decreased CTA of the chest revealed no evidence of pulmonary embolism, aortic dissection or aneurysm. Pneumonia was suspected in the right lung venous duplex bilateral lower extremities revealed no evidence of acute DVT 12/03 last fever on 12/01 empiric antibiotics provided as per ID direction patient had 2 peripheral IV repeated blood culture revealed Escherichia coli a, PICC line tip revealed Staph epidermidis, probably contaminant as per ID specialist; stool for C difficile was negative CT of the abdomen and pelvis revealed no definite fluid collection or evidence of abscess. leukocytosis resolved , no further fever supplemental O2 provided to keep pulse oximetry above 92% ambulation and use of incentive spirometry encouraged 12/04 afebrile, no chills or diaphoresis started on low residue BCIR diet , able to tolerate diet antiemetic prn abdomen healing nicely TPN d/c nutritional supplements provided to improve malnutrition status antibiotic continued 12/05 no further chills or fever eating fair encouraged oral intake half of the romeo removed antibiotic continued 12/06 eating and feeling much better intake and output closely monitored antibiotic continued remaining romeo removed and steri-strips applied left nylon sutures for additional few days ( over mesh repair of hernia) BCIR ileo catheter removed and reinserted easily , started supervised Denise pouch self intubation every 3 hours during the day and as needed 12/07 afebrile feeling better eating well able to self intubate Denise catheter without difficulty 12/08 eating well 80% of meals abdomen healing IVF /dc started on oral Diflucan since unable to tolerate nystatin oral suspension 12/09 eating well able to self intubate BCIR sutures removed , Steri-Strips applied prerenal sinus tract from remote prostatectomy , treated with silver nitrate antibiotic continued as per ID specialist repeated blood culture negative [place] doctor had a long discussion with the patient and his regarding probiotic use , since patient on chronic Cipro for pouchitis suppression antibiotic resistance, biofilms risk-benefit and alternatives were discussed patient was ambivalent about probiotic trial , but may consider. 12/10 received last IV antibiotic continue 5 days of oral antibiotics as per ID recommendation upon discharge abdominal well-healed self intubated BCIR well no symptoms of pouchitis sinus tract from remote prostatectomy was cauterized again with silver nitrate ; applied dressing , o maintain dry and change up to 3 times daily for one week patient was stable for discharge full supplies provided limitations, d/c instructions provided and discussed patient to follow-up with the surgeon on and as needed resume mesalamine flush into BCIR pouch QHS follow-up with GI specialist Dr. Mena for ERCP in several weeks FINAL DIAGNOSES 1. Malfunctioning Denise continent ileostomy with stoma stricture and difficulty with intubation. 2. Recurrent incisional hernia. 3. History of myocardial infarction, March 2015, with stents 4. History of gout. 5. History of recurrent bladder stones. 6. History of possible polyp in common bile duct. 7. History of complex left renal cyst, followup pending. 8. STATUS POST MULTIPLE ABDOMINAL OPERATIONS: 8.1. Proctocolectomy and Lucy ileostomy in 1976. 8.2. Kock pouch in 1975. 8.3. Resection of Kock pouch with distal ileal stricture and creation of a Denise continent ileostomy in January 2009. 8.4. Revision of Denise continent ileostomy stoma in October 2009. 8.5. Laparotomy with revision of Denise pouch stoma and access segment and repair of incisional hernia, April 29, 2017. 9. 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 Malnutrition 12. s/p Exploratory laparotomy,revision of Gonzalez pouch, ventral hernia repair 11/23/17 13. Ileus 14. Atelectasis 15.Anemia 16. Dehydration -resolved 17. Abdominal wall hematoma, s/p evacuation 11/27/17 18. Possible sepsis 19. Probably aspiration pneumonia versus aspiration pneumonitis 20. E.coli bacteremia 21. Possible line infection with Staph epidermidis, probably contaminant - as per ID 22. CAD with hx of LAD stent 23. HTN 24. Dyslipidemia 25. Vitamin B12 deficiency 26. Vitamin D deficiency 27. History of gastrointestinal bleeding 28 Uric acid kidney stones Discharge Condition Upon Discharge: stable Discharge Disposition Patient was discharged to Home (01) Discharge Instructions Discharge Instructions Special Instructions I have been assigned to complete a D/C Summary on this account. I was not involved in the patient management Amada Dumas NP Dec 13, 2017 12:22
== END 2017-12-10 11:45 | disposition home or self-care (01) | DRG 344 ==
LOC: SDSOVERFLO 07:32 → 3E 07:46 → 2E 12-01 14:56 → 3E 12-03 09:09
PROC: 0DJD8ZZ Inspection of Lower Intestinal Tract, Via Natural or Artificial Opening Endoscopic (ICD-10-PCS; principal; 2017-11-22 14:18)
PROC: 0WUF0JZ Supplement Abdominal Wall with Synthetic Substitute, Open Approach (ICD-10-PCS; 2017-11-23)
PROC: 0DQB0ZZ Repair Ileum, Open Approach (ICD-10-PCS; 2017-11-23)
PROC: 0WQF0ZZ Repair Abdominal Wall, Open Approach (ICD-10-PCS; 2017-11-23)
PROC: B518ZZA Fluoroscopy of Superior Vena Cava, Guidance (ICD-10-PCS; 2017-11-23)
PROC: 02HV33Z Insertion of Infusion Device into Superior Vena Cava, Percutaneous Approach (ICD-10-PCS; 2017-11-23)
PROC: 0HB7XZZ Excision of Abdomen Skin, External Approach (ICD-10-PCS; 2017-11-23)
PROC: 0WQFXZ2 Repair Abdominal Wall, Stoma, External Approach (ICD-10-PCS; 2017-11-23)
PROC: 0JC83ZZ Extirpation of Matter from Abdomen Subcutaneous Tissue and Fascia, Percutaneous Approach (ICD-10-PCS; 2017-11-27)
DX: K94.13 Enterostomy malfunction (principal); J69.0 Pneumonitis due to inhalation of food and vomit; A41.9 Sepsis, unspecified organism; K91.850 Pouchitis; K51.90 Ulcerative colitis, unspecified, without complications; B37.0 Candidal stomatitis; L76.32 Postprocedural hematoma of skin and subcutaneous tissue following other procedure; E46 Unspecified protein-calorie malnutrition; K56.7 Ileus, unspecified; J98.11 Atelectasis; K43.2 Incisional hernia without obstruction or gangrene; E86.0 Dehydration; I25.10 Atherosclerotic heart disease of native coronary artery without angina pectoris; Z95.5 Presence of coronary angioplasty implant and graft; I25.2 Old myocardial infarction; E53.8 Deficiency of other specified B group vitamins; E55.9 Vitamin D deficiency, unspecified; K82.4 Cholesterolosis of gallbladder; I10 Essential (primary) hypertension; E78.5 Hyperlipidemia, unspecified; Z68.30 Body mass index [BMI] 30.0-30.9, adult; R00.0 Tachycardia, unspecified; N20.0 Calculus of kidney; K94.11 Enterostomy hemorrhage; D50.9 Iron deficiency anemia, unspecified
CPT/HCPCS: 36415; 36569; 36600; 71045; 71275; 74177; 74181; 76770; 76937; 80048; 80053; 80150; 81003; 82550; 82728; 82803; 82962; 83540; 83550; 83735; 84100; 84484; 85007; 85025; 85610; 85730; 86850; 86900; 86901; 87040; 87070; 87086; 87181; 87324; 93005; 93970; 94003; 94150; J1815; J2250; J2405; J2710; J3490

== ENCOUNTER 2018-01-04 09:42 | Outpatient (CLI) | payer MEDICARE, BC ==
[~2018-01-04] VITALS: Ht 170.2 cm; Wt 76.7 kg
[~2018-01-04 09:42] MED LIST changes: +CIPRO500 MG/51 PO; +NITROSTAT0.4 M1 SL; +[UNRECOGNIZED DRUG - CODE] PO
[2018-01-04 10:10] VITALS: BP 137/95
[2018-01-04] MEDS ORDERED: FERROUS SULFAT325 MG ORAL (16:17)
--- NOTE | 2018-01-06 23:54 | GI Initial Consult Note ---
History of Present Illness General Date patient seen: Jan 04, 2018 Time patient seen: 23:47 Referring physician: MARISOL / YEHUDA Present Illness HPI he patient is a gentleman with a long history of ulcerative colitis, status post a proctocolectomy with ileostomy in the 1970s followed by a continent ileostomy with Kock pouch in 1975. In January 2009, he had developed a distal ileal stricture and underwent resection of his prior Kock pouch and creation of Denise continent ileostomy. He required revision of his stoma in October 2009, and he was admitted in July 2016, with inability to intubate his pouch with subsequent functional bowel obstruction. Endoscopy revealed a redundant angulated access segment and severe diffuse pouchitis. Pouchitis was treated with the plan of subsequent laparotomy, but was delayed because of coverage issues. In April 2017, he underwent laparotomy with revision of his pouch stoma and access segment and repair of an incisional hernia in the epigastrium with mesh. Recently, he developed stenosis of the mucocutaneous junction of his ileostomy. He had pouchitis requiring treatment with mesalamine enemas as well as ciprofloxacin and on the current occasion, he is admitted to undergo pouch endoscopy and surgical repair of both the ileostomy as well as the recurrent incisional hernia. GI consulted for CBD Polyp seen on recent MRCP. Pt seen, awake A&Ox4 NAD, had recent ileostomy revision c/o of abdominal pain and generalized weakness. Labs , imaging studies and history thoroughly reviewed. Patient presents today in clinic for possible EUS/ERCP to evaluate the duodenal diverticulum. Denies any symptoms at this time. Denies any unintentional weight loss or changes in dietary habits. No signs of abuse or neglect. Patient is not fall risk. Home Meds Active Scripts Allopurinol* (ALLOPURINOL*) 100 Mg Tablet, 100 MG ORAL QHS for 30 Days, TAB Prov:Juno Rose MD 08/29/15 Reported Medications Ferrous Sulfate* (FERROUS SULFATE*) 325 Mg Tablet, ORAL DAILY, #30 TAB 0 Refills 01/04/18 Atorvastatin Calcium* (ATORVASTATIN CALCIUM*) 40 Mg Tablet, 40 MG ORAL BEDTIME, TAB 11/22/17 Ciprofloxacin Hcl* (CIPROFLOXACIN HCL*) 500 Mg Tablet, 500 MG ORAL EVERY 12 HOURS, TAB 0 Refills 11/22/17 Cholecalciferol (Vitamin D3) (Vitamin D3) 2,000 Unit Capsule, 2000 UNIT PO DAILY , CAP 11/22/17 Nitroglycerin (NITROSTAT) 0.4 Mg Tab.subl, 0.4 MG SL Q5M X3 DOSES PRN for CHEST PAIN, #25 TAB 0 Refills 11/22/17 Omeprazole (PRILOSEC) 20 Mg Capsule.dr, 20 MG ORAL DAILY, CAP 08/27/15 Aspirin* (ASPIRIN*) 81 Mg Tab.chew, 81 MG ORAL DAILY, TAB 08/27/15 Multivitamins* (MULTIVITAMINS*) 1 Each Tablet, 1 TAB ORAL DAILY, TAB 0 Refills 06/06/14 Discontinued Reported Medications Oxycodone Hcl/Acetaminophen 5-325* (OXYCODONE-ACETAMINOPHEN 5-325*) 1 Each Tablet, 1 TAB ORAL Q6H PRN for For Pain, #20 TAB 0 Refills 05/12/17 Med list reviewed/reconciled: Yes Allergies: Coded Allergies: CEPHALEXIN (Verified Allergy, Mild, 11/06/09) PENICILLIN G (Verified Allergy, Mild, 01/22/09) SULFA (SULFONAMIDE ANTIBIOTICS) (Verified Allergy, Mild, 11/07/09) Uncoded Allergies: ORAL FLAGYL (Adverse Reaction, Unknown, 11/07/09) Patient History History Provided By: Patient, Medical Record PMH Narrative 1.Ulcerative colitis with multiple surgical interventions as noted above. 2. Status post an episode of acute coronary syndrome in March 2015, requiring three LAD stents with resulting preserved myocardium with no further anginal symptoms. 3. History of multiunit gastrointestinal blood loss when the patient was being treated with Brilinta for stent. The blood loss appeared to be associated with his pouchitis and he developed concomitant iron deficiency. These were treated with intravenous Venofer and discontinuation of Brilinta with antibiotic treatment of pouchitis and bleeding stabilization. 4. The patient has history of gout and urate stones in the urinary tract, which has been treated with chronic allopurinol therapy with no recurrence of symptoms. 5. Hypertension. 6. Dyslipidemia. 7. 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 8. History of vitamin D deficiency. Social History: Denies: smoking, alcohol use, drug use, other Review of Systems All Other Systems: negative except mentioned in HPI Physical Exam Vital Signs Date Time Temp Pulse Resp B/P (MAP) Pulse Ox O2 Delivery O2 Flow Rate FiO2 01/04/18 10:10 98.0 99 16 137/95 95 Sp02 EP Interpretation: reviewed, normal General Appearance: well appearing, no apparent distress, alert Head: normocephalic EENT: PERRL/EOMI, normal ENT inspection Neck: supple Respiratory: normal breath sounds, no respiratory distress Cardiovascular: normal rate Gastrointestinal: normal inspection, non tender, soft, normal bowel sounds, non -distended Rectal: deferred Genitourinary: deferred Musculoskeletal: normal inspection, back normal Neurologic: normal inspection, alert, oriented x3, responsive Psychiatric: normal inspection, judgement/insight normal, memory normal Skin: normal inspection, normal color, no rash, warm/dry, palpation normal, well hydrated Lymphatic: normal inspection, no adenopathy GI: Plan Problems: (1) Ileostomy status (2) Anemia (3) MALFUNCTION OF BCIR WITH BOWEL OBSTRUCTION (4) Gastrointestinal bleeding, lower (5) Ulcerative colitis Plan MRCP reviewed >> polyp or mass or stenotic area of the common bile duct. Needs EUS and possible future ERCP to evaluate the duodenal diverticulum. EUS scheduled for 01/19/18. - NPO @ [place] day prior procedure. will follow with additional recs Seen with Dr. Mena. Thank you for this patient referral. The patient was seen and examined at bedside and all new and available data was reviewed in the patients chart. I agree with the above findings, impression and plan. (Patient seen earlier today. Signature stamp does not reflect patient encounter time.). - MD Maryam Lowry,[facility] LANGUAGE ARTS TEACHER Jan 06, 2018 23:54
== END 2018-01-04 10:12 | disposition home or self-care (01) ==
LOC: PAN 09:42
DX: K51.90 Ulcerative colitis, unspecified, without complications (principal); D64.9 Anemia, unspecified; K94.13 Enterostomy malfunction; K92.2 Gastrointestinal hemorrhage, unspecified; M10.9 Gout, unspecified; I10 Essential (primary) hypertension
CPT/HCPCS: 99201

== ENCOUNTER 2018-01-19 07:06 | Day surgery (SDC) | payer MEDICARE, BC ==
[2018-01-19] VITALS (12 sets, daily range): BP systolic 113–134; BP diastolic 65–93
[~2018-01-19] VITALS: Ht 170.2 cm; Wt 77.1 kg
--- NOTE | 2018-01-19 06:24 | Anethesia Preoperative Eval ---
Anesthesia Pre-op PMH/ROS General Date of Evaluation: Jan 19, 2018 Time of Evaluation: 06:20 Anesthesiologist: lottie ASA Score: ASA 4 Mallampati Score Class I : Soft palate, uvula, fauces, pillars visible Class II: Soft palate, uvula, fauces visible Class III: Soft palate, base of uvula visible Class IV: Only hard plate visible Mallampati Classification: Class II Surgeon: dario Surgical Procedure: eus Anesthesia History: none Social History: smoking - former smoker, alcohol use Family History: no anesthesia problems Allergies: Coded Allergies: CEPHALEXIN (Verified Allergy, Mild, 11/06/09) PENICILLIN G (Verified Allergy, Mild, 01/22/09) SULFA (SULFONAMIDE ANTIBIOTICS) (Verified Allergy, Mild, 11/07/09) Uncoded Allergies: ORAL FLAGYL (Adverse Reaction, Unknown, 11/07/09) Medications: see eMAR Patient NPO?: Yes Past Medical History Cardiovascular: Reports: [place], arrhythmia, other - dyslipidemia, syncope, orthostasis Gastrointestinal/Genitourinary: Reports: GERD, other - dat, bcir, ileostomy obstruction, kidney stone, gi bleed, chronic urate nephropathy, ulcerative colitis, hyperuricemia HEENT: Reports: [place] (L), [place] (R) Hematology/Immune: Reports: anemia Anesthesia Pre-op Phys. Exam Physician Exam Last Vital Signs Date Time Temp Pulse Resp B/P (MAP) Pulse Ox O2 Delivery O2 Flow Rate FiO2 01/19/18 07:45 Room Air 01/19/18 07:39 98.1 80 20 134/88 97 Constitutional: NAD Neurologic: CN 2-12 intact Cardiovascular: RRR Respiratory: CTA Gastrointestinal: S/NT/ND Airway Exam Mallampati Score: Class II MO: full Neck: flexible TMD: 2fb ROM: full Anesthesia Pre-op A/P Risk Assessment & Plan Assessment: asa4 Plan: mac Status Change Before Surgery: No Pre-Antibiotics Drug: Padmaja Wise MD Jan 19, 2018 06:24
[~2018-01-19 07:06] MED LIST changes: +Atropine Inj 1mg/10ml Syr IV PRN; +DiphenhydrAMINE 50mg/ml Inj IVP PRN; +Midazolam 2mg/2ml Inj IVP PRN; +fentaNYL 100 mcg/2 mL IV PRN
--- NOTE | 2018-01-19 09:06 | Pre-Procedure Note/Attestation ---
Pre-Procedure Note/Attestation Complete Prior to Procedure Planned Procedure: not applicable Procedure Narrative: EUS Indications for Procedure Pre-Operative Diagnosis: CBD lesion Attestation I attest that I discussed the nature of the procedure; its benefits; risks and complications; and alternatives (and the risks and benefits of such alternatives ), prior to the procedure, with the patient (or the patient's legal credit and collections representative). I attest that, if there was a reasonable possibility of needing a blood transfusion, the patient (or the patient's legal credit and collections representative) was given the [facility] standardized written summary, pursuant to the [place] Blood Safety Act ([place] Health and Safety Code # 1645, as amended). I attest that I re-evaluated the patient just prior to the surgery and that there has been no change in the patient's H&P, except as documented below: Tony Mena MD Jan 19, 2018 09:06
--- NOTE | 2018-01-19 09:07 | Short Stay Surgery H&P ---
History of Present Illness History of Present Illness Chief Complaint see recent office note HPI John Lopez is a 68 year old male who was admitted on for Duodenal Diverticulum Patient History Allergies: Coded Allergies: CEPHALEXIN (Verified Allergy, Mild, 11/06/09) PENICILLIN G (Verified Allergy, Mild, 01/22/09) SULFA (SULFONAMIDE ANTIBIOTICS) (Verified Allergy, Mild, 11/07/09) Uncoded Allergies: ORAL FLAGYL (Adverse Reaction, Unknown, 11/07/09) Medication History Scheduled Allopurinol* (Allopurinol*), 100 MG ORAL QHS Aspirin* (Aspirin*), 81 MG ORAL DAILY, (Reported) Atorvastatin Calcium* (Atorvastatin Calcium*), 40 MG ORAL BEDTIME, (Reported) Cholecalciferol (Vitamin D3) (Vitamin D3), 2,000 UNIT PO DAILY, (Reported) Ciprofloxacin Hcl* (Ciprofloxacin Hcl*), 500 MG ORAL DAILY, (Reported) Ferrous Sulfate* (Ferrous Sulfate*), 325 MG ORAL DAILY, (Reported) Multivitamins* (Multivitamins*), 1 TAB ORAL DAILY, (Reported) Omeprazole (Prilosec), 20 MG ORAL DAILY, (Reported) Scheduled PRN Nitroglycerin (Nitrostat), 0.4 MG SL Q5M X3 DOSES PRN for CHEST PAIN, (Reported) Physical Exam Vital Signs Last Vital Signs Date Time Temp Pulse Resp B/P (MAP) Pulse Ox O2 Delivery O2 Flow Rate FiO2 01/19/18 07:45 Room Air 01/19/18 07:39 98.1 80 20 134/88 97 Plan Attestation Are the patient's medical conditions optimized for surgery? Tony Mena MD Jan 19, 2018 09:07
[2018-01-19] MEDS ORDERED: Heplock Flush 100 units/ml 3 ml syr ONE (09:19)
[2018-01-19] MEDS ORDERED: Sodium Chloride 10ml vial INJ ONE (09:45)
[2018-01-19] MEDS ORDERED: Lidocaine 1% MPF 10mg/ml 5ml ONE (09:45)
[2018-01-19] MEDS ORDERED: Propofol 200mg/20ml IV ONE (09:45)
--- NOTE | 2018-01-19 10:25 | Endoscopy Procedure Note ---
Endoscopy Procedure Note General Indication for Procedure: CBD lesion Procedures Performed: other - EUS Operative Findings/Diagnosis: same Specimen: none Pt Tolerated Procedure Well: Yes Estimated Blood Loss: none Anesthesia Anesthesiologist: lottie Anesthesia: MAC Inserted Devices Implant(s) used?: No GI Core Measures 50 yrs or older w/o bx or poly: Not Applicable 10yrs. F/U not recommended: Not Applicable Tony Mena MD Jan 19, 2018 10:25
--- NOTE | 2018-01-19 15:37 | Immediate Post-Op Evaluation ---
Immediate Post-Op Evalulation Immediate Post-Op Evalulation Procedure: eus Date of Evaluation: Jan 19, 2018 Time of Evaluation: 10:40 IV Fluids: 550ml 0.9ns Blood Products: none Estimated Blood Loss: negligible Blood Pressure Systolic: 129 Blood Pressure Diastolic: 75 Pulse Rate: 78 Respiratory Rate: 18 O2 Sat by Pulse Oximetry: 99 Temperature (Fahrenheit): 97.9 Pain Score (1-10): 0 Nausea: No Vomiting: No Complications none Patient Status: awake, reacts, patent Hydration Status: adequate Drug: Padmaja Wise MD Jan 19, 2018 15:37
--- NOTE | 2018-01-19 15:38 | 48 Hour Post Anesthesia Eval ---
Post Anesthesia Evaluation Procedure: eus Date of Evaluation: Jan 19, 2018 Time of Evaluation: 10:42 Blood Pressure Systolic: 119 0: 82 Pulse Rate: 76 Respiratory Rate: 18 Temperature (Fahrenheit): 97.9 O2 Sat by Pulse Oximetry: 99 Airway: patent Nausea: No Vomiting: No Pain Intensity: 0 Hydration Status: adequate Cardiopulmonary Status: stable Mental Status/LOC: patient returned to baseline Post-Anesthesia Complications: none Follow-up care needed: N/A Padmaja Marr MD Jan 19, 2018 15:38
--- NOTE | 2018-01-19 17:15 | Procedure Note ---
DATE OF PROCEDURE: 01/19/2018 SURGEON: Tony Mena M.D. PROCEDURE: EUS endoscopic ultrasound. ANESTHESIA: Per Padmaja Myers M.D. INSTRUMENT: Olympus EUS scope. INDICATION: Possible common bile duct stone. REASON FOR PROCEDURE: The procedure, risks, benefits, and possible consequences, including hemorrhage, aspiration, perforation and infection, and alternative treatments, were explained to the patient/legal guardian by Dr. Tony Mena and the patient/legal guardian understood and accepted these risks. DESCRIPTION OF PROCEDURE: After informed consent was obtained and the patient was adequately sedated, the Olympus EUS scope was advanced from the mouth into the second portion of the duodenum and pancreatic parenchyma was carefully examined through the gastroduodenal mucosa. Starting scanning at GE junction, first we saw the celiac axis. There was no obvious celiac axis lymphadenopathy. The tail of the pancreas was examined while the scope was kept in the stomach. The pancreatic parenchyma grossly looked within normal limits. Mildly atrophic. Pancreatic duct was very tiny may be about 1 mm. No pancreatic duct dilatation was seen in the body nor in the tail of the pancreas. It was carefully examined. Gallbladder was seen. No gallstone was seen in the gallbladder. No sludge was seen. Gallbladder wall measured roughly about 2 mm. Common bile duct was seen grossly nondilated. The maximum common bile duct measurement was about 6 mm in the proximal common bile duct. The common bile duct was getting narrow as we get to the head of the pancreas almost roughly about maybe 2 mm when we get to the head. There were some calcifications in the head of the pancreas of unknown etiology, may be prior history of pancreatitis or pancreatic injury. The patient also had a duodenal diverticulum, made the examination somewhat limited. It seems that there is a 5 mm lesion in the distal common bile duct. It is more hyperechoic rather than hypoechoic. There was not a classical shadowing of the stone, but there is still possibility of the stone given the echogenicity of it. Initial diagnosis would be a fatty tissue or rectal lipoma or polyp in the distal common bile duct. Again, there was no any associated common bile duct dilatation. Of note, we also found a 1 cm simple looking cyst in the head of the pancreas. The patient tolerated the procedure well without any complication. SUMMARY OF FINDINGS: 1. A 5 mm lesion in the distal common bile duct without associated pancreatic duct or common bile duct dilatation. This lesion's differential diagnosis would be either adherent stone versus polyp versus lipoma. 2. A 1 cm simple looking cyst in the head of the pancreas. 3. Normal gallbladder without any obvious stone. RECOMMENDATIONS: At this time, our recommendation will be to do an ERCP for evaluation of this lesion. If it is a stone, we will remove it given the endoscopic retrograde cholangiopancreatography. If it is a polyp or any lipoma, would biopsy at that time. In terms of the pancreatic cyst, the patient would need to have follow up within one year with the EUS to see if it is changing in size. I want to thank Dr. Rodney Stone for this kind referral. Tony Mena M.D. DR: SHANICE JOB#: [id number] CC: Rodney Stone M.D.; Fax#: [phone]
== END 2018-01-19 11:45 | disposition home or self-care (01) ==
LOC: GAS 07:06
DX: K83.9 Disease of biliary tract, unspecified (principal); K86.2 Cyst of pancreas; K57.10 Diverticulosis of small intestine without perforation or abscess without bleeding; E78.5 Hyperlipidemia, unspecified; I25.2 Old myocardial infarction; K21.9 Gastro-esophageal reflux disease without esophagitis; H91.90 Unspecified hearing loss, unspecified ear; D64.9 Anemia, unspecified; Z88.1 Allergy status to other antibiotic agents; Z88.0 Allergy status to penicillin; Z88.2 Allergy status to sulfonamides
CPT/HCPCS: 43237; J2704; 94003; 94150

== ENCOUNTER 2018-03-09 07:37 | Day surgery (SDC) | payer BC, MEDICARE ==
[~2018-03-09] VITALS: Ht 170.2 cm; Wt 77.1 kg
[2018-03-09] VITALS (9 sets, daily range): BP systolic 104–140; BP diastolic 74–91
[~2018-03-09 07:37] MED LIST changes: -Atropine Inj 1mg/10ml Syr IV PRN; -DiphenhydrAMINE 50mg/ml Inj IVP PRN; -Midazolam 2mg/2ml Inj IVP PRN; -fentaNYL 100 mcg/2 mL IV PRN
[2018-03-09] MEDS ORDERED: Iothalamate Meglumine 60% 30ML INJ ONE (08:23)
[2018-03-09 08:36] LABS: BASOPHILS % (AUTO) 0.8 % (0.0-2.0); EOSINOPHILS % (AUTO) 1.7 % (0.0-3.0); HEMATOCRIT 44.3 % (42.0-52.0); HEMOGLOBIN 14.8 G/DL (14.2-18.0); LYMPHOCYTES % (AUTO) 22.3 % (20.0-45.0); MEAN CORPUSCULAR VOLUME 84 FL (80-99); MONOCYTES % (AUTO) 5.3 % (1.0-10.0); NEUTROPHILS % (AUTO) 69.8 % (45.0-75.0); PLATELET COUNT 238 K/UL (150-450); RED BLOOD COUNT 5.24 M/UL (4.70-6.10); RED CELL DISTRIBUTION WIDTH 12.3 % (11.6-14.8); WHITE BLOOD COUNT 7.7 K/UL (4.8-10.8)
--- NOTE | 2018-03-09 08:43 | Pre-Procedure Note/Attestation ---
Pre-Procedure Note/Attestation Complete Prior to Procedure Planned Procedure: not applicable Procedure Narrative: ercp Indications for Procedure Pre-Operative Diagnosis: cbd lesion Attestation I attest that I discussed the nature of the procedure; its benefits; risks and complications; and alternatives (and the risks and benefits of such alternatives ), prior to the procedure, with the patient (or the patient's legal community relations representative). I attest that, if there was a reasonable possibility of needing a blood transfusion, the patient (or the patient's legal community relations representative) was given the [facility] standardized written summary, pursuant to the Larry Compa Blood Safety Act ([place] Health and Safety Code # 1645, as amended). I attest that I re-evaluated the patient just prior to the surgery and that there has been no change in the patient's H&P, except as documented below: Tony Mena MD Mar 09, 2018 08:43
--- NOTE | 2018-03-09 08:43 | Short Stay Surgery H&P ---
History of Present Illness History of Present Illness Chief Complaint see recent office note HPI John Lopez is a 68 year old male who was admitted on for Common Bile Duct Stone Patient History Allergies: Coded Allergies: CEPHALEXIN (Verified Allergy, Mild, 11/06/09) PENICILLIN G (Verified Allergy, Mild, 01/22/09) SULFA (SULFONAMIDE ANTIBIOTICS) (Verified Allergy, Mild, 11/07/09) Uncoded Allergies: ORAL FLAGYL (Adverse Reaction, Unknown, 11/07/09) Medication History Scheduled Allopurinol* (Allopurinol*), 100 MG ORAL QHS Aspirin* (Aspirin*), 81 MG ORAL DAILY, (Reported) Atorvastatin Calcium* (Atorvastatin Calcium*), 40 MG ORAL BEDTIME, (Reported) Cholecalciferol (Vitamin D3) (Vitamin D3), 2,000 UNIT PO DAILY, (Reported) Ciprofloxacin Hcl* (Ciprofloxacin Hcl*), 500 MG ORAL DAILY, (Reported) Ferrous Sulfate* (Ferrous Sulfate*), 325 MG ORAL DAILY, (Reported) Multivitamins* (Multivitamins*), 1 TAB ORAL DAILY, (Reported) Omeprazole (Prilosec), 20 MG ORAL DAILY, (Reported) Scheduled PRN Nitroglycerin (Nitrostat), 0.4 MG SL Q5M X3 DOSES PRN for CHEST PAIN, (Reported) Physical Exam Vital Signs Last Vital Signs Date Time Temp Pulse Resp B/P (MAP) Pulse Ox O2 Delivery O2 Flow Rate FiO2 03/09/18 08:38 Room Air 03/09/18 08:25 97.8 60 18 140/88 99 Labs Laboratory Tests Test 03/09/18 08:25 White Blood Count 7.7 K/UL (4.8-10.8) Red Blood Count 5.24 M/UL (4.70-6.10) Hemoglobin 14.8 G/DL (14.2-18.0) Hematocrit 44.3 % (42.0-52.0) Mean Corpuscular Volume 84 FL (80-99) Mean Corpuscular Hemoglobin 28.3 PG (27.0-31.0) Mean Corpuscular Hemoglobin Concent 33.5 G/DL (32.0-36.0) Red Cell Distribution Width 12.3 % (11.6-14.8) Platelet Count 238 K/UL (150-450) Mean Platelet Volume 6.1 FL (6.5-10.1) L Neutrophils (%) (Auto) 69.8 % (45.0-75.0) Lymphocytes (%) (Auto) 22.3 % (20.0-45.0) Monocytes (%) (Auto) 5.3 % (1.0-10.0) Eosinophils (%) (Auto) 1.7 % (0.0-3.0) Basophils (%) (Auto) 0.8 % (0.0-2.0) Prothrombin Time Pending Prothromb Time International Ratio Pending Activated Partial Thromboplast Time Pending Sodium Level Pending Potassium Level Pending Chloride Level Pending Carbon Dioxide Level Pending Blood Urea Nitrogen Pending Creatinine Pending Estimat Glomerular Filtration Rate Pending Glucose Level Pending Calcium Level Pending Total Bilirubin Pending Aspartate Amino Transf (AST/SGOT) Pending Alanine Aminotransferase (ALT/SGPT) Pending Alkaline Phosphatase Pending Total Protein Pending Albumin Pending Globulin Pending Amylase Level Pending Lipase Pending Plan Attestation Are the patient's medical conditions optimized for surgery? Tony Mena MD Mar 09, 2018 08:43
[2018-03-09 08:45] LABS: INR 0.9 (0.9-1.1)
--- NOTE | 2018-03-09 08:57 | Short Stay Surgery H&P ---
History of Present Illness History of Present Illness Chief Complaint cbd lesion HPI John Lopez is a 68 year old male who was admitted on for Common Bile Duct Stone Patient History Allergies: Coded Allergies: CEPHALEXIN (Verified Allergy, Mild, 11/06/09) PENICILLIN G (Verified Allergy, Mild, 01/22/09) SULFA (SULFONAMIDE ANTIBIOTICS) (Verified Allergy, Mild, 11/07/09) Uncoded Allergies: ORAL FLAGYL (Adverse Reaction, Unknown, 11/07/09) PAST MEDICAL HISTORY: (1) History of coronary artery stent placement (2) Ileostomy status (3) MALFUNCTION OF BCIR WITH BOWEL OBSTRUCTION (4) Gastrointestinal bleeding, lower (5) Anemia (6) Ulcerative colitis Medication History Scheduled Allopurinol* (Allopurinol*), 100 MG ORAL QHS Aspirin* (Aspirin*), 81 MG ORAL DAILY, (Reported) Atorvastatin Calcium* (Atorvastatin Calcium*), 40 MG ORAL BEDTIME, (Reported) Cholecalciferol (Vitamin D3) (Vitamin D3), 2,000 UNIT PO DAILY, (Reported) Ciprofloxacin Hcl* (Ciprofloxacin Hcl*), 500 MG ORAL DAILY, (Reported) Ferrous Sulfate* (Ferrous Sulfate*), 325 MG ORAL DAILY, (Reported) Multivitamins* (Multivitamins*), 1 TAB ORAL DAILY, (Reported) Omeprazole (Prilosec), 20 MG ORAL DAILY, (Reported) Scheduled PRN Nitroglycerin (Nitrostat), 0.4 MG SL Q5M X3 DOSES PRN for CHEST PAIN, (Reported) Review of Systems Cardiovascular: Reports: no symptoms Respiratory: Reports: no symptoms Skeletal: Reports: no symptoms Gastrointestinal: Reports: no symptoms Genitourinary: Reports: no symptoms Neurologic: Reports: no symptoms Endocrine: Reports: no symptoms Hematologic: Reports: no symptoms Physical Exam Vital Signs Last Vital Signs Date Time Temp Pulse Resp B/P (MAP) Pulse Ox O2 Delivery O2 Flow Rate FiO2 03/09/18 08:38 Room Air 03/09/18 08:25 97.8 60 18 140/88 99 Labs Laboratory Tests Test 03/09/18 08:25 White Blood Count 7.7 K/UL (4.8-10.8) Red Blood Count 5.24 M/UL (4.70-6.10) Hemoglobin 14.8 G/DL (14.2-18.0) Hematocrit 44.3 % (42.0-52.0) Mean Corpuscular Volume 84 FL (80-99) Mean Corpuscular Hemoglobin 28.3 PG (27.0-31.0) Mean Corpuscular Hemoglobin Concent 33.5 G/DL (32.0-36.0) Red Cell Distribution Width 12.3 % (11.6-14.8) Platelet Count 238 K/UL (150-450) Mean Platelet Volume 6.1 FL (6.5-10.1) L Neutrophils (%) (Auto) 69.8 % (45.0-75.0) Lymphocytes (%) (Auto) 22.3 % (20.0-45.0) Monocytes (%) (Auto) 5.3 % (1.0-10.0) Eosinophils (%) (Auto) 1.7 % (0.0-3.0) Basophils (%) (Auto) 0.8 % (0.0-2.0) Prothrombin Time 10.0 SEC (9.30-11.50) Prothromb Time International Ratio 0.9 (0.9-1.1) Activated Partial Thromboplast Time 27 SEC (23-33) Sodium Level Pending Potassium Level Pending Chloride Level Pending Carbon Dioxide Level Pending Blood Urea Nitrogen Pending Creatinine Pending Estimat Glomerular Filtration Rate Pending Glucose Level Pending Calcium Level Pending Total Bilirubin Pending Aspartate Amino Transf (AST/SGOT) Pending Alanine Aminotransferase (ALT/SGPT) Pending Alkaline Phosphatase Pending Total Protein Pending Albumin Pending Globulin Pending Amylase Level Pending Lipase Pending Skin: normal HENT: normal Heart: normal Lungs: normal Abdomen: normal Extremities: normal Plan Plan of Care ercp Attestation Are the patient's medical conditions optimized for surgery? Attestation Response: yes Tony Mena MD Mar 09, 2018 08:57
[2018-03-09] MEDS ORDERED: Propofol 200mg/20ml IV ONE (09:00)
[2018-03-09] MEDS ORDERED: Lidocaine 1% MPF 10mg/ml 5ml ONE (09:00)
[2018-03-09] MEDS ORDERED: fentaNYL 100 mcg/2 mL IV ONE (09:00)
[2018-03-09] MEDS ORDERED: Metoclopramide 10mg/2ml Inj ONE (09:00)
[2018-03-09] MEDS ORDERED: Midazolam 2mg/2ml Inj ONE (09:00)
[2018-03-09 09:19] LABS: ANION GAP 10 mmol/L (5-15); BLOOD UREA NITROGEN 15 mg/dL (7-18); CALCIUM 9.3 MG/DL (8.5-10.1); CARBON DIOXIDE 26 MMOL/L (21-32); CHLORIDE 106 MMOL/L (98-107); CREATININE 1.2 MG/DL (0.55-1.30); POTASSIUM 3.9 MMOL/L (3.5-5.1); SODIUM 141 MMOL/L (136-145)
[2018-03-09 09:24] LABS: ALANINE AMINOTRANSFERASE 26 U/L (12-78); ALBUMIN 3.6 G/DL (3.4-5.0); ALBUMIN/GLOBULIN RATIO 0.9 (1.0-2.7); ALKALINE PHOSPHATASE 116 U/L (46-116); AMYLASE 70 U/L (25-115); ASPARTATE AMINO TRANSFERASE 24 U/L (15-37); BILIRUBIN,TOTAL 0.4 MG/DL (0.2-1.0)
--- NOTE | 2018-03-09 09:59 | Endoscopy Procedure Note ---
Endoscopy Procedure Note General Indication for Procedure: cbd lesion Procedures Performed: ERCP Operative Findings/Diagnosis: large duodenal diverticulum Specimen: none Pt Tolerated Procedure Well: Yes Estimated Blood Loss: none Anesthesia Anesthesiologist: see chart Anesthesia: MAC Inserted Devices Implant(s) used?: No GI Core Measures 50 yrs or older w/o bx or poly: Not Applicable 10yrs. F/U not recommended: Not Applicable Tony Mena MD Mar 09, 2018 09:59
[2018-03-09] MEDS ORDERED: Succinylcholine 20mg/ml 10ml vial ONE (10:12)
--- NOTE | 2018-03-09 10:56 | Anethesia Preoperative Eval ---
Anesthesia Pre-op PMH/ROS General Date of Evaluation: Mar 09, 2018 Time of Evaluation: 08:45 Anesthesiologist: Елена ASA Score: ASA 3 Mallampati Score Class I : Soft palate, uvula, fauces, pillars visible Class II: Soft palate, uvula, fauces visible Class III: Soft palate, base of uvula visible Class IV: Only hard plate visible Mallampati Classification: Class II Surgeon: Trina Diagnosis: Common bile duct stone Surgical Procedure: ERCP Anesthesia History: none Social History: smoking - quit 40 years ago Family History: no anesthesia problems Allergies: Coded Allergies: CEPHALEXIN (Verified Allergy, Mild, 11/06/09) PENICILLIN G (Verified Allergy, Mild, 01/22/09) SULFA (SULFONAMIDE ANTIBIOTICS) (Verified Allergy, Mild, 11/07/09) Uncoded Allergies: ORAL FLAGYL (Adverse Reaction, Unknown, 11/07/09) Medications: see eMAR Patient NPO?: Yes NPO Date: Mar 08, 2018 NPO Time: 21:00 Past Medical History Cardiovascular: Reports: HTN, CAD, PA - 2016 stents x 3 Pulmonary: Denies: asthma, COPD, MARIE, other Gastrointestinal/Genitourinary: Reports: GERD, other - colitis, kock pouch Neurologic/Psychiatric: Reports: other - vertigo, syncope hx Endocrine: Denies: DM, hypothyroidism, steroids, other HEENT: Reports: ALATNA (L), ALATNA (R) Hematology/Immune: Reports: anemia Musculoskeletal/Integumentary: Reports: OA PSxH Narrative: stents x 3, BCIR 2009, kock pouch, Anesthesia Pre-op Phys. Exam Physician Exam Last Vital Signs Date Time Temp Pulse Resp B/P (MAP) Pulse Ox O2 Delivery O2 Flow Rate FiO2 03/09/18 10:25 78 20 120/81 100 Room Air 03/09/18 10:13 8 03/09/18 10:03 97.0 Constitutional: NAD Neurologic: CN 2-12 intact Cardiovascular: RRR Respiratory: CTA Airway Exam Mallampati Score: Class II MO: full ROM: full Teeth: intact Dentures: no upper, no lower Anesthesia Pre-op A/P Labs Hematology Test 03/09/18 08:25 White Blood Count 7.7 K/UL (4.8-10.8) Red Blood Count 5.24 M/UL (4.70-6.10) Hemoglobin 14.8 G/DL (14.2-18.0) Hematocrit 44.3 % (42.0-52.0) Mean Corpuscular Volume 84 FL (80-99) Mean Corpuscular Hemoglobin 28.3 PG (27.0-31.0) Mean Corpuscular Hemoglobin Concent 33.5 G/DL (32.0-36.0) Red Cell Distribution Width 12.3 % (11.6-14.8) Platelet Count 238 K/UL (150-450) Mean Platelet Volume 6.1 FL (6.5-10.1) L Neutrophils (%) (Auto) 69.8 % (45.0-75.0) Lymphocytes (%) (Auto) 22.3 % (20.0-45.0) Monocytes (%) (Auto) 5.3 % (1.0-10.0) Eosinophils (%) (Auto) 1.7 % (0.0-3.0) Basophils (%) (Auto) 0.8 % (0.0-2.0) Coagulation Test 03/09/18 08:25 Prothrombin Time 10.0 SEC (9.30-11.50) Prothromb Time International Ratio 0.9 (0.9-1.1) Activated Partial Thromboplast Time 27 SEC (23-33) Chemistry Test 03/09/18 08:25 03/09/18 10:34 Sodium Level 141 MMOL/L (136-145) Potassium Level 3.9 MMOL/L (3.5-5.1) Chloride Level 106 MMOL/L (98-107) Carbon Dioxide Level 26 MMOL/L (21-32) Anion Gap 10 mmol/L (5-15) Blood Urea Nitrogen 15 mg/dL (7-18) Creatinine 1.2 MG/DL (0.55-1.30) Estimat Glomerular Filtration Rate > 60 mL/min (>60) Glucose Level 107 MG/DL (74-106) H Calcium Level 9.3 MG/DL (8.5-10.1) Total Bilirubin 0.4 MG/DL (0.2-1.0) Aspartate Amino Transf (AST/SGOT) 24 U/L (15-37) Alanine Aminotransferase (ALT/SGPT) 26 U/L (12-78) Alkaline Phosphatase 116 U/L (46-116) Total Protein 7.4 G/DL (6.4-8.2) Albumin 3.6 G/DL (3.4-5.0) Globulin 3.8 g/dL Albumin/Globulin Ratio 0.9 (1.0-2.7) L Amylase Level 70 U/L (25-115) Lipase 146 U/L (73-393) Carcinoembryonic Antigen Pending CA 19-9 Antigen Pending Studies Pre-op Studies: EKG - NSR Risk Assessment & Plan Assessment: A&Ox4 Plan: GETA Status Change Before Surgery: No Pre-Antibiotics Given Within 1 Hr of Incision: No - none per surgeon Gloria Christiansen CRNA Mar 09, 2018 10:56
--- NOTE | 2018-03-09 10:57 | Immediate Post-Op Evaluation ---
Immediate Post-Op Evalulation Immediate Post-Op Evalulation Procedure: ERCP Date of Evaluation: Mar 09, 2018 Time of Evaluation: 10:04 IV Fluids: NSS 500 ml Blood Products: 0 Estimated Blood Loss: 0 Urinary Output: 0 Blood Pressure Systolic: 124 Blood Pressure Diastolic: 91 Pulse Rate: 86 Respiratory Rate: 20 O2 Sat by Pulse Oximetry: 100 Temperature (Fahrenheit): 98.3 Pain Score (1-10): 0 Nausea: No Vomiting: No Complications none noted Patient Status: awake, reacts, patent, extubated Hydration Status: adequate Given Within 1 Hr of Incision: No - none per surgeon Gloria Christiansen CRNA Mar 09, 2018 10:57
--- NOTE | 2018-03-09 11:32 | 48 Hour Post Anesthesia Eval ---
Post Anesthesia Evaluation Procedure: ERCP Date of Evaluation: Mar 09, 2018 Time of Evaluation: 11:30 Blood Pressure Systolic: 117 0: 74 Pulse Rate: 74 Respiratory Rate: 18 Temperature (Fahrenheit): 97.1 O2 Sat by Pulse Oximetry: 96 Airway: patent Nausea: No Vomiting: No Pain Intensity: 0 Hydration Status: adequate Mental Status/LOC: patient returned to baseline Follow-up care needed: patient intructions given Gloria Christiansen CRNA Mar 09, 2018 11:32
--- NOTE | 2018-03-09 14:45 | Procedure Note ---
DATE OF PROCEDURE: 03/09/2018 SURGEON: Tony Mena M.D. PROCEDURE: Attempted ERCP. ANESTHESIOLOGIST: . INSTRUMENT: Olympus adult flexible ERCP scope. INDICATION: Common bile duct lesion. The procedure, risks, benefits, and possible consequences, including hemorrhage, aspiration, perforation and infection, and alternative treatments, were explained to the patient/legal guardian by Dr. Tony Mena and the patient/legal guardian understood and accepted these risks. DESCRIPTION OF PROCEDURE: After informed consent was obtained and the patient was adequately sedated, the ERCP scope was advanced from mouth into the second portion of the duodenum. The patient had a large duodenal diverticulum. Ampulla was hiding in the diverticulum. We could not see the ampulla really well. We had to use a biopsy forceps to pull it out but every time we let it go it would back inside the diverticulum. We attempted to keep the ampulla out by clipping the base of it but did not work even after clip placement and ampulla was moved back into the diverticulum again. After spending over half an hour trying with a sphincterotome getting to the ampulla was impossible again because of there was filling in the diverticulum and we could not reach it. At this time, given the patient has normal liver function tests and this lesion in the common bile duct was already evaluated by EUS we decided not to proceed to continuing at this time. The scope was retrieved and procedure was terminated. FINDINGS: A large duodenal diverticulum containing the ampulla making it unable to access the cannulation of the common bile duct. RECOMMENDATIONS: We recommend the patient to come back for an MRCP in three months to compare to the last MRCP and see if this lesion is growing and at that time we will consider another attempt for ERCP if this lesion is growing. If it is the same size or smaller, we will just monitor. We also going to send the CA-19-9 level for today. I want to thank, Dr. Rodney Stone for this kind referral. Tony Mena M.D. DR: Lonny JOB#: [id number] CC: Rodney Stone M.D.; Fax#: [phone]
--- NOTE | 2018-03-11 16:03 | Cardiology Report ---
APPROVED REPORT EKG Measurement Heart [id number] NH [id number] Sinus bradycardia Otherwise normal ECG
== END 2018-03-09 11:30 | disposition home or self-care (01) ==
LOC: GAS 07:37
DX: K80.50 Calculus of bile duct without cholangitis or cholecystitis without obstruction (principal); K57.10 Diverticulosis of small intestine without perforation or abscess without bleeding; Z53.8 Procedure and treatment not carried out for other reasons; I10 Essential (primary) hypertension; I25.10 Atherosclerotic heart disease of native coronary artery without angina pectoris; I25.2 Old myocardial infarction; K21.9 Gastro-esophageal reflux disease without esophagitis; Z95.5 Presence of coronary angioplasty implant and graft; M19.90 Unspecified osteoarthritis, unspecified site; D64.9 Anemia, unspecified; Z87.19 Personal history of other diseases of the digestive system; Z93.2 Ileostomy status; Z79.82 Long term (current) use of aspirin; Z88.1 Allergy status to other antibiotic agents; Z88.3 Allergy status to other anti-infective agents; Z88.0 Allergy status to penicillin; Z88.2 Allergy status to sulfonamides
CPT/HCPCS: 36415; 80053; 82150; 82378; 83690; 85025; 85610; 85730; 93005; 94003; 94150; J2250; J2405; J2765

== ENCOUNTER 2018-08-12 10:59 | Day surgery (SDC) | payer BC, MEDICARE ==
--- NOTE | 2018-08-11 17:15 | Pre-op HX & Phy Repo 2 SIG ---
DATE OF ADMISSION: 08/12/2018 PRE-ENDOSCOPY HISTORY AND PHYSICAL DATE OF ENDOSCOPY: 08/12/2018 TYPE OF ENDOSCOPY: Denise continent ileostomy pouch endoscopy. HISTORY OF PRESENT ILLNESS: The patient is a 68-year-old male in overall stable health, who is having recent episodes of incontinence of stool and gas through his continent ileostomy stoma and some difficulty with intubation. The patient has a past history of ulcerative colitis and has been through many abdominal operations all of which will be listed at the end of this dictation. Most recently in November 2017, he underwent laparotomy with revision of his Denise continent ileostomy nipple-valve and revision of stoma stenosis as well as mesh repair of recurrent incisional hernia. He had a challenging postoperative course with sepsis that resolved. He did well until he started encountering difficulty two months ago with occasional escape of gas from his stoma. He does take Cipro 500 mg every day to prevent pouchitis and increases it to twice a day when he has pouchitis. He stopped the [place] irrigations into his pouch at nighttime several months ago. Recently, he feels a need to increase in the frequency of intubating his pouch because of pressure. He is advised to increase his Cipro to 500 mg twice a day at this time when he struggles to get his catheter in. He has occasional blood streaks. PAST MEDICAL HISTORY/MEDICATIONS: Allopurinol, omeprazole, atorvastatin, aspirin 81 mg, Nitrostat sublingual p.r.n., and Cipro. ALLERGIES TO MEDICATIONS: He is allergic to penicillin and Keflex. In addition, Flagyl taken orally causes GI upset. REVIEW OF SYSTEMS: Myocardial infarction in March 2015, with 3 stents. Bladder stones in the past. Gastrointestinal bleeding while on Brilinta in December 2015 that resolved with medical treatment and discontinuation of Brilinta. Recently he has been followed by Dr. Mena, Gastroenterology because of a possible polyp in the distal common bile duct based on MRCP evaluations. PHYSICAL EXAMINATION: GENERAL: The patient is 5 feet 7 inches, approximately 170 pounds. HEENT: Within normal limits. LUNGS: Clear. HEART: Regular rhythm. BREASTS: Without masses. ABDOMEN: Soft with long midline scar from xiphoid to pubis with other abdominal scars. The stoma of his Denise continent ileostomy is low in the right lower quadrant. There is no evidence of abdominal wall hernia. GENITOURINARY: Testes and scrotum within normal limits. RECTAL: Rectal status post proctectomy. EXTREMITIES: Without edema. NEUROLOGIC: Physiologic. IMPRESSION: 1. Malfunctioning Denise continent ileostomy with difficulty with intubation and intermittent incontinence, and history of pouchitis. 2. History of ulcerative colitis. 3. Status post multiple abdominal operations, 3.1 Proctocolectomy and Lucy ileostomy in 1976. 3.2 Kock pouch continent ileostomy in 1977. 3.3 Resection of Kock pouch with distal ileal stricture and creation of a Denise continent ileostomy 2008. 3.4 Revision of Denise continent ileostomy stoma in 2009. 3.5 Revision of Denise pouch stoma and access segment and repair of incisional hernia with laparotomy on April 29, 2017.3. 3.6 Laparotomy with revision of Denise continent ileostomy nipple-valve and revision of stoma stenosis and repair of recurrent incisional hernia using [employer] C-QUR mesh and curetting and cauterization of perineal sinus tract, status post remote proctectomy November 23, 2017. PLAN: The patient will undergo Denise pouch endoscopy, which will not require any anesthesia or sedation. He has been through this before and understands and agrees to proceed. Rodney Stone M.D. DR: KORY JOB#: [id number] CC:
[~2018-08-12] VITALS: Ht 170.2 cm; Wt 80.7 kg
[2018-08-12 11:44] VITALS: BP 127/82
[2018-08-12] MEDS ORDERED: VITAMIN B122500 MCG PO (11:52)
--- NOTE | 2018-08-12 12:45 | Pre-Procedure Note/Attestation ---
Pre-Procedure Note/Attestation Complete Prior to Procedure Planned Procedure: not applicable Procedure Narrative: Denise continent ileostomy pouch endoscopy Indications for Procedure Pre-Operative Diagnosis: malfunctioning Denise continent ileostomy Attestation I attest that I discussed the nature of the procedure; its benefits; risks and complications; and alternatives (and the risks and benefits of such alternatives ), prior to the procedure, with the patient (or the patient's legal billing representative). I attest that, if there was a reasonable possibility of needing a blood transfusion, the patient (or the patient's legal billing representative) was given the [facility] standardized written summary, pursuant to the [place] Blood Safety Act ([place] Health and Safety Code # 1645, as amended). I attest that I re-evaluated the patient just prior to the surgery and that there has been no change in the patient's H&P, except as documented below: none Rodney Stone MD Aug 12, 2018 12:45
--- NOTE | 2018-08-12 13:13 | Brief Operative Note ---
Immediate Post Operative Note Operative Note Pre-op Diagnosis: malfunctioning Denise continent ileostomy Procedure: Denise continent ileostomy pouch endoscopy Post-op Diagnosis: partially slipped valve with angulation Post-op Diagnosis: same as pre-op Findings: consistent w/pre-op dx studies Surgeon: danni Anesthesia: other - none Specimen: none Complications: none Condition: stable Fluids: none Estimated Blood Loss: none Drains: none Implant(s) used?: No Rodney Stone MD Aug 12, 2018 13:13
[2018-08-12 13:15] VITALS: BP 118/85
--- NOTE | 2018-08-12 17:00 | Procedure Note ---
DATE OF PROCEDURE: 08/12/2018 PROCEDURE: Endoscopy. ENDOSCOPIST: Rodney Stone M.D. ANESTHESIA: None. SEDATION: None. PRE-ENDOSCOPY DIAGNOSES: 1. Malfunctioning Denise continent ileostomy with difficulty with intubation and incontinence. 2. History of ulcerative colitis. 3. Status post multiple abdominal operations. 3.1. Proctocolectomy and Lucy ileostomy in 1976. 3.2. Kock pouch continent ileostomy in 1977. 3.3. Resection of Kock pouch with distal ileal stricture and creation of a Denise continent ileostomy in 2008. 3.4. Revision of Denise continent ileostomy stoma in 2009. 3.5. Revision of Denise pouch stoma and access segment and repair of incisional hernia with laparotomy on 04/29/2017. 3.6. Laparotomy with revision of Denise continent ileostomy nipple valve and revision of stoma stenosis and repair of recurrent incisional hernia using mesh with curetting and cauterization of perineal sinus tract from remote proctectomy on 11/23/2017. POST-ENDOSCOPY DIAGNOSES: 1. Malfunctioning Denise continent ileostomy with difficulty with intubation and incontinence. 2. History of ulcerative colitis. 3. Status post multiple abdominal operations. 3.1. Proctocolectomy and Lucy ileostomy in 1976. 3.2. Kock pouch continent ileostomy in 1977. 3.3. Resection of Kock pouch with distal ileal stricture and creation of a Denise continent ileostomy in 2008. 3.4. Revision of Denise continent ileostomy stoma in 2009. 3.5. Revision of Denise pouch stoma and access segment and repair of incisional hernia with laparotomy on 04/29/2017. 3.6. Laparotomy with revision of Denise continent ileostomy nipple valve and revision of stoma stenosis and repair of recurrent incisional hernia using mesh with curetting and cauterization of perineal sinus tract from remote proctectomy on 11/23/2017. ENDOSCOPY PERFORMED: Denise continent ileostomy pouch endoscopy. FINDINGS: A normal pouch without signs of pouchitis, but with a deformed nipple valve representing partial slipping with angulation. DESCRIPTION OF PROCEDURE: The patient was taken to the GI laboratory and under no sedation and given no anesthesia, positioned supine, I used the [id number] to enter the stoma low in the right lower quadrant. The distance to the tip of the valve was about 9 centimeters, but there was a marked angulation in the distal valve segment. Once the pouch was entered, it was distensible and the mucosa looked normal. There were few superficial ulcerations from catheter trauma. Retroflex views revealed that the nipple valve was tilted and foreshortened. During the procedure, the gas escaped around the scope through the stoma. Withdrawal views confirmed the above findings. After removing the endoscope, I was able to readily insert a 28-[place] Chahal catheter into the pouch and irrigated it clear, I removed it, and inserted it again without requiring manipulation. The patient is given a Chahal catheters 28-[place], 26-[place], 24-[place], as well as a 24-[place] Medena, and a 24-[place] Bhumi catheter. He is advised that if he has continuing difficulties with intubating his pouch to evacuate stool and continuing incontinence, he will likely need another surgical revision. The patient tolerated the endoscopy well. Rodney Stone M.D. DR: DAGMAR JOB#: [id number] CC:
== END 2018-08-12 13:30 | disposition home or self-care (01) ==
LOC: GAS 10:59
DX: K94.13 Enterostomy malfunction (principal); Z90.49 Acquired absence of other specified parts of digestive tract; Z79.899 Other long term (current) drug therapy; Z88.0 Allergy status to penicillin; Z88.8 Allergy status to other drugs, medicaments and biological substances